=== PATIENT | female | born 1960 | race Caucasian/White ===

== ENCOUNTER → 2017-01-15 00:33 | Emergency (ER) | payer MEDICAID, MEDICARE, OTHER ==
[~2017-01-15 00:33] MED LIST: Cephalexin CAP* 500 MG PO ONE; diPHENhydraMINE PO* 25 MG PO ONE
--- NOTE | 2017-01-15 01:29 | ED ---
Skin Complaint - HPI Summary HPI Summary: Patient presents to ED with CC of redness, itching and warmth to the upper eyelid x 2 days with now worsening pain. She denies visual disturbances. She endorses allergies and has been outside a lot recently. She denies trauma or known insect bite. The eyelid began with itching and progressed to pain and swelling. No involvement in the medial or lateral portion of the eye. There is no pain with eye movement. - History of Current Complaint Chief Complaint: EDEyeProblem Time Seen by Provider: 01/15/17 00:57 Stated Complaint: LEFT EYE PROBLEM Hx Obtained From: Patient Hx Last Menstrual Period: 1995 Onset/Duration: Started Days Ago Skin Exposure Onset/Duration: Days Ago Timing: Constant Onset Severity: Moderate Current Severity: Moderate Pain Intensity: 7 Pain Scale Used: 0-10 Numeric Skin Location: Other: - upper eye lid Character: Swelling, Pruritus, Pain, Redness Aggravating Symptom(s): Touch Alleviating Symptom(s): Cold Associated Signs & Symptoms: Negative Related History: Possible Reaction to: Insect - Allergy/Home Medications Allergies/Adverse Reactions: Allergies Allergy/AdvReac Type Severity Reaction Status Date / Time Acetaminophen [From Tylenol] Allergy Severe seizures Verified 02/12/16 07:44 Aspirin Allergy Severe Hives Verified 02/12/16 07:44 Celecoxib [From Celebrex] Allergy Mild Hives Verified 02/12/16 07:44 Penicillins Allergy Mild Hives Verified 02/12/16 07:44 Phenytoin [From Dilantin] Allergy Mild Hives Verified 02/12/16 07:44 Rofecoxib [From Vioxx] Allergy Mild Hives Verified 02/12/16 07:44 Sulfa Drugs Allergy Mild Hives Verified 02/12/16 07:44 Ibuprofen [From Advil] AdvReac Severe seizures Verified 02/12/16 07:44 Clarithromycin [From Biaxin] AdvReac Intermediate GI PROBLEMS Verified 02/12/16 07:44 PMH/Surg Hx/FS Hx/Imm Hx Previously Healthy: Yes Endocrine/Hematology History: Denies: Hx Diabetes, Hx Systemic Lupus Erythematosus, Hx Sickle Cell Disease , Hx Thyroid Disease, Hx Anemia Cardiovascular History: Reports: Hx Angina, Hx Hypertension - WELL CONTROLLED Denies: Hx Congestive Heart Failure, Hx Deep Vein Thrombosis, Hx Myocardial Infarction, Hx Pacemaker/ICD, Other Cardiovascular Problems/Disorders Respiratory History: Reports: Hx Asthma, Hx Chronic Bronchitis, Hx Chronic Obstructive Pulmonary Disease (COPD), Hx Seasonal Allergies, Other Respiratory Problems/Disorders - CURRENT SMOKER <1/2 PPD X 20+ YEARS Denies: Hx Lung Cancer, Hx Pneumonia, Hx Sleep Apnea GI History: Reports: Hx Gall Bladder Disease - removed 10 years ago, Hx Gastroesophageal Reflux Disease - WELL CONTROLLED, Other GI Disorders - HX OF VENTRAL HERNIA REPAIR WITH MESH 01/2013, GERD Denies: Hx Gastrointestinal Bleed, Hx Ulcer, Hx Urosepsis History: Denies: Hx Dialysis, Hx Kidney Infection, Hx Kidney Stones, Hx Renal Disease , Other Problems/Disorders Musculoskeletal History: Reports: Hx Arthritis - HANDS, Hx Gout, Other Musculoskeletal History - BILATERAL TOTAL KNEE REPLACEMENT Denies: Hx Rheumatoid Arthritis Sensory History: Denies: Hx Contacts or Glasses, Hx Glaucoma, Hx Macular Degeneration Opthamlomology History: Denies: Hx Contacts or Glasses, Hx Glaucoma, Hx Macular Degeneration Neurological History: Reports: Hx Migraine - RARE, Hx Seizures - LAST ONE 6 YRS AGO Denies: Other Neuro Impairments/Disorders Psychiatric History: Reports: Hx Anxiety, Hx Depression Denies: Hx Eating Disorder, Hx of Violent Episodes Against Others, Hx Substance Abuse - Cancer History Hx Chemotherapy: No - Surgical History Surgery Procedure, Year, and Place: right TKA -02/2010 [facility] [place]. left TKA- 04/2011 [facility] [place]. [facility] [place] hysterectomy 1995. LAP FIDENCIO 2007. VENTRAL HERNIA REPAIR 01/2013 UMBILICAL HERNIA REPAIR. RIGHT INDEX TRIGGER FINGER 2005 [facility] [place]. R CTR 2013 [facility] Hx Anesthesia Reactions: No - Immunization History Date of Tetanus Vaccine: Unk Date of Influenza Vaccine: 03/29 Hx Pertussis Vaccination: No Immunizations Up to Date: Unable to Obtain/Confirm Infectious Disease History: No Infectious Disease History: Denies: Hx Clostridium Difficile, Hx Hepatitis, Hx Human Immunodeficiency Virus (HIV), Hx Shingles, Hx Tuberculosis, Hx Known/Suspected VRE, Hx Known/ Suspected VRSA, History Other Infectious Disease, Traveled Outside the [place] in Last 30 Days - Family History Known Family History: Positive: None, Other - No FHx of psychiatric disorders - Social History Occupation: Unemployed Lives: With Family Alcohol Use: None Hx Substance Use: No Substance Use Type: Reports: None Hx Tobacco Use: Yes Smoking Status (MU): Light Every Day Tobacco Smoker Type: Cigarettes Amount Used/How Often: 3 CIGS/DAY Length of Time of Smoking/Using Tobacco: 20 YRS Have You Smoked in the Last Year: Yes Review of Systems Constitutional: Negative Eyes: Negative ENT: Negative Cardiovascular: Negative Respiratory: Negative Positive: Other - erythema, warmth and slight swelling to the rigth upper eyelid Positive: Headache Psychological: Normal All Other Systems Reviewed And Are Negative: Yes Physical Exam Triage Information Reviewed: Yes Vital Signs On Initial Exam: Initial Vitals Temp Pulse Resp BP Pulse Ox 97.4 F 101 16 132/94 95 01/15/17 00:36 01/15/17 00:36 01/15/17 00:36 01/15/17 00:36 01/15/17 00:36 Vital Signs Reviewed: Yes Appearance: Positive: Well-Appearing, No Pain Distress, Well-Nourished Skin: Positive: Warm, Skin Color Reflects Adequate Perfusion, Other - erythema, warmth and slight swelling to the rigth upper eyelid Head/Face: Positive: Normal Head/Face Inspection Eyes: Positive: EOMI, ANTONIO, Conjunctiva Clear Neck: Positive: Supple, No Lymphadenopathy Respiratory/Lung Sounds: Positive: Clear to Auscultation, Breath Sounds Present Cardiovascular: Positive: Normal, RRR, Pulses are Symmetrical in both Upper and Lower Extremities Musculoskeletal: Positive: Normal, Strength/ROM Intact Neurological: Positive: Normal, Sensory/Motor Intact, Alert, Oriented to Person Place, Time Psychiatric: Positive: Normal Diagnostics - Vital Signs Vital Signs Temp Pulse Resp BP Pulse Ox 01/15/17 00:36 97.4 F 101 16 132/94 95 - Laboratory Lab Statement: Any lab studies that have been ordered have been reviewed, and results considered in the medical decision making process. Course/Dx - Course Course Of Treatment: erythema, warmth and slight swelling to the rigth upper eyelid worsening x 2 days. No known trauma or insect bite. Likely insect bite with cocomittant infection and/or pain over the lateral portion of the upper eyelids d/t anatomy and position of lacrimal gland overuse from allergies. Will treat with keflex and hydroxyzine and encourage cold compresses. - Differential Diagnoses - Skin Complaint Differential Diagnoses: Cellulitis, Contact Dermatitis, Urticaria - Diagnoses Provider Diagnoses: Bug bite of face with infection Discharge - Discharge Plan Condition: Stable Disposition: HOME Prescriptions: Cephalexin CAP* [Keflex CAP*] 500 mg PO QID #20 cap MDD 4 hydrOXYzine HCL TAB* [Atarax 10 MG TAB*] 10 mg PO TID PRN #10 tab PRN Reason: Itching Patient Education Materials: Insect Bite or Sting (ED) Referrals: Tatiana Geronimo MD [Primary Care Provider] - Additional Instructions: Likely this is a bug bite which could have become infected Best treatment includes cold compresses to the eye, antihistamines and hydroxyzine up to three times daily for itching Kelfex four times daily for 5 days. If you develop any worsening symptoms, return to ED immediately.
[2017-01-15 01:37] VITALS: BP 129/72
== END | disposition home or self-care (01) ==
LOC: ED 00:33
DX: S00.86XA Insect bite (nonvenomous) of other part of head, initial encounter (principal); L08.9 Local infection of the skin and subcutaneous tissue, unspecified; W57.XXXA Bitten or stung by nonvenomous insect and other nonvenomous arthropods, initial encounter; Y92.9 Unspecified place or not applicable; Z88.0 Allergy status to penicillin; Z88.2 Allergy status to sulfonamides; Z88.6 Allergy status to analgesic agent; F17.210 Nicotine dependence, cigarettes, uncomplicated
CPT/HCPCS: 99282; A9270-GY

== ENCOUNTER 2017-03-03 10:39 | Emergency (ER) | payer MEDICARE ==
--- NOTE | 2017-03-03 12:23 | ED ---
Back Pain - HPI Summary HPI Summary: Patient presents to the ED with CC of low back pain after changing a tire yesterday. She has a history of mild back pain, but not for several years. She began to feel increasing muscle tightness and pain this morning upon wakening. She is ambulating, but with pain. Pain is 5/10, feeling like spasms and located to the bilateral lower back without midline tenderness. She has never injured her back before. She has taken ibuprofen with little effect. She denies urinary symptoms or other complaints at this time. Pain is worse with twisting and bending and better with rest. Denies bladder or bowel dysfunction. She endorses multiple allergies to medications. - History of Current Complaint Chief Complaint: EDBackInjuryPain Stated Complaint: BACK PAIN Time Seen by Provider: 03/03/17 11:03 Hx Obtained From: Patient Hx Last Menstrual Period: 1995 Onset/Duration: Sudden Onset Onset/Duration: Started Hours Ago Timing: Constant Back Pain Location: Is Discrete @ - bilateral lower back Pain Intensity: 9 Pain Scale Used: 0-10 Numeric Character: Aching, Spasmodic Aggravating Symptom(s): Movement, Lifting, Walking Alleviating Symptom(s): Position Associated Signs And Symptoms: Positive: Negative - Risk Factors AAA Risk Factors: Negative TAD Risk Factors: Negative Cauda Equina Risk Factors: Negative Epidural Abscess Risk Factors: Negative - Allergies/Home Medications Allergies/Adverse Reactions: Allergies Allergy/AdvReac Type Severity Reaction Status Date / Time Acetaminophen [From Tylenol] Allergy Severe seizures Verified 02/12/16 07:44 Aspirin Allergy Severe Hives Verified 02/12/16 07:44 Celecoxib [From Celebrex] Allergy Mild Hives Verified 02/12/16 07:44 Penicillins Allergy Mild Hives Verified 02/12/16 07:44 Phenytoin [From Dilantin] Allergy Mild Hives Verified 02/12/16 07:44 Rofecoxib [From Vioxx] Allergy Mild Hives Verified 02/12/16 07:44 Sulfa Drugs Allergy Mild Hives Verified 02/12/16 07:44 Ibuprofen [From Advil] AdvReac Severe seizures Verified 02/12/16 07:44 Clarithromycin [From Biaxin] AdvReac Intermediate GI PROBLEMS Verified 02/12/16 07:44 PMH/Surg Hx/FS Hx/Imm Hx Previously Healthy: Yes Endocrine/Hematology History: Denies: Hx Diabetes, Hx Systemic Lupus Erythematosus, Hx Sickle Cell Disease , Hx Thyroid Disease, Hx Anemia Cardiovascular History: Reports: Hx Angina, Hx Hypertension - WELL CONTROLLED Denies: Hx Congestive Heart Failure, Hx Deep Vein Thrombosis, Hx Myocardial Infarction, Hx Pacemaker/ICD, Other Cardiovascular Problems/Disorders Respiratory History: Reports: Hx Asthma, Hx Chronic Bronchitis, Hx Chronic Obstructive Pulmonary Disease (COPD), Hx Seasonal Allergies, Other Respiratory Problems/Disorders - CURRENT SMOKER <1/2 PPD X 20+ YEARS Denies: Hx Lung Cancer, Hx Pneumonia, Hx Sleep Apnea GI History: Reports: Hx Gall Bladder Disease - removed 10 years ago, Hx Gastroesophageal Reflux Disease - WELL CONTROLLED, Other GI Disorders - HX OF VENTRAL HERNIA REPAIR WITH MESH 01/2013, GERD Denies: Hx Gastrointestinal Bleed, Hx Ulcer, Hx Urosepsis History: Denies: Hx Dialysis, Hx Kidney Infection, Hx Kidney Stones, Hx Renal Disease , Other Problems/Disorders Musculoskeletal History: Reports: Hx Arthritis - HANDS, Hx Gout, Other Musculoskeletal History - BILATERAL TOTAL KNEE REPLACEMENT Denies: Hx Rheumatoid Arthritis Sensory History: Denies: Hx Contacts or Glasses, Hx Glaucoma, Hx Macular Degeneration Opthamlomology History: Denies: Hx Contacts or Glasses, Hx Glaucoma, Hx Macular Degeneration Neurological History: Reports: Hx Migraine - RARE, Hx Seizures - LAST ONE 6 YRS AGO Denies: Other Neuro Impairments/Disorders Psychiatric History: Reports: Hx Anxiety, Hx Depression Denies: Hx Eating Disorder, Hx of Violent Episodes Against Others, Hx Substance Abuse - Cancer History Hx Chemotherapy: No - Surgical History Surgery Procedure, Year, and Place: [place] [facility] [place] [facility] [place] [facility] [place]. LAP FIDENCIO 2007. VENTRAL HERNIA REPAIR 01/2013 UMBILICAL HERNIA REPAIR. RIGHT INDEX TRIGGER [place]INGER [place] [facility] [place] [facility] [place]x Anesthesia Reactions: No - Immunization History Date of Tetanus Vaccine: Unk Date of Influenza Vaccine: 03/29 Hx Pertussis Vaccination: No Immunizations Up to Date: Unable to Obtain/Confirm Infectious Disease History: Denies: Hx Clostridium Difficile, Hx Hepatitis, Hx Human Immunodeficiency Virus (HIV), Hx Shingles, Hx Tuberculosis, Hx Known/Suspected VRE, Hx Known/ Suspected VRSA, History Other Infectious Disease, Traveled Outside the [place] in Last 30 Days - Family History Known Family History: Positive: None, Other - No FHx of psychiatric disorders - Social History Occupation: Employed Full-time Lives: With Family Alcohol Use: None Hx Substance Use: No Substance Use Type: Reports: None Hx Tobacco Use: Yes Smoking Status (MU): Light Every Day Tobacco Smoker Type: Cigarettes Amount Used/How Often: 3 CIGS/DAY Length of Time of Smoking/Using Tobacco: 20 YRS Have You Smoked in the Last Year: Yes Review of Systems Constitutional: Negative Eyes: Negative Respiratory: Negative Gastrointestinal: Negative Positive: no symptoms reported, see HPI Positive: Arthralgia - bilateral lower back pain with spasms Skin: Negative Neurological: Negative Psychological: Normal All Other Systems Reviewed And Are Negative: Yes Physical Exam - Summary Physical Exam Summary: Thorough physical exam was performed, focusing on thoracic and lumbar special tests and ROM. Limited ROM. Hip flexion and extension, knee extension, dorsiflexion, great toe extension and plantar flexion intact. Rotating at hips limited d/t pain. Nerve roots L4-S2 reflexes intact. L1-S2 nerve root sensory intact. No saddle anesthesia. Gait normal. Triage Information Reviewed: Yes Vital Signs On Initial Exam: Initial Vitals Temp Pulse Resp BP Pulse Ox 97.4 F 77 20 136/78 97 03/03/17 10:41 03/03/17 10:41 03/03/17 10:41 03/03/17 10:41 03/03/17 10:41 Vital Signs Reviewed: Yes Appearance: Positive: Well-Appearing, Well-Nourished Skin: Positive: Warm, Skin Color Reflects Adequate Perfusion Head/Face: Positive: Normal Head/Face Inspection Eyes: Positive: EOMI, ANTONIO, Conjunctiva Clear Neck: Positive: Supple, No Lymphadenopathy Respiratory/Lung Sounds: Positive: Clear to Auscultation, Breath Sounds Present Musculoskeletal: Positive: Strength/ROM Intact, Pain @ - right and left lower back pain Neurological: Positive: Speech Normal Psychiatric: Positive: Normal AVPU Assessment: Alert - Cal Coma Scale Best Eye Response: 4 - Spontaneous Best Motor Response: 6 - Obeys Commands Best Verbal Response: 5 - Oriented Diagnostics - Vital Signs Vital Signs Temp Pulse Resp BP Pulse Ox 03/03/17 10:41 97.4 F 77 20 136/78 97 - Laboratory Lab Statement: Any lab studies that have been ordered have been reviewed, and results considered in the medical decision making process. Back Pain Course/Dx - Course Course Of Treatment: D/t how the injury occurred, this pain is likely a muscle spasm and not herniation or compression fracture or other concerning pathology. Treatment options explained. Patient and provider agreed conservative measures will be approached first, and will defer at this time any imaging. Encouraged Ibuprofen 600mg three times daily with meals for pain. Moist heat to the area and only take flexeril as needed for pain not well controlled with ibuprofen. Return precautions given. Educated patient regarding back injuries and healing time and the need for further imaging if discomfort is present for > 6 weeks. - Diagnoses Differential Diagnosis/HQI/PQRI: Positive: Herniated Disc, Strain, Sprain Provider Diagnoses: Muscle spasm Discharge - Discharge Plan Condition: Stable Disposition: HOME Prescriptions: Cyclobenzaprine TAB* [Flexeril TAB*] 10 mg PO BID PRN #10 tab MDD 2 PRN Reason: Spasms Patient Education Materials: Lumbar Radiculopathy (ED), Lower Back Exercises ( ED) Referrals: Tatiana Geronimo MD [Primary Care Provider] - Additional Instructions: Follow up with your PCP this week With no injury, as discussed this is likely a low back strain with muscular spasms causing the sciatic nerve pain and left sided low back pain. Will defer at this time any imaging but please return to the ED if any worsening symptoms develop for further evaluation. Moist heat to the area as much as possible: this may include a rice bag or a corn bag. Anything that can be placed in the microwave. Flexeril: This medication is a muscle relaxant and can help relieve muscle spasms, muscle strain, or pain sensations. Flexeril can cause side effects that may impair your thinking or reactions. Be careful if you drive or do anything that requires you to be awake and alert. Avoid drinking alcohol, which can increase some of the side effects of Flexeril. This medication may have an interaction with your Effexor if taken for too long. I have given you a maximum of 5 days worth. If you develop any symptoms you feel is caused from an interaction including agitation, confusion, sweating , heart racing or nausea, please return to the ED immediately. Warm showers or baths may improve symptoms. It is important to remain mobile as tolerated to prevent stiffening of the joints and delay healing. Follow up with your PCP. If symptoms remain for > 6 weeks, please seek special medical attention from an orthopedic physician.
[2017-03-03 12:48] VITALS: BP 133/79
== END 2017-03-03 12:53 | disposition home or self-care (01) ==
LOC: ED 10:39
DX: M62.838 Other muscle spasm (principal); M54.5 Low back pain; F17.210 Nicotine dependence, cigarettes, uncomplicated
CPT/HCPCS: 99282

== ENCOUNTER 2017-03-09 02:04 | Emergency (ER) | payer MEDICARE ==
[2017-03-09 02:14] VITALS: BP 142/92
--- NOTE | 2017-03-09 02:57 | ED ---
Benjamin Boykin Rebecca, scribed for Darius Osman MD on 03/09/17 at 0251 . Back Pain - HPI Summary HPI Summary: Pt is a 56 y/o F who presents to ED c/o upper back and neck pain with radiation down the shoulders. Sx began 3 days ago and is currently moderate, ranked 7/10 and characterized as throbbing. Pt has taken Oxycodone and a muscle relaxant ( unsure of name) when she went to see her PCP either today or yesterday (unsure of which day). Sx aggravated by moving the head in either direction and laying down, alleviated by nothing. Pt cannot take Ibuprofen or Tylenol due to them triggering her seizures. - History of Current Complaint Chief Complaint: EDBackInjuryPain Stated Complaint: BACK AND NECK PAIN INTO SHOULDERS Time Seen by Provider: 03/09/17 02:46 Hx Obtained From: Patient Hx Last Menstrual Period: 1995 Onset/Duration: Lasting Days - 3 days, Still Present Onset/Duration: Still Present Back Pain Location: Is Discrete @ - Upper back and neck pain, Radiates To - Bilateral shoulders Severity Currently: Moderate Pain Intensity: 7 Pain Scale Used: 0-10 Numeric Character: Throbbing Aggravating Symptom(s): Movement Alleviating Symptom(s): Nothing Associated Signs And Symptoms: Positive: Negative - Allergies/Home Medications Allergies/Adverse Reactions: Allergies Allergy/AdvReac Type Severity Reaction Status Date / Time Acetaminophen [From Tylenol] Allergy Severe seizures Verified 02/12/16 07:44 Aspirin Allergy Severe Hives Verified 02/12/16 07:44 Celecoxib [From Celebrex] Allergy Mild Hives Verified 02/12/16 07:44 Penicillins Allergy Mild Hives Verified 02/12/16 07:44 Phenytoin [From Dilantin] Allergy Mild Hives Verified 02/12/16 07:44 Rofecoxib [From Vioxx] Allergy Mild Hives Verified 02/12/16 07:44 Sulfa Drugs Allergy Mild Hives Verified 02/12/16 07:44 Ibuprofen [From Advil] AdvReac Severe seizures Verified 02/12/16 07:44 Clarithromycin [From Biaxin] AdvReac Intermediate GI PROBLEMS Verified 02/12/16 07:44 PMH/Surg Hx/FS Hx/Imm Hx Endocrine/Hematology History: Denies: Hx Diabetes, Hx Systemic Lupus Erythematosus, Hx Sickle Cell Disease , Hx Thyroid Disease, Hx Anemia Cardiovascular History: Reports: Hx Angina, Hx Hypertension - WELL CONTROLLED Denies: Hx Congestive Heart Failure, Hx Deep Vein Thrombosis, Hx Myocardial Infarction, Hx Pacemaker/ICD, Other Cardiovascular Problems/Disorders Respiratory History: Reports: Hx Asthma, Hx Chronic Bronchitis, Hx Chronic Obstructive Pulmonary Disease (COPD), Hx Seasonal Allergies, Other Respiratory Problems/Disorders - CURRENT SMOKER <1/2 PPD X 20+ YEARS Denies: Hx Lung Cancer, Hx Pneumonia, Hx Sleep Apnea GI History: Reports: Hx Gall Bladder Disease - removed 10 years ago, Hx Gastroesophageal Reflux Disease - WELL CONTROLLED, Other GI Disorders - HX OF VENTRAL HERNIA REPAIR WITH MESH 01/2013, GERD Denies: Hx Gastrointestinal Bleed, Hx Ulcer, Hx Urosepsis History: Denies: Hx Dialysis, Hx Kidney Infection, Hx Kidney Stones, Hx Renal Disease , Other Problems/Disorders Musculoskeletal History: Reports: Hx Arthritis - HANDS, Hx Gout, Other Musculoskeletal History - BILATERAL TOTAL KNEE REPLACEMENT Denies: Hx Rheumatoid Arthritis Sensory History: Denies: Hx Contacts or Glasses, Hx Glaucoma, Hx Macular Degeneration Opthamlomology History: Denies: Hx Contacts or Glasses, Hx Glaucoma, Hx Macular Degeneration Neurological History: Reports: Hx Migraine - RARE, Hx Seizures - LAST ONE 6 YRS AGO Denies: Other Neuro Impairments/Disorders Psychiatric History: Reports: Hx Anxiety, Hx Depression Denies: Hx Eating Disorder, Hx of Violent Episodes Against Others, Hx Substance Abuse - Cancer History Hx Chemotherapy: No - Surgical History Surgery Procedure, Year, and Place: right TKA -02/2010 [facility] [place]. left TKA- 04/2011 [facility] [place]. [facility] [place] hysterectomy 1995. LAP FIDENCIO 2007. VENTRAL HERNIA REPAIR 01/2013 UMBILICAL HERNIA REPAIR. RIGHT INDEX TRIGGER FINGER 2005 [facility] [place]. R CTR 2013 [facility] [place] Hx Anesthesia Reactions: No - Immunization History Date of Tetanus Vaccine: Unk Date of Influenza Vaccine: 03/29 Infectious Disease History: No Infectious Disease History: Denies: Hx Clostridium Difficile, Hx Hepatitis, Hx Human Immunodeficiency Virus (HIV), Hx Shingles, Hx Tuberculosis, Hx Known/Suspected VRE, Hx Known/ Suspected VRSA, History Other Infectious Disease, Traveled Outside the [place] in Last 30 Days - Family History Known Family History: Positive: Other - No FHx of psychiatric disorders - Social History Alcohol Use: None Hx Substance Use: No Substance Use Type: Reports: None Hx Tobacco Use: Yes Smoking Status (MU): Light Every Day Tobacco Smoker Type: Cigarettes Amount Used/How Often: 3 CIGS/DAY Length of Time of Smoking/Using Tobacco: 20 YRS Have You Smoked in the Last Year: Yes Review of Systems Negative: Fever Positive: Arthralgia - Upper back and neck pain with radiation down the shoulders All Other Systems Reviewed And Are Negative: Yes Physical Exam Triage Information Reviewed: Yes Vital Signs On Initial Exam: Initial Vitals Temp Pulse Resp BP Pulse Ox 97.2 F 80 19 142/92 95 03/09/17 02:12 03/09/17 02:12 03/09/17 02:12 03/09/17 02:12 03/09/17 02:12 Vital Signs Reviewed: Yes Appearance: Positive: Well-Appearing, No Pain Distress Skin: Positive: Warm Head/Face: Positive: Normal Head/Face Inspection Eyes: Positive: ANTONIO ENT: Positive: Hearing grossly normal Neck: Positive: Supple, Nontender. Negative: Nuchal Rigidity Cardiovascular: Positive: RRR Abdomen Description: Positive: Soft Bowel Sounds: Positive: Present Musculoskeletal: Positive: Strength/ROM Intact Neurological: Positive: Alert, Oriented to Person Place, Time Diagnostics - Vital Signs Vital Signs Temp Pulse Resp BP Pulse Ox 03/09/17 02:12 97.2 F 80 19 142/92 95 - Laboratory Lab Statement: Any lab studies that have been ordered have been reviewed, and results considered in the medical decision making process. Back Pain Course/Dx - Course Assessment/Plan: Pt is a 56 y/o F who presents to ED c/o upper back and neck pain with radiation down the shoulders. Sx began 3 days ago and is currently moderate, ranked 7/10 and characterized as throbbing. Pt has taken Oxycodone and a muscle relaxant (unsure of name) when she went to see her PCP either today or yesterday (unsure of which day). Sx aggravated by moving the head in either direction and laying down. Pt cannot take Ibuprofen or Tylenol due to them triggering her seizures. She will be D/C to home with Dx of neck pain, a soft C-Collar and a follow up with her PCP. She understands and agrees. Elevated BP noted and advised to f/u with PCP. - Diagnoses Provider Diagnoses: Neck pain Discharge - Discharge Plan Condition: Stable Disposition: HOME Patient Education Materials: Neck Pain (ED) Referrals: Tatiana Geronimo MD [Primary Care Provider] - 3 Days Additional Instructions: Return to ED for any returning or worsening symptoms. The documentation as recorded by the Benjamin mcneal Rebecca accurately reflects the service I personally performed and the decisions made by , Darius Osman MD.
== END 2017-03-09 02:57 | disposition home or self-care (01) ==
LOC: ED 02:04
DX: M54.9 Dorsalgia, unspecified (principal); M54.2 Cervicalgia
CPT/HCPCS: 99281

== ENCOUNTER 2017-04-21 06:03 | Emergency (ER) | payer MEDICARE ==
[2017-04-21] MEDS ORDERED: Ondansetron INJ* 2 MG/ML VIAL IV ONE ×2 (07:50→10:05)
[2017-04-21] MEDS: NS 0.9% 1000 ML* 2,000 ML IV ONE ×2 (08:20→09:31)
[2017-04-21 08:52] LABS: Hematocrit 42 % (35-47); Mean Corpuscular HGB Conc 34 g/dl (31-36); Mean Corpuscular Hemoglobin 30 pg (27-31); Mean Corpuscular Volume 90 fL (80-97); Mean Platelet Volume 10 um3 (7.4-10.4); Red Blood Count 4.64 10^6/ul (4.0-5.4); Red Cell Distribution Width 14 % (10.5-15); White Blood Count 8.6 10^3/ul (3.5-10.8)
[2017-04-21 09:03] LABS: Albumin 3.9 g/dL (3.2-5.2); BUN/Creatinine Ratio 23.8 (8-20); C Reactive Protein 11.73 mg/L (< 5.00); Calcium 9.1 mg/dL (8.6-10.3); EGFR African American 125.3 (>60); EGFR Non-African American 97.4 (>60); Potassium 4.1 mmol/L (3.5-5.0); Total Bilirubin 0.2 mg/dL (0.2-1.0); Total Protein 6.9 g/dL (6.4-8.9)
[2017-04-21 09:06] LABS: Troponin I 0.01 ng/mL (<0.04)
[2017-04-21] MEDS ORDERED: Al Hydrox/Mg Hydrox/Simet LIQ* 30 ML UDC PO ONE (10:05)
[2017-04-21] MEDS ORDERED: Lidocaine 2% VISCOUS* 15 ML UDC PO ONE (10:05)
[2017-04-21 13:34] VITALS: BP 120/87
--- NOTE | 2017-04-26 12:40 | ED ---
Noel Boykin Alfonso, scribed for David Em MD on 04/21/17 at 0753 . Abdominal Pain/Female - HPI Summary HPI Summary: This patient is a 56 year old F presenting to [facility] with a chief complaint of abdominal pain since 0100 today. The patient rates the pain 9/10 in severity. Symptoms aggravated by nothing. Symptoms alleviated by nothing. 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 Patient reports vomiting (last at 0400 today), diarrhea (watery stool earlier in the night but resolved in her last BM at 0300), dizziness, lightheadedness, chills, and diaphoresis. Patient denies fever, back pain, and shoulder pain. Tobacco abuse disorder. - History of Current Complaint Chief Complaint: EDAbdPain Stated Complaint: VOMITING/FEVER Time Seen by Provider: 04/21/17 07:46 Hx Obtained From: Patient Onset/Duration: Sudden Onset, Lasting Hours - 0100 today, Still Present Timing: Constant Severity Currently: Severe Pain Intensity: 9 Pain Scale Used: 0-10 Numeric Aggravating Factor(s): Nothing Alleviating Factor(s): Nothing Associated Signs and Symptoms: Positive: Other: - vomiting (last at 0400 today) , diarrhea (watery stool earlier in the night but resolved in her last BM at 0300), dizziness, lightheadedness, chills, and diaphoresis. Patient denies fever , back pain, and shoulder pain. Allergies/Adverse Reactions: Allergies Allergy/AdvReac Type Severity Reaction Status Date / Time Acetaminophen [From Tylenol] Allergy Severe seizures Verified 04/21/17 06:15 Aspirin Allergy Severe Hives Verified 04/21/17 06:15 Celecoxib [From Celebrex] Allergy Mild Hives Verified 04/21/17 06:15 Penicillins Allergy Mild Hives Verified 04/21/17 06:15 Phenytoin [From Dilantin] Allergy Mild Hives Verified 04/21/17 06:15 Rofecoxib [From Vioxx] Allergy Mild Hives Verified 04/21/17 06:15 Sulfa Drugs Allergy Mild Hives Verified 04/21/17 06:15 Ibuprofen [From Advil] AdvReac Severe seizures Verified 04/21/17 06:15 Clarithromycin [From Biaxin] AdvReac Intermediate GI PROBLEMS Verified 04/21/17 06:15 PMH/Surg Hx/FS Hx/Imm Hx Endocrine/Hematology History: Denies: Hx Diabetes, Hx Systemic Lupus Erythematosus, Hx Sickle Cell Disease , Hx Thyroid Disease, Hx Anemia Cardiovascular History: Reports: Hx Angina, Hx Hypertension - WELL CONTROLLED Denies: Hx Congestive Heart Failure, Hx Deep Vein Thrombosis, Hx Myocardial Infarction, Hx Pacemaker/ICD, Other Cardiovascular Problems/Disorders Respiratory History: Reports: Hx Asthma, Hx Chronic Bronchitis, Hx Chronic Obstructive Pulmonary Disease (COPD), Hx Seasonal Allergies, Other Respiratory Problems/Disorders - CURRENT SMOKER <1/2 PPD X 20+ YEARS Denies: Hx Lung Cancer, Hx Pneumonia, Hx Sleep Apnea GI History: Reports: Hx Gall Bladder Disease - removed 10 years ago, Hx Gastroesophageal Reflux Disease - WELL CONTROLLED, Other GI Disorders - HX OF VENTRAL HERNIA REPAIR WITH MESH 01/2013, GERD Denies: Hx Gastrointestinal Bleed, Hx Ulcer, Hx Urosepsis History: Denies: Hx Dialysis, Hx Kidney Infection, Hx Kidney Stones, Hx Renal Disease , Other Problems/Disorders Musculoskeletal History: Reports: Hx Arthritis - HANDS, Hx Gout, Other Musculoskeletal History - BILATERAL TOTAL KNEE REPLACEMENT Denies: Hx Rheumatoid Arthritis Sensory History: Denies: Hx Contacts or Glasses, Hx Glaucoma, Hx Macular Degeneration Opthamlomology History: Denies: Hx Contacts or Glasses, Hx Glaucoma, Hx Macular Degeneration Neurological History: Reports: Hx Migraine - RARE, Hx Seizures - LAST ONE 6 YRS AGO Denies: Other Neuro Impairments/Disorders Psychiatric History: Reports: Hx Anxiety, Hx Depression Denies: Hx Eating Disorder, Hx of Violent Episodes Against Others, Hx Substance Abuse - Cancer History Hx Chemotherapy: No - Surgical History Surgery Procedure, Year, and Place: right TKA -02/2010 [facility] [place]. left TKA- 04/2011 [facility] [place]. [facility] [place] hysterectomy 1995. LAP FIDENCIO 2007. VENTRAL HERNIA REPAIR 01/2013 UMBILICAL HERNIA REPAIR. RIGHT INDEX TRIGGER FINGER 2005 [facility] [place]. R CTR 2013 [facility] [place] Hx Anesthesia Reactions: No - Immunization History Date of Tetanus Vaccine: Unk Date of Influenza Vaccine: 03/29 Infectious Disease History: No Infectious Disease History: Denies: Hx Clostridium Difficile, Hx Hepatitis, Hx Human Immunodeficiency Virus (HIV), Hx Shingles, Hx Tuberculosis, Hx Known/Suspected VRE, Hx Known/ Suspected VRSA, History Other Infectious Disease, Traveled Outside the [place] in Last 30 Days - Family History Known Family History: Positive: Other - No FHx of psychiatric disorders - Social History Alcohol Use: None Hx Substance Use: No Substance Use Type: Reports: None Hx Tobacco Use: Yes Smoking Status (MU): Light Every Day Tobacco Smoker Type: Cigarettes Amount Used/How Often: 3 CIGS/DAY Length of Time of Smoking/Using Tobacco: 20 YRS Have You Smoked in the Last Year: Yes Review of Systems Positive: Chills, Skin Diaphoresis. Negative: Fever Negative: Erythema Negative: Sore Throat Negative: Chest Pain Negative: Shortness Of Breath, Cough Positive: Abdominal Pain, Vomiting, Diarrhea. Negative: Nausea Negative: dysuria, hematuria Positive: Other - Negative back and shoulder pain. Negative: Myalgia, Edema Negative: Rash Neurological: Other - Dizziness, lightheadedness All Other Systems Reviewed And Are Negative: Yes Physical Exam - Summary Physical Exam Summary: Constitutional: Well-developed, Well-nourished, Alert. (-) Distressed Skin: Warm, Dry HENT: Normocephalic; Atraumatic Eyes: Conjunctiva normal, Dry oral mucosa Neck: Musculoskeletal ROM normal neck. (-) JVD, (-) Stridor, (-) Tracheal deviation Cardio: Rhythm regular, rate normal, Heart sounds normal; Intact distal pulses; The pedal pulses are 2+ and symmetric. Radial pulses are 2+ and symmetric. (-) Murmur Pulmonary/Chest wall: Effort normal. (-) Respiratory distress, (-) Wheezes, (-) Rales Abd: Soft, Epigastric and LUQ tenderness, (-) Distension, (-) Guarding, (-) Rebound Musculoskeletal: (-) Edema Lymph: (-) Cervical adenopathy Neuro: Alert, Oriented x3 Psych: Mood and affect Normal Triage Information Reviewed: Yes Vital Signs On Initial Exam: Initial Vitals Temp Pulse Resp BP Pulse Ox 97.5 F 80 18 128/78 97 04/21/17 06:11 04/21/17 06:11 04/21/17 06:11 04/21/17 06:11 04/21/17 06:11 Vital Signs Reviewed: Yes - [place] Coma Scale Coma Scale Total: 15 Diagnostics - Vital Signs Vital Signs Temp Pulse Resp BP Pulse Ox 04/21/17 06:11 97.5 F 80 18 128/78 97 - Laboratory Result Diagrams: 04/21/17 08:23 04/21/17 08:23 Lab Statement: Any lab studies that have been ordered have been reviewed, and results considered in the medical decision making process. - EKG 0823 Cardiac Rate: NL - BPM 71 EKG Rhythm: Sinus Rhythm EKG Interpretation: No STEMI Re-Evaluation - Re-Evaluation First Eval Re-Evaluation Time: 12:58 Change: Improved Comment: She reports feeling much better and asks to be discharged. Abdominal Pain Fem Course/Dx - Course Course Of Treatment: This patient is a 56 year old F presenting to [facility] with a chief complaint of abdominal pain since 0100 today. The patient rates the pain 9 /10 in severity. Symptoms aggravated by nothing. Symptoms alleviated by nothing. 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 Patient reports vomiting (last at 0400 today), diarrhea (watery stool earlier in the night but resolved in her last BM at 0300), dizziness, lightheadedness, chills, and diaphoresis. Patient denies fever, back pain, and shoulder pain. Tobacco abuse disorder. An EKG reveals NSR. Patient will be discharged with prescription for Zofran and follow up from PCP. The patient is agreeable with this plan. - Diagnoses Provider Diagnoses: Gastroenteritis Discharge - Discharge Plan Condition: Stable Disposition: HOME Prescriptions: Omeprazole CAP* [Prilosec CAP* 20 MG] 40 mg PO DAILY #7 cap. Ondansetron TAB* [Zofran 4 MG Tab*] 4 mg PO Q8H PRN #10 tab PRN Reason: Nausea/Vomiting Patient Education Materials: Gastroenteritis (ED) Referrals: Tatiana Geronimo MD [Primary Care Provider] - 3 Days Additional Instructions: RETURN TO THE EMERGENCY DEPARTMENT FOR CHANGING OR WORSENING SYMPTOMS. The documentation as recorded by the Noel mcneal Alfonso accurately reflects the service I personally performed and the decisions made by me, David Em MD.
== END 2017-04-21 13:35 | disposition home or self-care (01) ==
LOC: ED 06:03
DX: K52.9 Noninfective gastroenteritis and colitis, unspecified (principal); R11.10 Vomiting, unspecified; R19.7 Diarrhea, unspecified; R42 Dizziness and giddiness
CPT/HCPCS: 36415; 80053; 83605; 83690; 84484; 85025; 86140; 93005; 96361; 96374; 99284; A9270-GY; J2405

== ENCOUNTER 2017-12-21 16:05 | Emergency (ER) | payer MEDICARE ==
[2017-12-21 16:24] VITALS: BP 131/86
--- NOTE | 2017-12-21 16:25 | UC ---
Lower Extremity/Ankle HPI - HPI Summary HPI Summary: 57 y/o female presents to the urgent care c/o a scabbed area in her left calf for the past month. Pt can't recalled if she had an insect bite. However fr the past week she has developed mild redness around the scab and now w/ pain at touch and getting bigger. Pt has become concerned since now it is getting infected. Pt states pain is 7/10 at touch. Pt denies fever, SOB, calf pain, abdominal pain, N/V/D, palpitations. - History of Current Complaint Chief Complaint: UCLowerExtremity Stated Complaint: BUMP ON LEFT LEG Time Seen by Provider: 12/21/17 16:23 Hx Obtained From: Patient Hx Last Menstrual Period: 1995 Onset/Duration: Gradual Onset, Lasting Weeks - 4 weeks, Worse Since - last 3 days Severity Initially: Mild Severity Currently: Moderate Pain Intensity: 7 - at touch Pain Scale Used: 0-10 Numeric Aggravating Factor(s): Other - touch Alleviating Factor(s): Nothing Able to Bear Weight: Yes - Risk Factors Gout Risk Factors: Negative DVT Risk Factors: Negative Septic Arthritis Risk Factor: Negative - Allergies/Home Medications Allergies/Adverse Reactions: Allergies Allergy/AdvReac Type Severity Reaction Status Date / Time acetaminophen Allergy Severe See Comment Verified 12/21/17 16:53 aspirin Allergy Severe Hives Verified 12/21/17 16:53 ibuprofen Allergy Severe See Comment Verified 12/21/17 16:53 clarithromycin Allergy Intermediate GI Upset Verified 12/21/17 16:53 celecoxib [From Celebrex] Allergy Mild Hives Verified 12/21/17 16:53 Penicillins Allergy Mild Hives Verified 12/21/17 16:53 phenytoin [From Dilantin] Allergy Mild Hives Verified 12/21/17 16:53 rofecoxib [From Vioxx] Allergy Mild Hives Verified 12/21/17 16:53 Sulfa (Sulfonamide Allergy Mild Hives Verified 12/21/17 16:53 Antibiotics) Home Medications: Home Medications Gabapentin TAB(NF) [Neurontin 600 mg TAB(NF)] 300 mg QAM 12/21/17 [History Confirmed 12/21/17] Gabapentin TAB(NF) [Neurontin 600 mg TAB(NF)] 600 mg BEDTIME 12/21/17 [History Confirmed 06/09/18] PMH/Surg Hx/FS Hx/Imm Hx Previously Healthy: Yes Cardiovascular History: Hypertension GI/ History: Gastroesophageal Reflux Neurological History: Seizures Other Neurological History: chronic back and neck pain Psychological History: Depression - Surgical History Surgical History: Yes Surgery Procedure, Year, and Place: right TKA -02/2010 [facility]. left TKA- 04/2011 [facility]. [facility] hysterectomy 1995. LAP FIDENCIO 2007. VENTRAL HERNIA REPAIR 01/2013 UMBILICAL HERNIA REPAIR. RIGHT INDEX TRIGGER FINGER 2005 [facility]. R CTR 2013 [facility] - Family History Known Family History: Positive: Hypertension - Social History Occupation: Employed Full-time Lives: With Family Alcohol Use: None Substance Use Type: None Smoking Status (MU): Light Every Day Tobacco Smoker Type: Cigarettes Amount Used/How Often: 3 CIGS/DAY Length of Time of Smoking/Using Tobacco: 20 YRS Have You Smoked in the Last Year: Yes Household Exposure Type: Cigarettes - Immunization History Most Recent Influenza Vaccination: 2013 Most Recent Tetanus Shot: 2012 Most Recent Pneumonia Vaccination: 9 years ago Review of Systems Constitutional: Negative Skin: Rash - left lower leg w/ a scab and redness Eyes: Negative ENT: Negative Respiratory: Negative Cardiovascular: Negative Gastrointestinal: Negative Genitourinary: Negative Motor: Negative Neurovascular: Negative Musculoskeletal: Negative Neurological: Negative Psychological: Negative Is Patient Immunocompromised?: No All Other Systems Reviewed And Are Negative: Yes Physical Exam - Summary Physical Exam Summary: Vital Signs Reviewed: Yes General: well developed, well nourished female sitting in the examining table w/ o any apparent distress. Eyes: Positive: Conjunctiva Clear - PERRLA, EOMI ENT: Positive: Normal ENT inspection, Hearing grossly normal, Pharynx normal, TMs normal Neck: Positive: Supple, Nontender, No Lymphadenopathy Respiratory: Positive: Chest nontender, Lungs clear, Normal breath sounds Cardiovascular: Positive: RRR, No Murmur, Pulses Normal Abdomen Description: Positive: Nontender, No Organomegaly, Soft. Negative: CVA Tenderness (R), CVA Tenderness (L) Bowel Sounds: Positive: Present Musculoskeletal: Positive: Strength Intact, ROM Intact, No Edema Neurological Exam: Normal Psychological Exam: Normal Skin: Positive: rashes - RT ventral side of Rt forearm w/ erythematous patch w/ indistinct borders, warm to touch, swelling and tender to palpation. Triage Information Reviewed: Yes Vital Signs: Initial Vital Signs Temp 98.3 F 12/21/17 16:18 Pulse 87 06/09/18 16:18 Resp 18 12/21/17 16:18 BP 131/86 12/21/17 16:18 Pulse Ox 96 12/21/17 16:18 Lower Extremity Course/Dx - Course Course Of Treatment: 57 y/o female presents to the urgent care c/o a scabbed area in her left calf for the past month. Pt can't recalled if she had an insect bite. However fr the past week she has developed mild redness around the scab and now w/ pain at touch and getting bigger. Pt has become concerned since now it is getting infected. Pt states pain is 7/10 at touch. Pt denies fever, SOB, calf pain, abdominal pain, N/V/D, palpitations. Hx obtained. Pt w/ Cellulitis of posterior aspect ot left lower leg probably an insect bite or co- infection. Pt w/ multiple medication allergies. Rx Doxycycline PO, and topical Bacitracin ointment. Pt advised if rash doubles in size and if she develops fever to go to the ER for further treatment. Pt also advised if cellulitis improve and scab still present to f/u w/ Dermatolgist for further management. Pt understood and agreed w/ plan of care. - Differential Dx/Diagnosis Differential Diagnosis/HQI/PQRI: Cellulitis, DVT, Infection, Sprain, Strain, Other - MRSA, cellulitis, abscess, skin cancer Provider Diagnoses: 1- Left lower leg cellulitis Discharge - Sign-Out/Discharge Documenting (check all that apply): Discharge/Admit/Transfer - D/c home - Discharge Plan Condition: Stable Disposition: HOME Prescriptions: Bacitracin OINTMENT* 1 applic TOPICAL BID #1 tube DOXYcycline CAP(*) [DOXYcycline 100MG CAP(*)] 100 mg PO BID #20 cap Patient Education Materials: Cellulitis (ED) Referrals: Stacy Orta [Medical Doctor] - 1 Week Tatiana Geronimo MD [Primary Care Provider] - 1 Week Additional Instructions: 1-Please take full course of Antibiotic. 2- If redness and swelling doubles in size after 48 hrs of taking antibiotic and fever develops please go to the ER immediately. 3-Avoid standing for long periods of time or flexing your leg, keep it elevated and keep wound clean and dry. 4-Please F/u with your PCP or School Clerk DR Orta in 1 week if not improvement for further evaluation and treatment. - Billing Disposition and Condition Condition: STABLE Disposition: Home
== END 2017-12-21 16:58 | disposition home or self-care (01) ==
LOC: UCEAST 16:05
DX: L03.116 Cellulitis of left lower limb (principal); I10 Essential (primary) hypertension; K21.9 Gastro-esophageal reflux disease without esophagitis; R56.9 Unspecified convulsions; M54.9 Dorsalgia, unspecified; M54.2 Cervicalgia; F32.9 Major depressive disorder, single episode, unspecified; Z88.6 Allergy status to analgesic agent; Z88.1 Allergy status to other antibiotic agents; Z88.0 Allergy status to penicillin; Z88.2 Allergy status to sulfonamides; Z88.8 Allergy status to other drugs, medicaments and biological substances; F17.210 Nicotine dependence, cigarettes, uncomplicated
CPT/HCPCS: 99212; G0463

== ENCOUNTER 2018-02-22 00:18 | Emergency (ER) | payer MEDICARE ==
--- NOTE | 2018-02-22 02:06 | ED ---
Lower Extremity - HPI Summary HPI Summary: Patient complains of left lower malhotra pain starting yesterday. Patient states she woke up with the pain, pain is intermittent, progressive and pain is worse today. Pain worse with sitting, better with Denies trauma, fall. History of left knee surgery 2008. Denies fever, cough, sore throat, CP, SOB, N/V/D, abdominal pain, change in urine or BM. Medical history COPD. Patient has Rx for oxycodone, which she states has not controlled left lower extremity pain. - History of Current Complaint Chief Complaint: EDExtremityLower Stated Complaint: LT LEG PAIN Time Seen by Provider: 02/22/18 01:13 Hx Obtained From: Patient Hx Last Menstrual Period: 1995 Mechanism Of Injury: Unknown Onset of Pain: Days Onset/Duration: Days Severity Initially: Mild Severity Currently: Severe Pain Intensity: 9 Pain Scale Used: 0-10 Numeric Timing: Intermittent Location: Is Discrete @ Character Of Pain: Aching, Throbbing Able to Bear Weight: Yes - Allergies/Home Medications Allergies/Adverse Reactions: Allergies Allergy/AdvReac Type Severity Reaction Status Date / Time acetaminophen Allergy Severe See Comment Verified 02/22/18 00:43 aspirin Allergy Severe Hives Verified 02/22/18 00:43 ibuprofen Allergy Severe See Comment Verified 02/22/18 00:43 clarithromycin Allergy Intermediate GI Upset Verified 02/22/18 00:43 celecoxib [From Celebrex] Allergy Mild Hives Verified 02/22/18 00:43 Penicillins Allergy Mild Hives Verified 02/22/18 00:43 phenytoin [From Dilantin] Allergy Mild Hives Verified 02/22/18 00:43 rofecoxib [From Vioxx] Allergy Mild Hives Verified 02/22/18 00:43 Sulfa (Sulfonamide Allergy Mild Hives Verified 02/22/18 00:43 Antibiotics) PMH/Surg Hx/FS Hx/Imm Hx Endocrine/Hematology History: Denies: Hx Anticoagulant Therapy, Hx Diabetes, Hx Systemic Lupus Erythematosus, Hx Sickle Cell Disease, Hx Thyroid Disease, Hx Anemia Cardiovascular History: Reports: Hx Angina, Hx Hypertension - WELL CONTROLLED Denies: Hx Congestive Heart Failure, Hx Deep Vein Thrombosis, Hx Myocardial Infarction, Hx Pacemaker/ICD, Other Cardiovascular Problems/Disorders Respiratory History: Reports: Hx Asthma, Hx Chronic Bronchitis, Hx Chronic Obstructive Pulmonary Disease (COPD), Hx Seasonal Allergies, Other Respiratory Problems/Disorders - CURRENT SMOKER <1/2 PPD X 20+ YEARS Denies: Hx Lung Cancer, Hx Pneumonia, Hx Sleep Apnea GI History: Reports: Hx Gall Bladder Disease - removed 10 years ago, Hx Gastroesophageal Reflux Disease - WELL CONTROLLED, Other GI Disorders - HX OF VENTRAL HERNIA REPAIR WITH MESH 01/2013, GERD Denies: Hx Gastrointestinal Bleed, Hx Ulcer, Hx Urosepsis History: Denies: Hx Dialysis, Hx Kidney Infection, Hx Kidney Stones, Hx Renal Disease , Other Problems/Disorders Musculoskeletal History: Reports: Hx Arthritis - HANDS, Hx Gout, Other Musculoskeletal History - BILATERAL TOTAL KNEE REPLACEMENT Denies: Hx Rheumatoid Arthritis Sensory History: Denies: Hx Contacts or Glasses, Hx Glaucoma, Hx Macular Degeneration Opthamlomology History: Denies: Hx Contacts or Glasses, Hx Glaucoma, Hx Macular Degeneration Neurological History: Reports: Hx Migraine - RARE, Hx Seizures - LAST ONE 6 YRS AGO Denies: Other Neuro Impairments/Disorders Psychiatric History: Reports: Hx Anxiety, Hx Depression Denies: Hx Eating Disorder, Hx of Violent Episodes Against Others, Hx Substance Abuse - Cancer History Hx Chemotherapy: No - Surgical History Surgery Procedure, Year, and Place: right TKA -02/2010 [facility] [place]KA- 04[place]2011 [facility] [place] [facility] [place]. LAP FIDENCIO 2007. VENTRAL HERNIA REPAIR 01/2013 UMBILICAL HERNIA REPAIR. RIGHT INDEX TRIGGER FINGER 2005 [facility] [place]. R CTR 2013 [facility] [place] Hx Anesthesia Reactions: No - Immunization History Date of Tetanus Vaccine: Unk Date of Influenza Vaccine: 03/29 Infectious Disease History: No Infectious Disease History: Denies: Hx Clostridium Difficile, Hx Hepatitis, Hx Human Immunodeficiency Virus (HIV), Hx Shingles, Hx Tuberculosis, Hx Known/Suspected VRE, Hx Known/ Suspected VRSA, History Other Infectious Disease, Traveled Outside the [place] in Last 30 Days - Family History Known Family History: Positive: None, Hypertension, Other - No FHx of psychiatric disorders - Social History Alcohol Use: None Hx Substance Use: No Substance Use Type: Reports: None Hx Tobacco Use: Yes Smoking Status (MU): Light Every Day Tobacco Smoker Type: Cigarettes Amount Used/How Often: 3 CIGS/DAY Length of Time of Smoking/Using Tobacco: 20 YRS Have You Smoked in the Last Year: Yes Review of Systems Constitutional: Negative Eyes: Negative ENT: Negative Cardiovascular: Negative Respiratory: Negative Gastrointestinal: Negative Genitourinary: Negative Musculoskeletal: Other Skin: Negative Neurological: Negative Psychological: Normal All Other Systems Reviewed And Are Negative: Yes Physical Exam - Summary Physical Exam Summary: No erythema, swelling, deformity, ecchymosis, extra warmth noted anywhere to left lower extremity. Patient flexes and extends left hip, left knee, left ankle and toes without indication of pain. TLeft extremitie same size vs right lower extremity, same color. Calf soft nontender. PMS intact distally. Patient patient states pain is along left anterior malhotra. No evidence of trauma or wound. Triage Information Reviewed: Yes Vital Signs On Initial Exam: Initial Vitals Temp Pulse Resp BP Pulse Ox 97.6 F 90 18 143/89 94 02/22/18 00:41 02/22/18 00:41 02/22/18 00:41 02/22/18 00:41 02/22/18 00:41 Vital Signs Reviewed: Yes Appearance: Positive: Well-Appearing Skin: Positive: Warm Head/Face: Positive: Normal Head/Face Inspection Eyes: Positive: Normal Neck: Positive: Supple Respiratory/Lung Sounds: Positive: Clear to Auscultation Cardiovascular: Positive: Normal Abdomen Description: Positive: Nontender Musculoskeletal: Positive: Normal Neurological: Positive: Normal Psychiatric: Positive: Normal AVPU Assessment: Alert - [place] Coma Scale Best Eye Response: 4 - Spontaneous Best Motor Response: 6 - Obeys Commands Best Verbal Response: 5 - Oriented Coma Scale Total: 15 Diagnostics - Vital Signs Vital Signs Temp Pulse Resp BP Pulse Ox 02/22/18 00:41 97.6 F 90 18 143/89 94 - Laboratory Lab Statement: Any lab studies that have been ordered have been reviewed, and results considered in the medical decision making process. Lower Extremity Course/Dx - Course Course Of Treatment: Patient complains of left lower malhotra pain starting yesterday. Patient states she woke up with the pain, pain is intermittent, progressive and pain is worse today. Pain worse with sitting, better with Denies trauma, fall. History of left knee surgery 2009. Denies fever, cough, sore throat, CP, SOB, N/V/D, abdominal pain, change in urine or BM. Medical history COPD. Patient has Rx for oxycodone, which she states has not controlled left lower extremity pain. Physical exam:No erythema, swelling, deformity, ecchymosis, extra warmth noted anywhere to left lower extremity. Patient flexes and extends left hip, left knee, left ankle and toes without indication of pain. TLeft extremitie same size vs right lower extremity, same color. Calf soft nontender. PMS intact distally. Patient patient states pain is along left anterior malhotra. No evidence of trauma or wound. Vital signs within normal. Imaging of knee and lower leg NEG. Patient has Rx for oxycodone. Follow-up with orthopedics - Diagnoses Provider Diagnoses: Pain of left lower extremity Discharge - Sign-Out/Discharge Documenting (check all that apply): Patient Departure - Discharge Plan Condition: Stable Disposition: HOME Patient Education Materials: Leg Pain (ED) Referrals: Tatiana Geronimo MD [Primary Care Provider] - Rui Ochoa MD [Medical Doctor] - Additional Instructions: Follow-up with orthopedics Dr Ochoa for further evaluation of left leg pain. Return to the ED for any new or worsening symptoms - Billing Disposition and Condition Condition: STABLE Disposition: Home
[2018-02-22 03:32] VITALS: BP 131/79
--- NOTE | 2018-02-22 07:56 | RAD ---
INDICATION: Left knee pain. TECHNIQUE: 4 views of the left knee were obtained. FINDINGS: The patient is status post total left knee replacement surgery. The bones and prostheses are in normal alignment. No joint effusion or fracture is seen. IMPRESSION: STATUS POST TOTAL LEFT KNEE REPLACEMENT SURGERY. NO EVIDENCE FOR ACUTE FINDING. R0
--- NOTE | 2018-02-22 07:57 | RAD ---
INDICATION: Left lower leg pain. TECHNIQUE: 2 views of the left lower leg were obtained. FINDINGS: The patient is status post total left knee replacement surgery. The bones and prostheses are in normal alignment. No fracture is seen. IMPRESSION: NO EVIDENCE OF FRACTURE. R0
== END 2018-02-22 03:30 | disposition home or self-care (01) ==
LOC: ED 00:18
DX: M79.662 Pain in left lower leg (principal); F17.210 Nicotine dependence, cigarettes, uncomplicated; I10 Essential (primary) hypertension; J44.9 Chronic obstructive pulmonary disease, unspecified; K21.9 Gastro-esophageal reflux disease without esophagitis
CPT/HCPCS: 99282

== ENCOUNTER 2018-07-04 22:51 | Emergency (ER) | payer MEDICARE ==
[2018-07-04] MEDS ORDERED: oxyCODONE/Acetamin 5/325 MG* TAB PO ONE (23:40)
[2018-07-04] MEDS ORDERED: Cyclobenzaprine TAB* 10 MG PO ONE (23:40)
[2018-07-04] MEDS ORDERED: oxyCODONE TAB* 5 MG TAB PO ONE (23:41)
--- NOTE | 2018-07-04 23:43 | ED ---
Throat Pain/Nasal Congestion - HPI Summary HPI Summary: 57 y/o female presents to [facility] with a chief complaint of neck pain since 6 months [employer] on 07/04/18. She rates her pain as a 10/10. The patient also reports the pain radiating to her back. She denies CP or SOB, however she claims that she is unable to move her neck. She also claims that cortisone shots do not alleviate her pain. - History of Current Complaint Chief Complaint: EDNeckComplaint Time Seen by Provider: 07/04/18 23:33 Hx Obtained From: Patient Onset/Duration: Gradual Onset, Lasting Weeks, Still Present Associated Signs And Symptoms: Positive: Negative - CP, SOB - Allergies/Home Medications Allergies/Adverse Reactions: Allergies Allergy/AdvReac Type Severity Reaction Status Date / Time acetaminophen Allergy Severe See Comment Verified 02/22/18 00:43 aspirin Allergy Severe Hives Verified 02/22/18 00:43 ibuprofen Allergy Severe See Comment Verified 02/22/18 00:43 clarithromycin Allergy Intermediate GI Upset Verified 02/22/18 00:43 celecoxib [From Celebrex] Allergy Mild Hives Verified 02/22/18 00:43 Penicillins Allergy Mild Hives Verified 02/22/18 00:43 phenytoin [From Dilantin] Allergy Mild Hives Verified 02/22/18 00:43 rofecoxib [From Vioxx] Allergy Mild Hives Verified 02/22/18 00:43 Sulfa (Sulfonamide Allergy Mild Hives Verified 02/22/18 00:43 Antibiotics) PMH/Surg Hx/FS Hx/Imm Hx Endocrine/Hematology History: Denies: Hx Anticoagulant Therapy, Hx Diabetes, Hx Systemic Lupus Erythematosus, Hx Sickle Cell Disease, Hx Thyroid Disease, Hx Anemia Cardiovascular History: Reports: Hx Angina, Hx Hypertension - WELL CONTROLLED Denies: Hx Congestive Heart Failure, Hx Deep Vein Thrombosis, Hx Myocardial Infarction, Hx Pacemaker/ICD, Other Cardiovascular Problems/Disorders Respiratory History: Reports: Hx Asthma, Hx Chronic Bronchitis, Hx Chronic Obstructive Pulmonary Disease (COPD), Hx Seasonal Allergies, Other Respiratory Problems/Disorders - CURRENT SMOKER <1/2 PPD X 20+ YEARS Denies: Hx Lung Cancer, Hx Pneumonia, Hx Sleep Apnea GI History: Reports: Hx Gall Bladder Disease - removed 10 years ago, Hx Gastroesophageal Reflux Disease - WELL CONTROLLED, Other GI Disorders - HX OF VENTRAL HERNIA REPAIR WITH MESH 01/2013, GERD Denies: Hx Gastrointestinal Bleed, Hx Ulcer, Hx Urosepsis History: Denies: Hx Dialysis, Hx Kidney Infection, Hx Kidney Stones, Hx Renal Disease , Other Problems/Disorders Musculoskeletal History: Reports: Hx Arthritis - HANDS, Hx Gout, Other Musculoskeletal History - BILATERAL TOTAL KNEE REPLACEMENT Denies: Hx Rheumatoid Arthritis Sensory History: Denies: Hx Contacts or Glasses, Hx Glaucoma, Hx Macular Degeneration Opthamlomology History: Denies: Hx Contacts or Glasses, Hx Glaucoma, Hx Macular Degeneration Neurological History: Reports: Hx Migraine - RARE, Hx Seizures - LAST ONE 6 YRS AGO Denies: Other Neuro Impairments/Disorders Psychiatric History: Reports: Hx Anxiety, Hx Depression Denies: Hx Eating Disorder, Hx of Violent Episodes Against Others, Hx Substance Abuse - Cancer History Hx Chemotherapy: No - Surgical History Surgery Procedure, Year, and Place: right TKA -02/2010 [facility] [place]. left TKA- 04/2011 [facility] [place]. [facility] [place] 1995. LAP FIDENCIO 2007. VENTRAL HERNIA REPAIR 01/2013 UMBILICAL HERNIA REPAIR. RIGHT INDEX TRIGGER FINGER 2005 [facility] [place]. R CTR 2013 [facility] Hx Anesthesia Reactions: No - Immunization History Date of Tetanus Vaccine: Unk Date of Influenza Vaccine: 03/29 Infectious Disease History: No Infectious Disease History: Denies: Hx Clostridium Difficile, Hx Hepatitis, Hx Human Immunodeficiency Virus (HIV), Hx Shingles, Hx Tuberculosis, Hx Known/Suspected VRE, Hx Known/ Suspected VRSA, History Other Infectious Disease, Traveled Outside the in Last 30 Days - Family History Known Family History: Positive: Hypertension, Other - No FHx of psychiatric disorders - Social History Alcohol Use: None Hx Substance Use: No Substance Use Type: Reports: None Hx Tobacco Use: Yes Smoking Status (MU): Light Every Day Tobacco Smoker Type: Cigarettes Amount Used/How Often: 3 CIGS/DAY Length of Time of Smoking/Using Tobacco: 20 YRS Have You Smoked in the Last Year: Yes Review of Systems Negative: Fever ENT: Other - positive: neck pain Negative: Chest Pain Negative: Shortness Of Breath Positive: Myalgia - back pain All Other Systems Reviewed And Are Negative: Yes Physical Exam - Summary Physical Exam Summary: Appearance: Well appearing, no pain distress Skin: warm, dry, reflects adequate perfusion Head/face: normal Eyes: EOMI, ANTONIO ENT: muscle spasms left side of neck Neck: supple, non-tender Respiratory: CTA, breath sounds present Cardiovascular: RRR, pulses symmetrical Abdomen: non-tender, soft Musculoskeletal: muscle spasms left side of neck, strength/ROM intact Neuro: normal, sensory motor intact, A&Ox3 Triage Information Reviewed: Yes Vital Signs On Initial Exam: Initial Vitals Temp Pulse Resp BP Pulse Ox 97.8 F 90 20 141/85 97 07/04/18 22:58 07/04/18 22:58 07/04/18 22:58 07/04/18 22:58 07/04/18 22:58 Vital Signs Reviewed: Yes Diagnostics - Vital Signs Vital Signs Temp Pulse Resp BP Pulse Ox 07/04/18 22:58 97.8 F 90 20 141/85 97 - Laboratory Lab Statement: Any lab studies that have been ordered have been reviewed, and results considered in the medical decision making process. EENT Course/Dx - Course Course Of Treatment: 57 y/o female presents to [facility] with a chief complaint of neck pain since 6 months [employer] on 07/04/18. She rates her pain as a 10/10. The patient also reports the pain radiating to her back. She denies CP or SOB, however she claims that she is unable to move her neck. She also claims that cortisone shots do not alleviate her pain. Her physical exam revealed muscle spasms in the left side of her neck. In the ED course the patient was given oxycodone and flexeril PO. The patient will be discharged with a prescription for Flexeril and oxycodone. She was instructed to follow up with her PCP in 3 days and to return to the ED if she experiences any new or worsening symptoms. The patient is agreeable with this plan. Dx: neck pain, musculoskeletal pain. - Diagnoses Provider Diagnoses: Neck pain, Musculoskeletal pain Discharge - Sign-Out/Discharge Documenting (check all that apply): Patient Departure - DC - Discharge Plan Condition: Stable Disposition: HOME Prescriptions: Cyclobenzaprine TAB* [Flexeril 10 MG TAB*] 10 mg PO TID PRN #15 tab MDD 3 PRN Reason: Pain oxyCODONE TAB* [Roxycodone TAB 5 mg*] 5 mg PO Q8H PRN #10 tab MDD 3 PRN Reason: Pain Patient Education Materials: Neck Pain (ED) Referrals: Tatiana Geronimo MD [Primary Care Provider] - 3 Days Additional Instructions: Follow up with your PCP in 3 days. Return to the ED for any new or worsening symptoms. - Billing Disposition and Condition Condition: STABLE Disposition: Home - Attestation Statements Document Initiated by Eileen: Yes Documenting Scribe: Josh Chu Provider For Whom Eileen is Documenting (Include Credential): Julio Cesar Vasquez MD Scribe Attestation: IJosh, scribed for Julio Cesar Vasquez MD on 07/05/18 at 0043. Scribe Documentation Reviewed: Yes Provider Attestation: The documentation as recorded by the Josh mcneal accurately reflects the service I personally performed and the decisions made by , Julio Cesar Vasquez MD Status of Scribe Document: Viewed
[2018-07-04 23:54] VITALS: BP 125/96
== END 2018-07-04 23:53 | disposition home or self-care (01) ==
LOC: ED 22:51
DX: M54.2 Cervicalgia (principal); M54.9 Dorsalgia, unspecified; F17.210 Nicotine dependence, cigarettes, uncomplicated; I10 Essential (primary) hypertension; J44.9 Chronic obstructive pulmonary disease, unspecified; K21.9 Gastro-esophageal reflux disease without esophagitis; F32.9 Major depressive disorder, single episode, unspecified; F41.9 Anxiety disorder, unspecified; Z88.2 Allergy status to sulfonamides; Z88.0 Allergy status to penicillin
CPT/HCPCS: 99282; A9270-GY

== ENCOUNTER 2018-08-09 14:58 | Emergency (ER) | payer MEDICARE ==
[2018-08-09 15:15] VITALS: BP 147/85
--- NOTE | 2018-08-09 15:28 | UC ---
Respiratory Complaint HPI - HPI Summary HPI Summary: 57 y/o female presents to the urgent care c/o body aches, BEAVER, sore throat, productive cough and vomiting since yesterday. Pt reports she had 2 episodes of vomiting last night and 2 episodes this morning. She has PMHX of COPD and this morning she developed wheezing. She used her inhaler to alleviate symptoms. She took Oxycodone she has for pain yesterday since she is allergic to Acetaminophen and Ibuprofen PO. She didn't take anything today. Pain is 6/10. Her grand children have similar symptoms at home. Pt denies fever, but has had chills. She denies SOB, chest pain, abdominal pain, diarrhea or constipation. She has been drinking fluid and took a broth about 1 hr ago. - History of Current Complaint Chief Complaint: UCGeneralIllness Stated Complaint: HEADACHE,COUGH Time Seen by Provider: 08/09/18 15:16 Hx Obtained From: Patient Hx Last Menstrual Period: 1995 ?: No Onset/Duration: Gradual Onset, Lasting Days - 1 day, Still Present, Worse Since - today w/ 2 episodes of vomiting Timing: Constant Severity Initially: Mild Severity Currently: Moderate Pain Intensity: 6 Pain Scale Used: 0-10 Numeric Character: Cough: Productive, Sputum Description: - yellowish Aggravating Factors: Recumbent Position Alleviating Factors: Bronchodilator Associated Signs And Symptoms: Positive: Chills, URI, Nasal Congestion. Negative: Dyspnea, Fever, Wheezing, Dizziness - Risk Factors Pulmonary Embolism Risk Factors: Negative Cardiac Risk Factors: Negative Pseudomonas Risk Factors: Negative Tuberculosis Risk Factors: Negative - Allergies/Home Medications Allergies/Adverse Reactions: Allergies Allergy/AdvReac Type Severity Reaction Status Date / Time acetaminophen Allergy Severe See Comment Verified 08/09/18 15:05 aspirin Allergy Severe Hives Verified 08/09/18 15:05 ibuprofen Allergy Severe See Comment Verified 08/09/18 15:05 clarithromycin Allergy Intermediate GI Upset Verified 08/09/18 15:05 celecoxib [From Celebrex] Allergy Mild Hives Verified 08/09/18 15:05 Penicillins Allergy Mild Hives Verified 08/09/18 15:05 phenytoin [From Dilantin] Allergy Mild Hives Verified 08/09/18 15:05 rofecoxib [From Vioxx] Allergy Mild Hives Verified 08/09/18 15:05 Sulfa (Sulfonamide Allergy Mild Hives Verified 08/09/18 15:05 Antibiotics) PMH/Surg Hx/FS Hx/Imm Hx Previously Healthy: Yes Cardiovascular History: Hypertension Respiratory History: COPD Other History Of: Negative For: Anticoagulant Therapy - Surgical History Surgical History: Yes Surgery Procedure, Year, and Place: right TKA -02/2010 [facility]. left TKA- 04/2011 [facility] [place]. [facility] [place] hysterectomy 1995. LAP FIDENCIO 2007. VENTRAL HERNIA REPAIR 01/2013 UMBILICAL HERNIA REPAIR. RIGHT INDEX TRIGGER FINGER 2005 [facility] [place]. R CTR 2013 [facility] [place] - Family History Known Family History: Positive: Hypertension, Other - No FHx of psychiatric disorders - Social History Occupation: Employed Full-time Lives: With Family Alcohol Use: None Substance Use Type: None Smoking Status (MU): Light Every Day Tobacco Smoker Type: Cigarettes Amount Used/How Often: 4 CIGS/DAY Length of Time of Smoking/Using Tobacco: 20 YRS Have You Smoked in the Last Year: Yes Household Exposure Type: Cigarettes - Immunization History Most Recent Influenza Vaccination: 2013 Most Recent Tetanus Shot: 2012 Most Recent Pneumonia Vaccination: 9 years ago Review of Systems All Other Systems Reviewed And Are Negative: Yes Constitutional: Positive: Chills, Other - body aches. Negative: Fever Skin: Positive: Negative Eyes: Positive: Negative ENT: Positive: Sore Throat, Nasal Discharge - yellowish, Sinus Congestion Respiratory: Positive: Cough - productive, Other - wheezing Cardiovascular: Positive: Negative Gastrointestinal: Positive: Vomiting - 2 episodes today, Nausea. Negative: Abdominal Pain Genitourinary: Positive: Negative Motor: Positive: Negative Neurovascular: Positive: Negative Musculoskeletal: Positive: Myalgia Neurological: Positive: Headache Psychological: Positive: Negative Is Patient Immunocompromised?: No Physical Exam - Summary Physical Exam Summary: Vital Signs Reviewed: Yes General: well developed, well nourished female sitting in the examining table w/ o any apparent distress Eyes: Positive: Conjunctiva Clear - PERRLA, EOMI, fundi grossly normal ENT: Positive: Normal ENT inspection, Hearing grossly normal, Pharynx normal, Nasal congestion - edematous and erythematous nasal mucosa, Nasal drainage - yellowish drainage, TMs normal. Negative: Tonsillar swelling, Tonsillar exudate Neck: Positive: Supple, Nontender, No Lymphadenopathy Respiratory: no orthopnea or dyspnea. Able to speak in full sentences, no retractions or accessory muscle use, no tripod position, stridor, or head bobbing. Positive breath sounds bilaterally. diffuse scattered wheezing and rhonchi on b/L lungs, no crackles or rales. Cardiovascular: Positive: RRR, No Murmur, Pulses Normal, Brisk Capillary Refill Abdomen Description: Positive: Nontender, No Organomegaly, Soft. Negative: CVA Tenderness (R), CVA Tenderness (L) Bowel Sounds: Positive: Present Musculoskeletal Exam: Normal Musculoskeletal: Positive: Strength Intact, ROM Intact, No Edema Neurological Exam: Normal Psychological Exam: Normal Skin Exam: Normal Triage Information Reviewed: Yes Vital Signs: Initial Vital Signs Temp 98.1 F 08/09/18 15:09 Pulse 76 08/09/18 15:09 Resp 16 08/09/18 15:09 BP 147/85 08/09/18 15:09 Pulse Ox 99 08/09/18 15:09 Diagnostic Evaluation - Laboratory O2 Sat by Pulse Oximetry: 99 Respiratory Course/Dx - Course Course Of Treatment: 57 y/o female presents to the urgent care c/o body aches, BEAVER, sore throat, productive cough and vomiting since yesterday. Pt reports she had 2 episodes of vomiting last night and 2 episodes this morning. She has PMHX of COPD and this morning she developed wheezing. She used her inhaler to alleviate symptoms. She took Oxycodone she has for pain yesterday since she is allergic to Acetaminophen and Ibuprofen PO. She didn't take anything today. Pain is 6/10. Her grand children have similar symptoms at home. Pt denies fever , but has had chills. She denies SOB, chest pain, abdominal pain, diarrhea or constipation. She has been drinking fluids and took a broth about 1 hr ago. Hx obtained. Pt w/ B/L lungs scattered wheezing and rhonchi on examination. O2Sat:99%. Pt w/ PMHX of COPD and heavy smoker in the past. Pt probably w/ a COPD exacerbation. Chest X-ray ordered: impression: findings of COPD, no acute disease observed. Pt given at the clinic Zofran PO for Nausea, Prednisone 60 mg PO and Duoneb treatment. Pt tolerated well medications and her lungs improved. Pt states feeling better. Pt will be tx w/ Rx Doxycycline PO , Prednisone taper dose and Duoneb treatment. Advised to start antibiotic only if worsen of symptoms in 2 days. Strongly advised to f/u with her PCP for further management if not improvment of symptoms. She also has elevated BP today, advised to decrease salt in her diet and monitor BP, if it continues to be elevated to f/u with her PCP. Pt understood and agreed with D/C instructions and left the clinic hemodynamically stable. - Differential Dx/Diagnosis Differential Diagnosis/HQI/PQRI: Asthma, Bronchitis, Exacerbation Of COPD, Influenza, Lower Resp Infection, Sinusitis, Other - Viral gastroenteritis Provider Diagnosis: COPD with acute exacerbation, Bronchitis, Uncontrolled hypertension Discharge - Sign-Out/Discharge Documenting (check all that apply): Patient Departure - D/C home All imaging exams completed and their final reports reviewed: Yes - Discharge Plan Condition: Stable Disposition: HOME Prescriptions: Albuterol/Ipratropium NEB.LORNA* [Duoneb (Albuterol 2.5 MG/Ipratropium 0.5 MG)] 1 neb INH Q6H PRN #1 box PRN Reason: Wheezing DOXYcycline CAP(*) [DOXYcycline 100MG CAP(*)] 100 mg PO BID #14 cap Ondansetron ODT TAB* [Zofran 4 MG Odt TAB*] 4 mg PO Q6H PRN #12 tab.odt PRN Reason: Vomiting predniSONE TAB* [Deltasone 20 MG TAB*] 20 mg PO DAILY #8 tab Patient Education Materials: Acute Bronchitis (ED), COPD (Chronic Obstructive Pulmonary Disease) (ED) Referrals: Tatiana Geronimo MD [Primary Care Provider] - 3 Days Additional Instructions: 1- Take Prednisone PO taper dose as directed starting tomorrow. First loading dose given today. 2- Start taking the Doxycyclien as directed only if symptoms worsen in 2 days 3-Use the Duoneb nebulizer treatment to alleviate SOB, and wheezing as directed . Increase fluid intake, rest and eat well. 4- If symptoms do not improve or worsen or your develop SOB with fever and severe wheezing please go immediately to the ER further evaluation and treatment. 5- F/u with your PCP in 2-3 days for further management on your COPD 6-Your BP is elevated today. please decrease salt in your diet, monitor BP and if it continues to be elevated please f/u with your PCP for further management. - Billing Disposition and Condition Condition: STABLE Disposition: Home
[2018-08-09] MEDS ORDERED: predniSONE TAB* 20 MG PO ONE (15:33)
[2018-08-09] MEDS ORDERED: Ondansetron ODT TAB* 4 MG PO ONE (15:33)
[2018-08-09] MEDS ORDERED: Albuterol/Ipratropium NEB.SOL* Albuterol 2.5 MG/Ipratropium 0.5 MG 3 ML INH ONE (15:34)
[2018-08-09 15:47] LABS: Influenza A Molecular NEGATIVE (Negative); Influenza B Molecular NEGATIVE (Negative)
== END 2018-08-09 16:48 | disposition home or self-care (01) ==
LOC: UCEAST 14:58
DX: J44.1 Chronic obstructive pulmonary disease with (acute) exacerbation (principal); I10 Essential (primary) hypertension; Z88.6 Allergy status to analgesic agent; Z88.1 Allergy status to other antibiotic agents; Z88.0 Allergy status to penicillin; Z88.2 Allergy status to sulfonamides; Z88.8 Allergy status to other drugs, medicaments and biological substances; F17.210 Nicotine dependence, cigarettes, uncomplicated
CPT/HCPCS: 71046; 87651; 99213; A9270-GY; G0463; J7512

== ENCOUNTER 2018-09-06 11:05 | Emergency (ER) | payer MEDICARE, OTHER ==
[2018-09-06 11:23] VITALS: BP 146/87
--- NOTE | 2018-09-06 12:00 | UC ---
Back Pain HPI - HPI Summary HPI Summary: Chronic hip pain but felt it was really bad today. worse when she sits for too long or gets up from seated position. nothing makes it better. did take opiate from home. has pcp. has tried PT and injections and lidocaine patches, they do not work . she takes care of 2 twin girls/grand daughters. - History of Current Complaint Chief Complaint: UCBackPain Stated Complaint: BACK PAIN Time Seen by Provider: 09/06/18 11:07 Hx Obtained From: Patient Hx Last Menstrual Period: 1995 Onset/Duration: Lasting Weeks, Still Present Severity Initially: Moderate Severity Currently: Moderate Pain Intensity: 8 Pain Scale Used: 0-10 Numeric - Allergies/Home Medications Allergies/Adverse Reactions: Allergies Allergy/AdvReac Type Severity Reaction Status Date / Time acetaminophen Allergy Severe See Comment Verified 09/06/18 11:23 aspirin Allergy Severe Hives Verified 09/06/18 11:23 ibuprofen Allergy Severe See Comment Verified 09/06/18 11:23 clarithromycin Allergy Intermediate GI Upset Verified 09/06/18 11:23 celecoxib [From Celebrex] Allergy Mild Hives Verified 09/06/18 11:23 Penicillins Allergy Mild Hives Verified 09/06/18 11:23 phenytoin [From Dilantin] Allergy Mild Hives Verified 09/06/18 11:23 rofecoxib [From Vioxx] Allergy Mild Hives Verified 09/06/18 11:23 Sulfa (Sulfonamide Allergy Mild Hives Verified 09/06/18 11:23 Antibiotics) PMH/Surg Hx/FS Hx/Imm Hx - Additional Past Medical History Additional PMH: obese Other History Of: Negative For: Anticoagulant Therapy - Surgical History Surgical History: Yes Surgery Procedure, Year, and Place: right TKA -02/2010 [facility] [place]. left TKA- 04/2011 [facility] [place]. [facility] [place] hysterectomy 1995. LAP FIDENCIO 2007. VENTRAL HERNIA REPAIR 01/2013 UMBILICAL HERNIA REPAIR. RIGHT INDEX TRIGGER FINGER 2005 [facility] [place]. R CTR 2013 [facility] [place] - Family History Known Family History: Positive: None, Hypertension, Other - No FHx of psychiatric disorders - Social History Alcohol Use: None Substance Use Type: None Smoking Status (MU): Light Every Day Tobacco Smoker Type: Cigarettes Amount Used/How Often: 4 CIGS/DAY Length of Time of Smoking/Using Tobacco: 20 YRS Have You Smoked in the Last Year: Yes Household Exposure Type: Cigarettes - Immunization History Most Recent Influenza Vaccination: 2013 Most Recent Tetanus Shot: 2012 Most Recent Pneumonia Vaccination: 9 years ago Review of Systems All Other Systems Reviewed And Are Negative: Yes Constitutional: Positive: Negative Skin: Positive: Negative Genitourinary: Negative: Dysuria, Hematuria Neurovascular: Positive: Negative. Negative: Decreased Sensation Musculoskeletal: Positive: Arthralgia - back pain Neurological: Negative: Weakness, Paresthesia, Numbness Physical Exam Triage Information Reviewed: Yes Appearance: Well-Appearing Vital Signs: Initial Vital Signs Temp 98.2 F 09/06/18 11:18 Pulse 100 09/06/18 11:18 Resp 18 09/06/18 11:18 BP 146/87 09/06/18 11:18 Pulse Ox 95 09/06/18 11:18 Vital Signs Reviewed: Yes Musculoskeletal: Positive: Strength Intact, No Edema, ROM Limited @ - lower back , Other: - gets on /off exam table w/ difficulty and reports stiffness. Back Pain Course/Dx - Course Course Of Treatment: chronic osteoarthritis of lower back, acute exacerbation. strongly encouraged pt to see her pcp for terminal make up operator tx plan. unable to give meds for pain here given her allergy. 2017 imaging of hips did show osteoarthritis. no radiculpathy. - Differential Dx/Diagnosis Differential Diagnosis/HQI/PQRI: Arthritis, Herniated Disc, Strain, Sprain Provider Diagnosis: Osteoarthritis Discharge - Sign-Out/Discharge Documenting (check all that apply): Patient Departure All imaging exams completed and their final reports reviewed: No Studies - Discharge Plan Condition: Good Disposition: HOME Patient Education Materials: Osteoarthritis (ED) Referrals: Tatiana Geronimo MD [Primary Care Provider] - Additional Instructions: please follow up with your main doctor about a retirement plan about your chronic lower back pain which is clearly for osteoarthritis. It should involve OT and PT as well. I strongly suggest you see an aerodynamics engineer to find out what medications you are actually allergic to since some medications that could help you with your pain could be useful. - Billing Disposition and Condition Condition: GOOD Disposition: Home
== END 2018-09-06 12:34 | disposition home or self-care (01) ==
LOC: UCEAST 11:05
DX: M16.0 Bilateral primary osteoarthritis of hip (principal); F17.210 Nicotine dependence, cigarettes, uncomplicated; Z88.8 Allergy status to other drugs, medicaments and biological substances; Z88.1 Allergy status to other antibiotic agents; Z88.0 Allergy status to penicillin; Z88.2 Allergy status to sulfonamides
CPT/HCPCS: 99212; G0463

== ENCOUNTER 2018-12-26 22:37 | Emergency (ER) | payer MEDICARE ==
--- OUTSIDE RECORDS SUMMARY | 2018-12-26 22:57 | XMS REPORT | Continuity of Care Document ---
:1960 External Reference #:[id number] Author Name Jaja Galvez Care Team Providers Name Role Phone Tatiana Geronimo MD Primary Care Physician Unavailable Payers Date Identification Numbers Payment Provider Subscriber Policy Number: [id number] [facility] [employer] PayID: [id number] [address] [address] [place] [address] Problems Active Problems Provider Date Leukopenia ALMA Fuentes Onset: 04/23/2014 Pulmonary emphysema Denice Christopher M.D. Onset: 04/23/2014 Essential hypertension Jose Alejandro Muñoz M.D. Onset: 04/23/2014 Hospitalist Depressive disorder Jose Alejandro Muñoz M.D. Onset: 04/23/2014 Hospitalist Carpal tunnel syndrome Lucille Nuno M.D. Onset: 04/23/2014 Electrocardiogram abnormal Smith Marie M.D. Onset: 04/23/2014 Tobacco user Odessa Rader M.D. 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 Onset: 04/23/2014 Osteoarthritis of knee Sacah Farfan M.D. Onset: 04/23/2014 Arthroplasty of knee Sacha Farfan M.D. Onset: 04/23/2014 Dyspnea Linsey Mendoza MD Onset: 04/11/2015 Non-organic sleep disorder Linsey Mendoza MD Onset: 04/11/2015 Obesity Linsey Mendoza MD Onset: 04/11/2015 Chronic obstructive pulmonary Linsey Mendoza MD Onset: 04/11/2015 disease, unspecified Sprain of medial collateral ligament Ryan Maki MD Onset: 10/14/2018 of knee Periprosthetic osteolysis Eva Esteves M.D. Onset: 11/14/2018 Family History Date Family Member(s) Observation Comments General Cancer mother, General Multiple Sclerosis (MS) sister Social History Type Date Description Comments Sex Unknown Lives With Alone Occupation Medically Retired Work Status Not Currently Working Tobacco Use Start: Unknown Patient is a current cigarette smoker, smokes every day Tobacco Use Start: Unknown Currently smokes 1-5 Cigarettes Daily Cigarette Use previous 1.5 pk per day 30 years Smoking Status Reviewed: 12/01/18 Currently smokes 1-5 Cigarettes Daily ETOH Use Denies alcohol use Tobacco Use Start: Unknown Patient is a current smoker, 1/2 ppd smokes every day Recreational Drug Use Denies Drug Use Tobacco Use Start: Unknown Smoker x 30 years. Exercise Type/Frequency Does not exercise Allergies, Adverse Reactions, Alerts Active Allergies Reaction Severity Comments Date Penicillin 06/18/2013 Biaxin 06/18/2013 Tylenol 06/18/2013 Ibuprofen 07/30/2013 Dilantin 07/30/2013 Rofecoxib 07/30/2013 Sulfa Antibiotics 07/30/2013 Clindamycin itching 12/10/2014 Medications Active Medications SIG Qnty Indications Ordering Date Provider Nhan apply to 200gm Ryan Cary 10/18/2018 1% Gel affected area up MD Glynn to three times daily on knee Clindamycin HCL 600mg 1 hours 2caps Emerson Michelle 11/08/2016 300mg prior to dental M.DHector Capsules work Oxycodone HCL 1 tab by mouth 30caps Lucille 08/22/2015 5mg Capsules every 4-6 hours Elder Nuno as needed pain Do not fill until 08/26/15 Effexor XR 1 by mouth every Unknown 04/10/2015 150mg Caps ER day 24HR Ventolin HFA 2 puffs by mouth Unknown 04/10/2015 108(90Base) four times a day mcg/Act Aerosol as needed Nicorette Starter Kit Chew one piece 100units 491.21 Darius Diaz NP 2014 2mg of gum every 2 Gum hours as needed for cravings. Spiriva Respimat 2 puffs, daily Unknown 1.25mcg/Act Aerosol Prochlorperazine 1 by mouth three Unknown Maleate times a day as 5mg Tablets needed Oxycodone-Acetaminophen Unknown 5-325mg/5ML Solution Ondansetron HCL one by mouth Unknown 4mg Tablets every 8 hours as needed for nausea Nortriptyline HCL 2 by mouth every Unknown 25mg night at bedtime Capsules Magnesium Oxide 1 by mouth every Unknown 400mg day Tablets Lidocaine Domenico use 2 gm on Unknown 5% Ointment affected area 2x daily as needed for pain, apply w/ swab Creon 1 by mouth three Unknown [id number] Caps DR times a day Part Atorvastatin Calcium 1 by mouth every Unknown 10mg day Tablets Amlodipine Besylate 1 by mouth every Unknown 5mg day Tablets Albuterol Sulfate 1 vial via Unknown nebulizer 4 (2.5mg/3ML) 0.083% times daily as Nebulizer needed Omeprazole take 1 capsule 30caps Norbert Morgan NP 40mg Capsules DR by mouth every day Oxycodone HCL as needed Arevalo, 5mg Tablets Cornelius Carrington MD Combivent Respimat inhale 1 puff by Unknown mouth four times 20-100mcg/Act Aerosol a day as needed Advair Diskus inhale 1 puff by Unknown mouth twice a 250-50mcg/Dose Aerosol day Venlafaxine HCL ER twice a day Unknown 150mg Caps ER 24HR History Medications Doxycycline Hyclate one tablet 20caps Norbert Morgan NP 03/17/2015 - 100mg twice daily for 03/29/2015 Capsules 10 days. Prednisone take 4 tab 20tabs 724.2 Norbert Morgan NP 03/14/2015 - 10mg Tablets daily x 2 days 04/10/2015 then 3 tab daily x 2 days, then 2 tab daily for 2 day, and 1 tab for 2 day. Methocarbamol take 1 tablet 60tabs 724.2 Norbert Morgan NP 03/14/2015 - 750mg Tablets every six hours 03/29/2015 as needed for pain. may take second tablet if first not effective. Proair HFA 2 puffs by 1ungarry Diaz NP 12/29/2014 - 108(90Base) mcg/Act mouth every 4 03/14/2015 Aerosol hours as needed Morphine Sulfate 1 tab po every 10tabs 789.02 Denice Christopher, 2014 - 15mg Tablets 8 hours as M.D. 03/14/2015 needed Sucralfate Take 1 tablet 4 120tabs Norbert Morgan NP 08/30/2014 - 1gm Tablets times daily on 09/07/2014 empty stomach Percocet 1-2 tabs po 60tabs 789.00 Sacha Farfan, 08/13/2014 - 5-325mg Tablets q4-6 prn pain M.D. 2014 Prednisone 4 tabs by 32tabs 491.21 Gloria Menon, 07/26/2014 - 10mg Tablets mouth for 3 [employer] 08/13/2014 days then 3 tabs for 3 days, then 2 tab for 3 days then 1 tab for 5 days Mucinex 1 by mouth 10tabs 491.21 Gloria Menon, 07/26/2014 - 600mg Tablets ER 12HR twice for 3 [employer] 08/13/2014 days Percocet 1-2 tabs po 30tabs Sacha Farfan, 07/09/2014 - 5-325mg Tablets q4-6 prn pain M.D. 07/26/2014 Voltaren apply 1 gram 1tubes 727.05 Gloria Menon, 05/24/2014 - 1% Gel to affected [employer] 08/13/2014 area twice a day, as needed Wrist Splint/Left Small Use on left QS 727.05 Gloria Menon, 05/24/2014 - Misc hand as needed. [employer] 09/07/2014 Diclofenac Sodium take 1 tablet 60tabs 786.50 Gloria Menon, 05/05/2014 - 50mg Tablets by mouth 2 [employer] 07/26/2014 DR times a day as needed Flovent HFA 2 puffs twice 12gm Denice Christopher, 03/26/2014 - 110mcg/Act Aerosol daily M.D. 09/07/2014 Sulfamethoxazole/Trimetho 1 tab by mouth 10tabs 491.21 Denice Christopher, 06/2014 - prim DS 2x per day M.D. 03/26/2014 800-160mg Tablets Azithromycin 2 tab by mouth 6tabs 491.21 Denice Christopher, 03/26/2014 - 250mg Tablets day 1 then 1 M.D. 03/26/2014 tab by mouth day 2-5 Doxycycline Hyclate 1 by mouth 20tabs 491.21 Denice Christopher, 03/26/2014 - 100mg twice a day M.D. 05/05/2014 Tablets Methylprednisolone (Domenico) as directed 1pack 491.21 Denice Christopher, 2013 - 4mg M.D. 05/05/2014 Tablets Tramadol HCL 1 tablets po q6 40tabs Lucille 10/15/2013 - 50mg Tablets hours prn pain Nuno, M.D. 11/15/2013 Tramadol HCL 1 tablets po q6 40tabs Lucille 07/30/2013 - 50mg Tablets hours prn pain Nuno, M.D. 09/10/2013 Keflex one by mouth 4 28caps Emerson Josephino, 05/15/2011 - 500mg Capsules times daily for M.D. 07/30/2013 7 days Coumadin take 1-3 as 90tabs Sacha Farfan, 04/30/2011 - 2.5mg Tablets directed at 5pm M.D. 07/30/2013 daily Percocet 1-2 tabs po 90tabs Sacha Farfan, 04/30/2011 - 5-325mg Tablets q4-6 prn pain M.D. 07/30/2013 Albuterol Inhaler 2 puffs qid prn Unknown - 12/29/2014 Effexor XR one po bid Unknown - Tab 09/07/2014 Folic Acid 1n by mouth Unknown - 400mcg Tablets every day 04/10/2015 Ativan 1/2-1 by mouth 10tabs Unknown - 1mg Tablets once a day as 09/07/2014 needed Benadryl Allergy prn Unknown - 03/14/2015 Hydroxyzine Pamoate Unknown - 50mg 03/14/2015 Capsules Augmented Betamethasone Simba, - Dipropionate MD Darius 03/14/2015 0.05% Ointment Doxycycline Hyclate Simba, - 100mg MD Darius 03/14/2015 Capsules Azithromycin as directed Irina, - 250mg Tablets Cornelius Carrington MD 04/10/2015 Medications Administered in Office Medication SIG Qnty Indications Ordering Provider Date Depomedrol 80MG Sacha Farfan M.D. 11/27/2010 Injection Immunizations CPT Code Status Date Vaccine Lot # [id number] Refused 03/29/2015 Influenza Virus Vaccine, Quadrivalent, Split, Preservative Free Vital Signs Date Vital Result Comment 12/01/2018 9:41am Height 59 inches 4'11" Weight 180.00 lb Heart Rate 77 /min Body Temperature 97.0 F O2 % BldC Oximetry 93 % BMI (Body Mass Index) 36.4 kg/m2 11/24/2018 11:05am Height 59 inches 4'11" Weight 180.00 lb BP Systolic 124 mmHg BP Diastolic 76 mmHg Body Temperature 97.9 F Pain Level 8 BMI (Body Mass Index) 36.4 kg/m2 11/14/2018 11:15am Height 59 inches 4'11" Weight 180.00 lb Heart Rate 76 /min BP Systolic 126 mmHg BP Diastolic 76 mmHg Body Temperature 97.8 F Pain Level 8 BMI (Body Mass Index) 36.4 kg/m2 10/28/2018 11:44am Height 59 inches 4'11" Weight 179.00 lb Heart Rate 84 /min BP Systolic 146 mmHg BP Diastolic 82 mmHg Respiratory Rate 14 /min Pain Level 5 BMI (Body Mass Index) 36.1 kg/m2 10/14/2018 10:14am Height 59 inches 4'11" Weight 179.00 lb BP Systolic 138 mmHg BP Diastolic 70 mmHg Pain Level 5 BMI (Body Mass Index) 36.1 kg/m2 04/08/2018 10:19am Height 59 inches 4'11" Weight 175.50 lb Heart Rate 68 /min BP Systolic 126 mmHg BP Diastolic 78 mmHg Body Temperature 96.2 F Pain Level 7 BMI (Body Mass Index) 35.4 kg/m2 08/01/2016 8:14am Height 59 inches 4'11" Weight 185.00 lb Heart Rate 72 /min BP Systolic 129 mmHg BP Diastolic 85 mmHg BMI (Body Mass Index) 37.4 kg/m2 09/08/2015 10:14am Height 59 inches 4'11" Weight 175.00 lb Body Temperature 98.3 F Pain Level 3 BMI (Body Mass Index) 35.3 kg/m2 08/22/2015 8:26am Height 59 inches 4'11" Weight 179.00 lb Heart Rate 77 /min BP Systolic Sitting 140 mmHg BP Diastolic Sitting 95 mmHg Respiratory Rate 18 /min Pain Level 8 BMI (Body Mass Index) 36.1 kg/m2 04/11/2015 1:42pm Height 59 inches 4'11" Weight 187.25 lb Heart Rate 99 /min BP Systolic Sitting 152 mmHg BP Diastolic Sitting 88 mmHg Respiratory Rate 22 /min Body Temperature 98.0 F O2 % BldC Oximetry 97 % BMI (Body Mass Index) 37.8 kg/m2 03/29/2015 10:26am Height 59 inches 4'11" Weight 188.50 lb Heart Rate 88 /min BP Systolic Sitting 138 mmHg BP Diastolic Sitting 84 mmHg Respiratory Rate 24 /min Body Temperature 98.0 F Pain Level 8 O2 % BldC Oximetry 98 % BMI (Body Mass Index) 38.1 kg/m2 03/14/2015 3:16pm Weight 184.00 lb Heart Rate 97 /min BP Systolic Sitting 132 mmHg BP Diastolic Sitting 84 mmHg Respiratory Rate 22 /min Body Temperature 98.6 F Pain Level 8 lower back O2 % BldC Oximetry 94 % 12/29/2014 10:22am Weight 181.50 lb Heart Rate 88 /min BP Systolic Sitting 128 mmHg BP Diastolic Sitting 80 mmHg Body Temperature 97.4 F 12/10/2014 9:26am Weight 185.00 lb Heart Rate 79 /min BP Systolic Sitting 132 mmHg BP Diastolic Sitting 88 mmHg Body Temperature 97.5 F O2 % BldC Oximetry 97 % 2014 12:35pm Weight 183.75 lb Heart Rate 70 /min BP Systolic Sitting 136 mmHg BP Diastolic Sitting 80 mmHg Body Temperature 97.8 F 09/07/2014 4:01pm Height 59 inches 4'11" Weight 182.75 lb Heart Rate 106 /min BP Systolic Sitting 134 mmHg BP Diastolic Sitting 90 mmHg O2 % BldC Oximetry 96 % BMI (Body Mass Index) 36.9 kg/m2 08/23/2014 2:29pm Weight 180.25 lb Heart Rate 108 /min BP Systolic Sitting 140 mmHg BP Diastolic Sitting 99 mmHg Body Temperature 97.1 F O2 % BldC Oximetry 97 % 08/13/2014 11:21am Height 59 inches 4'11" Weight 181.50 lb Heart Rate 88 /min BP Systolic Sitting 132 mmHg BP Diastolic Sitting 80 mmHg Body Temperature 96.4 F Pain Level 7 abdomen O2 % BldC Oximetry 96 % BMI (Body Mass Index) 36.7 kg/m2 07/26/2014 11:30am Height 59 inches 4'11" Weight 183.00 lb Heart Rate 103 /min BP Systolic Sitting 121 mmHg BP Diastolic Sitting 84 mmHg Respiratory Rate 24 /min Body Temperature 98.4 F O2 % BldC Oximetry 96 % BMI (Body Mass Index) 37.0 kg/m2 07/09/2014 2:11pm Height 59 inches 4'11" Weight 182.75 lb Heart Rate 88 /min BP Systolic Sitting 124 mmHg BP Diastolic Sitting 88 mmHg Respiratory Rate 24 /min Body Temperature 98.4 F O2 % BldC Oximetry 97 % BMI (Body Mass Index) 36.9 kg/m2 05/24/2014 1:03pm Height 59 inches 4'11" Weight 178.25 lb Heart Rate 83 /min BP Systolic Sitting 120 mmHg BP Diastolic Sitting 78 mmHg Respiratory Rate 18 /min Body Temperature 97.1 F O2 % BldC Oximetry 96 % BMI (Body Mass Index) 36.0 kg/m2 05/05/2014 8:20am Weight 177.25 lb Heart Rate 87 /min BP Systolic Sitting 129 mmHg BP Diastolic Sitting 85 mmHg Body Temperature 96.9 F Pain Level 8 right breast O2 % BldC Oximetry 96 % 04/12/2014 12:56pm Weight 173.00 lb Heart Rate 118 /min BP Systolic Sitting 122 mmHg BP Diastolic Sitting 80 mmHg Body Temperature 98.9 F 03/26/2014 1:14pm Height 57.5 inches 4'9.50" Weight 173.00 lb Heart Rate 90 /min Body Temperature 98.5 F O2 % BldC Oximetry 93 % BMI (Body Mass Index) 36.8 kg/m2 11/16/2013 11:19am Height 59 inches 4'11" Weight 165.00 lb Heart Rate 72 /min BP Systolic 132 mmHg BP Diastolic 73 mmHg Body Temperature 98.5 F BMI (Body Mass Index) 33.3 kg/m2 10/08/2013 1:02pm Height 59 inches 4'11" Heart Rate 94 /min BP Systolic 146 mmHg BP Diastolic 96 mmHg 09/10/2013 11:44am Height 59 inches 4'11" Weight 163.00 lb Heart Rate 73 /min BP Systolic 138 mmHg BP Diastolic 102 mmHg BMI (Body Mass Index) 32.9 kg/m2 07/30/2013 10:57am Height 59 inches 4'11" Weight 167.00 lb Heart Rate 73 /min BP Systolic 144 mmHg BP Diastolic 97 mmHg BMI (Body Mass Index) 33.7 kg/m2 06/18/2013 9:10am Height 59 inches 4'11" Weight 165.00 lb Heart Rate 80 /min BP Systolic 133 mmHg BP Diastolic 96 mmHg BMI (Body Mass Index) 33.3 kg/m2 Results Test Date Facility Test Result H/L Range Note CBC Auto Diff 03/31/2015 [facility] White Blood 20.8 10^3/uL High 4.8-10.[address] [place] [address] [phone] Red Blood Count 4.74 10^6/uL N 4.0-5.4 Hemoglobin 14.0 g/dL N 12.0-16.0 Hematocrit 43 % N 35-47 Mean Corpuscular Volume 91 fL N 80-97 Mean Corpuscular Hemoglobin 30 pg N 27-31 Mean Corpuscular HGB Conc 32 g/dL N 31-36 Red Cell Distribution Width 14 % N 10.5-15 Platelet Count 394 10^3/uL N 150-450 Mean Platelet Volume 9 um3 N 7.4-10.4 Abs Neutrophils 13.2 10^3/uL High 1.5-7.7 Abs Lymphocytes 5.9 10^3/uL High 1.0-4.8 Abs Monocytes 1.6 10^3/uL High 0-0.8 Abs Eosinophils 0.1 10^3/uL N 0-0.6 Abs Basophils 0.1 10^3/uL N 0-0.2 Abs Nucleated RBC 0.01 10^3/uL N Granulocyte % 63.1 % N 38-83 Lymphocyte % 28.5 % N 25-47 Monocyte % 7.7 % N 1-9 Eosinophil % 0.4 % N 0-6 Basophil % 0.3 % N 0-2 Nucleated Red Blood Cells % 0 N Laboratory test 03/31/2015 [facility] Lactic Acid 1.4 mmol/L N 0.5-2.2 finding [address] [place] [address] [phone] Comp Metabolic 03/31/2015 [facility] Sodium 135 mmol/L N 133- 145 Panel [address] [place] [address] [phone] Potassium 3.6 mmol/L N 3.5-5.0 Chloride 101 mmol/L N 101-111 Co2 Carbon Dioxide 27 mmol/L N 22-32 Anion Gap 7 mmol/L N 2-11 Glucose 131 mg/dL High 70-100 Blood Urea Nitrogen 27 mg/dL High 6-24 Creatinine 0.78 mg/dL N 0.51-0.95 BUN/Creatinine Ratio 34.6 High 8-20 Calcium 9.3 mg/dL N 8.6-10.3 Total Protein 6.9 g/dL N 6.4-8.9 Albumin 3.8 g/dL N 3.2-5.2 Globulin 3.1 g/dL N 2-4 Albumin/Globulin Ratio 1.2 N 1-3 Total Bilirubin 0.20 mg/dL N 0.2-1.0 Alkaline Phosphatase 105 U/L High 34-104 Alt 36 U/L N 7-52 Ast 27 U/L N 13-39 Egfr Non- 76.7 N >60 Egfr 98.6 N >60 1 Laboratory test 03/31/2015 [facility] Troponin-I (TnI) 0.01 ng/ mL N <0.03 2 finding [address] [place] [address] [phone] Pathologist Review (SEE NOTE) N 3 CBC Auto Diff 03/28/2015 [facility] White Blood 10.3 10^3/uL N 4.8-10.[address] [place] [address] [phone] Red Blood Count 4.67 10^6/uL N 4.0-5.4 Hemoglobin 13.9 g/dL N 12.0-16.0 Hematocrit 42 % N 35-47 Mean Corpuscular Volume 91 fL N 80-97 Mean Corpuscular Hemoglobin 30 pg N 27-31 Mean Corpuscular HGB Conc 33 g/dL N 31-36 Red Cell Distribution Width 14 % N 10.5-15 Platelet Count 356 10^3/uL N 150-450 Mean Platelet Volume 8 um3 N 7.4-10.4 Abs Neutrophils 6.2 10^3/uL N 1.5-7.7 Abs Lymphocytes 3.1 10^3/uL N 1.0-4.8 Abs Monocytes 0.7 10^3/uL N 0-0.8 Abs Eosinophils 0.2 10^3/uL N 0-0.6 Abs Basophils 0.1 10^3/uL N 0-0.2 Abs Nucleated RBC 0.01 10^3/uL N Granulocyte % 60.2 % N 38-83 Lymphocyte % 29.6 % N 25-47 Monocyte % 7.1 % N 1-9 Eosinophil % 2.1 % N 0-6 Basophil % 1.0 % N 0-2 Nucleated Red Blood Cells % 0 N Inr/Protime 03/28/2015 [facility] Inr 0.91 N 0.78-1.07 [address] [place] [address] [phone] Laboratory test 03/28/2015 [facility] Lactic Acid 1.0 mmol/L N 0.5-2.2 finding [address] [place] [address] [phone] B-Type Natriuretic Peptide BNP 25 pg/mL N 4 Comp Metabolic Panel 03/28/2015 [facility] Sodium 135 mmol/L N 133-145 [address] [place] [address] [phone] Potassium 3.8 mmol/L N 3.5-5.0 Chloride 103 mmol/L N 101-111 Co2 Carbon Dioxide 29 mmol/L N 22-32 Anion Gap 3 mmol/L N 2-11 Glucose 103 mg/dL High 70-100 Blood Urea Nitrogen 16 mg/dL N 6-24 Creatinine 0.72 mg/dL N 0.51-0.95 BUN/Creatinine Ratio 22.2 High 8-20 Calcium 8.9 mg/dL N 8.6-10.3 Total Protein 6.4 g/dL N 6.4-8.9 Albumin 3.7 g/dL N 3.2-5.2 Globulin 2.7 g/dL N 2-4 Albumin/Globulin Ratio 1.4 N 1-3 Total Bilirubin 0.20 mg/dL N 0.2-1.0 Alkaline Phosphatase 112 U/L High 34-104 Alt 17 U/L N 7-52 Ast 12 U/L Low 13-39 Egfr Non- 84.1 N >60 Egfr 108.2 N >60 5 Laboratory test 03/28/2015 [facility] Creatine 30 U/L N 10- [address] Kinase(CK) [place] [address] [phone] Troponin-I (TnI) 0.00 ng/mL N <0.03 6 CKMB 03/28/2015 [facility] CKMB ng/mL 1.3 ng/mL N 0.6-6.[address] [place] [address] [phone] Laboratory 03/28/2015 [facility] D Dimer < 200 N Less Than 7 test finding [address] Quantitative ng/mL [address] [place] [address] [phone] CBC Auto Diff 03/12/2015 [facility] White Blood 11.5 High 4.8- 10.[address] Count 10^3/[place] [address] [phone] Red Blood Count 4.57 10^6/uL N 4.0-5.4 Hemoglobin 13.2 g/dL N 12.0-16.0 Hematocrit 42 % N 35-47 Mean Corpuscular Volume 91 fL N 80-97 Mean Corpuscular Hemoglobin 29 pg N 27-31 Mean Corpuscular HGB Conc 32 g/dL N 31-36 Red Cell Distribution Width 15 % N 10.5-15 Platelet Count 340 10^3/uL N 150-450 Mean Platelet Volume 9 um3 N 7.4-10.4 Abs Neutrophils 6.9 10^3/uL N 1.5-7.7 Abs Lymphocytes 3.6 10^3/uL N 1.0-4.8 Abs Monocytes 0.9 10^3/uL High 0-0.8 Abs Eosinophils 0.1 10^3/uL N 0-0.6 Abs Basophils 0 10^3/uL N 0-0.2 Abs Nucleated RBC 0.01 10^3/uL N Granulocyte % 60.1 % N 38-83 Lymphocyte % 30.9 % N 25-47 Monocyte % 7.5 % N 1-9 Eosinophil % 1.1 % N 0-6 Basophil % 0.4 % N 0-2 Nucleated Red Blood Cells % 0 N Laboratory test 03/12/2015 [facility] Lactic Acid 1.2 mmol/L N 0.5-2.2 finding [address] [place] [address] [phone] Comp Metabolic 03/12/2015 [facility] Sodium 135 mmol/L N 133- 145 Panel [address] [place] [address] [phone] Potassium 4.1 mmol/L N 3.5-5.0 Chloride 102 mmol/L N 101-111 Co2 Carbon Dioxide 28 mmol/L N 22-32 Anion Gap 5 mmol/L N 2-11 Glucose 89 mg/dL N 70-100 Blood Urea Nitrogen 13 mg/dL N 6-24 Creatinine 0.70 mg/dL N 0.51-0.95 BUN/Creatinine Ratio 18.6 N 8-20 Calcium 9.0 mg/dL N 8.6-10.3 Total Protein 6.5 g/dL N 6.4-8.9 Albumin 3.6 g/dL N 3.2-5.2 Globulin 2.9 g/dL N 2-4 Albumin/Globulin Ratio 1.2 N 1-3 Total Bilirubin 0.20 mg/dL N 0.2-1.0 Alkaline Phosphatase 110 U/L High 34-104 Alt 14 U/L N 7-52 Ast 13 U/L N 13-39 Egfr Non- 86.9 N >60 Egfr 111.7 N >60 8 Laboratory test finding 03/12/2015 [facility] Lipase 18 U/L N 11.0-82.0 [address] [place] [address] [phone] C Reactive Protein 11.20 mg/L High < 5.00 9 Troponin-I (TnI) 0.00 ng/mL N <0.03 10 Urinalysis Profile 03/12/2015 [facility] Urine Color Yellow N [address] [place] [address] [phone] Urine Appearance Cloudy N Urine Specific [place] 1.012 N 1.010-1.030 Urine pH 5.0 N 5-9 Urine Urobilinogen Negative N Negative Urine Ketones Negative N Negative Urine Protein Negative N Negative Urine Leukocytes 1+ Abnormal Negative Urine Blood Negative N Negative Urine Nitrite Negative N Negative Urine Bilirubin Negative N Negative Urine Glucose Negative N Negative Urine White Blood Cell 1+(6-10/hpf) Abnormal Absent Urine Red Blood Cell Absent N Absent Urine Bacteria Absent N Absent Urine Squamous Epithelial Cell Present Abnormal Absent Laboratory test 03/12/2015 [facility] Urine Culture And SEE RESULT [address] [place] [address] [phone] Laboratory test 03/07/2015 [facility] Troponin-I (TnI) 0.02 ng/ mL N <0.0 [address] [place] [address] [phone] CBC Auto Diff 03/07/2015 [facility] White Blood Count 18.2 High 4.8- [address] 10^3/uL 10.8 [place] [address] [phone] Red Blood Count 4.81 10^6/uL N 4.0-5.4 Hemoglobin 14.1 g/dL N 12.0-16.0 Hematocrit 44 % N 35-47 Mean Corpuscular Volume 91 fL N 80-97 Mean Corpuscular Hemoglobin 29 pg N 27-31 Mean Corpuscular HGB Conc 32 g/dL N 31-36 Red Cell Distribution Width 15 % N 10.5-15 Platelet Count 352 10^3/uL N 150-450 Mean Platelet Volume 9 um3 N 7.4-10.4 Abs Neutrophils 11.7 10^3/uL High 1.5-7.7 Abs Lymphocytes 5.2 10^3/uL High 1.0-4.8 13 Abs Monocytes 1.1 10^3/uL High 0-0.8 Abs Eosinophils 0.1 10^3/uL N 0-0.6 Abs Basophils 0.2 10^3/uL N 0-0.2 Abs Nucleated RBC 0 10^3/uL N Granulocyte % 64.2 % N 38-83 Lymphocyte % 28.3 % N 25-47 Monocyte % 5.8 % N 1-9 Eosinophil % 0.4 % N 0-6 Basophil % 1.3 % N 0-2 Nucleated Red Blood Cells % 0 N Inr/Protime 03/07/2015 [facility] Inr 0.88 N 0.78-1.[address] [place] [address] [phone] Laboratory test 03/07/2015 [facility] Partial 26.0 seconds N 26.0-36.[address] [place] [address] PTT [phone] Comp Metabolic 03/07/2015 [facility] Sodium 138 mmol/L N 133- [address] [place] [address] [phone] Chloride 103 mmol/L N 101-111 Co2 Carbon Dioxide 30 mmol/L N 22-32 Glucose 108 mg/dL High 70-100 Blood Urea Nitrogen 11 mg/dL N 6-24 Creatinine 0.79 mg/dL N 0.51-0.95 BUN/Creatinine Ratio 13.9 N 8-20 Calcium 9.1 mg/dL N 8.6-10.3 Total Protein 7.0 g/dL N 6.4-8.9 Albumin 3.9 g/dL N 3.2-5.2 Globulin 3.1 g/dL N 2-4 Albumin/Globulin Ratio 1.3 N 1-3 Total Bilirubin 0.20 mg/dL N 0.2-1.0 Alkaline Phosphatase 122 U/L High 34-104 Alt 14 U/L N 7-52 Egfr Non- 75.6 N >60 Egfr 97.2 N >60 14 Potassium 3.8 mmol/L N 3.5-5.0 Anion Gap 5 mmol/L N 2-11 Ast 14 U/L N 13-39 Laboratory test 03/07/2015 [facility] Troponin-I 0.01 ng/mL N <0.[address] (TnI) [place] [address] [phone] CKMB 03/07/2015 [facility] CKMB ng/mL 2.2 ng/mL N 0.6-6.[address] [place] [address] [phone] Laboratory test 02/26/2015 [facility] Troponin-I 0.00 ng/mL N <0.[address] (TnI) [place] [address] [phone] Comp Metabolic 02/26/2015 [facility] Sodium 135 mmol/L N 133- 145 Panel [address] [place] [address] [phone] Potassium 3.7 mmol/L N 3.5-5.0 Chloride 101 mmol/L N 101-111 Co2 Carbon Dioxide 27 mmol/L N 22-32 Anion Gap 7 mmol/L N 2-11 Glucose 116 mg/dL High 70-100 Blood Urea Nitrogen 17 mg/dL N 6-24 Creatinine 0.74 mg/dL N 0.51-0.95 BUN/Creatinine Ratio 23.0 High 8-20 Calcium 9.0 mg/dL N 8.6-10.3 Total Protein 6.9 g/dL N 6.4-8.9 Albumin 4.0 g/dL N 3.2-5.2 Globulin 2.9 g/dL N 2-4 Albumin/Globulin Ratio 1.4 N 1-3 Total Bilirubin 0.20 mg/dL N 0.2-1.0 Alkaline Phosphatase 137 U/L High 34-104 Alt 13 U/L N 7-52 Ast 14 U/L N 13-39 Egfr Non- 81.5 N >60 Egfr 104.8 N >60 17 CBC Auto Diff 02/26/2015 [facility] White Blood 9.1 10^3/uL N 4.8-10.[address] [place] [address] [phone] Red Blood Count 4.73 10^6/uL N 4.0-5.4 Hemoglobin 13.7 g/dL N 12.0-16.0 Hematocrit 43 % N 35-47 Mean Corpuscular Volume 91 fL N 80-97 Mean Corpuscular Hemoglobin 29 pg N 27-31 Mean Corpuscular HGB Conc 32 g/dL N 31-36 Red Cell Distribution Width 14 % N 10.5-15 Platelet Count 313 10^3/uL N 150-450 Mean Platelet Volume 9 um3 N 7.4-10.4 Abs Neutrophils 4.7 10^3/uL N 1.5-7.7 Abs Lymphocytes 3.4 10^3/uL N 1.0-4.8 Abs Monocytes 0.8 10^3/uL N 0-0.8 Abs Eosinophils 0.2 10^3/uL N 0-0.6 Abs Basophils 0 10^3/uL N 0-0.2 Abs Nucleated RBC 0 10^3/uL N Granulocyte % 52.0 % N 38-83 Lymphocyte % 36.9 % N 25-47 Monocyte % 9.0 % N 1-9 Eosinophil % 1.7 % N 0-6 Basophil % 0.4 % N 0-2 Nucleated Red Blood Cells % 0 N Laboratory test 02/26/2015 [facility] B-Type 18 pg/mL N [address] [place] [address] Peptide BNP [phone] CBC Auto Diff 01/17/2015 [facility] White Blood Count 10.1 N 4.8-[address] 10^3/uL 0.8 [place] [address] [phone] Red Blood Count 4.70 10^6/uL N 4.0-5.4 Hemoglobin 13.6 g/dL N 12.0-16.0 Hematocrit 42 % N 35-47 Mean Corpuscular Volume 90 fL N 80-97 Mean Corpuscular Hemoglobin 29 pg N 27-31 Mean Corpuscular HGB Conc 32 g/dL N 31-36 Red Cell Distribution Width 15 % N 10.5-15 Platelet Count 276 10^3/uL N 150-450 Mean Platelet Volume 10 um3 N 7.4-10.4 Abs Neutrophils 7.8 10^3/uL High 1.5-7.7 Abs Lymphocytes 1.8 10^3/uL N 1.0-4.8 Abs Monocytes 0.3 10^3/uL N 0-0.8 Abs Eosinophils 0.1 10^3/uL N 0-0.6 Abs Basophils 0.1 10^3/uL N 0-0.2 Abs Nucleated RBC 0.01 10^3/uL N Granulocyte % 77.1 % N 38-83 Lymphocyte % 18.2 % Low 25-47 Monocyte % 3.4 % N 1-9 Eosinophil % 0.5 % N 0-6 Basophil % 0.8 % N 0-2 Nucleated Red Blood Cells % 0.1 N Laboratory test 01/17/2015 [facility] Lactic Acid 1.4 mmol/L N 0.5-2.[address] [place], [place] [id number] [phone] Inr/Protime 01/17/2015 [facility] Inr 0.95 N 0.78-1.[address] [place] [address] [phone] Laboratory test 01/17/2015 [facility] B-Type 25 pg/mL N [address] [place] [address] Peptide BNP [phone] Comp Metabolic 01/17/2015 [facility] Sodium 135 mmol/L N 133- [address] [place] [address] [phone] Potassium 3.7 mmol/L N 3.5-5.0 Chloride 103 mmol/L N 101-111 Co2 Carbon Dioxide 26 mmol/L N 22-32 Anion Gap 6 mmol/L N 2-11 Glucose 97 mg/dL N 70-100 Blood Urea Nitrogen 10 mg/dL N 6-24 Creatinine 0.67 mg/dL N 0.51-0.95 BUN/Creatinine Ratio 14.9 N 8-20 Calcium 9.1 mg/dL N 8.6-10.3 Total Protein 7.2 g/dL N 6.4-8.9 Albumin 4.0 g/dL N 3.2-5.2 Globulin 3.2 g/dL N 2-4 Albumin/Globulin Ratio 1.3 N 1-3 Total Bilirubin 0.30 mg/dL N 0.2-1.0 Alkaline Phosphatase 107 U/L High 34-104 Alt 11 U/L N 7-52 Ast 14 U/L N 13-39 Egfr Non- 91.4 N >60 Egfr 117.5 N >60 20 Laboratory test 01/17/2015 [facility] Creatine 39 U/L N 10- [address] Kinase(CK) [place] [address] [phone] Troponin-I (TnI) 0.00 ng/mL N <0.03 21 CKMB 01/17/2015 [facility] CKMB ng/mL 1.0 ng/mL N 0.6-6.[address] [place] [address] [phone] Laboratory test 01/17/2015 [facility] TSH 1.92 ?IU/mL N 0.34- 5.[address] ([place] [address] Stim Horm) [phone] Magnesium 1.8 mg/dL Low 1.9-2.7 Lipase 14 U/L N 11.0-82.0 C Reactive Protein 9.82 mg/L High < 5.00 22 Laboratory test 12/26/2014 [facility] Wound SEE RESULT [address] Culture/[place] [address] [phone] CBC Auto Diff 11/25/2014 [facility] White Blood Count 15.0 High 4.8- [address] 10^3/uL 10.8 [place] [address] [phone] Red Blood Count 4.35 10^6/uL N 4.0-5.4 Hemoglobin 13.5 g/dL N 12.0-16.0 Hematocrit 39 % N 35-47 Mean Corpuscular Volume 90 fL N 80-97 Mean Corpuscular Hemoglobin 31 pg N 27-31 Mean Corpuscular HGB Conc 34 g/dL N 31-36 Red Cell Distribution Width 14 % N 10.5-15 Platelet Count 301 10^3/uL N 150-450 Mean Platelet Volume 9 um3 N 7.4-10.4 Abs Neutrophils 11.8 10^3/uL High 1.5-7.7 Abs Lymphocytes 1.8 10^3/uL N 1.0-4.8 Abs Monocytes 1.2 10^3/uL High 0-0.8 Abs Eosinophils 0.1 10^3/uL N 0-0.6 Abs Basophils 0.1 10^3/uL N 0-0.2 Abs Nucleated RBC 0 10^3/uL N Granulocyte % 78.6 % N 38-83 Lymphocyte % 11.8 % Low 25-47 Monocyte % 8.3 % N 1-9 Eosinophil % 0.6 % N 0-6 Basophil % 0.7 % N 0-2 Nucleated Red Blood Cells % 0 N Laboratory test 11/25/2014 [facility] Lactic Acid 0.6 mmol/L N 0.5-2.[address] [place] [address] [phone] Comp Metabolic 11/25/2014 [facility] Sodium 136 mmol/L N 133- [address] [place] [address] [phone] Potassium 3.8 mmol/L N 3.5-5.0 Chloride 104 mmol/L N 101-111 Co2 Carbon Dioxide 26 mmol/L N 22-32 Anion Gap 6 mmol/L N 2-11 Glucose 108 mg/dL High 70-100 Blood Urea Nitrogen 10 mg/dL N 6-24 Creatinine 0.63 mg/dL N 0.51-0.95 BUN/Creatinine Ratio 15.9 N 8-20 Calcium 9.1 mg/dL N 8.6-10.3 Total Protein 6.9 g/dL N 6.4-8.9 Albumin 3.8 g/dL N 3.2-5.2 Globulin 3.1 g/dL N 2-4 Albumin/Globulin Ratio 1.2 N 1-3 Total Bilirubin 0.50 mg/dL N 0.2-1.0 Alkaline Phosphatase 131 U/L High 34-104 Alt 18 U/L N 7-52 Ast 12 U/L Low 13-39 Egfr Non- 98.1 N >60 Egfr 126.2 N >60 24 Laboratory test 11/25/2014 [facility] C Reactive 96.66 mg/L High < 5.00 [address] [place] [address] [phone] Urinalysis 09/22/2014 [facility] Urine Color Yellow N Profile [address] [place] [address] [phone] Urine Appearance Cloudy N Urine Specific [place] 1.023 N 1.010-1.030 Urine pH 5.0 N 5-9 Urine Urobilinogen Negative N Negative Urine Ketones Negative N Negative Urine Protein Negative N Negative Urine Leukocytes Negative N Negative Urine Blood Negative N Negative Urine Nitrite Negative N Negative Urine Bilirubin Negative N Negative Urine Glucose Negative N Negative CBC Auto 09/22/2014 [facility] White Blood 11.1 10^3/uL High 4.8-10.[address] [place] [address] [phone] Red Blood Count 4.60 10^6/uL N 4.0-5.4 Hemoglobin 13.8 g/dL N 12.0-16.0 Hematocrit 42 % N 35-47 Mean Corpuscular Volume 92 fL N 80-97 Mean Corpuscular Hemoglobin 30 pg N 27-31 Mean Corpuscular HGB Conc 33 g/dL N 31-36 Red Cell Distribution Width 14 % N 10.5-15 Platelet Count 357 10^3/uL N 150-450 Mean Platelet Volume 10 um3 N 7.4-10.4 Abs Neutrophils 6.9 10^3/uL N 1.5-7.7 Abs Lymphocytes 3.2 10^3/uL N 1.0-4.8 Abs Monocytes 0.9 10^3/uL High 0-0.8 Abs Eosinophils 0.1 10^3/uL N 0-0.6 Abs Basophils 0 10^3/uL N 0-0.2 Abs Nucleated RBC 0 10^3/uL N Granulocyte % 62.2 % N 38-83 Lymphocyte % 28.9 % N 25-47 Monocyte % 7.9 % N 1-9 Eosinophil % 0.7 % N 0-6 Basophil % 0.3 % N 0-2 Nucleated Red Blood Cells % 0 N Comp Metabolic Panel 09/22/2014 [facility] Sodium 135 mmol/L N 133-145 [address] [place] [address] [phone] Potassium 3.7 mmol/L N 3.5-5.0 Chloride 101 mmol/L N 101-111 Co2 Carbon Dioxide 29 mmol/L N 22-32 Anion Gap 5 mmol/L N 2-11 Glucose 89 mg/dL N 70-100 Blood Urea Nitrogen 12 mg/dL N 6-24 Creatinine 0.71 mg/dL N 0.51-0.95 BUN/Creatinine Ratio 16.9 N 8-20 Calcium 9.6 mg/dL N 8.6-10.3 Total Protein 7.3 g/dL N 6.4-8.9 Albumin 4.1 g/dL N 3.2-5.2 Globulin 3.2 g/dL N 2-4 Albumin/Globulin Ratio 1.3 N 1-3 Total Bilirubin 0.30 mg/dL N 0.2-1.0 Alkaline Phosphatase 117 U/L High 34-104 Alt 15 U/L N 7-52 Ast 16 U/L N 13-39 Egfr Non- 85.5 N >60 Egfr 109.9 N >60 26 Laboratory test finding 09/22/2014 [facility] Lipase 8 U/L Low 11.0-82.0 [address] [place] [address] [phone] C Reactive Protein 12.28 mg/L High < 5.00 27 Lactic Acid 1.2 mmol/L N 0.5-2.2 Urine Culture And 2014 [facility] Urine Culture (SEE NOTE ) 28 Sensitivities [address] [place] [address] [phone] Ua Routine 2014 [employer] Ua Specific 1.005 [place] Ua PH 7 Ua Color yellow Ua Appera clear Ua WBC trace Ua Protein neg Ua Glucose neg Ua Ketones neg Ua Bilirubin small Ua Urobilinogen norm Ua Nitrite neg Ua Occult Blood neg CBC Auto Diff 09/08/2014 [facility] White Blood 10.1 10^3/uL N 4.8-10.[address] [place] [address] [phone] Red Blood Count 4.63 10^6/uL N 4.0-5.4 Hemoglobin 14.3 g/dL N 12.0-16.0 Hematocrit 43 % N 35-47 Mean Corpuscular Volume 92 fL N 80-97 Mean Corpuscular Hemoglobin 31 pg N 27-31 Mean Corpuscular HGB Conc 34 g/dL N 31-36 Red Cell Distribution Width 13 % N 10.5-15 Platelet Count 294 10^3/uL N 150-450 Mean Platelet Volume 10 um3 N 7.4-10.4 Abs Neutrophils 6.0 10^3/uL N 1.5-7.7 Abs Lymphocytes 3.2 10^3/uL N 1.0-4.8 Abs Monocytes 0.8 10^3/uL N 0-0.8 Abs Eosinophils 0.1 10^3/uL N 0-0.6 Abs Basophils 0 10^3/uL N 0-0.2 Abs Nucleated RBC 0.01 10^3/uL N Granulocyte % 58.8 % N 38-83 Lymphocyte % 31.6 % N 25-47 Monocyte % 8.3 % N 1-9 Eosinophil % 1.0 % N 0-6 Basophil % 0.3 % N 0-2 Nucleated Red Blood Cells % 0.1 N Laboratory test 09/08/2014 [facility] Erythrocyte Sed 14 mm/Hr N 0-[address] [place] [address] [phone] C Reactive Protein 8.91 mg/L High < 5.00 29 Comp Metabolic Panel 09/08/2014 [facility] Sodium 135 mmol/L N 133-[address] [place] [address] [phone] Potassium 4.1 mmol/L N 3.5-5.0 Chloride 101 mmol/L N 101-111 Co2 Carbon Dioxide 29 mmol/L N 22-32 Anion Gap 5 mmol/L N 2-11 Glucose 79 mg/dL N 70-100 Blood Urea Nitrogen 14 mg/dL N 6-24 Creatinine 0.70 mg/dL N 0.51-0.95 BUN/Creatinine Ratio 20.0 N 8-20 Calcium 10.0 mg/dL N 8.6-10.3 Total Protein 7.0 g/dL N 6.4-8.9 Albumin 4.3 g/dL N 3.2-5.2 Globulin 2.7 g/dL N 2-4 Albumin/Globulin Ratio 1.6 N 1-3 Total Bilirubin 0.30 mg/dL N 0.2-1.0 Alkaline Phosphatase 124 U/L High 34-104 Alt 17 U/L N 7-52 Ast 16 U/L N 13-39 Egfr Non- 87.2 N >60 Egfr 112.1 N >60 30 Laboratory test 09/08/2014 [facility] Hemoglobin A1c 6.2 % High Less than [address] 6.0 [place] [address] [phone] Comp Metabolic 08/23/2014 [facility] Sodium 134 N 133-[address] mmol/[place] [address] [phone] Potassium 3.8 mmol/L N 3.5-5.0 Chloride 101 mmol/L N 101-111 Co2 Carbon Dioxide 25 mmol/L N 22-32 Anion Gap 8 mmol/L N 2-11 Glucose 112 mg/dL High 70-100 Blood Urea Nitrogen 20 mg/dL N 6-24 Creatinine 0.74 mg/dL N 0.51-0.95 BUN/Creatinine Ratio 27.0 High 8-20 Calcium 9.7 mg/dL N 8.6-10.3 Total Protein 7.8 g/dL N 6.4-8.9 Albumin 4.4 g/dL N 3.2-5.2 Globulin 3.4 g/dL N 2-4 Albumin/Globulin Ratio 1.3 N 1-3 Total Bilirubin 0.30 mg/dL N 0.2-1.0 Alkaline Phosphatase 130 U/L High 34-104 Alt 26 U/L N 7-52 Ast 21 U/L N 13-39 Egfr Non- 81.8 N >60 Egfr 105.2 N >60 32 Laboratory test 08/23/2014 [facility] Lipase 10 U/L Low 11.0- 82.[address] [place] [address] [phone] C Reactive Protein 7.87 mg/L High < 5.00 33 CBC Auto 08/23/2014 [facility] White Blood 14.2 10^3/uL High 4.8-10.[address] [place] [address] [phone] Red Blood Count 5.05 10^6/uL N 4.0-5.4 Hemoglobin 15.0 g/dL N 12.0-16.0 Hematocrit 47 % N 35-47 Mean Corpuscular Volume 93 fL N 80-97 Mean Corpuscular Hemoglobin 30 pg N 27-31 Mean Corpuscular HGB Conc 32 g/dL N 31-36 Red Cell Distribution Width 14 % N 10.5-15 Platelet Count 393 10^3/uL N 150-450 Mean Platelet Volume 9 um3 N 7.4-10.4 Abs Neutrophils 8.8 10^3/uL High 1.5-7.7 Abs Lymphocytes 4.3 10^3/uL N 1.0-4.8 Abs Monocytes 0.9 10^3/uL High 0-0.8 Abs Eosinophils 0.1 10^3/uL N 0-0.6 Abs Basophils 0.1 10^3/uL N 0-0.2 Abs Nucleated RBC 0.01 10^3/uL N Granulocyte % 61.7 % N 38-83 Lymphocyte % 30.4 % N 25-47 Monocyte % 6.5 % N 1-9 Eosinophil % 0.9 % N 0-6 Basophil % 0.5 % N 0-2 Nucleated Red Blood Cells % 0.1 N CBC Auto Diff 08/13/2014 White Blood Count 10.8 10^3/uL N 4.8-10.8 Red Blood Count 4.61 10^6/uL N 4.0-5.4 Hemoglobin 14.0 g/dL N 12.0-16.0 Hematocrit 42 % N 35-47 Mean Corpuscular Volume 92 fL N 80-97 Mean Corpuscular Hemoglobin 30 pg N 27-31 Mean Corpuscular HGB Conc 33 g/dL N 31-36 Red Cell Distribution Width 14 % N 10.5-15 Platelet Count 356 10^3/uL N 150-450 Mean Platelet Volume 9 um3 N 7.4-10.4 Abs Neutrophils 6.2 10^3/uL N 1.5-7.7 Abs Lymphocytes 3.6 10^3/uL N 1.0-4.8 Abs Monocytes 0.8 10^3/uL N 0-0.8 Abs Eosinophils 0.1 10^3/uL N 0-0.6 Abs Basophils 0.1 10^3/uL N 0-0.2 Abs Nucleated RBC 0 10^3/uL N Granulocyte % 57.4 % N 38-83 Lymphocyte % 33.3 % N 25-47 Monocyte % 7.0 % N 1-9 Eosinophil % 1.3 % N 0-6 Basophil % 1.0 % N 0-2 Nucleated Red Blood Cells % 0 N Laboratory test finding 08/13/2014 Erythrocyte Sed Rate 19 mm/Hr N 0-30 C Reactive Protein 12.03 mg/L High < 5.00 34 Comp Metabolic Panel 08/13/2014 Sodium 136 mmol/L N 133-145 Potassium 4.0 mmol/L N 3.5-5.0 Chloride 101 mmol/L N 101-111 Co2 Carbon Dioxide 29 mmol/L N 22-32 Anion Gap 6 mmol/L N 2-11 Glucose 84 mg/dL N 70-100 Blood Urea Nitrogen 9 mg/dL N 6-24 Creatinine 0.72 mg/dL N 0.51-0.95 BUN/Creatinine Ratio 12.5 N 8-20 Calcium 9.8 mg/dL N 8.6-10.3 Total Protein 6.9 g/dL N 6.4-8.9 Albumin 4.2 g/dL N 3.2-5.2 Globulin 2.7 g/dL N 2-4 Albumin/Globulin Ratio 1.6 N 1-3 Total Bilirubin 0.30 mg/dL N 0.2-1.0 Alkaline Phosphatase 141 U/L High 34-104 Alt 69 U/L High 7-52 Ast 38 U/L N 13-39 Egfr Non- 84.4 N >60 Egfr 108.6 N >60 35 Laboratory test finding 08/13/2014 Amylase 32 U/L N 29-103 Lipase 13 U/L N 11.0-82.0 Alkaline Phos 08/13/2014 Alkaline Phosphatase 153 U/L Abnormal 41 - 108 Isoenzymes Alp Liver 1% 52.6 % N 27.8-76.3 Alp Liver 1 80.5 IU/L Abnormal 16.2-70.2 Alp Liver 2% 14.6 % Abnormal 0.0-8.0 Alp Liver 2 22.3 IU/L Abnormal 0.0-5.8 Alp Bone % 29.9 % N 19.1-67.7 Alp Bone 45.7 IU/L Abnormal 12.1-42.7 Alp Intestine % 2.9 % N 0.0-20.6 Alp Intestine 4.4 IU/L N 0.0-11.0 Alp Placental NotPresent N 36 CBC Auto 08/08/2014 [facility] White Blood 19.6 10^3/uL High 4.8-10.[address] [place] [address] [phone] Red Blood Count 5.06 10^6/uL N 4.0-5.4 Hemoglobin 15.1 g/dL N 12.0-16.0 Hematocrit 46 % N 35-47 Mean Corpuscular Volume 91 fL N 80-97 Mean Corpuscular Hemoglobin 30 pg N 27-31 Mean Corpuscular HGB Conc 33 g/dL N 31-36 Red Cell Distribution Width 14 % N 10.5-15 Platelet Count 356 10^3/uL N 150-450 Mean Platelet Volume 9 um3 N 7.4-10.4 Abs Neutrophils 18.1 10^3/uL High 1.5-7.7 Abs Lymphocytes 0.9 10^3/uL Low 1.0-4.8 Abs Monocytes 0.6 10^3/uL N 0-0.8 Abs Eosinophils 0 10^3/uL N 0-0.6 Abs Basophils 0.1 10^3/uL N 0-0.2 Abs Nucleated RBC 0 10^3/uL N Granulocyte % 92.3 % High 38-83 Lymphocyte % 4.4 % Low 25-47 Monocyte % 2.8 % N 1-9 Eosinophil % 0.1 % N 0-6 Basophil % 0.4 % N 0-2 Nucleated Red Blood Cells % 0 N Laboratory test 08/08/2014 [facility] Lactic Acid 1.4 mmol/L N 0.5-2.[address] [place] [address] [phone] Comp Metabolic 08/08/2014 [facility] Sodium 133 mmol/L N 133- 145 Panel [address] [place] [address] [phone] Potassium 4.0 mmol/L N 3.5-5.0 Chloride 103 mmol/L N 101-111 Co2 Carbon Dioxide 23 mmol/L N 22-32 Anion Gap 7 mmol/L N 2-11 Glucose 121 mg/dL High 70-100 Blood Urea Nitrogen 21 mg/dL N 6-24 Creatinine 0.64 mg/dL N 0.51-0.95 BUN/Creatinine Ratio 32.8 High 8-20 Calcium 9.0 mg/dL N 8.6-10.3 Total Protein 7.2 g/dL N 6.4-8.9 Albumin 4.1 g/dL N 3.2-5.2 Globulin 3.1 g/dL N 2-4 Albumin/Globulin Ratio 1.3 N 1-3 Total Bilirubin 0.50 mg/dL N 0.2-1.0 Alkaline Phosphatase 103 U/L N 34-104 Alt 31 U/L N 7-52 Ast 28 U/L N 13-39 Egfr Non- 96.7 N >60 Egfr 124.4 N >60 37 Laboratory test finding 08/08/2014 [facility] Lipase 9 U/L Low 11.0-82.0 [address] [place] [address] [phone] C Reactive Protein 8.39 mg/L High < 5.00 38 Troponin I 0.00 ng/mL N <0.03 39 Urinalysis Profile 08/02/2014 [facility] Urine Color Yellow N [address] [place] [address] [phone] Urine Appearance Clear N Urine Specific [place] 1.011 N 1.010-1.030 Urine pH 7.0 N 5-9 Urine Urobilinogen Negative N Negative Urine Ketones Negative N Negative Urine Protein Negative N Negative Urine Leukocytes Negative N Negative Urine Blood Negative N Negative Urine Nitrite Negative N Negative Urine Bilirubin Negative N Negative Urine Glucose Negative N Negative Blood Culture 08/02/2014 [facility] Blood Culture (SEE NOTE) 40 [address] [place] [address] [phone] Laboratory test 08/02/2014 [facility] Lactic Acid 1.8 mmol/L N 0.5-2. finding [address] [place] [address] [phone] Blood Culture (SEE NOTE) 41 Laboratory test 08/02/2014 [facility] B Type 13 pg/mL N [address] [place] [address] Peptide [phone] Comp Metabolic 08/02/2014 [facility] Sodium 138 mmol/L N 133- [address] [place] [address] [phone] Potassium 4.3 mmol/L N 3.5-5.0 Chloride 101 mmol/L N 101-111 Co2 Carbon Dioxide 31 mmol/L N 22-32 Anion Gap 6 mmol/L N 2-11 Glucose 91 mg/dL N 70-100 Blood Urea Nitrogen 14 mg/dL N 6-24 Creatinine 0.73 mg/dL N 0.51-0.95 BUN/Creatinine Ratio 19.2 N 8-20 Calcium 9.7 mg/dL N 8.6-10.3 Total Protein 7.7 g/dL N 6.4-8.9 Albumin 4.3 g/dL N 3.2-5.2 Globulin 3.4 g/dL N 2-4 Albumin/Globulin Ratio 1.3 N 1-3 Total Bilirubin 0.30 mg/dL N 0.2-1.0 Alkaline Phosphatase 119 U/L High 34-104 Alt 21 U/L N 7-52 Ast 16 U/L N 13-39 Egfr Non- 83.1 N >60 Egfr 106.8 N >60 43 Laboratory test 08/02/2014 [facility] Creatine 30 U/L N 10- [address] [place] [address] [phone] CKMB 08/02/2014 [facility] CKMB ng/mL 1.2 N 0.6-6.[address] ng/[place] [address] [phone] Laboratory test 08/02/2014 [facility] Troponin I 0.00 N <0.03 [address] ng/[place] [address] [phone] CBC Auto Diff 08/02/2014 [facility] White Blood 14.4 High 4.8- 10.[address] Count 10^3/[place] [address] [phone] Red Blood Count 5.06 10^6/uL N 4.0-5.4 Hemoglobin 14.9 g/dL N 12.0-16.0 Hematocrit 47 % N 35-47 Mean Corpuscular Volume 92 fL N 80-97 Mean Corpuscular Hemoglobin 30 pg N 27-31 Mean Corpuscular HGB Conc 32 g/dL N 31-36 Red Cell Distribution Width 14 % N 10.5-15 Platelet Count 404 10^3/uL N 150-450 Mean Platelet Volume 10 um3 N 7.4-10.4 Abs Neutrophils 8.3 10^3/uL High 1.5-7.7 Abs Lymphocytes 4.5 10^3/uL N 1.0-4.8 Abs Monocytes 1.0 10^3/uL High 0-0.8 Abs Eosinophils 0.14 10^3/uL N 0-0.6 Abs Basophils 0 10^3/uL N 0-0.2 Abs Nucleated RBC 0 10^3/uL N Manual Differential 08/02/2014 [facility] Neutrophil % 58 % N 38-[address] [place] [address] [phone] Lymphocytes % 31 % N 25-47 Monocytes % 7 % N 0-13 Eosinophils % 1 % N 0-6 Reactive Lymph % 3 % N 0-6 RBC Morphology Normal N Normal Laboratory test 08/02/2014 [facility] D Dimer < 200 ng/mL N Less [address] Quantitative Than 230 [place] [address] [phone] Urinalysis 07/31/2014 [facility] Urine Color Colorless N Profile [address] [place] [address] [phone] Urine Appearance Clear N Urine Specific [place] 1.010 N 1.010-1.030 Urine pH 6 N 5-9 Urine Urobilinogen Negative N Negative Urine Ketones Negative N Negative Urine Protein Negative N Negative Urine Leukocytes Negative N Negative Urine Blood Negative N Negative Urine Nitrite Negative N Negative Urine Bilirubin Negative N Negative Urine Glucose Negative N Negative CBC Auto 07/31/2014 [facility] White Blood 15.7 10^3/uL High 4.8-10.[address] [place] [address] [phone] Red Blood Count 4.89 10^6/uL N 4.0-5.4 Hemoglobin 14.7 g/dL N 12.0-16.0 Hematocrit 45 % N 35-47 Mean Corpuscular Volume 91 fL N 80-97 Mean Corpuscular Hemoglobin 30 pg N 27-31 Mean Corpuscular HGB Conc 33 g/dL N 31-36 Red Cell Distribution Width 14 % N 10.5-15 Platelet Count 354 10^3/uL N 150-450 Mean Platelet Volume 9 um3 N 7.4-10.4 Abs Neutrophils 11.4 10^3/uL High 1.5-7.7 Abs Lymphocytes 3.3 10^3/uL N 1.0-4.8 Abs Monocytes 0.8 10^3/uL N 0-0.8 Abs Eosinophils 0 10^3/uL N 0-0.6 Abs Basophils 0.1 10^3/uL N 0-0.2 Abs Nucleated RBC 0 10^3/uL N Granulocyte % 72.7 % N 38-83 Lymphocyte % 21.2 % Low 25-47 Monocyte % 5.2 % N 1-9 Eosinophil % 0.1 % N 0-6 Basophil % 0.8 % N 0-2 Nucleated Red Blood Cells % 0 N Laboratory test 07/31/2014 [facility] Lactic Acid 1.1 mmol/L N 0.5-2.2 finding [address] [place] [address] [phone] Comp Metabolic 07/31/2014 [facility] Sodium 135 mmol/L N 133- 145 Panel [address] [place] [address] [phone] Potassium 4.2 mmol/L N 3.5-5.0 Chloride 103 mmol/L N 101-111 Co2 Carbon Dioxide 28 mmol/L N 22-32 Anion Gap 4 mmol/L N 2-11 Glucose 119 mg/dL High 70-100 Blood Urea Nitrogen 19 mg/dL N 6-24 Creatinine 0.63 mg/dL N 0.51-0.95 BUN/Creatinine Ratio 30.2 High 8-20 Calcium 9.4 mg/dL N 8.6-10.3 Total Protein 7.4 g/dL N 6.4-8.9 Albumin 4.2 g/dL N 3.2-5.2 Globulin 3.2 g/dL N 2-4 Albumin/Globulin Ratio 1.3 N 1-3 Total Bilirubin 0.20 mg/dL N 0.2-1.0 Alkaline Phosphatase 112 U/L High 34-104 Alt 23 U/L N 7-52 Ast 14 U/L N 13-39 Egfr Non- 98.5 N >60 Egfr 126.6 N >60 46 Laboratory test finding 07/31/2014 [facility] Lipase 23 U/L N 11.0-82.[address] [place] [address] [phone] Troponin I 0.00 ng/mL N <0.03 47 C Reactive Protein 4.94 mg/L N < 5.00 48 Serum Negative N Negative 49 D Dimer Quantitative < 200 ng/mL N Less Than 230 50 CBC Auto 07/27/2014 [facility] White Blood 11.2 10^3/uL High 4.8-10.[address] [place] [address] [phone] Red Blood Count 4.82 10^6/uL N 4.0-5.4 Hemoglobin 14.4 g/dL N 12.0-16.0 Hematocrit 44 % N 35-47 Mean Corpuscular Volume 92 fL N 80-97 Mean Corpuscular Hemoglobin 30 pg N 27-31 Mean Corpuscular HGB Conc 33 g/dL N 31-36 Red Cell Distribution Width 14 % N 10.5-15 Platelet Count 342 10^3/uL N 150-450 Mean Platelet Volume 9 um3 N 7.4-10.4 Abs Neutrophils 9.6 10^3/uL High 1.5-7.7 Abs Lymphocytes 1.2 10^3/uL N 1.0-4.8 Abs Monocytes 0.4 10^3/uL N 0-0.8 Abs Eosinophils 0 10^3/uL N 0-0.6 Abs Basophils 0 10^3/uL N 0-0.2 Abs Nucleated RBC 0 10^3/uL N Granulocyte % 85.6 % High 38-83 Lymphocyte % 11.0 % Low 25-47 Monocyte % 3.1 % N 1-9 Eosinophil % 0 % N 0-6 Basophil % 0.3 % N 0-2 Nucleated Red Blood Cells % 0 N Laboratory test 07/27/2014 [facility] Lactic Acid 1.5 mmol/L N 0.5-2.[address] [place] [address] [phone] Comp Metabolic 07/27/2014 [facility] Sodium 135 mmol/L N 133- [address] [place] [address] [phone] Potassium 4.2 mmol/L N 3.5-5.0 Chloride 105 mmol/L N 101-111 Co2 Carbon Dioxide 22 mmol/L N 22-32 Anion Gap 8 mmol/L N 2-11 Glucose 159 mg/dL High 70-100 Blood Urea Nitrogen 15 mg/dL N 6-24 Creatinine 0.63 mg/dL N 0.51-0.95 BUN/Creatinine Ratio 23.8 High 8-20 Calcium 9.6 mg/dL N 8.6-10.3 Total Protein 7.6 g/dL N 6.4-8.9 Albumin 4.3 g/dL N 3.2-5.2 Globulin 3.3 g/dL N 2-4 Albumin/Globulin Ratio 1.3 N 1-3 Total Bilirubin 0.20 mg/dL N 0.2-1.0 Alkaline Phosphatase 110 U/L High 34-104 Alt 28 U/L N 7-52 Ast 22 U/L N 13-39 Egfr Non- 98.5 N >60 Egfr 126.6 N >60 51 Laboratory test finding 07/27/2014 [facility] Lipase 13 U/L N 11.0-82.[address] [place] [address] [phone] C Reactive Protein 16.42 mg/L High < 5.00 52 Rapid Influenza 07/25/2014 [facility] Rapid Influenza (SEE NOTE ) 53 A B Antigen [address] [place] [address] [phone] Comp Metabolic 07/11/2014 [facility] Sodium 135 mmol/L N 133- [address] [place] [address] [phone] Potassium 3.8 mmol/L N 3.5-5.0 Chloride 103 mmol/L N 101-111 Co2 Carbon Dioxide 25 mmol/L N 22-32 Anion Gap 7 mmol/L N 2-11 Glucose 106 mg/dL High 70-100 Blood Urea Nitrogen 15 mg/dL N 6-24 Creatinine 0.79 mg/dL N 0.51-0.95 BUN/Creatinine Ratio 19.0 N 8-20 Calcium 9.3 mg/dL N 8.6-10.3 Total Protein 7.1 g/dL N 6.4-8.9 Albumin 4.2 g/dL N 3.2-5.2 Globulin 2.9 g/dL N 2-4 Albumin/Globulin Ratio 1.4 N 1-3 Total Bilirubin 0.20 mg/dL N 0.2-1.0 Alkaline Phosphatase 122 U/L High 34-104 Alt 17 U/L N 7-52 Ast 14 U/L N 13-39 Egfr Non- 75.8 N >60 Egfr 97.5 N >60 54 Laboratory test finding 07/11/2014 [facility] Lipase 25 U/L N 11.0-82.0 [address] [place] [address] [phone] C Reactive Protein 8.26 mg/L High < 5.00 55 Lactic Acid 1.3 mmol/L N 0.5-2.2 Serum Negative N Negative 56 Inr/Protime 07/11/2014 [facility] Inr 0.93 N 0.85-1.06 [address] [place] [address] [phone] Urinalysis Profile 07/11/2014 [facility] Urine Color Yellow N [address] [place] [address] [phone] Urine Appearance Cloudy N Urine Specific [place] 1.024 N 1.010-1.030 Urine pH 5.0 N 5-9 Urine Urobilinogen Negative N Negative Urine Ketones Trace Abnormal Negative Urine Protein Negative N Negative Urine Leukocytes Negative N Negative Urine Blood Negative N Negative Urine Nitrite Negative N Negative Urine Bilirubin Negative N Negative Urine Glucose Negative N Negative CBC Auto 07/11/2014 [facility] White Blood 10.9 10^3/uL High 4.8-10.[address] [place] [address] [phone] Red Blood Count 4.76 10^6/uL N 4.0-5.4 Hemoglobin 14.5 g/dL N 12.0-16.0 Hematocrit 44 % N 35-47 Mean Corpuscular Volume 92 fL N 80-97 Mean Corpuscular Hemoglobin 30 pg N 27-31 Mean Corpuscular HGB Conc 33 g/dL N 31-36 Red Cell Distribution Width 14 % N 10.5-15 Platelet Count 341 10^3/uL N 150-450 Mean Platelet Volume 9 um3 N 7.4-10.4 Abs Neutrophils 6.2 10^3/uL N 1.5-7.7 Abs Lymphocytes 3.6 10^3/uL N 1.0-4.8 Abs Monocytes 0.9 10^3/uL High 0-0.8 Abs Eosinophils 0.1 10^3/uL N 0-0.6 Abs Basophils 0.1 10^3/uL N 0-0.2 Abs Nucleated RBC 0.01 10^3/uL N Granulocyte % 57.1 % N 38-83 Lymphocyte % 32.9 % N 25-47 Monocyte % 8.1 % N 1-9 Eosinophil % 1.2 % N 0-6 Basophil % 0.7 % N 0-2 Nucleated Red Blood Cells % 0 N CBC Auto 07/09/2014 [facility] White Blood 11.8 10^3/uL High 4.8-10.[address] [place] [address] [phone] Red Blood Count 4.58 10^6/uL N 4.0-5.4 Hemoglobin 13.9 g/dL N 12.0-16.0 Hematocrit 42 % N 35-47 Mean Corpuscular Volume 92 fL N 80-97 Mean Corpuscular Hemoglobin 30 pg N 27-31 Mean Corpuscular HGB Conc 33 g/dL N 31-36 Red Cell Distribution Width 14 % N 10.5-15 Platelet Count 322 10^3/uL N 150-450 Mean Platelet Volume 9 um3 N 7.4-10.4 Abs Neutrophils 7.5 10^3/uL N 1.5-7.7 Abs Lymphocytes 3.4 10^3/uL N 1.0-4.8 Abs Monocytes 0.8 10^3/uL N 0-0.8 Abs Eosinophils 0.1 10^3/uL N 0-0.6 Abs Basophils 0.1 10^3/uL N 0-0.2 Abs Nucleated RBC 0.01 10^3/uL N Granulocyte % 63.5 % N 38-83 Lymphocyte % 28.5 % N 25-47 Monocyte % 6.4 % N 1-9 Eosinophil % 1.1 % N 0-6 Basophil % 0.5 % N 0-2 Nucleated Red Blood Cells % 0.1 N Comp Metabolic Panel 07/09/2014 [facility] Sodium 135 mmol/L N 133-145 [address] [place] [address] [phone] Potassium 3.7 mmol/L N 3.5-5.0 Chloride 101 mmol/L N 101-111 Co2 Carbon Dioxide 28 mmol/L N 22-32 Anion Gap 6 mmol/L N 2-11 Glucose 104 mg/dL High 70-100 Blood Urea Nitrogen 15 mg/dL N 6-24 Creatinine 0.68 mg/dL N 0.51-0.95 BUN/Creatinine Ratio 22.1 High 8-20 Calcium 9.4 mg/dL N 8.6-10.3 Total Protein 7.3 g/dL N 6.4-8.9 Albumin 4.2 g/dL N 3.2-5.2 Globulin 3.1 g/dL N 2-4 Albumin/Globulin Ratio 1.4 N 1-3 Total Bilirubin 0.20 mg/dL N 0.2-1.0 Alkaline Phosphatase 106 U/L High 34-104 Alt 18 U/L N 7-52 Ast 17 U/L N 13-39 Egfr Non- 90.2 N >60 Egfr 116.0 N >60 57 Laboratory test finding 07/09/2014 [facility] Amylase 32 U/L N 29-103 [address] [place] [address] [phone] Erythrocyte Sed Rate 13 mm/Hr N 0-30 Urine Culture And 07/09/2014 [facility] Urine Culture (SEE NOTE ) 58 Sensitivities [address] [place] [address] [phone] Ua Routine 07/09/2014 [facility] Ua Specific 1.005 [place] Ua PH 5.0 Ua Color yellow Ua Appera cloudy Ua WBC trace Ua Protein Negative Ua Glucose Negative Ua Ketones Negative Ua Bilirubin Small Ua Urobilinogen Normal Ua Nitrite Negative Ua Occult Blood Negative CBC Auto Diff 04/12/2014 White Blood Count 13.7 10^3/uL High 4.8-10.8 Red Blood Count 4.60 10^6/uL N 4.0-5.4 Hemoglobin 14.1 g/dL N 12.0-16.0 Hematocrit 42 % N 35-47 Mean Corpuscular Volume 91 fL N 80-97 Mean Corpuscular Hemoglobin 31 pg N 27-31 Mean Corpuscular HGB Conc 34 g/dL N 31-36 Red Cell Distribution Width 13 % N 10.5-15 Platelet Count 317 10^3/uL N 150-450 Mean Platelet Volume 9 um3 N 7.4-10.4 Abs Neutrophils 8.6 10^3/uL High 1.5-7.7 Abs Lymphocytes 3.6 10^3/uL N 1.0-4.8 Abs Monocytes 1.3 10^3/uL High 0-0.8 Abs Eosinophils 0.1 10^3/uL N 0-0.6 Abs Basophils 0.1 10^3/uL N 0-0.2 Abs Nucleated RBC 0 10^3/uL N Granulocyte % 63.0 % N 38-83 Lymphocyte % 26.3 % N 25-47 Monocyte % 9.3 % High 1-9 Eosinophil % 1.0 % N 0-6 Basophil % 0.4 % N 0-2 Nucleated Red Blood Cells % 0 N Comp Metabolic Panel 04/12/2014 Sodium 136 mmol/L N 133-145 Potassium 4.1 mmol/L N 3.7-5.6 Chloride 100 mmol/L Low 101-111 Co2 Carbon Dioxide 31 mmol/L N 22-32 Anion Gap 5 mmol/L N 2-11 Glucose 76 mg/dL N 70-100 Blood Urea Nitrogen 12 mg/dL N 6-24 Creatinine 0.75 mg/dL N 0.51-0.95 BUN/Creatinine Ratio 16.0 N 8-20 Calcium 9.6 mg/dL N 8.6-10.3 Total Protein 6.7 g/dL N 6.4-8.9 Albumin 4.0 g/dL N 3.2-5.2 Globulin 2.7 g/dL N 2-4 Albumin/Globulin Ratio 1.5 N 1-3 Total Bilirubin 0.30 mg/dL N 0.2-1.0 Alkaline Phosphatase 97 U/L N 34-104 Alt 22 U/L N 7-52 Ast 17 U/L N 13-39 Egfr Non- 80.5 N >60 Egfr 103.6 N >60 59 Laboratory test finding 04/12/2014 Lipase 22 U/L N 11.0-82.0 Amylase 31 U/L N 29-103 CBC Auto 01/30/2014 [facility] White Blood 11.3 10^3/uL High 4.8-10.[address] [place] [address] [phone] Red Blood Count 4.15 10^6/uL N 4.0-5.4 Hemoglobin 13.0 g/dL N 12.0-16.0 Hematocrit 38 % N 35-47 Mean Corpuscular Volume 91 fL N 80-97 Mean Corpuscular Hemoglobin 31 pg N 27-31 Mean Corpuscular HGB Conc 34 g/dL N 31-36 Red Cell Distribution Width 13 % N 10.5-15 Platelet Count 292 10^3/uL N 150-450 Mean Platelet Volume 9 um3 N 7.4-10.4 Abs Neutrophils 7.9 10^3/uL High 1.5-7.7 Abs Lymphocytes 2.3 10^3/uL N 1.0-4.8 Abs Monocytes 1.0 10^3/uL High 0-0.8 Abs Eosinophils 0.1 10^3/uL N 0-0.6 Abs Basophils 0 10^3/uL N 0-0.2 Abs Nucleated RBC 0.01 10^3/uL N Granulocyte % 70.0 % N 38-83 Lymphocyte % 20.2 % Low 25-47 Monocyte % 8.4 % N 1-9 Eosinophil % 1.0 % N 0-6 Basophil % 0.4 % N 0-2 Nucleated Red Blood Cells % 0.1 N Inr/Protime 01/30/2014 [facility] Inr 0.91 N 0.85-1.[address] [place], [place] [id number] [phone] Laboratory test 01/30/2014 [facility] Activated 28.3 N 24.0- 36.[address] [place] [address] Thrombo Time [phone] Laboratory test 01/30/2014 [facility] Magnesium 1.8 mg/dL Low 1.9-2.[address] [place] [address] [phone] Troponin I 0.00 ng/mL N <0.03 60 TSH (Thyroid Stimulating Horm) 4.59 IU/mL N 0.34-5.60 Comp Metabolic Panel 01/30/2014 [facility] Sodium 136 mmol/L N 133-[address] [place] [address] [phone] Potassium 3.6 mmol/L Low 3.7-5.6 Chloride 103 mmol/L N 101-111 Co2 Carbon Dioxide 28 mmol/L N 22-32 Anion Gap 5 mmol/L N 2-11 Glucose 118 mg/dL High 70-100 Blood Urea Nitrogen 16 mg/dL N 6-24 Creatinine 0.70 mg/dL N 0.51-0.95 BUN/Creatinine Ratio 22.9 High 8-20 Calcium 9.4 mg/dL N 8.6-10.3 Total Protein 6.9 g/dL N 6.4-8.9 Albumin 4.0 g/dL N 3.2-5.2 Globulin 2.9 g/dL N 2-4 Albumin/Globulin Ratio 1.4 N 1-3 Total Bilirubin 0.20 mg/dL N 0.2-1.0 Alkaline Phosphatase 98 U/L N 34-104 Alt 15 U/L N 7-52 Ast 15 U/L N 13-39 Egfr Non- 87.2 N >60 Egfr 112.1 N >60 61 1 Because ethnic data is not always readily available, this report includes an eGFR for both -Americans and non- Americans. The National Kidney Disease Education Program (NKDEP) does not endorse the use of the MDRD equation for patients that are not between the ages of 18 and 70, are , have extremes of body size, muscle mass, or nutritional status, or are non- or non-. According to the National Kidney Foundation, irrespective of diagnosis, the stage of the disease is based on the level of kidney function: Stage Description GFR(mL/min/1.73 m(2)) 1 Kidney damage with normal or decreased GFR 90 2 Kidney damage with mild decrease in GFR 60-89 3 Moderate decrease in GFR 30-59 4 Severe decrease in GFR 15-29 5 Kidney failure <15 (or dialysis) 2 Reference Range and Interpretation: TnI (ng/mL) Interpretation Less Than 0.03 ng/mL Not supportive of diagnosis of VT 0.03 - 0.50 ng/mL Indeterminate: suggest serial studies if clinically indicated. Greater than 0.5 ng/mL Consistent with diagnosis of VT 3 Absolute neutrophilia and absolute lymphocytosis, favor reactive. Reviewed by Mireya Urias MD 4 >100 to <200 pg/mL: likely compensated congestive heart failure (CHF) 200 to 400 pg/mL: likely moderate CHF >400 pg/mL: likely moderate to severe CHF 5 Because ethnic data is not always readily available, this report includes an eGFR for both -Americans and non- Americans. The National Kidney Disease Education Program (NKDEP) does not endorse the use of the MDRD equation for patients that are not between the ages of 18 and 70, are , have extremes of body size, muscle mass, or nutritional status, or are non- or non-. According to the National Kidney Foundation, irrespective of diagnosis, the stage of the disease is based on the level of kidney function: Stage Description GFR(mL/min/1.73 m(2)) 1 Kidney damage with normal or decreased GFR 90 2 Kidney damage with mild decrease in GFR 60-89 3 Moderate decrease in GFR 30-59 4 Severe decrease in GFR 15-29 5 Kidney failure <15 (or dialysis) 6 Reference Range and Interpretation: TnI (ng/mL) Interpretation Less Than 0.03 ng/mL Not supportive of diagnosis of VT 0.03 - 0.50 ng/mL Indeterminate: suggest serial studies if clinically indicated. Greater than 0.5 ng/mL Consistent with diagnosis of VT 7 Please note: The following may produce a false positive D Dimer test: - Rheumatoid factor greater than 60 IU/ml - Plasma hemoglobin greater than 0.05 gm/dl - Bilirubin greater than 50 mg/dl - Lipids greater than 1000 mg/dl - FDP greater than 20 ug/ml 8 Because ethnic data is not always readily available, this report includes an eGFR for both -Americans and non- Americans. The National Kidney Disease Education Program (NKDEP) does not endorse the use of the MDRD equation for patients that are not between the ages of 18 and 70, are , have extremes of body size, muscle mass, or nutritional status, or are non- or non-. According to the National Kidney Foundation, irrespective of diagnosis, the stage of the disease is based on the level of kidney function: Stage Description GFR(mL/min/1.73 m(2)) 1 Kidney damage with normal or decreased GFR 90 2 Kidney damage with mild decrease in GFR 60-89 3 Moderate decrease in GFR 30-59 4 Severe decrease in GFR 15-29 5 Kidney failure <15 (or dialysis) 9 Acute inflammation: >10.00 10 Reference Range and Interpretation: TnI (ng/mL) Interpretation Less Than 0.03 ng/mL Not supportive of diagnosis of VT 0.03 - 0.50 ng/mL Indeterminate: suggest serial studies if clinically indicated. Greater than 0.5 ng/mL Consistent with diagnosis of VT 11 SEE RESULT BELOW Name: PASCALE GARCÍA : [address]: Joseph Durand MD Acct: [id number] Unit: [id number] AGE: 54 Location: ED Re03/12/15 SEX: F Status: DEP ER SPEC: [id number] KAMAR: 03/12/15 [facility] DR: Joseph Durand MD REQ: [id number] RECD: 03/12/15 STATUS: [place] AGUIR[facility] DR: Denice Christopher MD _ SOURCE: URINE SPDESC: ORDERED: Urine Culture Procedure Result Verified Site Urine Culture Final 03/14/15- 1045 ML Organism 1 NORMAL JAMES Castalia Count 50-75,000 (Many) CFU/ML * ML - MAIN LAB ([facility]) . END OF REPORT * ML=Testing performed at Main Lab DEPARTMENT OF PATHOLOGY, [address] [place] [address] Osmar Edge M.D. Director [facility] # [id number] 12 Reference Range and Interpretation: TnI (ng/mL) Interpretation Less Than 0.03 ng/mL Not supportive of diagnosis of VT 0.03 - 0.50 ng/mL Indeterminate: suggest serial studies if clinically indicated. Greater than 0.5 ng/mL Consistent with diagnosis of VT 13 Consistent with previous results on 02/26/15. 14 Because ethnic data is not always readily available, this report includes an eGFR for both -Americans and non- Americans. The National Kidney Disease Education Program (NKDEP) does not endorse the use of the MDRD equation for patients that are not between the ages of 18 and 70, are , have extremes of body size, muscle mass, or nutritional status, or are non- or non-. According to the National Kidney Foundation, irrespective of diagnosis, the stage of the disease is based on the level of kidney function: Stage Description GFR(mL/min/1.73 m(2)) 1 Kidney damage with normal or decreased GFR 90 2 Kidney damage with mild decrease in GFR 60-89 3 Moderate decrease in GFR 30-59 4 Severe decrease in GFR 15-29 5 Kidney failure <15 (or dialysis) 15 Reference Range and Interpretation: TnI (ng/mL) Interpretation Less Than 0.03 ng/mL Not supportive of diagnosis of VT 0.03 - 0.50 ng/mL Indeterminate: suggest serial studies if clinically indicated. Greater than 0.5 ng/mL Consistent with diagnosis of VT 16 Reference Range and Interpretation: TnI (ng/mL) Interpretation Less Than 0.03 ng/mL Not supportive of diagnosis of VT 0.03 - 0.50 ng/mL Indeterminate: suggest serial studies if clinically indicated. Greater than 0.5 ng/mL Consistent with diagnosis of VT 17 Because ethnic data is not always readily available, this report includes an eGFR for both -Americans and non- Americans. The National Kidney Disease Education Program (NKDEP) does not endorse the use of the MDRD equation for patients that are not between the ages of 18 and 70, are , have extremes of body size, muscle mass, or nutritional status, or are non- or non-. According to the National Kidney Foundation, irrespective of diagnosis, the stage of the disease is based on the level of kidney function: Stage Description GFR(mL/min/1.73 m(2)) 1 Kidney damage with normal or decreased GFR 90 2 Kidney damage with mild decrease in GFR 60-89 3 Moderate decrease in GFR 30-59 4 Severe decrease in GFR 15-29 5 Kidney failure <15 (or dialysis) 18 >100 to <200 pg/mL: likely compensated congestive heart failure (CHF) 200 to 400 pg/mL: likely moderate CHF >400 pg/mL: likely moderate to severe CHF 19 >100 to <200 pg/mL: likely compensated congestive heart failure (CHF) 200 to 400 pg/mL: likely moderate CHF >400 pg/mL: likely moderate to severe CHF 20 Because ethnic data is not always readily available, this report includes an eGFR for both -Americans and non- Americans. The National Kidney Disease Education Program (NKDEP) does not endorse the use of the MDRD equation for patients that are not between the ages of 18 and 70, are , have extremes of body size, muscle mass, or nutritional status, or are non- or non-. According to the National Kidney Foundation, irrespective of diagnosis, the stage of the disease is based on the level of kidney function: Stage Description GFR(mL/min/1.73 m(2)) 1 Kidney damage with normal or decreased GFR 90 2 Kidney damage with mild decrease in GFR 60-89 3 Moderate decrease in GFR 30-59 4 Severe decrease in GFR 15-29 5 Kidney failure <15 (or dialysis) 21 Reference Range and Interpretation: TnI (ng/mL) Interpretation Less Than 0.03 ng/mL Not supportive of diagnosis of VT 0.03 - 0.50 ng/mL Indeterminate: suggest serial studies if clinically indicated. Greater than 0.5 ng/mL Consistent with diagnosis of VT 22 Acute inflammation: >10.00 23 SEE RESULT BELOW Name: PASCALE GARCÍA Lanie : [address]: Darius Cottrell MD Acct: [id number] Unit: [id number] AGE: 54 Location: [facility] Re12/26/14 SEX: F Status: DEP ER SPEC: [id number] KAMAR: 12/26/14 [facility] [address]: Darius Cottrell MD REQ: [id number] RECD: 12/26/14-1204 STATUS: [place] AGUIR[facility] DR: Denice Christopher MD _ SOURCE: HAND,LEFT SPDESC: ORDERED: Culture Stain Procedure Result Verified Site Wound/Misc Gram Stain Final 12/26/14- 1400 ML 1+ Neutrophils No Organisms Seen Wound/Misc Culture Final 12/28/14- 1124 ML No Growth Day 2 * ML - MAIN LAB ([facility]) . END OF REPORT * ML=Testing performed at Main Lab DEPARTMENT OF PATHOLOGY, [address] [place] [address] Osmar Edge M.D. Director [facility] # [id number] 24 Because ethnic data is not always readily available, this report includes an eGFR for both -Americans and non- Americans. The National Kidney Disease Education Program (NKDEP) does not endorse the use of the MDRD equation for patients that are not between the ages of 18 and 70, are , have extremes of body size, muscle mass, or nutritional status, or are non- or non-. According to the National Kidney Foundation, irrespective of diagnosis, the stage of the disease is based on the level of kidney function: Stage Description GFR(mL/min/1.73 m(2)) 1 Kidney damage with normal or decreased GFR 90 2 Kidney damage with mild decrease in GFR 60-89 3 Moderate decrease in GFR 30-59 4 Severe decrease in GFR 15-29 5 Kidney failure <15 (or dialysis) 25 Acute inflammation: >10.00 26 Because ethnic data is not always readily available, this report includes an eGFR for both -Americans and non- Americans. The National Kidney Disease Education Program (NKDEP) does not endorse the use of the MDRD equation for patients that are not between the ages of 18 and 70, are , have extremes of body size, muscle mass, or nutritional status, or are non- or non-. According to the National Kidney Foundation, irrespective of diagnosis, the stage of the disease is based on the level of kidney function: Stage Description GFR(mL/min/1.73 m(2)) 1 Kidney damage with normal or decreased GFR 90 2 Kidney damage with mild decrease in GFR 60-89 3 Moderate decrease in GFR 30-59 4 Severe decrease in GFR 15-29 5 Kidney failure <15 (or dialysis) 27 Acute inflammation: >10.00 28 RUN DATE: 09/23/14 [facility] LAB LIVE PAGE 1 RUN TIME: 6147 [address] [place], [place] [address] Specimen Inquiry Name: PASCALE GARCÍA : [address]: Denice Christopher MD Acct: [id number] Unit: [id number] AGE: 54 Location: [facility] Re09/21/14 SEX: F Status: REG REF SPEC: [id number] KAMAR: 09/21/14-[address]: Denice Christopher MD REQ: [id number] RECD: 09/21/14-1547 STATUS: COMP _ SOURCE: URINE SPDESC: ORDERED: Urine Culture QUERIES: Provider Requisition # [id number] Procedure Result Verified Site Urine Culture Final 09/23/14- 1027 L Organism 1 NORMAL JAMES Castalia Count >100,000 (Many) CFU/ML END OF REPORT * ML=Testing performed at Main Lab DEPARTMENT OF PATHOLOGY, [address] [place] [address] Osmar Edge M.D. Director [facility] # [id number] 29 Acute inflammation: >10.00 30 Because ethnic data is not always readily available, this report includes an eGFR for both -Americans and non- Americans. The National Kidney Disease Education Program (NKDEP) does not endorse the use of the MDRD equation for patients that are not between the ages of 18 and 70, are , have extremes of body size, muscle mass, or nutritional status, or are non- or non-. According to the National Kidney Foundation, irrespective of diagnosis, the stage of the disease is based on the level of kidney function: Stage Description GFR(mL/min/1.73 m(2)) 1 Kidney damage with normal or decreased GFR 90 2 Kidney damage with mild decrease in GFR 60-89 3 Moderate decrease in GFR 30-59 4 Severe decrease in GFR 15-29 5 Kidney failure <15 (or dialysis) 31 Therapeutic target for the treatment of diabetes Mellitus patients is <7% HBA1C, and in selective patients <6.0%.Please refer to Citizen Of [place] Diabetes Association Diabetic care guidelines for further information. 32 Because ethnic data is not always readily available, this report includes an eGFR for both -Americans and non- Americans. The National Kidney Disease Education Program (NKDEP) does not endorse the use of the MDRD equation for patients that are not between the ages of 18 and 70, are , have extremes of body size, muscle mass, or nutritional status, or are non- or non-. According to the National Kidney Foundation, irrespective of diagnosis, the stage of the disease is based on the level of kidney function: Stage Description GFR(mL/min/1.73 m(2)) 1 Kidney damage with normal or decreased GFR 90 2 Kidney damage with mild decrease in GFR 60-89 3 Moderate decrease in GFR 30-59 4 Severe decrease in GFR 15-29 5 Kidney failure <15 (or dialysis) 33 Acute inflammation: >10.00 34 Acute inflammation: >10.00 35 Because ethnic data is not always readily available, this report includes an eGFR for both -Americans and non- Americans. The National Kidney Disease Education Program (NKDEP) does not endorse the use of the MDRD equation for patients that are not between the ages of 18 and 70, are , have extremes of body size, muscle mass, or nutritional status, or are non- or non-. According to the National Kidney Foundation, irrespective of diagnosis, the stage of the disease is based on the level of kidney function: Stage Description GFR(mL/min/1.73 m(2)) 1 Kidney damage with normal or decreased GFR 90 2 Kidney damage with mild decrease in GFR 60-89 3 Moderate decrease in GFR 30-59 4 Severe decrease in GFR 15-29 5 Kidney failure <15 (or dialysis) 36 REFERENCE VALUE Not present Test Performed by: [place] [address] Document Preparation Specialist: Gavino Tyler M.D. 37 Because ethnic data is not always readily available, this report includes an eGFR for both -Americans and non- Americans. The National Kidney Disease Education Program (NKDEP) does not endorse the use of the MDRD equation for patients that are not between the ages of 18 and 70, are , have extremes of body size, muscle mass, or nutritional status, or are non- or non-. According to the National Kidney Foundation, irrespective of diagnosis, the stage of the disease is based on the level of kidney function: Stage Description GFR(mL/min/1.73 m(2)) 1 Kidney damage with normal or decreased GFR 90 2 Kidney damage with mild decrease in GFR 60-89 3 Moderate decrease in GFR 30-59 4 Severe decrease in GFR 15-29 5 Kidney failure <15 (or dialysis) 38 Acute inflammation: >10.00 39 Reference Range and Interpretation: TnI (ng/mL) Interpretation Less Than 0.03 ng/mL Not supportive of diagnosis of VT 0.03 - 0.50 ng/mL Indeterminate: suggest serial studies if clinically indicated. Greater than 0.5 ng/mL Consistent with diagnosis of VT 40 RUN DATE: 08/07/14 [facility] LAB LIVE PAGE 1 RUN TIME: [address] [place] [address] Specimen Inquiry Name: PASCALE GARCÍA : [address]: Julio C Lindsey DO Acct: [id number] Unit: [id number] AGE: 53 Location: ED Re08/02/14 SEX: F Status: DEP ER SPEC: [id number] KAMAR: 08/02/[address]: Jase GIBSON REQ: [id number] RECD: 08/02/14 STATUS: [place] AGUIRRE DR: Denice Lindsey DO _ SOURCE: BLOOD,VENO SPDESC: ORDERED: Blood Cult Procedure Result Verified Site Aerobic Culture Bottle Final 08/07/14- 1518 ML No Growth Day 5 Anaerobic Culture Bottle Final 08/07/14- 1518 ML No Growth Day 5 END OF REPORT * ML=Testing performed at Main Lab DEPARTMENT OF PATHOLOGY, [facility] [place], [place] [address] Osmar Edge M.D. Director [place] # [id number] 41 RUN DATE: 08/07/14 [facility] LAB LIVE PAGE 1 RUN TIME: 1441 [facility] [employer] [place], [place] [address] Specimen Inquiry Name: PASCALE GARCÍA : [address]: Julio C Lindsey DO Acct: [id number] Unit: [id number] AGE: 53 Location: ED Re08/02/14 SEX: F Status: DEP ER SPEC: [id number] KAMAR: 08/02/[address]: Jase GIBSON REQ: [id number] RECD: 08/02/14 STATUS: [place] AGUIR[place] DR: Denice Lindsey DO _ SOURCE: BLOOD,VENO SPDESC: ORDERED: Blood Cult Procedure Result Verified Site Aerobic Culture Bottle Final 08/07/14- 1440 ML No Growth Day 5 Anaerobic Culture Bottle Final 08/07/14- 1440 ML No Growth Day 5 END OF REPORT * ML=Testing performed at Main Lab DEPARTMENT OF PATHOLOGY, [address] [place] [address] Osmar Edge M.D. Director [facility] # [id number] 42 >100 to <200 pg/mL: likely compensated congestive heart failure (CHF) 200 to 400 pg/mL: likely moderate CHF >400 pg/mL: likely moderate to severe CHF [place] [facility] 43 Because ethnic data is not always readily available, this report includes an eGFR for both -Americans and non- Americans. The National Kidney Disease Education Program (NKDEP) does not endorse the use of the MDRD equation for patients that are not between the ages of 18 and 70, are , have extremes of body size, muscle mass, or nutritional status, or are non- or non-. According to the National Kidney Foundation, irrespective of diagnosis, the stage of the disease is based on the level of kidney function: Stage Description GFR(mL/min/1.73 m(2)) 1 Kidney damage with normal or decreased GFR 90 2 Kidney damage with mild decrease in GFR 60-89 3 Moderate decrease in GFR 30-59 4 Severe decrease in GFR 15-29 5 Kidney failure <15 (or dialysis) 44 Reference Range and Interpretation: TnI (ng/mL) Interpretation Less Than 0.03 ng/mL Not supportive of diagnosis of VT 0.03 - 0.50 ng/mL Indeterminate: suggest serial studies if clinically indicated. Greater than 0.5 ng/mL Consistent with diagnosis of VT 45 Please note: The following may produce a false positive D Dimer test: - Rheumatoid factor greater than 60 IU/ml - Plasma hemoglobin greater than 0.05 gm/dl - Bilirubin greater than 50 mg/dl - Lipids greater than 1000 mg/dl - FDP greater than 20 ug/ml 46 Because ethnic data is not always readily available, this report includes an eGFR for both -Americans and non- Americans. The National Kidney Disease Education Program (NKDEP) does not endorse the use of the MDRD equation for patients that are not between the ages of 18 and 70, are , have extremes of body size, muscle mass, or nutritional status, or are non- or non-. According to the National Kidney Foundation, irrespective of diagnosis, the stage of the disease is based on the level of kidney function: Stage Description GFR(mL/min/1.73 m(2)) 1 Kidney damage with normal or decreased GFR 90 2 Kidney damage with mild decrease in GFR 60-89 3 Moderate decrease in GFR 30-59 4 Severe decrease in GFR 15-29 5 Kidney failure <15 (or dialysis) 47 Reference Range and Interpretation: TnI (ng/mL) Interpretation Less Than 0.03 ng/mL Not supportive of diagnosis of VT 0.03 - 0.50 ng/mL Indeterminate: suggest serial studies if clinically indicated. Greater than 0.5 ng/mL Consistent with diagnosis of VT 48 Acute inflammation: >10.00 49 This test detects intact HCG only and is indicated for the early detection of . 50 Please note: The following may produce a false positive D Dimer test: - Rheumatoid factor greater than 60 IU/ml - Plasma hemoglobin greater than 0.05 gm/dl - Bilirubin greater than 50 mg/dl - Lipids greater than 1000 mg/dl - FDP greater than 20 ug/ml 51 Because ethnic data is not always readily available, this report includes an eGFR for both -Americans and non- Americans. The National Kidney Disease Education Program (NKDEP) does not endorse the use of the MDRD equation for patients that are not between the ages of 18 and 70, are , have extremes of body size, muscle mass, or nutritional status, or are non- or non-. According to the National Kidney Foundation, irrespective of diagnosis, the stage of the disease is based on the level of kidney function: Stage Description GFR(mL/min/1.73 m(2)) 1 Kidney damage with normal or decreased GFR 90 2 Kidney damage with mild decrease in GFR 60-89 3 Moderate decrease in GFR 30-59 4 Severe decrease in GFR 15-29 5 Kidney failure <15 (or dialysis) 52 Acute inflammation: >10.00 53 RUN DATE: 07/25/14 [facility] LAB LIVE PAGE 1 RUN TIME: [address] [place], [place] [address] Specimen Inquiry Name: BEBETO GARCÍAAUSTIN Dela Cruz : [address]: Wei Saini Acct: [id number] Unit: [id number] AGE: 53 Location: ED Re07/25/14 SEX: F Status: REG ER SPEC: [id number] KAMAR: 07/25/[address]: Wei Thomason DO REQ: [id number] RECD: 07/25/14 STATUS: PARIS AGUIRRE DR: Denice Christopher MD _ SOURCE: [facility]: ORDERED: Rapid Flu A B Procedure Result Verified Site Rapid Influenza A B Antigen Final 07/25/14- 0403 ML Organism 1 Negative Influenza A B Antigen testing by enzyme immunoassay. Cell culture testing can be performed to confirm negative test results and to assist in detecting other viruses that can produce similar clinical symptoms. Please notify Microbiology Lab if further testing is desired. END OF REPORT * ML=Testing performed at Main Lab DEPARTMENT OF PATHOLOGY, [address] [place] [address] Osmar Edge M.D. Director [facility] # [id number] 54 Because ethnic data is not always readily available, this report includes an eGFR for both -Americans and non- Americans. The National Kidney Disease Education Program (NKDEP) does not endorse the use of the MDRD equation for patients that are not between the ages of 18 and 70, are , have extremes of body size, muscle mass, or nutritional status, or are non- or non-. According to the National Kidney Foundation, irrespective of diagnosis, the stage of the disease is based on the level of kidney function: Stage Description GFR(mL/min/1.73 m(2)) 1 Kidney damage with normal or decreased GFR 90 2 Kidney damage with mild decrease in GFR 60-89 3 Moderate decrease in GFR 30-59 4 Severe decrease in GFR 15-29 5 Kidney failure <15 (or dialysis) 55 Acute inflammation: >10.00 56 This test detects intact HCG only and is indicated for the early detection of . 57 Because ethnic data is not always readily available, this report includes an eGFR for both -Americans and non- Americans. The National Kidney Disease Education Program (NKDEP) does not endorse the use of the MDRD equation for patients that are not between the ages of 18 and 70, are , have extremes of body size, muscle mass, or nutritional status, or are non- or non-. According to the National Kidney Foundation, irrespective of diagnosis, the stage of the disease is based on the level of kidney function: Stage Description GFR(mL/min/1.73 m(2)) 1 Kidney damage with normal or decreased GFR 90 2 Kidney damage with mild decrease in GFR 60-89 3 Moderate decrease in GFR 30-59 4 Severe decrease in GFR 15-29 5 Kidney failure <15 (or dialysis) 58 RUN DATE: 07/12/14 [facility] LAB LIVE PAGE 1 RUN TIME: [address] [place] [address] Specimen Inquiry Name: PASCALE AGRCÍA : [address]: Denice Christopher MD Acct: [id number] Unit: [id number] AGE: 53 Location: [facility] Re07/09/14 SEX: F Status: REG REF SPEC: [id number] KAMAR: 07/09/14-49[address] [facility] [address]: Denice Christopher MD REQ: [id number] RECD: 07/09/147612 STATUS: COMP _ SOURCE: URINE SPDESC: ORDERED: Urine Culture QUERIES: Medent Number [id number] Procedure Result Verified Site Urine Culture Final 07/12/14- 0836 ML Organism 1 NORMAL JAMES Castalia Count 75-100,000 (Many) CFU/ML END OF REPORT * ML=Testing performed at Main Lab DEPARTMENT OF PATHOLOGY, [address] [place] [address] Osmar Edge M.D. Director [facility] # [id number] 59 Because ethnic data is not always readily available, this report includes an eGFR for both -Americans and non- Americans. The National Kidney Disease Education Program (NKDEP) does not endorse the use of the MDRD equation for patients that are not between the ages of 18 and 70, are , have extremes of body size, muscle mass, or nutritional status, or are non- or non-. According to the National Kidney Foundation, irrespective of diagnosis, the stage of the disease is based on the level of kidney function: Stage Description GFR(mL/min/1.73 m(2)) 1 Kidney damage with normal or decreased GFR 90 2 Kidney damage with mild decrease in GFR 60-89 3 Moderate decrease in GFR 30-59 4 Severe decrease in GFR 15-29 5 Kidney failure <15 (or dialysis) 60 Reference Range and Interpretation: TnI (ng/mL) Interpretation Less Than 0.03 ng/mL Not supportive of diagnosis of VT 0.03 - 0.50 ng/mL Indeterminate: suggest serial studies if clinically indicated. Greater than 0.5 ng/mL Consistent with diagnosis of VT 61 Because ethnic data is not always readily available, this report includes an eGFR for both -Americans and non- Americans. The National Kidney Disease Education Program (NKDEP) does not endorse the use of the MDRD equation for patients that are not between the ages of 18 and 70, are , have extremes of body size, muscle mass, or nutritional status, or are non- or non-. According to the National Kidney Foundation, irrespective of diagnosis, the stage of the disease is based on the level of kidney function: Stage Description GFR(mL/min/1.73 m(2)) 1 Kidney damage with normal or decreased GFR 90 2 Kidney damage with mild decrease in GFR 60-89 3 Moderate decrease in GFR 30-59 4 Severe decrease in GFR 15-29 5 Kidney failure <15 (or dialysis) Procedures Date Code Description Status 08/26/2015 90907 Trigger Finger Release Incision / Tendon Sheath Completed Incision 08/26/2015 25529 Trigger Finger Release Incision / Tendon Sheath Completed Incision 04/25/2015 51009 Diffusing Capacity Completed 04/25/2015 92430 Plethysmography Determination Lung Volumes & Per Airway Completed Resist 04/25/2015 44095 Pulmonary Function><Bronchodil Completed 11/25/2014 91471833 Mammogram Completed 10/18/2014 23791449 Colonoscopy Completed 09/23/2014 71650414 Colonoscopy Completed 09/07/2014 15765 EKG Tracing & Interpretation Completed 11/16/2013 60172 Xray Knee 3 Views Completed 11/16/2013 92675 Rad Exam; Knee, Ap&L Completed 08/28/2013 02228 Carpal Tunnel Release Completed 08/07/2013 82892 Carpal Tunnel Release Completed 06/18/2013 67093 Rad Exam; Wrist, Comp, Min 3 Views Completed 06/18/2013 46249 Rad Exam; Wrist, Comp, Min 3 Views Completed 05/29/2013 17012 EKG, Interpretation Only Completed 05/26/2013 24348 EKG, Interpretation Only Completed 01/07/2012 52548 Xray Knee 3 Views Completed 01/07/2012 87040 Rad Exam; Knee Comp Completed 01/07/2012 00763 Rad Exam; Tib-Fib Completed 06/20/2011 37137 Xray Knee 3 Views Completed 06/20/2011 39116 Rad Exam; Knee, Ap&L Completed 05/08/2011 81807 TKR Total Knee Replacement Completed 11/27/2010 80233 Xray Knee 3 Views Completed 11/27/2010 80955 Rad Exam; Knee, Ap&L Completed 11/27/2010 52152 Rad Exam; Elbow, Limited Completed 11/27/201031064 Inject/Drain Joint/Bursa Major W/O US Completed 07/03/2010 23496 Xray Knee 3 Views Completed 04/07/2010 96442 Xray Knee 3 Views Completed 03/07/2010 30610 TKR Total Knee Replacement Completed Encounters Type Date Location Provider Dx Diagnosis Office Visit 11/14/2018 Orthopedic Eva Esteves, S83.412A Sprain of medial 10:30a Services Of Jose Friedman collateral ligament of left knee, init T84.053A Periprosth osteolysis of internal prosthetic l knee jt, init M25.562 Pain in left knee M25.462 Effusion, left knee M25.362 Other instability, left knee Z96.652 Presence of left artificial knee joint Office Visit 10/28/2018 11:30a Orthopedic Ryan Cary M25.562 Pain in left Services Of Jose Maki MD knee Z96.652 Presence of left artificial knee joint Office Visit 10/14/2018 10:00a Orthopedic Ryan Cary Z96.651 Presence of Services Of MD Glynn right artificial C.M.A. knee joint S83.412A Sprain of medial collateral ligament of left knee, init M25.561 Pain in right knee Office Visit 04/08/2018 10:15a Orthopedic Ryan Cary Z96.651 Presence of Services Of MD Glynn right artificial C.M.A. knee joint S83.412A Sprain of medial collateral ligament of left knee, init M25.561 Pain in right knee Office Visit 08/01/2016 8:00a Orthopedic Sacha Farfan, M54.41 Lumbago with Services Of Jose Friedman sciatica, right side M17.11 Unilateral primary osteoarthritis, right knee Z96.651 Presence of right artificial knee joint Office Visit 08/22/2015 8:30a Orthopedic Lucille M65.341 Trigger finger , Services Of Elder Nuno right ring C.M.A. finger Office Visit 04/11/2015 2:00p Pulmonology And Linsey Mendoza, R06.02 Shortness of Sleep Services Of MD elly Proctor J44.9 Chronic obstructive pulmonary disease, unspecified F17.210 Nicotine dependence, cigarettes, uncomplicated F51.9 Sleep disorder not due to a sub or known physiol cond, unsp E66.09 Other obesity due to excess calories Office Visit 03/29/2015 10:30a [facility] [address] Internal Darius Diaz, 491.21 Bronchitis Medicine PROPOSAL ANALYST Obstructive Chronic W/Acute Exacerbation 305.1 Tobacco Use Disorder Office Visit 03/14/2015 3:00p [facility] [address] Internal Norbert Morgan, 786.05 Shortness Of Medicine PROPOSAL ANALYST Breath 724.2 Lumbago 496 COPD Airway Obstruction Chronic Not Class Elsewhere Office Visit 12/29/2014 10:00a [facility] [address] Internal Darius Diaz, 692.6 Dermatitis Contact Medicine PROPOSAL ANALYST Due To Plants (Except Food) 782.1 Rash & Other Nonspec Skin Eruption Office Visit 12/10/2014 9:30a [facility] [address] Internal Darius Diaz, PROPOSAL ANALYST 528.9 Oral Soft Tissue Medicine Diseases Other & Unspec 782.0 Skin Sensation Disturbance Office Visit 2014 12:40p [facility] [address] Internal Denice Christopher, 789.02 Pain Abdominal Medicine M.D. Left Upper Quadrant 789.63 Tenderness Abdominal Right Lower Quadrant Office Visit 09/07/2014 4:00p [facility] [address] Internal Denice Christopher, V72.84 Examination Medicine M.D. Preoperative Unspec 789.02 Pain Abdominal Left Upper Quadrant 530.11 Esophagitis Reflux V72.81 Examination Preoperative Cardiovascular 553.1 Hernia Umbilical 789.62 Tenderness Abdominal Left Upper Quadrant 790.95 Elevated C-Reactive Protein 790.5 Serum Enzyme Levels Abnormal Other Nonspec 530.81 Esophageal Reflux Office Visit 08/23/2014 3:00p [facility] [address] Internal Norbert Morgan, 789.02 Pain Abdominal Medicine PROPOSAL ANALYST Left Upper Quadrant 787.01 Nausea W/ Vomiting Office Visit 08/13/2014 11:20a [facility] [address] Internal Denice Christopher, 789.00 Pain Abdominal Medicine M.D. Unspec Site 288.60 Leukocytosis, Unspecified Office Visit 08/10/2014 9:48a [facility] Aline S. 789.00 Pain Abdominal Assoc,pc Yves, N.P. Unspec Site Hospitalists 496 COPD Airway Obstruction Chronic Not Class Elsewhere 288.60 Leukocytosis, Unspecified Office Visit 08/08/2014 9:47a [facility] Alissa 789.00 Pain Abdominal Assoc,pc Óscar, PROPOSAL ANALYST Unspec Site Hospitalists 496 COPD Airway Obstruction Chronic Not Class Elsewhere 288.60 Leukocytosis, Unspecified Office Visit 07/31/2014 11:43a [facility] Melita 789.00 Pain Abdominal Assoc,pc Carlito Boudreaux Unspec Site Hospitalists 530.11 Esophagitis Reflux 490 Bronchitis Acute Or Chronic Not Spec 311 Depressive Disorder Not Elsewhere Spec Office Visit 07/26/2014 11:30a [facility] [address] Internal Gloria Menon, 491.21 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 Generalized Office Visit 05/24/2014 1:00p [facility] [address] Internal Gloria Menon, 727.05 Tenosynovitis Hand Medicine DOORPERSON OR LUGGAGE PORTER & Wrist Other Office Visit 05/05/2014 8:30a [facility] [address] Internal Gloria Menon, 786.50 Pain Chest Unspec Medicine DOORPERSON OR [employer]AGE PORTER 847.1 Sprains & Strains Thoracic Office Visit 04/12/2014 1:00p [facility] [address] Internal Gloria Menon, 789.07 Pain Abdominal Medicine DOORPERSON OR [employer]AGE [employer]TER Generalized 288.50 Leukocytopenia, Unspecified Office Visit 03/26/2014 1:00p [facility] [address] Internal Denice Christopher, 491.21 Bronchitis Medicine M.D. Obstructive Chronic W/Acute Exacerbation 492.8 Emphysema Other Office Visit 11/29/2013 4:32p [facility] Jose Alejandro Zuleta 786.50 Pain Chest Assoc,teo Muñoz M.D. Unspec Hospitalists Hospitalist 492.8 Emphysema Other 401.9 Hypertension Unspec 311 Depressive Disorder Not Elsewhere Spec Office Visit 11/28/2013 4:28p [facility] Guillermo Moon 786.50 Pain Chest Assoc,teo CASTILLO M.D. Unspec Hospitalists 492.8 Emphysema Other 401.9 Hypertension Unspec 311 Depressive Disorder Not Elsewhere Spec Office Visit 11/16/2013 Orthopedic Dirk Naheed, 726.64 Tendinitis 11:30a [facility] Friedman Patellar Office Visit 06/18/2013 Orthopedic Lucille 354.0 Carpal Tunnel 9:00a Services [facility] Jose Nuno M.D. Syndrome Office Visit 05/29/2013 [facility] Cynthia, 491.21 Bronchitis 2:46p Assoc,teo Friedman Obstructive Hospitalists Chronic W/Acute Exacerbation 481 Pneumonia Pneumococcal 311 Depressive Disorder Not Elsewhere Spec Office Visit 05/28/2013 2:46p [facility] Manuel 481 Pneumonia Assoc,pc Kwame, N.P. Pneumococcal Hospitalists 311 Depressive Disorder Not Elsewhere Spec 491.21 Bronchitis Obstructive Chronic W/Acute Exacerbation Office Visit 05/26/2013 [facility] 491.21 Bronchitis 6:10p Assoc,teo Marie M.D. Obstructive Hospitalists Chronic W/Acute Exacerbation 786.52 Painful Respiration 311 Depressive Disorder Not Elsewhere Spec 794.31 Electrocardiogram (ECG) (EKG) Abnormal Office Visit 05/25/2013 [facility] Aline S. 491.21 Bronchitis 6:10p Assoc,pc Yves, N.PHector Obstructive Hospitalists Chronic W/Acute Exacerbation 794.31 Electrocardiogram (ECG) (EKG) Abnormal 786.52 Painful Respiration 311 Depressive Disorder Not Elsewhere Spec Office Visit 10/16/2012 4:27p [facility] [place] 492.8 Emphysema Other Assoc,teo Rader M.D. Hospitalists 466.0 Bronchitis Acute 305.1 Tobacco Use Disorder Office Visit 10/14/2012 4:26p [facility] Paulette De Oliveira, 492.8 Emphysema Other Assoc,teo Friedman Hospitalists 466.0 Bronchitis Acute 305.1 Tobacco Use Disorder Office Visit 09/25/2012 Orthopedic Sacha Farfan, 722.0 Intervertebral Disc 10:45a Services Of Elder Beavers C.M.AHector Cervical W/O Myelopathy Office Visit 01/07/2012 Orthopedic Rui 924.11 Contusion Knee 2:30p Services Of Elder Limon C.M.A. Office Visit 03/28/2011 Orthopedic Sacha Farfan, 716.96 Arthropathy Unspec 2:45p Services Of Elder Lower Leg C.M.A. Office Visit 11/27/2010 Orthopedic Sacha Farfan, 716.96 Arthropathy Unspec 2:30p [facility] Lower Leg C.M.A. 715.96 Osteoarthrosis Unspec Genlzd Or Localized Lower Leg 726.32 Epicondylitis Lateral Office Visit 07/03/2010 8:15a Orthopedic Sacha Farfan, 844.9 Sprains & Strains Services Of Elder Knee & Leg Unspec C.M.A. Office Visit 02/23/2010 8:00a Orthopedic Maya 715.96 Osteoarthrosis Services Of [place], Unspec Genlzd Or C.M.A. RPA-C Localized Lower Leg 719.46 Pain Joint Lower Leg Office Visit 02/08/2010 3:30p Orthopedic Sacha Farfan 715.96 Osteoarthrosis Services Of Elder Unspec Genlzd Or C.M.A. Localized Lower Leg Plan of Treatment Future Appointment(s):01/21/2019 9:45 am - Eva Esteves M.D. at [facility]12/01/2018 - Eva Esteves M.D.T84.053A Periprosthetic osteolysis of internal prosthetic left knee jFollow up:Follow up: 7-10 days before mffmnigI01.562 Pain in left kneeM25.462 Effusion, left kneeM25.362 Other instability, left kneeZ96.652 Presence of left artificial knee mwmisF98.412D Sprain of medial collateral ligament of left knee, subsequen
--- NOTE | 2018-12-27 01:13 | ED ---
Abdominal Pain/Female - HPI Summary HPI Summary: This patient is a 58 year old female presenting to [facility] with a chief complaint of LLQ and left flank pain. The patient states the pain radiates to her back. She reports SOB secondary to Hx of COPD, diarrhea, nausea, and vomiting. She reports a Hx of pancreatitis. She rates her pain 7/10 in severity. - History of Current Complaint Chief Complaint: EDFlankPain Stated Complaint: "ABD PAIN PER PT" Time Seen by Provider: 12/27/18 01:00 Hx Obtained From: Patient Hx Last Menstrual Period: 1995 Pain Intensity: 7 Pain Scale Used: 0-10 Numeric Allergies/Adverse Reactions: Allergies Allergy/AdvReac Type Severity Reaction Status Date / Time acetaminophen Allergy Severe See Comment Verified 09/06/18 11:23 aspirin Allergy Severe Hives Verified 09/06/18 11:23 ibuprofen Allergy Severe See Comment Verified 09/06/18 11:23 clarithromycin Allergy Intermediate GI Upset Verified 09/06/18 11:23 celecoxib [From Celebrex] Allergy Mild Hives Verified 09/06/18 11:23 Penicillins Allergy Mild Hives Verified 09/06/18 11:23 phenytoin [From Dilantin] Allergy Mild Hives Verified 09/06/18 11:23 rofecoxib [From Vioxx] Allergy Mild Hives Verified 09/06/18 11:23 Sulfa (Sulfonamide Allergy Mild Hives Verified 09/06/18 11:23 Antibiotics) PMH/Surg Hx/FS Hx/Imm Hx Endocrine/Hematology History: Denies: Hx Anticoagulant Therapy, Hx Diabetes, Hx Systemic Lupus Erythematosus, Hx Sickle Cell Disease, Hx Thyroid Disease, Hx Anemia Cardiovascular History: Reports: Hx Angina, Hx Hypertension Denies: Hx Congestive Heart Failure, Hx Deep Vein Thrombosis, Hx Myocardial Infarction, Hx Pacemaker/ICD, Other Cardiovascular Problems/Disorders Respiratory History: Reports: Hx Asthma, Hx Chronic Bronchitis, Hx Chronic Obstructive Pulmonary Disease (COPD), Hx Seasonal Allergies, Other Respiratory Problems/Disorders - CURRENT SMOKER <1/2 PPD X 20+ YEARS Denies: Hx Lung Cancer, Hx Pneumonia, Hx Sleep Apnea GI History: Reports: Hx Gall Bladder Disease - removed 10 years ago, Hx Gastroesophageal Reflux Disease - WELL CONTROLLED, Other GI Disorders - HX OF VENTRAL HERNIA REPAIR WITH MESH 01/2013, GERD Denies: Hx Gastrointestinal Bleed, Hx Ulcer, Hx Urosepsis History: Denies: Hx Dialysis, Hx Kidney Infection, Hx Kidney Stones, Hx Renal Disease , Other Problems/Disorders Musculoskeletal History: Reports: Hx Arthritis - HANDS, Hx Gout, Other Musculoskeletal History - BILATERAL TOTAL KNEE REPLACEMENT Denies: Hx Rheumatoid Arthritis Sensory History: Denies: Hx Contacts or Glasses, Hx Glaucoma, Hx Macular Degeneration Opthamlomology History: Denies: Hx Contacts or Glasses, Hx Glaucoma, Hx Macular Degeneration Neurological History: Reports: Hx Migraine - RARE, Hx Seizures - LAST ONE 6 YRS AGO Denies: Other Neuro Impairments/Disorders Psychiatric History: Reports: Hx Anxiety, Hx Depression Denies: Hx Eating Disorder, Hx of Violent Episodes Against Others, Hx Substance Abuse - Cancer History Hx Chemotherapy: No - Surgical History Surgery Procedure, Year, and Place: right TKA -02/2010 [facility] [place]. left TKA- 04/2011 [facility] [place]. [facility] [place] hysterectomy 1995. LAP FIDENCIO 2007. VENTRAL HERNIA REPAIR 01/2013 UMBILICAL HERNIA REPAIR. RIGHT INDEX TRIGGER FINGER 2005 [facility] [place]. R CTR 2013 [facility] [place] Hx Anesthesia Reactions: No - Immunization History Date of Tetanus Vaccine: Unk Date of Influenza Vaccine: 03/29 Infectious Disease History: No Infectious Disease History: Denies: Hx Clostridium Difficile, Hx Hepatitis, Hx Human Immunodeficiency Virus (HIV), Hx Shingles, Hx Tuberculosis, Hx Known/Suspected VRE, Hx Known/ Suspected VRSA, History Other Infectious Disease, Traveled Outside the [place] in Last 30 Days - Family History Known Family History: Positive: None, Hypertension, Other - No FHx of psychiatric disorders - Social History Alcohol Use: None Hx Substance Use: No Substance Use Type: Reports: None Hx Tobacco Use: Yes Smoking Status (MU): Light Every Day Tobacco Smoker Type: Cigarettes Amount Used/How Often: 4 CIGS/DAY Length of Time of Smoking/Using Tobacco: 20 YRS Have You Smoked in the Last Year: Yes Review of Systems Positive: Shortness Of Breath Positive: Abdominal Pain, Vomiting, Diarrhea, Nausea All Other Systems Reviewed And Are Negative: Yes Physical Exam - Summary Physical Exam Summary: VITAL SIGNS: Reviewed. GENERAL: Patient is a well-developed and nourished FEMALE who is lying comfortable in the stretcher. Patient is not in any acute respiratory distress. HEAD AND FACE: No signs of trauma. No ecchymosis, hematomas or skull depressions. No sinus tenderness. EYES: PERRLA, EOMI x 2, No injected conjunctiva, no nystagmus. EARS: Hearing grossly intact. Ear canals and tympanic membranes are within normal limits. MOUTH: Oropharynx within normal limits. NECK: Supple, trachea is midline, no adenopathy, no JVD, no carotid bruit, no c- spine tenderness, neck with full ROM. CHEST: Symmetric, no tenderness at palpation LUNGS: Clear to auscultation bilaterally. No wheezing or crackles. CVS: Regular rate and rhythm, S1 and S2 present, no murmurs or gallops appreciated. ABDOMEN: Soft, tenderness LLQ. No signs of distention. No rebound no guarding, and no masses palpated. Bowel sounds are normal. EXTREMITIES: FROM in all major joints, no edema, no cyanosis or clubbing. NEURO: Alert and oriented x 3. No acute neurological deficits. Speech is normal and follows commands. SKIN: Dry and warm Triage Information Reviewed: Yes Vital Signs On Initial Exam: Initial Vitals Temp Pulse Resp BP Pulse Ox 97.5 F 94 22 149/107 95 12/26/18 22:39 12/26/18 22:39 12/26/18 22:39 12/26/18 22:39 12/26/18 22:39 Vital Signs Reviewed: Yes Diagnostics - Vital Signs Vital Signs Temp Pulse Resp BP Pulse Ox 12/26/18 22:39 97.5 F 94 22 149/107 95 - Laboratory Result Diagrams: 12/27/18 01:59 12/27/18 01:59 Lab Statement: Any lab studies that have been ordered have been reviewed, and results considered in the medical decision making process. - CT Abd/Pel CT Interpretation Completed By: Radiologist Summary of CT Findings: Suspect acute pancratitis, involving the proximal pacnreas. Possible associated duodenitits. No abscess. No psuedocyst formation. Clinical and laboratory correlation are suggested. No bowel obsruction. No free air. Sigmoid diverticulosis changes, without acute inflammation. ED Provider has reviewed this report. Abdominal Pain Fem Course/Dx - Course Course Of Treatment: This patient is a 58 year old female presenting to [facility] with a chief complaint of LLQ and left flank pain. Labs reveal lipase 1855 H, WBC 18.6 H, C-Reactive Protein 79.86, Amylase [address] abdomen/pelvis reveals Suspect acute pancratitis, involving the proximal pacnreas. Possible associated duodenitits. No abscess. No psuedocyst formation. Clinical and laboratory correlation are suggested. No bowel obsruction. No free air. Sigmoid diverticulosis changes, without acute inflammation. Reviewed CT scan results with her, the risks of leaving AMA with worsening pancreatitis, infection, sepsis, and . The patient decided she would like to leave against medical advice. A plan for discharge AMA was discussed with the patient and she was agreeable with this plan. - Diagnoses Provider Diagnoses: Acute pancreatitis Discharge - Sign-Out/Discharge Documenting (check all that apply): Patient Departure - Discharge AMA Patient Received Moderate/Deep Sedation with Procedure: No - Discharge Plan Condition: Stable Disposition: AGAINST MEDICAL ADVICE Patient Education Materials: Pancreatitis (ED) Referrals: Tatiana Geronimo MD [Primary Care Provider] - - Attestation Statements Document Initiated by Scribe: Yes Documenting Scribe: Rui Ladd Provider For Whom Hennyibe is Documenting (Include Credential): Jane Sousa MD Scribe Attestation: Rui Boykin, scribed for Jane Sousa MD on 12/27/18 at 0308. Status of Scribe Document: Ready
[2018-12-27] MEDS ORDERED: Morphine 4 MG/ML VIAL (1 ml) 4 MG/ML VIAL IV ONE (01:26)
[2018-12-27] MEDS ORDERED: Metoclopramide IV* 5 MG/ML 2 ML VIAL IV SLOW PU ONE (01:26)
[2018-12-27] MEDS ORDERED: NS 0.9% 1000 ML** 1,000 ML IV ONE (01:26)
[2018-12-27 01:47] LABS: Urine Appearance Cloudy; Urine Bilirubin Negative (Negative); Urine Blood Negative (Negative); Urine Color Yellow; Urine Glucose Negative (Negative); Urine Ketones Negative (Negative); Urine Nitrite Negative (Negative); Urine Protein Negative (Negative); Urine Specific Gravity 1.019 (1.010-1.030); Urine Urobilinogen Negative (Negative)
[2018-12-27 02:06] LABS: ABS Basophils 0.1 10^3/ul (0-0.2); ABS Lymphocytes 1.5 10^3/ul (1.0-4.8); ABS Monocytes 0.7 10^3/ul (0-0.8); ABS Neutrophils 16.2 10^3/ul (1.5-7.7); Eosinophil % 0.2 %; Hematocrit 39 % (35-47); Hemoglobin 12.9 g/dL (12.0-16.0); Lymphocyte % 8.2 %; Mean Corpuscular HGB Conc 33 g/dL (31-36); Mean Corpuscular Hemoglobin 30 pg (27-31); Mean Corpuscular Volume 91 fL (80-97); Mean Platelet Volume 8.9 fL (7.4-10.4); Platelet Count 310 10^3/uL (150-450); Red Blood Count 4.25 10^6 /uL (3.70-4.87); Red Cell Distribution Width 13 % (10-15); White Blood Count 18.6 10^3/uL (3.5-10.8)
[2018-12-27 02:14] LABS: Activated Partial Thrombo Time 33.5 seconds (26.0-38.0)
[2018-12-27 02:23] LABS: Albumin 3.5 g/dL (3.2-5.2); Albumin/Globulin Ratio 1.1 (1-3); BUN/Creatinine Ratio 27.5 (8-20); C Reactive Protein 79.86 mg/L (<8.01); Calcium 8.7 mg/dL (8.6-10.3); EGFR African American 149.4 (>60); EGFR Non-African American 123.4 (>60); Globulin 3.2 g/dL (2-4); Magnesium 1.9 mg/dL (1.9-2.7); Total Bilirubin 0.3 mg/dL (0.2-1.0); Total Protein 6.7 g/dL (6.4-8.9)
[2018-12-27] MEDS ORDERED: Iohexol 300* (CONTRAST) 10 ML SDV IV ONE (02:39)
[2018-12-27 05:21] VITALS: BP 127/105
== END 2018-12-27 05:24 | disposition left against medical advice (07) ==
LOC: ED 22:37
DX: K85.90 Acute pancreatitis without necrosis or infection, unspecified (principal); R10.32 Left lower quadrant pain; Z88.2 Allergy status to sulfonamides; Z88.0 Allergy status to penicillin; Z88.6 Allergy status to analgesic agent; J44.9 Chronic obstructive pulmonary disease, unspecified; R19.7 Diarrhea, unspecified; R11.2 Nausea with vomiting, unspecified; Z87.19 Personal history of other diseases of the digestive system; I10 Essential (primary) hypertension; F17.210 Nicotine dependence, cigarettes, uncomplicated
CPT/HCPCS: 36415; 74177; 80053; 81003; 82150; 83690; 83735; 85025; 85610; 85730; 86140; 96361; 96374; 96375; 99284; J2270; J2765; Q9967

== ENCOUNTER 2019-01-04 12:56 | Emergency (ER) | payer MEDICARE ==
[2019-01-04 13:06] VITALS: BP 146/97
--- NOTE | 2019-01-04 13:09 | UC ---
Skin Complaint HPI - HPI Summary HPI Summary: 58 y/o female presents to the urgent care c/o Pt complains of itchy rash on her back that began approx 1.5 weeks ago. Pt states no relief with OTC meds. - History of Current Complaint Chief Complaint: UCSkin Time Seen by Provider: 01/04/19 12:57 Stated Complaint: RASH Hx Obtained From: Patient Hx Last Menstrual Period: 1995 Pain Intensity: 0 - Allergy/Home Medications Allergies/Adverse Reactions: Allergies Allergy/AdvReac Type Severity Reaction Status Date / Time acetaminophen Allergy Severe See Comment Verified 01/04/19 13:06 aspirin Allergy Severe Hives Verified 01/04/19 13:06 ibuprofen Allergy Severe See Comment Verified 01/04/19 13:06 clarithromycin Allergy Intermediate GI Upset Verified 01/04/19 13:06 celecoxib [From Celebrex] Allergy Mild Hives Verified 01/04/19 13:06 Penicillins Allergy Mild Hives Verified 01/04/19 13:06 phenytoin [From Dilantin] Allergy Mild Hives Verified 01/04/19 13:06 rofecoxib [From Vioxx] Allergy Mild Hives Verified 01/04/19 13:06 Sulfa (Sulfonamide Allergy Mild Hives Verified 01/04/19 13:06 Antibiotics) PMH/Surg Hx/FS Hx/Imm Hx Other History Of: Negative For: Anticoagulant Therapy - Surgical History Surgical History: Yes Surgery Procedure, Year, and Place: right TKA -02/2010 [facility] [place] left [place]KA- 04/2011 [facility] [place] [facility] [place] 1995. LAP FIDENCIO 2007. VENTRAL HERNIA REPAIR 01/2013 UMBILICAL HERNIA REPAIR. RIGHT INDEX TRIGGER FINGER 2005 [facility] [place]. R CTR 2013 [facility] [place] - Family History Known Family History: Positive: None, Hypertension, Other - No FHx of psychiatric disorders - Social History Alcohol Use: None Substance Use Type: None Smoking Status (MU): Light Every Day Tobacco Smoker Type: Cigarettes Amount Used/How Often: 4 CIGS/DAY Length of Time of Smoking/Using Tobacco: 20 YRS Have You Smoked in the Last Year: Yes Household Exposure Type: Cigarettes - Immunization History Most Recent Influenza Vaccination: 2013 Most Recent Tetanus Shot: 2012 Most Recent Pneumonia Vaccination: 9 years ago Physical Exam - Summary Physical Exam Summary: Vital Signs Reviewed: Yes General: well appearing, well nourished female in no acute apparent pain distress, sitting comfortably on examining table Eye Exam: Normal Eyes: Positive: Conjunctiva Clear - PERRLA< EOMI, fundi grossly normal ENT: Positive: Normal ENT inspection, Hearing grossly normal, Pharynx normal, TMs normal Neck: Positive: Supple, Nontender, No Lymphadenopathy Respiratory: Positive: Chest non-tender, Lungs clear, Normal breath sounds, No respiratory distress Cardiovascular: Positive: RRR, No Murmur, Pulses Normal, Brisk Capillary Refill Abdomen Description: Positive: Nontender, No Organomegaly, Soft. Negative: CVA Tenderness (R), CVA Tenderness (L) Bowel Sounds: Positive: Present Musculoskeletal: Positive: Strength Intact, ROM Intact, No Edema Neurological: Positive: Alert, Muscle Tone Normal Psychological Exam: Normal Skin: Positive:Positive moderate erythematous maculopapular eruption, some papule with clear vesicles. located in the mid RT lateral side of back in a dermatomal distribution and other papules under the Rt breast, mild tenderness to palpation, no swelling observed. Triage Information Reviewed: Yes Vital Signs: Initial Vital Signs Temp 98.4 F 01/04/19 13:01 Pulse 117 01/04/19 13:01 Resp 18 01/04/19 13:01 BP 146/97 01/04/19 13:01 Pulse Ox 97 01/04/19 13:01 Course/Dx - Differential Diagnoses - Skin Complaint Differential Diagnoses: Abscess, Cellulitis, Contact Dermatitis, Local Allergic Reaction, MRSA, Urticaria, Varicella Zoster - Diagnoses Provider Diagnosis: Bacterial infection concurrent with and due to herpes zoster, Uncontrolled hypertension Discharge - Sign-Out/Discharge Documenting (check all that apply): Patient Departure - D/C home All imaging exams completed and their final reports reviewed: No Studies - Discharge Plan Condition: Stable Disposition: HOME Prescriptions: DOXYcycline CAP(*) [DOXYcycline 100MG CAP(*)] 100 mg PO BID #14 cap Mupirocin 2% OINT* [Bactroban 2 % Oint*] 1 applic TOPICAL BID #1 tube ValACYclovir (*) [Valtrex 1 GM(*)] 1 gm PO TID #21 tab Patient Education Materials: Shingles (ED), Cellulitis (ED) Referrals: Tatiana Geronimo MD [Primary Care Provider] - 3 Days Additional Instructions: 1-Please take full course of Doxycycline Antibiotic for your bacterial so- infection. Take Valtrex PO as directed to alleviate shingles. 2- Continue taken oxycodone PO you have at home for pain. 3- If redness and swelling doubles in size beyond what was demarcated after 48 hrs of taking antibiotic and fever develops please go to the ER immediately. Otherwise f/u w/ yopur PCP in 2-3 days to make sure symptoms are improving 4- keep wound clean and dry. Apply Bactroban topical cream as directed to alleviate co-infection 5- Please find out the result of recent chest -ray doen by your PCP on . Do at home Duoneb treatment to alleviate COPD and cough 6-Your BP is elevated today. Please take your BP medications and decrease salt in your diet, monitor BP and if it continues to be elevated please f/u with your PCP for further management. If you develop chest pain, dizziness, visual disturbances, SOB, or severe BEAVER please go immediately to the ER for further management - Billing Disposition and Condition Condition: STABLE Disposition: Home
== END 2019-01-04 13:45 | disposition home or self-care (01) ==
LOC: UCEAST 12:56
DX: B02.8 Zoster with other complications (principal); I10 Essential (primary) hypertension; F17.210 Nicotine dependence, cigarettes, uncomplicated; Z88.0 Allergy status to penicillin; Z88.2 Allergy status to sulfonamides
CPT/HCPCS: 99212; G0463

== ENCOUNTER 2019-01-30 08:30 | Inpatient (IN) | payer MEDICARE ==
--- NOTE | 2019-01-21 13:36 | HP ---
HISTORY AND PHYSICAL: DATE OF ADMISSION/SURGERY: 01/30/19 DATE OF OFFICE VISIT: 01/21/19 SURGEON: Eva Esteves MD.* (DICTATED BY ARTHUR EM) PROCEDURE: Revision left total knee arthroplasty. CHIEF COMPLAINT: Left knee pain. HISTORY OF PRESENT ILLNESS: Ms. Turner is a 58-year-old with a painful left total knee arthroplasty, which was completed [address] Farfan. She has failed conservative treatment and elected to proceed with revision of the left total knee arthroplasty. PAST MEDICAL HISTORY: Depression; history of pancreatitis; COPD; epilepsy, last seizure in 1997; GERD; high cholesterol; chronic pain; and hypertension. PAST SURGICAL HISTORY: Hysterectomy, left total knee arthroplasty, bilateral carpal tunnel release, hernia repair, and a right total knee arthroplasty. CURRENT MEDICATIONS: 1. Voltaren gel apply 3 times a day as needed. 2. Oxycodone 5 mg every 4 to 6 hours as needed. 3. Effexor 150 mg daily. 4. Ventolin HFA 2 puffs 4 times a day. 5. Venlafaxine 150 mg twice a day. 6. Advair Diskus 1 puff twice a day. 7. Combivent Respimat 1 puff 4 times a day. 8. Omeprazole 40 mg a day. 9. Albuterol sulfate nebulizer 4 times a day as needed. 10. Amlodipine 5 mg a day. 11. Atorvastatin calcium 10 mg daily. 12. Creon 12,000 units 3 times a day. 13. Lidoderm patch. 14. Magnesium oxide 400 mg a day. 15. Nortriptyline 25 mg 2 tabs at bedtime. 16. Zofran 4 mg every 8 hours as needed. 17. Prochlorperazine 5 mg 3 times a day as needed. 18. Spiriva Respimat 2 puffs daily. ALLERGIES: PENICILLIN, BIAXIN, SULFA, and CLINDAMYCIN - all causing hives; TYLENOL, IBUPROFEN, and DILANTIN - causing seizures; and ROFECOXIB. FAMILY HISTORY: Cancer and MS. SOCIAL HISTORY: She is a 58-year-old female. She lives alone. She smokes half a pack a day for the last 40 years. She denies use of drugs or alcohol. REVIEW OF SYSTEMS: A complete 14-point review of systems was reviewed with the patient. It is positive for seizures, but her last one was in 1997; COPD; and GERD. She denies a history of DVT, PE, hepatitis, HIV, or anesthesia problems. PHYSICAL EXAMINATION GENERAL: She is well developed, well nourished, in no acute distress. VITAL SIGNS: She stands 4 feet 11 inches tall, weighs 171 pounds. Blood pressure is 136/84 and her heart rate is 84. HEENT: Normocephalic, atraumatic. NECK: Supple. No palpable lymph nodes. PULMONARY: The lungs are clear to auscultation bilaterally. CARDIO: Regular rate and rhythm. Strong S1, S2. ABDOMEN: Soft, nontender, nondistended. NEUROLOGICAL: She is alert and oriented x3. MUSCULOSKELETAL: Left lower extremity: The skin is intact. There are no open wounds or abrasions. There is a moderate effusion of the left knee joint, some tenderness along the medial joint line. There is MCL instability with stress testing. Range of motion is 5 to 110 degrees of flexion with pain. She is able to dorsiflex and plantarflex, has a 2+ dorsalis pedis pulse, and she has intact sensation. ASSESSMENT AND PLAN: Ms. Turner is a 58-year-old female with severe left knee pain, status post 2011 left total knee arthroplasty with Dr. Farfan. 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 She continues to have daily pain in her left knee and has elected to proceed with revision of left total knee arthroplasty. This is scheduled for 01/30/[address] Esteves discussed the risks and benefits of the surgery at today's visit and all of her questions were answered. She will follow up with Dr. Esteves 2 weeks after the surgery. ARTHUR EM [id number]/[facility] #: [id number] NASEEM
[~2019-01-30 08:30] MED LIST changes: +Buffered Lidocaine 1% SYRIN* 1 ML/SYRINGE INTRADERM ONE; -Cephalexin CAP* 500 MG PO ONE; +Famotidine IV* 10 MG/ML 2 ML (20 mg) IV ONE; +Gabapentin CAP(*) 300 MG PO ONE; +Lactated Ringers 1000 ML Bag* 1,000 ML IV SCH; +Tranexamic Acid 1,000 MG in NS 0.9% 50 ML* (outpatient use) IV SCH; +Vancomycin(*) 1,250 MG in NS 0.9% 250 ML* 250 ML IVPB SCH; -diPHENhydraMINE PO* 25 MG PO ONE
[2019-01-30] MEDS ORDERED: Lidocaine 1% MPF ** 5 ML VIAL ONE (10:27)
[2019-01-30] MEDS ORDERED: ROPIVACAINE 5 MG/ML 30 ML BTL (0.5%) ONE (10:27)
[2019-01-30] MEDS ORDERED: Gabapentin CAP(*) 300 MG ONE (10:39)
[2019-01-30] MEDS ORDERED: Famotidine IV* 10 MG/ML 2 ML (20 mg) ONE (10:40)
[2019-01-30] MEDS ORDERED: Buffered Lidocaine 1% SYRIN* 1 ML/SYRINGE INTRADERM ONE (11:01)
[2019-01-30] MEDS ORDERED: fentaNYL* 50 MCG/ML 2 ML VIAL (100 MCG VIAL) ONE ×4 (11:34→15:56)
[2019-01-30] MEDS ORDERED: Midazolam* 1 MG/ML 5 ML VIAL (5 MG) ONE (11:34)
[2019-01-30] MEDS ORDERED: Bupivacaine 0.5% W/EPI SDV* 30 ML VIAL ONE (13:14)
[2019-01-30] MEDS ORDERED: KETAMINE HCL* 50 MG/ML 10 ML VIAL ONE (13:46)
[2019-01-30] MEDS ORDERED: Dexamethasone IV* 4 MG/ML 1 ML (4 MG) ONE (14:28)
[2019-01-30] MEDS ORDERED: Ondansetron INJ* 2 MG/ML VIAL ONE (14:28)
[2019-01-30] MEDS ORDERED: Succinylcholine* 20 MG/ML 10 ML VIAL ONE (14:28)
[2019-01-30] MEDS ORDERED: Ketorolac INJ* 30 MG/ML 1 ML VIAL ONE (14:28)
[2019-01-30] MEDS ORDERED: Propofol* 10 MG/ML 20 ML BTL ONE ×2 (14:28→14:36)
[2019-01-30] MEDS ORDERED: Lidocaine 2% PF * 5 ML VIAL ONE (14:29)
[2019-01-30] MEDS ORDERED: HYDROmorphone INJ1* 1 MG/ML SYRINGE IV PRN (15:52)
[2019-01-30] MEDS ORDERED: Levalbuterol 0.63MG/3ML NEB* UNIT OF USE INH PRN (15:52)
[2019-01-30] MEDS ORDERED: oxyCODONE TAB* 5 MG TAB PO PRN (15:52)
[2019-01-30] MEDS ORDERED: DiMENhydriNATE IV* 50 MG/ML VIAL IV PUSH PRN (15:52)
[2019-01-30] MEDS ORDERED: Naloxone* 0.4 MG/ML 1 ML VIAL IV PRN (15:52)
[2019-01-30] MEDS ORDERED: Gabapentin CAP(*) 100 MG PO ONE (15:54)
[2019-01-30] MEDS ORDERED: HYDROmorphone INJ1* 1 MG/ML SYRINGE ONE (17:24)
[2019-01-30] MEDS ORDERED: hydrALAZINE IV* 20 MG/ML VIAL ONE (17:30)
[2019-01-30] MEDS ORDERED: Metoclopramide TAB* 10 MG PO PRN (17:45)
[2019-01-30] MEDS ORDERED: Albuterol/Ipratropium NEB.SOL* Albuterol 2.5 MG/Ipratropium 0.5 MG 3 ML INH PRN (17:45)
[2019-01-30] MEDS ORDERED: Bisacodyl SUPP* 10 MG SUPP PR PRN (17:47)
[2019-01-30] MEDS ORDERED: Cyclobenzaprine TAB* 10 MG PO PRN (17:47)
[2019-01-30] MEDS ORDERED: oxyCODONE/Acetamin 5/325 MG* TAB PO PRN ×2 (17:47)
[2019-01-30] MEDS ORDERED: Polyethylene Glycol 3350* 17 GM PACKET PO PRN (17:47)
[2019-01-30] MEDS ORDERED: diPHENhydraMINE IV* 50 MG/ML 1 ml VIAL (BENADRYL) IV PRN (17:47)
[2019-01-30] MEDS ORDERED: Ondansetron INJ* 2 MG/ML VIAL IV PRN (17:47)
[2019-01-30] MEDS ORDERED: Magnesium Hydroxide LIQ* 30 ML UDC PO PRN (17:47)
[2019-01-30] MEDS ORDERED: Lactated Ringers 1000 ML Bag* 1,000 ML IV SCH (18:00)
[2019-01-30] MEDS ORDERED: Acetaminophen TAB* 325 MG PO SCH (18:00)
[2019-01-30] MEDS ORDERED: Gabapentin CAP(*) 100 MG ONE (19:41)
[2019-01-30] MEDS ORDERED: oxyCODONE TAB* 5 MG TAB ONE (19:48)
[2019-01-30] MEDS ORDERED: Clindamycin 600 MG/D5W BAG(*) 600 MG/50 ML BAG IV SCH (22:00)
[2019-01-30] MEDS ORDERED: ValACYclovir (*) 1 GM TAB PO SCH (22:00)
[2019-01-30] MEDS ORDERED: Mupirocin 2% OINT* TUBE TOPICAL SCH (22:00)
[2019-01-30] MEDS ORDERED: amLODIPine TAB* 5 MG PO SCH (22:00)
[2019-01-30] MEDS ORDERED: Bacitracin OINTMENT* 0.5% 0.5 oz TUBE TOPICAL SCH (22:00)
[2019-01-30] MEDS: Magnesium Hydroxide LIQ* 30 ML UDC PO SCH (22:31)
[2019-01-30] MEDS: Docusate CAP* 100 MG PO SCH (22:31)
--- NOTE | 2019-01-30 23:12 | OP ---
OPERATIVE REPORT: DATE OF OPERATION: 01/30/19. DATE OF : 58. ATTENDING SURGEON: Eva Esteves MD MANUFACTURING SUPERVISOR 2ND SHIFT: ARTHUR Ulloa Mr. Vu did help throughout the procedure with preparation of the leg, wound retraction, manipula tion of the knee, and wound closure. ANESTHESIOLOGIST: Dr. Jensen. ANESTHESIA: General. PRE-OP DIAGNOSIS: Painful left total knee arthroplasty with osteolysis. POST-OP DIAGNOSIS: Painful left total knee arthroplasty with osteolysis. OPERATIVE PROCEDURE: Revision left total knee arthroplasty, femoral and tibial components. ESTIMATED BLOOD LOSS: 400 cc. TOURNIQUET TIME: 84 minutes. COMPLICATIONS: None. SPECIMENS: Multiple culture swabs sent for cultures and sensitivities. Explanted hardware sent to [facility]. BRIEF HISTORY/INDICATION: Ms. Turner is a 58-year-old female who had in 2010 a left total knee ar throplasty. Over the last 8 months she developed severe pain and feelings of medial instability in t he left knee. Radiographs showed significant osteolysis of the proximal tibial and distal femur with polyethylene wear. The patient failed conservative treatment and insisted on proceeding with revisi on surgery due to severe pain and decreased quality of life. Informed consent was obtained from the patient. She understood the risks of surgery included but wer e not limited to bleeding, infection, damage to nearby structures, continued pain, need for further s urgery, intraoperative fracture, nerve palsy, hardware failure or loosening, knee stiffness, loss of motion, stroke, heart attack, blood clot, and . She wished to proceed. HARDWARE USED: DePuy Revision total knee hardware for the femur. A size 2 TC3 cemented left Sigma f emoral component with a 4 mm distal lateral augment, 8 mm distal medial augment, 5 degrees adapter valarie lt and a 75 x 12 uncemented [place] fluted stem. For the tibia, a 2.5 MBT revision tibial tray rot ating platform cemented with a 13 x 30 PFC Sigma modular cemented stem. For the insert, a 15 mm Sigm a rotating platform TC3 size #2 tibial insert. Two packages of Simplex with Tobramycin were used. INTRAOPERATIVE FINDINGS: Intraoperatively, the patient was noted to have polyethylene wear and some polyethylene debris in the joint. She had a large cystic area of osteolysis along the medial tibial plateau that measured approximately 1 x 1 cm. Also, pocket of osteolysis and cystic material along t he medial femoral condyle. Her MCL did have insufficiency but was intact. DESCRIPTION OF PROCEDURE: Ms. Turner was identified in the preanesthesia unit. Her left knee was marked as the correct operative side. Informed consent was signed and placed in the chart. The castillo ent was taken to the operating room and placed under anesthesia. A tourniquet was placed on the left knee. Left lower extremity was prepped and draped in the usual sterile fashion. Preop time-out was made to correctly identify the patient, side, and site. Appropriate perioperative antibiotics were given within 1 hour of incision. The patient's tourniquet was inflated. Midline incision was opened. There was dissection down to th e extensor mechanism. A standard medial parapatellar arthrotomy was made. Patella was subluxed late rally. The patella was evaluated for any loosening and none was noted. Joint fluid was collected an d sent on culture swabs. There was no evidence of infection. There was evidence of polyethylene wea r with some polyethylene debris in the joint. The knee was copiously irrigated with sterile saline. The polyethylene was carefully removed. Dissection was carried out along the gutters and the medial tibial plateau to release soft tissue and improve the approach's visibility. Small oscillating saw a nd multiple types of osteotomes were used to meticulously break the hardware cement barrier along the entire femoral component. Bone tamp was then used to remove the femoral component. There was minim al bone loss distally. A cystic area of medial femoral condyle was noted and this was cleared with a curette. Next, attention was turned to removing the tibial component. Small oscillating saw and multiple type s of osteotomes were used to remove the tibial component. There was very little bone loss noted and no complications with this. The tibia was subluxed anteriorly. There was an area of osteolysis johnathan g the medial tibial plateau with some bony deformity. Any cement in the canal was carefully removed. The canal was sequentially reamed up to a size 13 distally. A clean-up cut was made along the proxi mal tibia. Tibia proximal to medial was sized to a size 2.5. A modular 13 x 30 stem was chosen based on C-arm views. This was the proper length. A trial 2.5 tibial tray with a 13 x 30 peg was placed and this trial was placed without difficulty. Multiple C-arm views confirmed satisfactory position o f the tibial tray. Next, attention was turned to preparation of the femur. Canal was sequentially reamed up to a size # 12 mm reamer. The clean-up cuts were made using appropriate jigs. Minimal bone was taken anteriorly or distally. An 8 mm augment was chosen medially and 4 mm augment laterally. Clean-up cut of the p osterior condyles was performed using the appropriate jig. Next, the box for the TC3 implant was pre pared with a reciprocating jaw. A trial size #2 distal femur TC3 with a 75 x [address] d and had excellent fit. A 12.5 insert trial was placed and there was some laxity noted along the MC L. A 15 mm trial was placed and there was excellent stability medially and laterally. There was goo d range of motion from 0 to 130 degrees of flexion with satisfactory patellofemoral tracking. Tourn iquet had been turned down at 60 minutes. Tourniquet was reinflated. Trials were removed. The knee was copiously irrigated with sterile saline. Final implants were prepared. Two packages of Simplex with Tobramycin were used to cement the final implants into place starting with the tibia followed b y the femur. Once the cement had fully cured, the insert trial was removed. Any excess cement was c arefully removed from around the capsule and implants. Final insert chosen was a Sigma tibial insert , rotating platform TC3 size 2 with 15 mm. This was placed without difficulty. The knee was taken t hrough range of motion and had full extension to 130 degrees of flexion with satisfactory patellofemo ral tracking. There was excellent medial and lateral ligament stability. The patient's final C-arm views were satisfactory without any periprosthetic fracture visible. The k nee was copiously irrigated with sterile saline. The extensor mechanism was closed using interrupted #1 Vicryl. The rest of the incision was closed in a layered fashion using 0 and 2-0 Vicryl. The sk in was closed using running 3-0 nylon. Sterile Xeroform, 4x4's, and Webril were used to cover the in cision. Crispin wrap and cold pack were placed over this. The patient's anesthesia was reversed without difficulty. She was taken to the PACU in stable condition. Intended weightbearing will be weightbe aring as tolerated. Intended DVT prophylaxis will be Eliquis. [id number]/[facility] #: [id number]
[2019-01-31] MEDS: oxyCODONE TAB* 5 MG TAB PO PRN ×5 (00:03→20:34)
[2019-01-31] MEDS: Vancomycin(*) 1,000 MG in NS 0.9% 250 ML* 250 ML IVPB SCH ×3 (00:04→15:17)
[2019-01-31] MEDS: Mometasone/Formoter 100/5 MDI INH SCH ×3 (00:11→19:31)
--- NOTE | 2019-01-31 02:44 | CONS ---
CONSULTATION REPORT: DATE OF CONSULT: 01/30/19 PROVIDER: ARTHUR Steele REQUESTING PROVIDER: Dr. Esteves. REASON FOR CONSULT: Co-management of chronic medical conditions. HISTORY OF PRESENT ILLNESS: Pascale Turner is a 58-year-old white female with past medical history significant for COPD, depression, pancreatitis, hypertension, hyperlipidemia, and epilepsy, last seizure in 1997 who presents for revision of left total knee arthroplasty today with Dr. Esteves. She has been having painful left total knee arthroplasty from procedure, which was performed 8 years ago. She failed outpatient medical conservative therapy and elected for procedure today. Hospitalist medicine has been consulted for co- management of chronic medical conditions. The patient has been evaluated on the floor after the procedure. She is drowsy but easily arousable. She explained to the nurse that she no longer takes Valtrex, bacitracin, or mupirocin, which were on her medicine reconciliation. The patient reports that she does have left knee pain, otherwise has no complaints. She denies abdominal pain, nausea, vomiting, chest pain, difficulty breathing, fever, or chills. PAST MEDICAL HISTORY: 1. COPD. 2. Hypertension. 3. Hyperlipidemia. 4. Depression. 5. Pancreatitis. 6. Epilepsy, last seizure in 1997. PAST SURGICAL HISTORY: 1. Hysterectomy. 2. Left total knee arthroplasty. 3. Bilateral carpal tunnel releases. 4. Hernia repair. 5. Right total knee arthroplasty. MEDICATIONS: 1. Albuterol inhaler 2 puffs q.6 hours p.r.n. shortness of breath or wheezing. 2. DuoNeb inhaler q.6 hours p.r.n. shortness of breath, wheezing. 3. Amlodipine 5 mg p.o. at bedtime. 4. Apixaban 2.5 mg p.o. b.i.d. 5. Bacitracin ointment. 6. Bisacodyl suppository 10 mg per rectum daily p.r.n. constipation. 7. Clindamycin 300 mg IV q.8 hours. 8. Benadryl 25 mg IV q.6 hours p.r.n. itching. 8. Docusate 100 mg p.o. b.i.d. 10. Lactulose 30 mL p.o. q.6 hours p.r.n. constipation. 11. Lactated Ringer's 1000 mL at 100 cc per hour. 12. Magnesium hydroxide 30 mL p.o. q.6 hours p.r.n. constipation and b.i.d. scheduled. 13. Metoclopramide 10 mg p.o. q.6 hours p.r.n. nausea or vomiting. 14. Dulera 2 puffs inhaled b.i.d. 15. Mupirocin 2% ointment 1 application topically b.i.d. 16. Zofran 4 mg every q.6 hours p.r.n. 17. Oxycodone 10 mg p.o. q.4 hours p.r.n. pain. 18. Oxycodone 2 tab p.o. q.4 hours p.r.n. pain. 19. Pantoprazole 40 mg p.o. q.a.m. 20. MiraLAX p.r.n. constipation. 21. Tramadol 50 mg p.o. q.6 hours p.r.n. pain. 22. Valtrex 1 g p.o. t.i.d. 23. Venlafaxine 300 mg p.o. q.a.m. 24. Multivitamin. ALLERGIES: Reaction of hives to CLINDAMYCIN, SULFA, BIAXIN, and PENICILLIN. History of seizures after DILANTIN, IBUPROFEN, AND TYLENOL. Allergic to ROFECOXIB and reaction is unknown. SOCIAL HISTORY: The patient lives alone. Smokes half pack per day for the last 40 years. Denies use of drugs or alcohol. FAMILY HISTORY: Cancer and MS. PHYSICAL EXAMINATION: General: Obese white female, sitting upright in hospital bed, appearing comfortable, in no acute distress. Eyes: PERRL. Sclerae anicteric. ENT: Mucous membranes are moist. Neck: Supple. Lungs: Mild inspiratory crackles in bilateral lung bases. Cardio: Regular rate and rhythm without murmurs or gallops. Abdomen: Normoactive bowel sounds x4 quadrants. Abdomen is soft, nontender, nondistended. Extremities: Left knee in brace. No clubbing, cyanosis, or edema. Neuro: The patient is minimally sedated, but easily arousable to voice. Oriented x3. Able to walk. Extremities. No focal deficits. DIAGNOSTIC STUDIES/LAB DATA: None to report. ASSESSMENT AND PLAN: Pascale Turner is a 58-year-old white female with past medical history significant for hypertension, COPD, hyperlipidemia, pancreatitis , depression, epilepsy who presents for revision of left total knee arthroplasty. 1. Status post left total knee arthroplasty revision. Management per Orthopedic Surgery. The patient is receiving p.r.n. pain medication and bowel regimen and is on Eliquis for DVT prophylaxis. The patient has CLINDAMYCIN in the post-operative setting, and the patient notes that she has hives to this medication, which is a true allergy. I will defer antibiotic selection to the orthopedic team. 2. Chronic obstructive pulmonary disease. The patient takes Combivent, Respimat, Advair, and Spiriva at home and these inhalers were not ordered. I ordered Dulera as replacement for her Advair as well as daily Spiriva and her 4 times a day Combivent. It is unclear why the patient gets both Combivent Respimat and Spiriva Respimat; however, this is on her admitting H and P, and the patient endorses that she uses all and both of these inhalers, p.r.n. DuoNebs and rescue inhalers already ordered, we will continue. 3. Hypertension. The patient takes amlodipine at home. I have ordered holding parameters for systolic blood pressure less than 110. 4. History of cold sores. The patient has taken Valtrex in the past; however, she notes that she no longer is taking this. She additionally is no longer taking mupirocin ointment or bacitracin, so I deleted all 3 of these medications from her oral list to avoid confusion. 5. History of pancreatitis. The patient takes Creon at home and I have ordered this. 6. DVT prophylaxis. As previously mentioned, the patient is taking Eliquis per orthopedic team. 7. Disposition. Per orthopedic surgery team. Thank you for allowing us to participate in the care of this patient. We will follow during this admission. ARTHUR STEELE [id number]/[facility] #: [id number] MTDD
[2019-01-31] MEDS: traMADol TAB* 50 MG PO PRN ×3 (08:18→20:33)
[2019-01-31] MEDS: Magnesium Hydroxide LIQ* 30 ML UDC PO SCH ×2 (08:38→23:13)
[2019-01-31] MEDS: Atorvastatin* 10 MG TAB PO SCH (08:38)
[2019-01-31] MEDS: Docusate CAP* 100 MG PO SCH ×2 (08:38→20:33)
[2019-01-31] MEDS: Vitamin THERAPEUTIC TAB PO SCH (08:38)
[2019-01-31] MEDS: Apixaban* 2.5 MG TAB PO SCH ×2 (08:38→20:33)
[2019-01-31] MEDS: Venlafaxine EXT RELEASE CAP* 75 MG PO SCH (08:39)
[2019-01-31] MEDS: amLODIPine TAB* 5 MG PO SCH (08:39)
[2019-01-31] MEDS: Pantoprazole TAB * 40 MG TAB PO SCH (08:39)
[2019-01-31] MEDS: Magnesium Oxide TAB* 400 MG PO SCH (08:39)
[2019-01-31] MEDS: NFT: Albuterol/Ipratropium RESP(NF) MDI (Combivent Respimat) INH SCH ×4 (08:43→23:09)
[2019-01-31 08:45] LABS: Hematocrit 31 % (35-47); Mean Platelet Volume 10.2 fL (7.4-10.4); Platelet Count 224 10^3/uL (150-450)
[2019-01-31] MEDS: Pancrelipase CAP* 5,000 UNITS CAP PO SCH ×3 (09:38→16:31)
[2019-01-31] MEDS: Nicotine PATCH 14 MG/24 HR* PATCH TRANSDERM SCH (09:40)
[2019-01-31 09:41] LABS: Calcium 8.3 mg/dL (8.6-10.3); Potassium 4.4 mmol/L (3.5-5.0)
[2019-01-31] MEDS: Tiotropium CAP.INH* CAP.INH/18 MCG (USE ORDER SET !) INH SCH (09:43)
[2019-01-31 09:47] LABS: BUN/Creatinine Ratio 20.5 (8-20); EGFR African American 98.7 (>60); EGFR Non-African American 81.6 (>60)
[2019-01-31] MEDS ORDERED: Spiriva Inhaler DEVICE* 1 EACH DEVICE INH ONE (10:00)
--- NOTE | 2019-01-31 11:21 | PN ---
Progress Note - Progress Note Date of Service: 01/31/19 SOAP: Subjective: []Patient seen OOB in chair. She is having difficulty managing her pain. She is allergic to Tylenol and NSAIDs. She denies, CP, dizziness, nausea or vomiting. Objective: [] Vital Signs Temp 98.4 F 01/31/19 08:51 Pulse 79 01/31/19 08:51 Resp 16 01/31/19 10:21 BP 101/55 01/31/19 08:51 Pulse Ox 93 01/31/19 08:51 Intake & Output 01/30/19 01/31/19 01/31/19 18:59 06:59 18:59 Intake Total 3200 160 1613 Output Total 250 325 200 Balance 2950 -165 1413 Weight 171 lb 6.4 oz Intake: IV Fluids 3200 1090 LR 3200 1090 IVPB 523 ABX - VANCOMYCIN 523 Oral 160 Output: Urine 200 [place]ana 250 325 Other: # Bowel Movements 0 Laboratory Results - last 24 hr 01/31/19 01/31/19 07:57 07:57 Hgb 10.0 L Hct 31 L Plt Count 224 MPV 10.2 Sodium 137 Potassium 4.4 Chloride 107 Carbon Dioxide 23 Anion Gap 7 BUN 15 Creatinine 0.73 Est GFR ( Amer) 98.7 Est GFR (Non-Af Amer) 81.6 BUN/Creatinine Ratio 20.5 H Glucose 122 H Calcium 8.3 L Left knee dressings are intact and dry +DF left ankle calf NT and soft sensation intact distally Assessment: []s/p revision left total knee arthroplasty POD #1 Plan: PT/OT WBAT []Flexeril and Morphine IV added Eliquis for DVT prophylaxis Home 1-2 days
[2019-01-31] MEDS: Cyclobenzaprine TAB* 10 MG PO PRN (11:35)
[2019-01-31] MEDS: Morphine 4 MG/ML VIAL (1 ml) 4 MG/ML VIAL IV PRN ×3 (12:54→22:53)
[2019-01-31] MEDS: Albuterol HFA INHALER* 8 gm MDI INH PRN ×2 (14:24→16:31)
--- NOTE | 2019-01-31 15:29 | PN ---
Subjective Date of Service: 01/31/19 Interval History: Denies chest pain or shortness of breath. Denies abd pain n/v/d. reports that pain is currently controlled with current pain medications Family History: Unchanged from Admission Social History: Unchanged from Admission Past Medical History: Unchanged from Admission Objective Active Medications: Albuterol (Ventolin Hfa Inhaler*) 2 puff INH Q6H PRN PRN Reason: SHORTNESS OF BREATH Last Admin: 01/31/19 14:24 Dose: 2 puff Albuterol/Ipratropium (Duoneb (Albuterol 2.5 Mg/Ipratropium 0.5 Mg)) 1 neb INH Q6H PRN PRN Reason: WHEEZING Albuterol/Ipratropium (Combivent Respimat(Nf)) 1 puff INH QID [facility]; Protocol Last Admin: 01/31/19 12:55 Dose: Not Given Amlodipine Besylate (Norvasc Tab*) 5 mg PO DAILY [facility] Last Admin: 01/31/19 08:39 Dose: 5 mg Apixaban (Eliquis*) 2.5 mg PO BID [facility] Last Admin: 01/31/19 08:38 Dose: 2.5 mg Atorvastatin Calcium (Lipitor*) 10 mg PO DAILY [facility] Last Admin: 01/31/19 08:38 Dose: 10 mg Bisacodyl (Dulcolax Supp*) 10 mg [place] DAILY PRN PRN Reason: constipation Cyclobenzaprine HCl (Flexeril Tab*) 10 mg PO BID PRN PRN Reason: pain Last Admin: 01/31/19 11:35 Dose: 10 mg Diphenhydramine HCl (Benadryl Iv*) 25 mg IV Q6H PRN PRN Reason: itching Docusate Sodium (Colace Cap*) 100 mg PO BID [facility] Last Admin: 01/31/19 08:38 Dose: 100 mg Lactated Ringer's (Lactated Ringers 1000 Ml Bag*) 1,000 mls @ 100 mls/hr IV PER RATE [facility] Vancomycin HCl 1,000 mg/ (Sodium Chloride) 250 mls @ 166.667 mls/hr IVPB Q8H [facility] Stop: 01/31/19 16:59 Last Admin: 01/31/19 15:17 Dose: 166.667 mls/hr Lactulose (Lactulose*) 30 ml PO Q6H PRN PRN Reason: constipation Magnesium Hydroxide (Milk Of Magnesia Liq*) 30 ml PO BID [facility] Last Admin: 01/31/19 08:38 Dose: 30 ml Magnesium Hydroxide (Milk Of Magnesia Liq*) 30 ml PO Q6H PRN PRN Reason: constipation Magnesium Oxide (Magox 400 Tab*) 400 mg PO DAILY [facility] Last Admin: 01/31/19 08:39 Dose: 400 mg Metoclopramide HCl (Reglan Tab*) 10 mg PO Q6H PRN PRN Reason: NAUSEA/VOMITING Mometasone Furoate/Formoterol Fumar (Dulera 100/5 Mdi*) 2 puff INH BID [facility] Last Admin: 01/31/19 08:44 Dose: Not Given Morphine Sulfate (Morphine 4 Mg/Ml Vial (1 Ml)) 4 mg IV Q2H PRN PRN Reason: PAIN Last Admin: 01/31/19 12:54 Dose: 4 mg Multivitamins (Theragran Tab*) 1 tab PO DAILY [facility] Last Admin: 01/31/19 08:38 Dose: 1 tab Nicotine (Nicotine Patch 14 Mg/24 Hr*) 1 patch TRANSDERM DAILY [facility] Last Admin: 01/31/19 09:40 Dose: 1 patch Ondansetron HCl (Zofran Inj*) 4 mg IV Q6H PRN PRN Reason: nausea Oxycodone HCl (Roxycodone Tab*) 10 mg PO Q4H PRN PRN Reason: PAIN - SEVERE Last Admin: 01/31/19 09:51 Dose: 10 mg Oxycodone/Acetaminophen (Percocet 5/325 Tab*) 1 tab PO Q4H PRN PRN Reason: PAIN - MILD TO MODERATE Oxycodone/Acetaminophen (Percocet 5/325 Tab*) 2 tab PO Q4H PRN PRN Reason: PAIN - MODERATE Pancrelipase (Zenpep Delayed Cap*) 10,000 units PO TID WITH MEALS [facility] Last Admin: 01/31/19 12:03 Dose: 10,000 units Pantoprazole Sodium (Protonix Tab*) 40 mg PO QAM [facility] Last Admin: 01/31/19 08:39 Dose: 40 mg Pharmacy Profile Note (Nicotine Patch Removal Note*) 1 note FOLLOW UP 2100 [facility] Polyethylene Glycol/Electrolytes (Miralax*) 17 gm PO DAILY PRN PRN Reason: Constipation Tiotropium [place] (Spiriva Cap.Inh*) 1 cap INH DAILY [place] Last Admin: 01/31/19 09:43 Dose: 1 cap Tramadol HCl (Ultram*) 50 mg PO Q6H PRN PRN Reason: PAIN Last Admin: 01/31/19 14:21 Dose: 50 mg Venlafaxine HCl (Effexor Xr Cap*) 300 mg PO QAM [facility] Last Admin: 01/31/19 08:39 Dose: 300 mg Vital Signs - 8 hr 01/31/19 01/31/19 01/31/19 08:00 08:13 08:18 Temperature Pulse Rate Respiratory 16 16 16 Rate Blood Pressure (mmHg) O2 Sat by Pulse Oximetry 01/31/19 01/31/19 01/31/19 08:51 09:51 10:21 Temperature 98.4 F Pulse Rate 79 Respiratory 16 16 16 Rate Blood Pressure 101/55 (mmHg) O2 Sat by Pulse 93 Oximetry 01/31/19 01/31/19 01/31/19 11:35 12:02 12:45 Temperature 98.9 F Pulse Rate 88 Respiratory 16 16 19 Rate Blood Pressure 124/71 (mmHg) O2 Sat by Pulse 93 Oximetry 01/31/19 01/31/19 01/31/19 12:54 13:32 14:17 Temperature Pulse Rate Respiratory 16 20 16 Rate Blood Pressure (mmHg) O2 Sat by Pulse Oximetry 01/31/19 14:21 Temperature Pulse Rate Respiratory 18 Rate Blood Pressure (mmHg) O2 Sat by Pulse Oximetry Oxygen Devices in Use Now: None Appearance: alert and oriented x3 , no acute distress Eyes: No Scleral Icterus Ears/Nose/Mouth/Throat: Clear Oropharnyx, Mucous Membranes Moist Neck: NL Appearance and Movements; NL JVP, Trachea Midline Respiratory: Symmetrical Chest Expansion and Respiratory Effort, - - crackles in the bases bilat Cardiovascular: NL Sounds; No Murmurs; No JVD, No Edema Abdominal: NL Sounds; No Tenderness; No Distention Extremities: No Edema, No Clubbing, Cyanosis Skin: No Rash or Ulcers, - - dressing dry and intact to left knee Neurological: Alert and Oriented x 3 Nutrition: Taking PO's Result Diagrams: 01/31/19 07:57 01/31/19 07:57 Microbiology and Other Data: Microbiology 01/30/19 14:14 Anaerobic Culture - Preliminary Wound No Growth Day 1 Gram Stain - Final Wound Culture - Preliminary No Growth Day 1 Assess/Plan/Problems-Billing Assessment: Ms. Turner is a 58 y.o famale who presented to [facility] for elective left knee revision with Dr. Esteves. She has a pmhx of copd and htn - Patient Problems (1) S/P left knee surgery Current Visit: Yes Status: Acute Code(s): Z98.890 - OTHER SPECIFIED POSTPROCEDURAL STATES SNOMED Code(s): 534823895 Comment: management per orthopedics PT/OT per ortho Pain management per ortho (2) HTN (hypertension) Current Visit: Yes Status: Acute Code(s): I10 - ESSENTIAL (PRIMARY) HYPERTENSION SNOMED Code(s): 87646355 Comment: continue norvasc (3) COPD (chronic obstructive pulmonary disease) Current Visit: No Status: Chronic Code(s): J44.9 - CHRONIC OBSTRUCTIVE PULMONARY DISEASE, UNSPECIFIED SNOMED Code(s): 57240053 Comment: stable continue dulera, spirvia albuterol nebs (4) DVT prophylaxis Current Visit: No Status: Acute Priority: Medium Onset Date: 08/08/14 Code(s): QKF4185 - SNOMED Code(s): 928867538 Comment: richard (5) Full code status Current Visit: No Status: Acute Priority: Medium Onset Date: 08/08/14 Code(s): Z78.9 - OTHER SPECIFIED HEALTH STATUS SNOMED Code(s): 574076725 Status and Disposition: discharge per ortho
[2019-01-31] MEDS: Nicotine Patch Removal NOTE FOLLOW UP SCH (23:16)
[2019-02-01] MEDS: oxyCODONE TAB* 5 MG TAB PO PRN ×3 (04:46→17:11)
[2019-02-01] MEDS: traMADol TAB* 50 MG PO PRN ×2 (04:46→12:11)
[2019-02-01] MEDS: NFT: Albuterol/Ipratropium RESP(NF) MDI (Combivent Respimat) INH SCH ×5 (06:34→20:16)
[2019-02-01 07:09] LABS: Hematocrit 29 % (35-47); Hemoglobin 9.6 g/dL (12.0-16.0); Mean Platelet Volume 9.8 fL (7.4-10.4); Platelet Count 228 10^3/uL (150-450)
[2019-02-01] MEDS: Tiotropium CAP.INH* CAP.INH/18 MCG (USE ORDER SET !) INH SCH (08:32)
[2019-02-01] MEDS: Mometasone/Formoter 100/5 MDI INH SCH ×2 (08:33→20:20)
[2019-02-01] MEDS: Nicotine PATCH 14 MG/24 HR* PATCH TRANSDERM SCH (08:38)
[2019-02-01] MEDS: Pancrelipase CAP* 5,000 UNITS CAP PO SCH ×3 (08:40→17:11)
[2019-02-01] MEDS: Apixaban* 2.5 MG TAB PO SCH ×2 (08:40→20:47)
[2019-02-01] MEDS: Magnesium Hydroxide LIQ* 30 ML UDC PO SCH ×2 (08:40→20:47)
[2019-02-01] MEDS: amLODIPine TAB* 5 MG PO SCH (08:41)
[2019-02-01] MEDS: Pantoprazole TAB * 40 MG TAB PO SCH (08:41)
[2019-02-01] MEDS: Vitamin THERAPEUTIC TAB PO SCH (08:41)
[2019-02-01] MEDS: Magnesium Oxide TAB* 400 MG PO SCH (08:41)
[2019-02-01] MEDS: Atorvastatin* 10 MG TAB PO SCH (08:41)
[2019-02-01] MEDS: Docusate CAP* 100 MG PO SCH ×2 (08:41→20:47)
[2019-02-01] MEDS: Venlafaxine EXT RELEASE CAP* 75 MG PO SCH (08:41)
--- NOTE | 2019-02-01 11:15 | PN ---
Progress Note - Progress Note Date of Service: 02/01/19 SOAP: Subjective: []Patient seen walking in hallway with therapy this am, still having moderate pain. She lives alone, will need home nursing services in [facility]. She does not yet feel ready for discharge. Denies, SOB, CP, palpitations or nausea. Objective: [] Vital Signs Temp 97.7 F 02/01/19 08:20 Pulse 95 02/01/19 08:34 Resp 18 02/01/19 08:44 BP 144/73 02/01/19 08:20 Pulse Ox 90 02/01/19 09:16 Intake & Output 01/31/19 02/01/19 02/01/19 18:59 06:59 18:59 Intake Total 2115 800 Output Total 700 300 950 Balance 1415 500 -950 Intake: IV Fluids 1107 LR 1107 IVPB 778 ABX - VANCOMYCIN 778 Oral 230 800 Output: Urine 700 300 950 Other: Estimated Void Large # Bowel Movements 1 Estimated Stool Amount Small # Voids 1 Laboratory Results - last 24 hr 02/01/19 06:48 Hgb 9.6 L Hct 29 L Plt Count 228 MPV 9.8 Left knee dressings changed, moderate old bloody drainage on dressings, incision benign with surrounding patch of ecchymosis calf NT and soft +DF left ankle calf NT and soft sensation remains intact distally Assessment: []s/p revision arthroplasty left total knee POD #2 Plan: []PT/OT WBAT LLE eliquis DVT prophylaxis Change pain meds to long acting Oxycontin scheduled dosing Home Saturday
[2019-02-01] MEDS: Albuterol HFA INHALER* 8 gm MDI INH PRN ×2 (12:10→17:11)
[2019-02-01] MEDS: oxyCODONE SR TAB(*) 15 MG TAB.SR PO SCH ×2 (12:11→20:47)
--- NOTE | 2019-02-01 13:44 | PN ---
Subjective Date of Service: 02/01/19 Interval History: no complaints overnight. c/o pain to left knee co ntrolled with current pain medications. Denies chest pain or shortness of breath. Denies abd pain n/v/d. Family History: Unchanged from Admission Social History: Unchanged from Admission Past Medical History: Unchanged from Admission Objective Active Medications: Albuterol (Ventolin Hfa Inhaler*) 2 puff INH Q6H PRN PRN Reason: SHORTNESS OF BREATH Last Admin: 02/01/19 12:10 Dose: 2 puff Albuterol/Ipratropium (Duoneb (Albuterol 2.5 Mg/Ipratropium 0.5 Mg)) 1 neb INH Q6H PRN PRN Reason: WHEEZING Albuterol/Ipratropium (Combivent Respimat(Nf)) 1 puff INH QID [facility]; Protocol Last Admin: 02/01/19 12:18 Dose: Not Given Amlodipine Besylate (Norvasc Tab*) 5 mg PO DAILY [facility] Last Admin: 02/01/19 08:41 Dose: 5 mg Apixaban (Eliquis*) 2.5 mg PO BID [facility] Last Admin: 02/01/19 08:40 Dose: 2.5 mg Atorvastatin Calcium (Lipitor*) 10 mg PO DAILY [facility] Last Admin: 02/01/19 08:41 Dose: 10 mg Bisacodyl (Dulcolax Supp*) 10 mg MI DAILY PRN PRN Reason: constipation Cyclobenzaprine HCl (Flexeril Tab*) 10 mg PO BID PRN PRN Reason: pain Last Admin: 01/31/19 11:35 Dose: 10 mg Diphenhydramine HCl (Benadryl Iv*) 25 mg IV Q6H PRN PRN Reason: itching Docusate Sodium (Colace Cap*) 100 mg PO BID [facility] Last Admin: 02/01/19 08:41 Dose: 100 mg Lactated Ringer's (Lactated Ringers 1000 Ml Bag*) 1,000 mls @ 100 mls/hr IV PER RATE [facility] Lactulose (Lactulose*) 30 ml PO Q6H PRN PRN Reason: constipation Magnesium Hydroxide (Milk Of Magnesia Liq*) 30 ml PO BID [facility] Last Admin: 02/01/19 08:40 Dose: 30 ml Magnesium Hydroxide (Milk Of Magnesia Liq*) 30 ml PO Q6H PRN PRN Reason: constipation Magnesium Oxide (Magox 400 Tab*) 400 mg PO DAILY [facility] Last Admin: 02/01/19 08:41 Dose: 400 mg Metoclopramide HCl (Reglan Tab*) 10 mg PO Q6H PRN PRN Reason: NAUSEA/VOMITING Mometasone Furoate/Formoterol Fumar (Dulera 100/5 Mdi*) 2 puff INH BID [facility] Last Admin: 02/01/19 08:33 Dose: 2 puff Morphine Sulfate (Morphine 4 Mg/Ml Vial (1 Ml)) 4 mg IV Q2H PRN PRN Reason: PAIN Last Admin: 01/31/19 22:53 Dose: 4 mg Multivitamins (Theragran Tab*) 1 tab PO DAILY [facility] Last Admin: 02/01/19 08:41 Dose: 1 tab Nicotine (Nicotine Patch 14 Mg/24 Hr*) 1 patch TRANSDERM DAILY [facility] Last Admin: 02/01/19 08:38 Dose: 1 patch Ondansetron HCl (Zofran Inj*) 4 mg IV Q6H PRN PRN Reason: nausea Oxycodone HCl (Roxycodone Tab*) 10 mg PO Q4H PRN PRN Reason: PAIN - SEVERE Last Admin: 02/01/19 08:44 Dose: 10 mg Oxycodone HCl (Oxycontin(*)) 15 mg PO Q12HR [facility] Last Admin: 02/01/19 12:11 Dose: 15 mg Oxycodone/Acetaminophen (Percocet 5/325 Tab*) 1 tab PO Q4H PRN PRN Reason: PAIN - MILD TO MODERATE Oxycodone/Acetaminophen (Percocet 5/325 Tab*) 2 tab PO Q4H PRN PRN Reason: PAIN - MODERATE Pancrelipase (Zenpep Delayed Cap*) 10,000 units PO TID WITH MEALS [facility] Last Admin: 02/01/19 12:11 Dose: 10,000 units Pantoprazole Sodium (Protonix Tab*) 40 mg PO QAM [facility] Last Admin: 02/01/19 08:41 Dose: 40 mg Pharmacy Profile Note (Nicotine Patch Removal Note*) 1 note FOLLOW UP 2100 [facility] Last Admin: 01/31/19 23:16 Dose: 1 note Polyethylene Glycol/Electrolytes (Miralax*) 17 gm PO DAILY PRN PRN Reason: Constipation Tiotropium Irvona (Spiriva Cap.Inh*) 1 cap INH DAILY [facility] Last Admin: 02/01/19 08:32 Dose: 1 cap Tramadol HCl (Ultram*) 50 mg PO Q6H PRN PRN Reason: PAIN Last Admin: 02/01/19 12:11 Dose: 50 mg Venlafaxine HCl (Effexor Xr Cap*) 300 mg PO QAM [facility] Last Admin: 02/01/19 08:41 Dose: 300 mg Vital Signs - 8 hr 02/01/19 02/01/19 02/01/19 07:33 08:00 08:20 Temperature 97.7 F Pulse Rate 95 Respiratory 16 16 20 Rate Blood Pressure 144/73 (mmHg) O2 Sat by Pulse 89 Oximetry 02/01/19 02/01/19 02/01/19 08:34 08:44 08:51 Temperature Pulse Rate 95 Respiratory 18 18 Rate Blood Pressure (mmHg) O2 Sat by Pulse 91 92 Oximetry 02/01/19 02/01/19 02/01/19 09:16 11:30 12:11 Temperature 98.6 F Pulse Rate 97 Respiratory 17 16 Rate Blood Pressure 129/75 (mmHg) O2 Sat by Pulse 90 91 Oximetry 02/01/19 12:17 Temperature Pulse Rate Respiratory 16 Rate Blood Pressure (mmHg) O2 Sat by Pulse Oximetry Oxygen Devices in Use Now: Nasal Cannula Appearance: alert, oriented x 3, no acute distress Eyes: No Scleral Icterus Ears/Nose/Mouth/Throat: Clear Oropharnyx, Mucous Membranes Moist Neck: NL Appearance and Movements; NL JVP, Trachea Midline Respiratory: Symmetrical Chest Expansion and Respiratory Effort, Clear to Auscultation Cardiovascular: NL Sounds; No Murmurs; No JVD, No Edema Abdominal: NL Sounds; No Tenderness; No Distention Extremities: No Edema, No Clubbing, Cyanosis, - - dressing dry and intact to left knee Skin: No Rash or Ulcers, No Nodules or Sclerosis Neurological: Alert and Oriented x 3 Nutrition: Taking PO's Result Diagrams: 02/01/19 06:48 01/31/19 07:57 Microbiology and Other Data: Microbiology 01/30/19 14:14 Anaerobic Culture - Preliminary Wound No Growth Day 1 Gram Stain - Final Wound Culture - Preliminary No Growth Day 1 Assess/Plan/Problems-Billing Assessment: Ms. Turner is a 58 y.o famale who [place] [facility] [place] left knee revision with Dr. Esteves. She has a pmhx of copd and htn - Patient Problems (1) S/P left knee surgery Current Visit: Yes Status: Acute Code(s): Z98.890 - OTHER SPECIFIED POSTPROCEDURAL STATES SNOMED Code(s): 010439071 Comment: management per orthopedics PT/OT per ortho Pain management per ortho (2) HTN (hypertension) Current Visit: Yes Status: Acute Code(s): I10 - ESSENTIAL (PRIMARY) HYPERTENSION SNOMED Code(s): 59170174 Comment: continue norvasc (3) COPD (chronic obstructive pulmonary disease) Current Visit: No Status: Chronic Code(s): J44.9 - CHRONIC OBSTRUCTIVE PULMONARY DISEASE, UNSPECIFIED SNOMED Code(s): 22697087 Comment: stable continue dulera, spirvia albuterol nebs (4) DVT prophylaxis Current Visit: No Status: Acute Priority: Medium Onset Date: 08/08/14 Code(s): ZRW9345 - SNOMED Code(s): 681939391 Comment: richard (5) Full code status Current Visit: No Status: Acute Priority: Medium Onset Date: 08/08/14 Code(s): Z78.9 - OTHER SPECIFIED HEALTH STATUS SNOMED Code(s): 867999821 Status and Disposition: discharge per ortho
[2019-02-01] MEDS: Cyclobenzaprine TAB* 10 MG PO PRN (14:50)
[2019-02-01] MEDS: Nicotine Patch Removal NOTE FOLLOW UP SCH (20:49)
[2019-02-02] MEDS: oxyCODONE TAB* 5 MG TAB PO PRN (05:56)
[2019-02-02 06:24] LABS: Hematocrit 29 % (35-47); Hemoglobin 9.4 g/dL (12.0-16.0); Mean Platelet Volume 9.9 fL (7.4-10.4); Platelet Count 229 10^3/uL (150-450)
[2019-02-02] MEDS: NFT: Albuterol/Ipratropium RESP(NF) MDI (Combivent Respimat) INH SCH (08:11)
[2019-02-02] MEDS: Mometasone/Formoter 100/5 MDI INH SCH (08:12)
[2019-02-02] MEDS: Tiotropium CAP.INH* CAP.INH/18 MCG (USE ORDER SET !) INH SCH (08:12)
[2019-02-02] MEDS: Apixaban* 2.5 MG TAB PO SCH (09:26)
[2019-02-02] MEDS: oxyCODONE SR TAB(*) 15 MG TAB.SR PO SCH (09:26)
[2019-02-02] MEDS: Docusate CAP* 100 MG PO SCH (09:26)
[2019-02-02] MEDS: amLODIPine TAB* 5 MG PO SCH (09:26)
[2019-02-02] MEDS: Venlafaxine EXT RELEASE CAP* 75 MG PO SCH (09:26)
[2019-02-02] MEDS: Pantoprazole TAB * 40 MG TAB PO SCH (09:26)
[2019-02-02] MEDS: Vitamin THERAPEUTIC TAB PO SCH (09:26)
[2019-02-02] MEDS: Magnesium Oxide TAB* 400 MG PO SCH (09:26)
[2019-02-02] MEDS: Atorvastatin* 10 MG TAB PO SCH (09:26)
[2019-02-02] MEDS: Pancrelipase CAP* 5,000 UNITS CAP PO SCH (09:27)
[2019-02-02] MEDS: Magnesium Hydroxide LIQ* 30 ML UDC PO SCH (09:29)
[2019-02-02] MEDS: Nicotine PATCH 14 MG/24 HR* PATCH TRANSDERM SCH (09:29)
[2019-02-02 11:33] VITALS: BP 120/55
--- NOTE | 2019-02-02 11:42 | PN ---
Progress Note - Progress Note Date of Service: 02/02/19 SOAP: Subjective: Pt seen at bedside. Pain well controlled. Denies CP, SOB, F/C Vital Signs: Temp Pulse Resp BP Pulse Ox 98.1 F 99 14 120/55 91 02/02/19 11:32 02/02/19 11:32 02/02/19 11:32 02/02/19 11:32 02/02/19 11:32 Laboratory Last Values Hgb 9.4 g/dL (12.0-16.0) L 02/02/19 05:52 Hct 29 % (35-47) L 02/02/19 05:52 Plt Count 229 10^3/uL (150-450) 02/02/19 05:52 MPV 9.9 fL (7.4-10.4) 02/02/19 05:52 Sodium 137 mmol/L (135-145) 01/31/19 07:57 Potassium 4.4 mmol/L (3.5-5.0) 01/31/19 07:57 Chloride 107 mmol/L (101-111) 01/31/19 07:57 Carbon Dioxide 23 mmol/L (22-32) 01/31/19 07:57 Anion Gap 7 mmol/L (2-11) 01/31/19 07:57 BUN 15 mg/dL (6-24) 01/31/19 07:57 Creatinine 0.73 mg/dL (0.51-0.95) 01/31/19 07:57 Est GFR ( Amer) 98.7 (>60) 01/31/19 07:57 Est GFR (Non-Af Amer) 81.6 (>60) 01/31/19 07:57 BUN/Creatinine Ratio 20.5 (8-20) H 01/31/19 07:57 Glucose 122 mg/dL (70-100) H 01/31/19 07:57 Calcium 8.3 mg/dL (8.6-10.3) L 01/31/19 07:57 Objective: A&O x3, NAD, Dressing changed, Incision C/D/I, Calves soft and nontender, NVI distally. Assessment: s/p revision left total knee arthroplasty POD #3 Plan: PT/OT Pain control DVT prophylaxis - Eliquis D/C home today with home care
--- NOTE | 2019-02-02 15:22 | DS ---
Orthopedic Discharge Summary - Discharge Summary Date of Admission:01/30/19 Date of Discharge: 02/02/19 Date of Surgery: 02/02/19 Attending Orthopedic Provider: Eva Esteves MD Pre-operative Diagnosis: Left knee pain Operative Procedure: Revision Left totla knee replacement Disposition of Patient: Discharged to Home with home health services Condition of Patient: Stable History: GUS HOLMAN is a 58 year old F with years of increasingly severe Left pain s/p left TKA. Patient has failed conservative management and has elected to undergo a revision left total Knee replacement. Hospital Course: GUS was admitted to [facility] on 01/30/19. Patient underwent a revision left total Knee replacement without complication followed by a brief recovery in PACU and transfer to the Short Stay Surgical Unit in stable condition. Our hospitalist service, physical therapy and occupational therapy also participated in this patients care. Post-op day 1: patient was alert and in no acute distress. Dressing was clean, dry and intact. Operative extremity dorsiflexion and plantarflexion intact, sensation intact to light touch distally, DP2+. Post-op day two: dressing was changed, incision was clean, dry and intact. Patient was deemed to be medically and orthopedically stable for discharge. Physical therapy goals were met. She was discharged to home in a stable condition. Home Medications Medication Instructions Recorded Confirmed Type Venlafaxine ER (NF) [Effexor ER 150 mg PO QAM 03/28/15 01/30/19 History (NF)] Albuterol inh POWDER (NF) [Proair 2 puff INH Q6HR PRN 07/14/15 01/30/19 History Respiclick] amLODIPine TAB* [Norvasc 5 mg TAB*] 5 mg PO BEDTIME 07/14/15 01/30/19 History Bacitracin OINTMENT* 1 applic TOPICAL BID #1 tube 12/21/17 01/30/19 Rx Gabapentin TAB(NF) [Neurontin 600 300 mg PO QAM 12/21/17 01/30/19 History mg TAB(NF)] Gabapentin TAB(NF) [Neurontin 600 600 mg PO BEDTIME 12/21/17 01/30/19 History mg TAB(NF)] Albuterol/Ipratropium NEB.LORNA* 1 neb INH Q6H PRN #1 box 08/09/18 01/30/19 Rx [Duoneb (Albuterol 2.5 MG/Ipratropium 0.5 MG)] Metoclopramide TAB* [Reglan TAB*] 10 mg PO Q6H PRN #20 tab 12/27/18 01/30/19 Rx Mupirocin 2% OINT* [Bactroban 2 % 1 applic TOPICAL BID #1 tube 01/04/19 Rx Oint*] ValACYclovir (*) [Valtrex 1 GM(*)] 1 gm PO TID #21 tab 01/04/19 01/30/19 Rx Omeprazole CAP (NF) [Prilosec CAP* 40 mg PO QAM 01/21/19 01/30/19 History 20 MG] Albuterol/Ipratropium RESP(NF) 1 puff INH QID 01/30/19 01/30/19 History [Combivent Respimat (NF)] Atorvastatin* [Lipitor 10 MG*] 10 mg PO DAILY 01/30/19 01/30/19 History Fluticasone-Salmeterol 100-50* 1 puff INH BID 01/30/19 01/30/19 History [Advair Diskus 100-50*] Lipase/Protease/Amylase [Creon Dr 2 cap PO TID 01/30/19 01/30/19 History 6,000 Units Capsule] Magnesium Oxide 400 mg PO DAILY 01/30/19 01/30/19 History Tiotropium CAP.INH* [Spiriva 2 puff INH DAILY 01/30/19 01/30/19 History CAP.INH*] Apixaban* [Eliquis*] 2.5 mg PO BID tab 02/02/19 Rx oxyCODONE TAB* [Roxycodone TAB 5 10 mg PO Q4H PRN tab 02/02/19 Rx mg*] Discharge Instructions following Orthopedic Surgery: Activity: * Weight Bearing as tolerated * Continue physical therapy and occupational therapy exercises as shown Wound care: * OK to shower on post-op day 3, no bathing, swimming, or submerging wound. * Use gentle soap, pat dry. Cover with gauze, SKINNY wrap or tape. * Visiting home nurse to do wound checks. Call Orthopedic office for: * Increased drainage * Redness * Increased pain * Fever Go to ER with shortness of breath or chest pain. Diet: * Regular diet * Increase fluids and fiber to prevent constipation. * Continue to use stool softeners, call office if no bowel motion within 48 hours. Medications See Home Medication List in your packet for medications that you should take after discharge. DVT Prophylaxis: Eliquis Dosin.5 mg, 1 tab every 12 hours x 30 days Pain Control: Oxycodone Dosin mg 1 tabs by mouth every 4-6 hours as needed for pain. Maximum of 10 tabs per day. Please note that Percocet contains Tylenol (acetaminophen). Maximum daily dose of Tylenol is 4000 mg from all sources. Antibiotics are required prior to any dental work. FOLLOW UP: Follow up with Dr. Esteves Within 10-14 days, call for appointment Please call our office with any questions or concerns ([phone])
== END 2019-02-02 11:55 | disposition home health service (06) | DRG 468 ==
LOC: AA 10:13 → SSU 20:51
PROVIDERS: ADMIT Orthopaedic Surgery Adult Reconstructive Orthopaedic Surgery; ATTEND Orthopaedic Surgery Adult Reconstructive Orthopaedic Surgery
PROC: 0SPD0JZ Removal of Synthetic Substitute from Left Knee Joint, Open Approach (ICD-10-PCS; 2019-01-30)
PROC: 0SRD0J9 Replacement of Left Knee Joint with Synthetic Substitute, Cemented, Open Approach (ICD-10-PCS; principal; 2019-01-30 12:45)
DX: T84.053A Periprosthetic osteolysis of internal prosthetic left knee joint, initial encounter (principal); Y79.2 Prosthetic and other implants, materials and accessory orthopedic devices associated with adverse incidents; F32.9 Major depressive disorder, single episode, unspecified; J44.9 Chronic obstructive pulmonary disease, unspecified; G40.909 Epilepsy, unspecified, not intractable, without status epilepticus; K21.9 Gastro-esophageal reflux disease without esophagitis; E78.00 Pure hypercholesterolemia, unspecified; F17.210 Nicotine dependence, cigarettes, uncomplicated; M25.462 Effusion, left knee; E78.5 Hyperlipidemia, unspecified; T84.84XA Pain due to internal orthopedic prosthetic devices, implants and grafts, initial encounter; G89.29 Other chronic pain; I10 Essential (primary) hypertension; Z96.651 Presence of right artificial knee joint; Z88.0 Allergy status to penicillin; Z88.2 Allergy status to sulfonamides; Z88.1 Allergy status to other antibiotic agents; Y92.9 Unspecified place or not applicable; Z90.710 Acquired absence of both cervix and uterus; Z88.6 Allergy status to analgesic agent; Z88.8 Allergy status to other drugs, medicaments and biological substances; Z80.9 Family history of malignant neoplasm, unspecified; Z82.0 Family history of epilepsy and other diseases of the nervous system; Z90.49 Acquired absence of other specified parts of digestive tract
CPT/HCPCS: 31629; 36415; 76000; 80048; 85014; 85018; 85049; 87070; 87073; 87205; 88300; 94640; A9270-GY; G8978-GP-CJ; G8979-GP-CI; J0330; J0360; J1100; J1170; J1885; J2250; J2270; J2405; J2704; J2795; J3010; J3370

== ENCOUNTER 2019-02-06 20:20 | Emergency (ER) | payer MEDICARE ==
--- OUTSIDE RECORDS SUMMARY | 2019-02-06 20:33 | XMS REPORT | Continuity of Care Document ---
:1960 External Reference #:[id number] Author Name HAILEY Nina Address [address] [facility] [place] [address] Care Team Providers Name Role Phone Tatiana Geronimo MD Primary Care Physician Unavailable Payers Date Identification Numbers Payment Provider Subscriber Policy Number: [id number] [facility] [employer] Turner PayID: [id number] [address] [address] [facility] [place] [address] Problems Active Problems Provider Date Leukopenia ALMA [...] Boudreaux D.O. Onset: 04/23/2014 Osteoarthritis of knee Sacha Farfan M.D. Onset: 04/23/2014 Arthroplasty of knee [...] per day 30 years Smoking Status Reviewed: 01/21/19 Currently smokes 1-5 Cigarettes Daily ETOH Use [...] Medications SIG Qnty Indications Ordering Date Provider Miek schwarz 1units Eva Esteves, 12/22/2018 [facility] with seat dx: s/p M.DHector knee replacement Voltaren apply to affected 200gm Ryan Cary 10/18/2018 1% Gel area up to three MD Glynn times daily on knee Clindamycin HCL 600mg 1 hours 2caps Emerson Michelle 11/08/2016 300mg prior to dental M.DHector Capsules work Oxycodone HCL 1 tab by mouth 30caps Lucille 08/22/2015 5mg every 4-6 hours Elder Nuno Capsules as needed pain Do not fill until 08/26/15 Effexor XR 1 by mouth every Unknown 04/10/2015 150mg Caps ER day 24HR Ventolin HFA 2 puffs by mouth Unknown 04/10/2015 108(90Base) four times a day mcg/Act Aerosol as needed Nicorette Starter Kit Chew one piece of 100units 491.21 Darius Diaz NP 2mg gum every 2 hours Gum as needed for cravings. Spiriva Respimat 2 puffs, daily Unknown 1.25mcg/Act Aerosol Prochlorperazine 1 by mouth three Unknown Maleate times a day as 5mg Tablets needed Oxycodone-Acetaminophe Unknown n 5-325mg/5ML Solution Ondansetron HCL one by mouth Unknown 4mg every 8 hours as Tablets needed for nausea Nortriptyline HCL 2 by mouth every Unknown 25mg night at bedtime Capsules Magnesium Oxide 1 by mouth every Unknown 400mg day Tablets Lidocaine Domenico use 2 gm on Unknown 5% Ointment affected area 2x daily as needed for pain, apply w/ swab Creon 1 by mouth three Unknown [id number] Caps DR times a day Part Atorvastatin Calcium 1 by mouth every Unknown 10mg day Tablets Amlodipine Besylate 1 by mouth every Unknown 5mg day Tablets Albuterol Sulfate 1 vial via Unknown nebulizer 4 times (2.5mg/3ML) 0.083% daily as needed Nebulizer Omeprazole take 1 capsule by 30caps Norbert Morgan NP 40mg Capsules mouth every day DR Oxycodone HCL as needed Irina, 5mg Tablets Cornelius Carrington MD Combivent Respimat inhale 1 puff by Unknown mouth four times 20-100mcg/Act Aerosol a day as needed Advair Diskus inhale 1 puff by Unknown mouth twice a day 250-50mcg/Dose Aerosol Venlafaxine HCL ER twice a day Unknown [...] not effective. Proair HFA 2 puffs by 1units Darius Diaz NP 12/29/2014 - 108(90Base) mcg/Act mouth every 4 03/14/2015 Aerosol hours as needed Morphine Sulfate 1 tab po every 10tabs 789.02 Denice Christopher 2014 - 15mg Tablets 8 hours as M.D. 03/14/2015 needed Sucralfate Take 1 tablet 4 120tabs Norbert Morgan NP 08/30/2014 - 1gm Tablets times daily on 09/07/2014 empty stomach Percocet 1-2 tabs po 60tabs 789.00 Sacha Farfan, 08/13/2014 - 5-325mg Tablets q4-6 prn pain M.D. 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 07/26/2014 Voltaren apply 1 gram 1tubes 727.05 Gloria Menon, 05/24/2014 - 1% Gel to affected POLYMERIZATION OVEN TENDER 08/13/2014 area twice a day, as needed Wrist Splint/Left Small Use on left QS 727.05 Gloria Menon, 05/24/2014 - Misc hand as needed. POLYMERIZATION OVEN TENDER 09/07/2014 Diclofenac Sodium take 1 tablet 60tabs 786.50 Gloria Menon, 05/05/2014 - 50mg Tablets by mouth 2 POLYMERIZATION OVEN TENDER 07/26/2014 DR times a day as needed [...] Keflex one by mouth 4 28caps Emerson Michelle, 05/15/2011 - 500mg Capsules times daily for [...] CPT Code Status Date Vaccine Lot # 60465 Refused 03/29/2015 Influenza Virus Vaccine, Quadrivalent, Split, Preservative Free Vital Signs Date Vital Result Comment 01/21/2019 10:10am Height 59 inches 4'11" Weight 171.00 lb Heart Rate 84 /min BP Systolic 136 mmHg BP Diastolic 84 mmHg BMI (Body Mass Index) 34.5 kg/m2 12/01/2018 9:41am Height 59 inches 4'11" Weight [...] Date Facility Test Result H/L Range Note Comp Metabolic Panel 01/21/2019 [facility] Sodium 138 mmol/L N 135-145 1 [address] [place] [address] [phone] Potassium 4.2 mmol/L N 3.5-5.0 Chloride 102 mmol/L N 101-111 Co2 Carbon Dioxide 30 mmol/L N 22-32 Anion Gap 6 mmol/L N 2-11 Glucose 86 mg/dL N 70-100 Blood Urea Nitrogen 13 mg/dL N 6-24 Creatinine 0.63 mg/dL N 0.51-0.95 BUN/Creatinine Ratio 20.6 High 8-20 Calcium 9.5 mg/dL N 8.6-10.3 Total Protein 7.0 g/dL N 6.4-8.9 Albumin 4.1 g/dL N 3.2-5.2 Globulin 2.9 g/dL N 2-4 Albumin/Globulin Ratio 1.4 N 1-3 Total Bilirubin 0.30 mg/dL N 0.2-1.0 Alkaline Phosphatase 112 U/L High 34-104 Alt 16 U/L N 7-52 Ast 17 U/L N 13-39 Egfr Non- 96.7 >60 Egfr 117.0 >60 2 Inr/Protime 01/21/2019 [facility] Inr 1.01 N 0.82-1.[address] [place] [address] [phone] Laboratory test 01/21/2019 [facility] Partial 35.7 seconds N 26.0-38.0 [address] [place] [address] PTT [phone] CBC Auto Diff 01/21/2019 [facility] White Blood 8.7 10^3/uL N 3.5-10.[address] [place] [address] [phone] Red Blood Count 4.74 10^6/uL N 3.70-4.87 Hemoglobin 14.5 g/dL N 12.0-16.0 Hematocrit 44 % N 35-47 Mean Corpuscular Volume 93 fL N 80-97 Mean Corpuscular Hemoglobin 31 pg N 27-31 Mean Corpuscular HGB Conc 33 g/dL N 31-36 Red Cell Distribution Width 14 % N 10-15 Platelet Count 307 10^3/uL N 150-450 Mean Platelet Volume 9.8 fL N 7.4-10.4 Abs Neutrophils 4.8 10^3/uL N 1.5-7.7 Abs Lymphocytes 3.0 10^3/uL N 1.0-4.8 Abs Monocytes 0.7 10^3/uL N 0-0.8 Abs Eosinophils 0.2 10^3/uL N 0-0.6 Abs Basophils 0.0 10^3/uL N 0-0.2 Abs Nucleated RBC 0.0 10^3/uL Granulocyte % 55.4 % Lymphocyte % 34.6 % Monocyte % 7.6 % Eosinophil % 1.9 % Basophil % 0.5 % Nucleated Red Blood Cells % 0.1 Urinalysis Profile 01/21/2019 [facility] Urine Color Yellow [address] [place] [address] [phone] Urine Appearance Clear Urine Specific [place] 1.018 N 1.010-1.030 Urine pH 6.0 N 5-9 Urine Urobilinogen Negative Negative Urine Ketones Negative Negative Urine Protein Negative Negative Urine Leukocytes Negative Negative Urine Blood Negative Negative Urine Nitrite Negative Negative Urine Bilirubin Negative Negative Urine Glucose Negative Negative Type & Screen 01/21/2019 [facility] Patient Blood Type O Positive [address] [place] [address] [phone] Antibody Screen NEGATIVE Urine Culture And 01/21/2019 [facility] Urine SEE RESULT [address] [place] [place] [address] [phone] CBC Auto Diff 03/31/2015 [facility] White Blood 20.8 High 4.8- [address] Count 10^3/uL 0.8 [place] [address] [phone] Red Blood Count 4.74 10^6/uL N 4.0-5.4 [...] Cells % 0 N Laboratory test 03/31/2015 [facility] Lactic Acid 1.4 mmol/L N 0.5-2.[address] [place] [address] [phone] Comp Metabolic 03/31/2015 [facility] Sodium 135 mmol/L N 133- [address] [place] [address] [phone] Potassium 3.6 mmol/L N 3.5-5.0 Chloride 101 [...] 76.7 N >60 Egfr 98.6 N >60 6 Laboratory test 03/31/2015 [facility] Troponin-I (TnI) 0.01 ng/ mL N <0.03 [address] [place] [address] [phone] Pathologist Review (SEE NOTE) N 8 CBC Auto Diff 03/28/2015 [facility] White Blood 10.3 10^3/uL N 4.8-10.[address] [place] [address] [phone] Red Blood Count 4.67 10^6/uL N 4.0-5.4 [...] Blood Cells % 0 N Inr/Protime 03/28/2015 [facility] Inr 0.91 N 0.78-1.07 [address] [place] [address] [phone] Laboratory test 03/28/2015 [facility] Lactic Acid 1.0 mmol/L N 0.5-2.2 finding [address] [place] [address] [phone] B-Type Natriuretic Peptide BNP 25 pg/mL N 9 Comp Metabolic Panel 03/28/2015 [facility] Sodium 135 mmol/L N 133-145 [address] [place] [address] [phone] Potassium 3.8 mmol/L N 3.5-5.0 Chloride 103 [...] 84.1 N >60 Egfr 108.2 N >60 10 Laboratory test 03/28/2015 [facility] Creatine 30 U/L N 10- 223 finding 101 [facility] Kinase(CK) [place] [address] [phone] Troponin-I (TnI) 0.00 ng/mL N <0.03 11 CKMB 03/28/2015 [facility] CKMB ng/mL 1.3 N 0.6-6.[address] ng/[place] [address] [phone] Laboratory 03/28/2015 [facility] D Dimer < 200 N Less Than 12 test finding [address] Quantitative ng/mL [address] [place] [address] [phone] CBC Auto Diff 03/12/2015 [facility] White Blood 11.5 High 4.8- 10.[address] Count 10^3/[place] [address] [phone] Red Blood Count 4.57 10^6/uL N 4.0-5.4 [...] Cells % 0 N Laboratory test 03/12/2015 [facility] Lactic Acid 1.2 mmol/L N 0.5-2.[address] [place] [address] [phone] Comp Metabolic 03/12/2015 [facility] Sodium 135 mmol/L N 133- [address] [place] [address] [phone] Potassium 4.1 mmol/L N 3.5-5.0 Chloride 102 [...] 86.9 N >60 Egfr 111.7 N >60 13 Laboratory test finding 03/12/2015 [facility] Lipase 18 U/L N 11.0-82.[address] [place] [address] [phone] C Reactive Protein 11.20 mg/L High < 5.00 14 Troponin-I (TnI) 0.00 ng/mL N <0.03 15 Urinalysis Profile 03/12/2015 [facility] Urine Color Yellow [address] [place] [address] [phone] Urine Appearance Cloudy N Urine Specific [place] 1.012 N 1.010-1.030 Urine pH 5.0 N [...] Cell Present Abnormal Absent Laboratory test 03/12/2015 [facility] Urine Culture And SEE RESULT [address] [place] [address] [phone] Laboratory test 03/07/2015 [facility] Troponin-I (TnI) 0.02 ng/ mL N <0.0 [address] [place] [address] [phone] CBC Auto Diff 03/07/2015 [facility] White Blood Count 18.2 High 4.8- [address] 10^3/uL 10.8 [place] [address] [phone] Red Blood Count 4.81 10^6/uL N 4.0-5.4 [...] 1.5-7.7 Abs Lymphocytes 5.2 10^3/uL High 1.0-4.8 18 Abs Monocytes 1.1 10^3/uL High 0-0.8 Abs Eosinophils 0.1 10^3/uL N 0-0.6 Abs Basophils 0.2 10^3/uL N 0-0.2 Abs Nucleated RBC 0 10^3/uL N Granulocyte % 64.2 % N 38-83 Lymphocyte % 28.3 % N 25-47 Monocyte % 5.8 % N 1-9 Eosinophil % 0.4 % N 0-6 Basophil % 1.3 % N 0-2 Nucleated Red Blood Cells % 0 N Inr/Protime 03/07/2015 [facility] Inr 0.88 N 0.78-1.[address] [place] [address] [phone] Laboratory test 03/07/2015 [facility] Partial 26.0 seconds N 26.0-36.[address] [place] [address] PTT [phone] Comp Metabolic 03/07/2015 [facility] Sodium 138 mmol/L N 133- [address] [place] [address] [phone] Chloride 103 mmol/L N 101-111 Co2 Carbon [...] 75.6 N >60 Egfr 97.2 N >60 19 Potassium 3.8 mmol/L N 3.5-5.0 Anion Gap 5 mmol/L N 2-11 Ast 14 U/L N 13-39 Laboratory test 03/07/2015 [facility] Troponin-I 0.01 ng/mL N <0.03 20 finding 101 [facility] (TnI) [place] [address] [phone] CKMB 03/07/2015 [facility] CKMB ng/mL 2.2 ng/mL N 0.6-6.3 [address] [place] [address] [phone] Laboratory test 02/26/2015 [facility] Troponin-I 0.00 ng/mL N <0.03 21 finding [address] [email or web address] [facility] (TnI) [place] [address] [phone] Comp Metabolic 02/26/2015 [facility] Sodium 135 mmol/L N 133- 145 Panel [address] [place] [address] [phone] Potassium 3.7 mmol/L N 3.5-5.0 Chloride 101 [...] 81.5 N >60 Egfr 104.8 N >60 22 CBC Auto Diff 02/26/2015 [facility] White Blood 9.1 10^3/uL N 4.8-10.[address] [place] [address] [phone] Red Blood Count 4.73 10^6/uL N 4.0-5.4 [...] Cells % 0 N Laboratory test 02/26/2015 [facility] B-Type 18 pg/mL N [address] [place] [address] Peptide BNP [phone] CBC Auto Diff 01/17/2015 [facility] White Blood Count 10.1 N 4.8-[address] 10^3/uL 0.8 [place] [address] [phone] Red Blood Count 4.70 10^6/uL N 4.0-5.4 [...] Cells % 0.1 N Laboratory test 01/17/2015 [facility] Lactic Acid 1.4 mmol/L N 0.5-2.[address] [place] [address] [phone] Inr/Protime 01/17/2015 [facility] Inr 0.95 N 0.78-1.[address] [place] [address] [phone] Laboratory test 01/17/2015 [facility] B-Type 25 pg/mL N 24 finding 101 [facility] [place] [address] Peptide BNP [phone] Comp Metabolic 01/17/2015 [facility] Sodium 135 mmol/L N 133- 145 Panel [address] [place] [address] [phone] Potassium 3.7 mmol/L N 3.5-5.0 Chloride 103 [...] 91.4 N >60 Egfr 117.5 N >60 25 Laboratory test 01/17/2015 [facility] Creatine 39 U/L N 10- [address] Kinase(CK) [place] [address] [phone] Troponin-I (TnI) 0.00 ng/mL N <0.03 26 CKMB 01/17/2015 [facility] CKMB ng/mL 1.0 ng/mL N 0.6-6.[address] [place] [address] [phone] Laboratory test 01/17/2015 [facility] TSH 1.92 ?IU/mL N 0.34- 5.[address] ([place] [address] Stim Horm) [phone] Magnesium 1.8 mg/dL Low 1.9-2.7 Lipase 14 U/L N 11.0-82.0 C Reactive Protein 9.82 mg/L High < 5.00 27 Laboratory test 12/26/2014 [facility] Wound SEE RESULT [address] Culture/[place] [address] [phone] CBC Auto Diff 11/25/2014 [facility] White Blood Count 15.0 High 4.8- [address] 10^3/uL 10.8 [place] [address] [phone] Red Blood Count 4.35 10^6/uL N 4.0-5.4 [...] Cells % 0 N Laboratory test 11/25/2014 [facility] Lactic Acid 0.6 mmol/L N 0.5-2.2 finding [address] [place] [address] [phone] Comp Metabolic 11/25/2014 [facility] Sodium 136 mmol/L N 133- 145 Panel [address] [place] [address] [phone] Potassium 3.8 mmol/L N 3.5-5.0 Chloride 104 [...] 98.1 N >60 Egfr 126.2 N >60 29 Laboratory test 11/25/2014 [facility] C Reactive 96.66 mg/L High < 5.00 [address] [place] [address] [phone] Urinalysis 09/22/2014 [facility] Urine Color Yellow N Profile [address] [place] [address] [phone] Urine Appearance Cloudy N Urine Specific [place] 1.023 N 1.010-1.030 Urine pH 5.0 N 5-9 Urine Urobilinogen Negative N Negative Urine Ketones Negative N Negative Urine Protein Negative N Negative Urine Leukocytes Negative N Negative Urine Blood Negative N Negative Urine Nitrite Negative N Negative Urine Bilirubin Negative N Negative Urine Glucose Negative N Negative CBC Auto 09/22/2014 [facility] White Blood 11.1 10^3/uL High 4.8-10.[address] [place] [address] [phone] Red Blood Count 4.60 10^6/uL N 4.0-5.4 [...] % 0 N Comp Metabolic Panel 09/22/2014 [facility] Sodium 135 mmol/L N 133-145 [address] [place] [address] [phone] Potassium 3.7 mmol/L N 3.5-5.0 Chloride 101 [...] 85.5 N >60 Egfr 109.9 N >60 31 Laboratory test finding 09/22/2014 [facility] Lipase 8 U/L Low 11.0-82.0 [address] [place] [address] [phone] C Reactive Protein 12.28 mg/L High < 5.00 32 Lactic Acid 1.2 mmol/L N 0.5-2.2 Urine Culture And 2014 [facility] Urine Culture (SEE NOTE ) 33 Sensitivities [address] [place] [address] [phone] Ua 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 2014 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91 mg/L High < 5.00 34 Comp Metabolic Panel 09/08/2014 [facility] Sodium 135 mmol/L N 133-[address] [place] [address] [phone] Potassium 4.1 mmol/L N 3.5-5.0 Chloride 101 [...] 87.2 N >60 Egfr 112.1 N >60 35 Laboratory test 09/08/2014 [facility] Hemoglobin A1c 6.2 % High Less than [address] 6.0 [place] [address] [phone] Comp Metabolic 08/23/2014 [facility] Sodium 134 N 133-[address] mmol/[place] [address] [phone] Potassium 3.8 mmol/L N 3.5-5.0 Chloride 101 [...] 81.8 N >60 Egfr 105.2 N >60 37 Laboratory test 08/23/2014 [facility] Lipase 10 U/L Low 11.0- 82.[address] [place] [address] [phone] C Reactive Protein 7.87 mg/L High < 5.00 38 CBC Auto 08/23/2014 [facility] White Blood 14.2 10^3/uL High 4.8-10.[address] Count [place], [place] [address] [phone] Red Blood Count 5.05 10^6/uL N 4.0-5.4 [...] Reactive Protein 12.03 mg/L High < 5.00 39 Comp Metabolic Panel 08/13/2014 Sodium 136 mmol/L [...] 84.4 N >60 Egfr 108.6 N >60 40 Laboratory test finding 08/13/2014 Amylase 32 U/L [...] IU/L N 0.0-11.0 Alp Placental NotPresent N 41 CBC Auto 08/08/2014 [facility] White Blood 19.6 10^3/uL High 4.8-10.[address] [place] [address] [phone] Red Blood Count 5.06 10^6/uL N 4.0-5.4 [...] Cells % 0 N Laboratory test 08/08/2014 [facility] Lactic Acid 1.4 mmol/L N 0.5-2.[address] [place] [address] [phone] Comp Metabolic 08/08/2014 [facility] Sodium 133 mmol/L N 133- 145 Panel [address] [place] [address] [phone] Potassium 4.0 mmol/L N 3.5-5.0 Chloride 103 [...] 96.7 N >60 Egfr 124.4 N >60 42 Laboratory test finding 08/08/2014 [facility] Lipase 9 U/L Low 11.0-82.0 [address] [place] [address] [phone] C Reactive Protein 8.39 mg/L High < 5.00 43 Troponin I 0.00 ng/mL N <0.03 44 Urinalysis Profile 08/02/2014 [facility] Urine Color Yellow N [address] [place] [address] [phone] Urine Appearance Clear N Urine Specific [place] 1.011 N 1.010-1.030 Urine pH 7.0 N 5-9 Urine Urobilinogen Negative N Negative Urine Ketones Negative N Negative Urine Protein Negative N Negative Urine Leukocytes Negative N Negative Urine Blood Negative N Negative Urine Nitrite Negative N Negative Urine Bilirubin Negative N Negative Urine Glucose Negative N Negative Blood Culture 08/02/2014 [facility] Blood Culture (SEE NOTE) [address] [place] [address] [phone] Laboratory test 08/02/2014 [facility] Lactic Acid 1.8 mmol/L N 0.5-2. finding [address] [place] [address] [phone] Blood Culture (SEE NOTE) 46 Laboratory test 08/02/2014 [facility] B Type 13 pg/mL N [address] [place] [address] Peptide [phone] Comp Metabolic 08/02/2014 [facility] Sodium 138 mmol/L N 133- [address] [place] [address] [phone] Potassium 4.3 mmol/L N 3.5-5.0 Chloride 101 [...] 83.1 N >60 Egfr 106.8 N >60 48 Laboratory test 08/02/2014 [facility] Creatine 30 U/L N 10- [address] [place] [address] [phone] CKMB 08/02/2014 [facility] CKMB ng/mL 1.2 N 0.6-6.[address] ng/[place] [address] [phone] Laboratory test 08/02/2014 [facility] Troponin I 0.00 N <0.03 [address] ng/[place] [address] [phone] CBC Auto Diff 08/02/2014 [facility] White Blood 14.4 High 4.8- 10.[address] Count 10^3/[place] [address] [phone] Red Blood Count 5.06 10^6/uL N 4.0-5.4 [...] RBC 0 10^3/uL N Manual Differential 08/02/2014 [facility] Neutrophil % 58 % N 38-[address] [email or web address] [address] [phone] Lymphocytes % 31 % N 25-47 Monocytes % 7 % N 0-13 Eosinophils % 1 % N 0-6 Reactive Lymph % 3 % N 0-6 RBC Morphology Normal N Normal Laboratory test 08/02/2014 [facility] D Dimer < 200 ng/mL N Less 50 [email or web address] Quantitative Than 230 [place] [address] [phone] Urinalysis 07/31/2014 [facility] Urine Color Colorless N Profile [email or web address] [address] [phone] Urine Appearance Clear N Urine Specific [place] 1.010 N 1.010-1.030 Urine pH 6 N 5-9 Urine Urobilinogen Negative N Negative Urine Ketones Negative N Negative Urine Protein Negative N Negative Urine Leukocytes Negative N Negative Urine Blood Negative N Negative Urine Nitrite Negative N Negative Urine Bilirubin Negative N Negative Urine Glucose Negative N Negative CBC Auto 07/31/2014 [facility] White Blood 15.7 10^3/uL High 4.8-10.[address] [place] [address] [phone] Red Blood Count 4.89 10^6/uL N 4.0-5.4 [...] Cells % 0 N Laboratory test 07/31/2014 [facility] Lactic Acid 1.1 mmol/L N 0.5-2.2 finding [address] [place] [address] [phone] Comp Metabolic 07/31/2014 [facility] Sodium 135 mmol/L N 133- 145 Panel [address] [place] [address] [phone] Potassium 4.2 mmol/L N 3.5-5.0 Chloride 103 [...] 126.6 N >60 51 Laboratory test finding 07/31/2014 [facility] Lipase 23 U/L N 11.0-82.0 [address] [place] [address] [phone] Troponin I 0.00 ng/mL N <0.03 52 C Reactive Protein 4.94 mg/L N < 5.00 53 Serum Negative N Negative 54 D Dimer Quantitative < 200 ng/mL N Less Than 230 55 CBC Auto 07/27/2014 [facility] White Blood 11.2 10^3/uL High 4.8-10.[address] [place] [address] [phone] Red Blood Count 4.82 10^6/uL N 4.0-5.4 [...] Cells % 0 N Laboratory test 07/27/2014 [facility] Lactic Acid 1.5 mmol/L N 0.5-2.2 finding [address] [place] [address] [phone] Comp Metabolic 07/27/2014 [facility] Sodium 135 mmol/L N 133- 145 Panel [address] [place] [address] [phone] Potassium 4.2 mmol/L N 3.5-5.0 Chloride 105 [...] 98.5 N >60 Egfr 126.6 N >60 56 Laboratory test finding 07/27/2014 [facility] Lipase 13 U/L N 11.0-82.[address] [place] [address] [phone] C Reactive Protein 16.42 mg/L High < 5.00 57 Rapid Influenza 07/25/2014 [facility] Rapid Influenza (SEE NOTE ) 58 A B Antigen [address] [address] [phone] Comp Metabolic 07/11/2014 [facility] Sodium 135 mmol/L N 133- [address] [place] [address] [phone] Potassium 3.8 mmol/L N 3.5-5.0 Chloride 103 [...] 75.8 N >60 Egfr 97.5 N >60 59 Laboratory test finding 07/11/2014 [facility] Lipase 25 U/L N 11.0-82.0 [address] [place] [address] [phone] C Reactive Protein 8.26 mg/L High < 5.00 60 Lactic Acid 1.3 mmol/L N 0.5-2.2 Serum Negative N Negative 61 Inr/Protime 07/11/2014 [facility] Inr 0.93 N 0.85-1.06 [address] [place] [address] [phone] Urinalysis Profile 07/11/2014 [facility] Urine Color Yellow N [address] [place] [address] [phone] Urine Appearance Cloudy N Urine Specific [place] 1.024 N 1.010-1.030 Urine pH 5.0 N 5-9 Urine Urobilinogen Negative N Negative Urine Ketones Trace Abnormal Negative Urine Protein Negative N Negative Urine Leukocytes Negative N Negative Urine Blood Negative N Negative Urine Nitrite Negative N Negative Urine Bilirubin Negative N Negative Urine Glucose Negative N Negative CBC Auto 07/11/2014 [facility] White Blood 10.9 10^3/uL High 4.8-10.[address] [place] [address] [phone] Red Blood Count 4.76 10^6/uL N 4.0-5.4 [...] Cells % 0 N CBC Auto 07/09/2014 [facility] White Blood 11.8 10^3/uL High 4.8-10.[address] [place] [address] [phone] Red Blood Count 4.58 10^6/uL N 4.0-5.4 [...] % 0.1 N Comp Metabolic Panel 07/09/2014 [facility] Sodium 135 mmol/L N 133-[address] [place] [address] [phone] Potassium 3.7 mmol/L N 3.5-5.0 Chloride 101 [...] 90.2 N >60 Egfr 116.0 N >60 62 Laboratory test finding 07/09/2014 [facility] Amylase 32 U/L N 29-103 [address] [email or web address] [address] [phone] Erythrocyte Sed Rate 13 mm/Hr N 0-30 Urine Culture And 07/09/2014 [facility] Urine Culture (SEE NOTE ) 63 Sensitivities [address] [email or web address] [address] [phone] Ua Routine 07/09/2014 [facility] Ua Specific 1.005 [place] Ua PH 5.0 Ua Color yellow Ua [...] 80.5 N >60 Egfr 103.6 N >60 64 Laboratory test finding 04/12/2014 Lipase 22 U/L N 11.0-82.0 Amylase 31 U/L N 29-103 CBC Auto 01/30/2014 [facility] White Blood 11.3 10^3/uL High 4.8-10.[address] [place] [address] [phone] Red Blood Count 4.15 10^6/uL N 4.0-5.4 [...] Blood Cells % 0.1 N Inr/Protime 01/30/2014 [facility] Inr 0.91 N 0.85-1.06 [address] [place] [address] [phone] Laboratory test 01/30/2014 [facility] Activated 28.3 N 24.0- 36.1 finding [address] [facility] [place] [address] Thrombo Time [phone] Laboratory test 01/30/2014 [facility] Magnesium 1.8 mg/dL Low 1.9-2.7 finding [place] [address] [phone] Troponin I 0.00 ng/mL N <0.03 65 TSH (Thyroid Stimulating Horm) 4.59 IU/mL N 0.34-5.60 Comp Metabolic Panel 01/30/2014 [facility] Sodium 136 mmol/L N 133-145 [address] [place] [address] [phone] Potassium 3.6 mmol/L Low 3.7-5.6 Chloride 103 [...] 87.2 N >60 Egfr 112.1 N >60 66 1 01/30 2 Because ethnic data is not always readily [...] 15-29 5 Kidney failure <15 (or dialysis) 3 Standard intensity warfarin therapeutic range: 2.0-3.0 High intensity warfarin therapeutic range: 2.5-3.5 4 01/30 5 SEE RESULT BELOW Name: PASCALE TURNER : [address]: Eva Esteves MD Acct: [id number] Unit: [id number] AGE: 58 Location: PAT Re01/21/19 SEX: F Status: REG REF SPEC: [id number] KAMAR: 01/21/19-[address]: Eva Esteves MD REQ: [id number] RECD: 01/21/19 STATUS: PARIS AGUIRRE DR: Tatiana Geronimo MD _ SOURCE: URINE SPDESC: ORDERED: Urine Culture COMMENTS: RIGO 01/30 QUERIES: Urine Source: Clean Catch Procedure Result Reported Site Urine Culture Final 01/22/19- 1221 ML No Growth (<1,000 CFU/mL) * ML - Main Lab . END OF REPORT DEPARTMENT OF PATHOLOGY, [address] [place] [address] Osmar Edge M.D. Director [facility] # [id number] 6 Because ethnic data is not always readily [...] 15-29 5 Kidney failure <15 (or dialysis) 7 Reference Range and Interpretation: TnI (ng/mL) Interpretation Less Than 0.03 ng/mL Not supportive of diagnosis of UT 0.03 - 0.50 ng/mL Indeterminate: suggest serial studies if clinically indicated. Greater than 0.5 ng/mL Consistent with diagnosis of UT 8 Absolute neutrophilia and absolute lymphocytosis, favor reactive. Reviewed by Mireya Urias MD 9 >100 to <200 pg/mL: likely compensated congestive heart failure (CHF) 200 to 400 pg/mL: likely moderate CHF >400 pg/mL: likely moderate to severe CHF 10 Because ethnic data is not always readily [...] 15-29 5 Kidney failure <15 (or dialysis) 11 Reference Range and Interpretation: TnI (ng/mL) Interpretation Less Than 0.03 ng/mL Not supportive of diagnosis of UT 0.03 - 0.50 ng/mL Indeterminate: suggest serial studies if clinically indicated. Greater than 0.5 ng/mL Consistent with diagnosis of UT 12 Please note: The following may produce a false positive D Dimer test: - Rheumatoid factor greater than 60 IU/ml - Plasma hemoglobin greater than 0.05 gm/dl - Bilirubin greater than 50 mg/dl - Lipids greater than 1000 mg/dl - FDP greater than 20 ug/ml 13 Because ethnic data is not always readily [...] 15-29 5 Kidney failure <15 (or dialysis) 14 Acute inflammation: >10.00 15 Reference Range and Interpretation: TnI (ng/mL) Interpretation Less Than 0.03 ng/mL Not supportive of diagnosis of UT 0.03 - 0.50 ng/mL Indeterminate: suggest serial studies if clinically indicated. Greater than 0.5 ng/mL Consistent with diagnosis of UT 16 SEE RESULT BELOW Name: PASCALE GARCÍA : [address]: Joseph Durand MD Acct: [id number] Unit: [id number] AGE: 54 Location: ED Re03/12/15 SEX: F Status: DEP ER SPEC: [id number] KAMAR: 03/12/[address] [facility] [address]: Joseph Durand MD REQ: [id number] RECD: 03/12/15 STATUS: PARIS AGUIRRE DR: Denice Christopher MD _ SOURCE: URINE SPDESC: ORDERED: Urine Culture Procedure Result Verified Site Urine Culture Final 03/14/15- 1045 ML Organism 1 NORMAL JAMES Vista Count 50-75,000 (Many) CFU/ML * ML - [facility] ([facility]) . END OF REPORT * ML=Testing performed at [facility] DEPARTMENT OF PATHOLOGY, [address] [place] [address] Omsar Edge M.D. Director [facility] # [id number] 17 Reference Range and Interpretation: TnI (ng/mL) Interpretation Less Than 0.03 ng/mL Not supportive of diagnosis of UT 0.03 - 0.50 ng/mL Indeterminate: suggest serial studies if clinically indicated. Greater than 0.5 ng/mL Consistent with diagnosis of UT 18 Consistent with previous results on 02/26/15. 19 Because ethnic data is not always readily [...] 15-29 5 Kidney failure <15 (or dialysis) 20 Reference Range and Interpretation: TnI (ng/mL) Interpretation Less Than 0.03 ng/mL Not supportive of diagnosis of UT 0.03 - 0.50 ng/mL Indeterminate: suggest serial studies if clinically indicated. Greater than 0.5 ng/mL Consistent with diagnosis of UT 21 Reference Range and Interpretation: TnI (ng/mL) Interpretation Less Than 0.03 ng/mL Not supportive of diagnosis of UT 0.03 - 0.50 ng/mL Indeterminate: suggest serial studies if clinically indicated. Greater than 0.5 ng/mL Consistent with diagnosis of UT 22 Because ethnic data is not always readily [...] 15-29 5 Kidney failure <15 (or dialysis) 23 >100 to <200 pg/mL: likely compensated congestive heart failure (CHF) 200 to 400 pg/mL: likely moderate CHF >400 pg/mL: likely moderate to severe CHF 24 >100 to <200 pg/mL: likely compensated congestive heart failure (CHF) 200 to 400 pg/mL: likely moderate CHF >400 pg/mL: likely moderate to severe CHF 25 Because ethnic data is not always readily [...] 15-29 5 Kidney failure <15 (or dialysis) 26 Reference Range and Interpretation: TnI (ng/mL) Interpretation Less Than 0.03 ng/mL Not supportive of diagnosis of UT 0.03 - 0.50 ng/mL Indeterminate: suggest serial studies if clinically indicated. Greater than 0.5 ng/mL Consistent with diagnosis of UT 27 Acute inflammation: >10.00 28 SEE RESULT BELOW Name: PASCALE GARCÍA : [address]: Darius Cottrell MD Acct: [id number] Unit: [id number] AGE: 54 Location: [facility] Re12/26/14 SEX: F Status: DEP ER SPEC: [id number] KAMAR: 12/26/14-[address] [facility] [address]: Darius Cottrell MD REQ: [id number] RECD: 12/26/14-1204 STATUS: PARIS AGUIRRE DR: Denice Christopher MD _ SOURCE: HAND,LEFT SPDESC: ORDERED: Culture Stain Procedure Result Verified Site Wound/Misc Gram Stain Final 12/26/14- 1400 ML 1+ Neutrophils No Organisms Seen Wound/Misc Culture Final 12/28/14- 1124 ML No Growth Day 2 * ML - MAIN LAB ([facility]) . END OF REPORT * ML=Testing performed at Main Lab DEPARTMENT OF PATHOLOGY, [address] [place] [address] Osmar Edge M.D. Director [facility] # [id number] 29 Because ethnic data is not always readily [...] 15-29 5 Kidney failure <15 (or dialysis) 30 Acute inflammation: >10.00 31 Because ethnic data is not always readily [...] 15-29 5 Kidney failure <15 (or dialysis) 32 Acute inflammation: >10.00 33 RUN DATE: 09/23/14 [facility] LAB LIVE PAGE 1 RUN TIME: 1027 [address] [place], [place] [address] Specimen Inquiry Name: PASCALE GARCÍA : [address]: Denice Christopher MD Acct: [id number] Unit: [id number] AGE: 54 Location: [facility] Re09/21/14 SEX: F Status: REG REF SPEC: [id number] KAMAR: 09/21/14-[address]: Denice Christopher MD REQ: [id number] RECD: 09/21/14-1548 STATUS: COMP _ SOURCE: URINE SPDESC: ORDERED: Urine Culture QUERIES: Provider Requisition # [id number] Procedure Result Verified Site Urine Culture Final 09/23/14- 1027 L Organism 1 NORMAL JAMES Vista Count >100,000 (Many) CFU/ML END OF REPORT * ML=Testing performed at Main Lab DEPARTMENT OF PATHOLOGY, [address] [place] [address] Osmar Edge M.D. Director [facility] # [id number] 34 Acute inflammation: >10.00 35 Because ethnic [...] 5 Kidney failure <15 (or dialysis) 36 Therapeutic target for the treatment of diabetes Mellitus patients is <7% HBA1C, and in selective patients <6.0%.Please refer to [employer] Diabetic care guidelines for further information. 37 Because ethnic data is not always [...] (or dialysis) 38 Acute inflammation: >10.00 39 Acute inflammation: >10.00 40 Because ethnic data is not always readily [...] 15-29 5 Kidney failure <15 (or dialysis) 41 REFERENCE VALUE Not present Test Performed by: [facility] - [address] [address] Varnish Melter Helper: Gavino Tyler M.D. 42 Because ethnic data is not always readily [...] 15-29 5 Kidney failure <15 (or dialysis) 43 Acute inflammation: >10.00 44 Reference Range and Interpretation: TnI (ng/mL) Interpretation Less Than 0.03 ng/mL Not supportive of diagnosis of UT 0.03 - 0.50 ng/mL Indeterminate: suggest serial studies if clinically indicated. Greater than 0.5 ng/mL Consistent with diagnosis of UT 45 RUN DATE: 08/07/14 [facility] LAB LIVE PAGE 1 RUN TIME: [address] [place] [address] Specimen Inquiry Name: PASCALE GARCÍA : [address]: Julio C Lindsey DO Acct: [id number] Unit: [id number] AGE: 53 Location: ED Re08/02/14 SEX: F Status: DEP ER SPEC: [id number] KAMAR: 08/02/[address]: Jase GIBSON REQ: [id number] RECD: 08/02/14 STATUS: PARIS AGUIRRE DR: Denice Lindsey DO _ SOURCE: BLOOD,VENO SPDESC: ORDERED: Blood Cult Procedure Result Verified Site Aerobic Culture Bottle Final 08/07/14- 1518 ML No Growth Day 5 Anaerobic Culture Bottle Final 08/07/14- 1518 ML No Growth Day 5 END OF REPORT * ML=Testing performed at Main Lab DEPARTMENT OF PATHOLOGY, [facility] [email or web address] [place], [place] Osmar Edge M.D. Director [facility] # [id number] 46 RUN DATE: 08/07/14 [facility] LAB LIVE PAGE 1 RUN TIME: 1441 [facility] [place], [place] [address] Specimen Inquiry Name: PASCALE GARCÍA : [address]: Julio C Lindsey DO Acct: [id number] Unit: [id number] AGE: 53 Location: ED Re08/02/14 SEX: F Status: DEP ER SPEC: [id number] KAMAR: 08/02/14-[address]: Jase GIBSON REQ: [id number] RECD: 08/02/14 STATUS: PARIS AGUIRRE DR: Denice Lindsey DO _ SOURCE: BLOOD,VENO SPDESC: ORDERED: Blood Cult Procedure Result Verified Site Aerobic Culture Bottle Final 08/07/14- 1441 ML No Growth Day 5 Anaerobic Culture Bottle Final 08/07/14- 1441 ML No Growth Day 5 END OF REPORT * ML=Testing performed at Main Lab DEPARTMENT OF PATHOLOGY, [address] [place] [address] Osmar Edge M.D. Director [facility] # [id number] 47 >100 to <200 pg/mL: likely compensated congestive heart failure (CHF) 200 to 400 pg/mL: likely moderate CHF >400 pg/mL: likely moderate to severe CHF CA HEART 48 Because ethnic data is not always readily [...] 15-29 5 Kidney failure <15 (or dialysis) 49 Reference Range and Interpretation: TnI (ng/mL) Interpretation Less Than 0.03 ng/mL Not supportive of diagnosis of UT 0.03 - 0.50 ng/mL Indeterminate: suggest serial studies if clinically indicated. Greater than 0.5 ng/mL Consistent with diagnosis of UT 50 Please note: The following may produce [...] 5 Kidney failure <15 (or dialysis) 52 Reference Range and Interpretation: TnI (ng/mL) Interpretation Less Than 0.03 ng/mL Not supportive of diagnosis of UT 0.03 - 0.50 ng/mL Indeterminate: suggest serial studies if clinically indicated. Greater than 0.5 ng/mL Consistent with diagnosis of UT 53 Acute inflammation: >10.00 54 This test detects intact HCG only and is indicated for the early detection of . 55 Please note: The following may produce a false positive D Dimer test: - Rheumatoid factor greater than 60 IU/ml - Plasma hemoglobin greater than 0.05 gm/dl - Bilirubin greater than 50 mg/dl - Lipids greater than 1000 mg/dl - FDP greater than 20 ug/ml 56 Because ethnic data is not always readily [...] 15-29 5 Kidney failure <15 (or dialysis) 57 Acute inflammation: >10.00 58 RUN DATE: 07/25/14 [facility] LAB LIVE PAGE 1 RUN TIME: [address] [place] [address] Specimen Inquiry Name: PASCALE GARCÍA : [address]: Wei Saini Acct: [id number] Unit: [id number] AGE: 53 Location: ED Re07/25/14 SEX: F Status: REG ER SPEC: [id number] KAMAR: 07/25/[address]: Wei WOODARD: [id number] RECD: 07/25/14 STATUS: PARIS AGUIRRE DR: Denice Christopher MD _ SOURCE: [facility]: ORDERED: Rapid Flu A B Procedure Result Verified Site Rapid Influenza A B Antigen Final 07/25/14402 ML Organism 1 Negative Influenza A B Antigen testing by enzyme immunoassay. Cell culture testing can be performed to confirm negative test results and to assist in detecting other viruses that can produce similar clinical symptoms. Please notify Microbiology Lab if further testing is desired. END OF REPORT * ML=Testing performed at Main Lab DEPARTMENT OF PATHOLOGY, [address] [place] [address] Osmar Edge M.D. Director [facility] # [id number] 59 Because ethnic data is not always [...] 5 Kidney failure <15 (or dialysis) 60 Acute inflammation: >10.00 61 This test detects intact HCG only and is indicated for the early detection of . 62 Because ethnic data is not always readily [...] 15-29 5 Kidney failure <15 (or dialysis) 63 RUN DATE: 07/12/14 [facility] LAB LIVE PAGE 1 RUN TIME: [address] [place] [address] Specimen Inquiry Name: BEBETO GARCÍAAUSTIN Dela Cruz : [address]: Denice Christopher MD Acct: [id number] Unit: [id number] AGE: 53 Location: [facility] Re07/09/14 SEX: F Status: REG REF SPEC: [id number] KAMAR: 07/09/14-[address] [facility] [address]: Denice Christopher MD REQ: [id number] RECD: 07/09/14 STATUS: COMP _ SOURCE: URINE SPDESC: ORDERED: Urine Culture QUERIES: [employer] Number [id number] Procedure Result Verified Site Urine Culture Final 07/12/14- 0836 ML Organism 1 NORMAL JAMES Vista Count 75-100,000 (Many) CFU/ML END OF REPORT * ML=Testing performed at Main Lab DEPARTMENT OF PATHOLOGY, [address] [place] [address] Osmar Edge M.D. Director [facility] # [id number] 64 Because ethnic data is not always readily [...] 15-29 5 Kidney failure <15 (or dialysis) 65 Reference Range and Interpretation: TnI (ng/mL) Interpretation Less Than 0.03 ng/mL Not supportive of diagnosis of UT 0.03 - 0.50 ng/mL Indeterminate: suggest serial studies if clinically indicated. Greater than 0.5 ng/mL Consistent with diagnosis of UT 66 Because ethnic data is not always readily [...] dialysis) Procedures Date Code Description Status 08/26/2015 00855 Trigger Finger Release Incision / Tendon Sheath Completed Incision 08/26/2015 07649 Trigger Finger Release Incision / Tendon Sheath Completed Incision 04/25/2015 51613 Diffusing Capacity Completed 04/25/2015 67189 Plethysmography Determination Lung Volumes & Per Airway Completed Resist 04/25/2015 36284 Pulmonary Function><Bronchodil Completed 11/25/2014 45305575 Mammogram Completed 10/18/2014 48821343 Colonoscopy Completed 09/23/2014 86405658 Colonoscopy Completed 09/07/2014 26359 EKG Tracing & Interpretation Completed 11/16/2013 26089 Xray Knee 3 Views Completed 11/16/2013 81762 Rad Exam; Knee, Ap&L Completed 08/28/2013 10336 Carpal Tunnel Release Completed 08/07/2013 72507 Carpal Tunnel Release Completed 06/18/2013 70029 Rad Exam; Wrist, Comp, Min 3 Views Completed 06/18/2013 77297 Rad Exam; Wrist, Comp, Min 3 Views Completed 05/29/2013 92873 EKG, Interpretation Only Completed 05/26/2013 49855 EKG, Interpretation Only Completed 01/07/2012 35434 Xray Knee 3 Views Completed 01/07/2012 42719 Rad Exam; Knee Comp Completed 01/07/2012 69140 Rad Exam; Tib-Fib Completed 06/20/2011 00922 Xray Knee 3 Views Completed 06/20/2011 18763 Rad Exam; Knee, Ap&L Completed 05/08/2011 95097 TKR Total Knee Replacement Completed 11/27/2010 60812 Xray Knee 3 Views Completed 11/27/2010 48214 Rad Exam; Knee, Ap&L Completed 11/27/2010 15880 Rad Exam; Elbow, Limited Completed 11/27/2010 10180 Inject/Drain Joint/Bursa Major W/O US Completed 07/03/2010 09500 Xray Knee 3 Views Completed 04/07/2010 98430 Xray Knee 3 Views Completed 03/07/2010 04928 TKR Total Knee Replacement Completed Encounters Type Date Location Provider Dx Diagnosis Office Visit 12/01/2018 Orthopedic Eva Esteves, T84.053A Periprosth 9:30a Services Of [facility].A. M.D. osteolysis of internal prosthetic l knee jt, init M25.562 Pain in left knee M25.462 Effusion, left knee M25.362 Other instability, left knee Z96.652 Presence of left artificial knee joint S83.412A Sprain of medial collateral ligament of left knee, init Office Visit 11/24/2018 11:15a Orthopedic Eva Esteves T84.053A Periprost[facility] Services Of M.D. osteolysis of C.M.A. internal prosthetic l knee jt, init M25.562 Pain in left knee M25.462 Effusion, left knee M25.362 Other instability, left knee Z96.652 Presence of left artificial knee joint Office Visit 11/14/2018 10:30a Jacinta Esteves S83.412A Sprain of medial Services Of M.D. collateral C.M.A. ligament of left knee, init T84.053A Periprosth osteolysis of internal prosthetic l knee jt, init M25.562 Pain in left knee M25.462 Effusion, left knee M25.362 Other instability, left knee Z96.652 Presence of left artificial knee joint Office Visit 10/28/2018 11:30a Jacinta Cary M25.562 Pain in left Services Of Marissa.Garfield Maki MD knee Z96.652 Presence of left [...] , Services Of Elder Nuno right ring Jose finger Office Visit 04/11/2015 2:00p Pulmonology And Linsey Mendoza, R06.02 Shortness of Sleep Services Of MD elly Proctor J44.9 Chronic obstructive pulmonary disease, unspecified F17.210 Nicotine dependence, cigarettes, uncomplicated F51.9 Sleep disorder not due to a sub or known physiol cond, unsp E66.09 Other obesity due to excess calories Office Visit 03/29/2015 10:30a [facility] Internal Darius Diaz, 491.21 Bronchitis Medicine - 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 Obstructive Chronic W/Acute Exacerbation 305.1 Tobacco Use Disorder Office Visit 03/14/2015 3:00p [facility] Internal Norbert Morgan, 786.05 Shortness Of Medicine - 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 Breath 724.2 Lumbago 496 COPD Airway Obstruction Chronic Not Class Elsewhere Office Visit 12/29/2014 10:00a [facility] Internal Darius Diaz, 692.6 Dermatitis Contact Medicine - 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 Due To Plants (Except Food) 782.1 Rash & Other Nonspec Skin Eruption Office Visit 12/10/2014 9:30a [facility] Internal Darius Diaz, BEAUTY OPERATOR APPRENTICE 528.9 Oral Soft Tissue Medicine - C[facility] Diseases Other & Unspec 782.0 Skin Sensation Disturbance Office Visit 2014 12:40p [facility] Internal Denice Christopher, 789.02 Pain Abdominal Medicine - Ccmob M.D. Left Upper Quadrant 789.63 Tenderness Abdominal Right Lower Quadrant Office Visit 09/07/2014 4:00p [facility] Internal Denice Christopher V72.84 Examination Medicine - M.D. 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 Unspec Site 288.60 Leukocytosis, Unspecified Office Visit 08/10/2014 9:48a [facility] Aline Roberto 789.00 Pain Abdominal Assoc,pc Yves, N.P. Unspec Site Hospitalists 496 COPD Airway Obstruction Chronic Not Class Elsewhere 288.60 Leukocytosis, Unspecified Office Visit 08/08/2014 9:47a [facility] Alissa 789.00 Pain Abdominal Assoc,pc Cantrell, BEAUTY OPERATOR APPRENTICE Unspec Site Hospitalists 496 COPD Airway Obstruction Chronic Not Class Elsewhere 288.60 Leukocytosis, Unspecified Office Visit 07/31/2014 11:43a [facility] Melita 789.00 Pain Abdominal Assoc,pc Janusz D.Ever. 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 Generalized Ccmob Office Visit 05/24/2014 1:00p [facility] Internal Gloria Menon, 727.05 Tenosynovitis Hand Medicine - POLYMERIZATION OVEN TENDER & Wrist Other Ccmob Office Visit 05/05/2014 8:30a [facility] Internal Gloria Menon, 786.50 Pain Chest Unspec Medicine - POLYMERIZATION OVEN TENDER Ccmob 847.1 Sprains & Strains Thoracic Office Visit 04/12/2014 1:00p [facility] Internal Gloria Menon, 789.07 Pain Abdominal Medicine - POLYMERIZATION OVEN TENDER Generalized Ccmob 288.50 Leukocytopenia, Unspecified Office Visit 03/26/2014 1:00p [facility] Internal Denice Christopher, 491.21 Bronchitis Medicine - M.D. Obstructive Chronic Ccmob W/Acute Exacerbation 492.8 Emphysema Other Office Visit 11/29/2013 4:32p [facility] Jose Alejandro Zuleta 786.50 Pain Chest Assoc,teo Muñoz M.D. Unspec Hospitalists Hospitalist 492.8 Emphysema Other 401.9 Hypertension Unspec 311 Depressive Disorder Not Elsewhere Spec Office Visit 11/28/2013 4:28p [facility] Guillermo Moon 786.50 Pain Chest Assoc,teo CASTILLO M.D. Unspec Hospitalists 492.8 Emphysema Other 401.9 Hypertension Unspec 311 Depressive Disorder Not Elsewhere Spec Office Visit 11/16/2013 Orthopedic Sacha Farfan, 726.64 Tendinitis 11:30a Services Of Jose Friedman Patellar Office Visit 06/18/2013 Orthopedic Lucille 354.0 Carpal Tunnel 9:00a Services Of Jose Nuno M.D. Syndrome [facility] 491.21 Bronchitis 2:46p Assocteo M.D. Obstructive Hospitalists Chronic W/Acute Exacerbation 481 Pneumonia Pneumococcal 311 Depressive Disorder Not Elsewhere Spec Office Visit 05/28/2013 2:46p [facility] 481 Pneumonia Assoc,teo Puente N.PHector Pneumococcal Hospitalists 311 Depressive Disorder Not Elsewhere Spec 491.21 Bronchitis Obstructive Chronic W/Acute Exacerbation Office Visit 05/26/2013 [facility] 491.21 Bronchitis 6:10p Assoc,teo Marie M.D. Obstructive Hospitalists Chronic W/Acute Exacerbation 786.52 Painful Respiration 311 Depressive Disorder Not Elsewhere Spec 794.31 Electrocardiogram (ECG) (EKG) Abnormal Office Visit 05/25/2013 [facility] 491.21 Bronchitis 6:10p Assoc,teo Marinelli, N.PHector Obstructive Hospitalists Chronic W/Acute Exacerbation 794.31 Electrocardiogram (ECG) (EKG) Abnormal 786.52 Painful Respiration 311 Depressive Disorder Not Elsewhere Spec Office Visit 10/16/2012 4:27p [facility] 492.8 Emphysema Other Assoc,teo Rader M.D. Hospitalists 466.0 Bronchitis Acute 305.1 Tobacco Use Disorder Office Visit 10/14/2012 4:26p [facility], 492.8 Emphysema Other Assoc,teo Friedman Hospitalists 466.0 Bronchitis Acute 305.1 Tobacco Use Disorder Office Visit 09/25/2012 [facility], 722.0 Intervertebral Disc 10:45a Services [facility]. [facility] Cervical W/O Myelopathy Office Visit 01/07/2012 [facility] 924.11 Contusion Knee 2:30p [facility] Office Visit 03/28/2011 [facility], 716.96 Arthropathy Unspec 2:45p [facility] Lower Leg [facility] Office Visit 11/27/2010 [facility] 716.96 Arthropathy Unspec 2:30p [facility] Lower Leg [facility] 715.96 Osteoarthrosis Unspec Genlzd Or Localized Lower Leg 726.32 Epicondylitis Lateral Office Visit 07/03/2010 8:15a [facility], 844.9 Sprains & Strains [facility] Knee & Leg Unspec [facility] Office Visit 02/23/2010 8:00a [facility] Maya 715.96 Osteoarthrosis [facility] Unspec Genlzd Or [facility] RPA-C Localized Lower Leg 719.46 Pain Joint Lower Leg Office Visit 02/08/2010 3:30p [facility] 715.96 Osteoarthrosis [facility] Unspec Genlzd Or [facility] Localized Lower Leg Plan of Treatment Future Appointment(s):02/13/2019 2:15 pm - Eva Esteves M.D. at [facility]01/30/2019 1:15 pm - Maximus Vu PA-C at [facility]01/30/2019 1:15 pm - ARTHUR Barba at [facility]01/30/2019 1:15 pm - Eva Esteves M.D. at [facility]01/21/2019 - Eva Esteves M.D.T84.053A Periprosthetic osteolysis of internal prosthetic left knee jFollow up:Follow up: 2 weeks after hyuigorB93.562 Pain in left kneeM25.462 Effusion, left kneeM25.362 Other instability, left knee
--- OUTSIDE RECORDS SUMMARY | 2019-02-06 20:34 | XMS REPORT | Continuity of Care Document ---
:1960 External Reference #:[id number] Author Name Gladis Olivares Care Team Providers Name Role Phone Tatiana Geronimo MD Primary Care Physician Unavailable Payers Date Identification Numbers Payment Provider Subscriber Policy Number: [id number] [facility] [employer] Turner PayID: [id number] [address] [address] [place] [address] Problems Active Problems Provider Date Leukopenia ALMA [...] Medications SIG Qnty Indications Ordering Date Provider Mike schwarz 1units Eva Esteves, 12/22/2018 [facility] [place]: s/p M.DHector knee replacement Voltaren apply to affected 200gm Ryan Cary 10/18/2018 1% Gel area up to three MD Glynn times daily on knee Clindamycin HCL 600mg 1 hours 2caps Emerson Michelle 11/08/2016 300mg prior to dental M.D. Capsules work Oxycodone HCL 1 tab by [...] swab Creon 1 by mouth three Unknown [id number] Caps DR times a day Part Atorvastatin Calcium 1 by mouth every Unknown 10mg day Tablets Amlodipine Besylate 1 by mouth every Unknown 5mg day Tablets Albuterol Sulfate 1 vial via Unknown nebulizer 4 times (2.5mg/3ML) 0.083% daily as needed Nebulizer Omeprazole take 1 capsule by 30caphamilton Morgan NP 40mg Capsules mouth every day [...] not effective. Proair HFA 2 puffs by Rhiannaungarry Diaz NP 12/29/2014 - 108(90Base) mcg/Act mouth [...] 07/26/2014 - 10mg Tablets mouth for 3 [employer]ATING [employer]MENT [employer]TER 08/13/2014 days then 3 tabs for 3 days, then 2 tab for 3 days then 1 tab for 5 days Mucinex 1 by mouth 10tabs 491.21 Gloria Menon, 07/26/2014 - 600mg Tablets ER 12HR twice for 3 [employer]DUCTION [employer]ATING [employer]IPMENT [employer]TER 08/13/2014 days Percocet 1-2 tabs po 30tabs Sacha Farfan, 07/09/2014 - 5-325mg Tablets q4-6 prn pain M.D. 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 07/26/2014 DR times a day as needed [...] CPT Code Status Date Vaccine Lot # [id number] Refused 03/29/2015 Influenza Virus Vaccine, Quadrivalent, Split, [...] H/L Range Note CBC Auto Diff 03/31/2015 [facility] White Blood 20.8 10^3/uL High 4.8-10.[address] [place] [address] [phone] Red Blood Count 4.74 10^6/uL N 4.0-5.4 [...] Cells % 0 N Laboratory test 03/31/2015 [facility] Lactic Acid 1.4 mmol/L N 0.5-2.[address] [place] [address] [phone] Comp Metabolic 03/31/2015 [facility] Sodium 135 mmol/L N 133- [address] [place] [address] [phone] Potassium 3.6 mmol/L N 3.5-5.0 Chloride 101 [...] 98.6 N >60 1 Laboratory test 03/31/2015 [facility] Troponin-I (TnI) 0.01 ng/ mL N <0.03 [address] [place] [address] [phone] Pathologist Review (SEE NOTE) N 3 CBC Auto Diff 03/28/2015 [facility] White Blood 10.3 10^3/uL N 4.8-10.[address] [place] [address] [phone] Red Blood Count 4.67 10^6/uL N 4.0-5.4 [...] Blood Cells % 0 N Inr/Protime 03/28/2015 [facility] Inr 0.91 N 0.78-1.07 [address] [place] [address] [phone] Laboratory test 03/28/2015 [facility] Lactic Acid 1.0 mmol/L N 0.5-2.2 finding [address] [place] [address] [phone] B-Type Natriuretic Peptide BNP 25 pg/mL N 4 Comp Metabolic Panel 03/28/2015 [facility] Sodium 135 mmol/L N 133-145 [address] [place] [address] [phone] Potassium 3.8 mmol/L N 3.5-5.0 Chloride 103 [...] 108.2 N >60 5 Laboratory test 03/28/2015 [facility] Creatine 30 U/L N 10- [address] Kinase(CK) [place] [address] [phone] Troponin-I (TnI) 0.00 ng/mL N <0.03 6 CKMB 03/28/2015 [facility] CKMB ng/mL 1.3 ng/mL N 0.6-6.[address] [place] [address] [phone] Laboratory 03/28/2015 [facility] D Dimer < 200 N Less Than 7 test finding [address] Quantitative ng/mL 230 [place] [address] [phone] CBC Auto Diff 03/12/2015 [facility] White Blood 11.5 High 4.8- 10.[address] Count 10^3/[place] [address] [phone] Red Blood Count 4.57 10^6/uL N 4.0-5.4 [...] Cells % 0 N Laboratory test 03/12/2015 [facility] Lactic Acid 1.2 mmol/L N 0.5-2.2 finding [address] [place] [address] [phone] Comp Metabolic 03/12/2015 [facility] Sodium 135 mmol/L N 133- 145 Panel [address] [place] [address] [phone] Potassium 4.1 mmol/L N 3.5-5.0 Chloride 102 [...] N >60 8 Laboratory test finding 03/12/2015 [facility] Lipase 18 U/L N 11.0-82.0 [address] [place] [address] [phone] C Reactive Protein 11.20 mg/L High < 5.00 9 Troponin-I (TnI) 0.00 ng/mL N <0.03 10 Urinalysis Profile 03/12/2015 [facility] Urine Color Yellow N [address] [place] [address] [phone] Urine Appearance Cloudy N Urine Specific Hannah 1.012 N 1.010-1.030 Urine pH 5.0 N [...] Cell Present Abnormal Absent Laboratory test 03/12/2015 [facility] Urine Culture And SEE RESULT [address] [place] [address] [phone] Laboratory test 03/07/2015 [facility] Troponin-I (TnI) 0.02 ng/ mL N <0.0 [address] 3 [place] [address] [phone] CBC Auto Diff 03/07/2015 [facility] White Blood Count 18.2 High 4.8- [address] 10^3/uL 10.8 [place] [address] [phone] Red Blood Count 4.81 10^6/uL N 4.0-5.4 [...] Blood Cells % 0 N Inr/Protime 03/07/2015 [facility] Inr 0.88 N 0.78-1.[address] [place], [place] [address] [phone] Laboratory test 03/07/2015 [facility] Partial 26.0 seconds N 26.0-36.[address] [place] [address] PTT [phone] Comp Metabolic 03/07/2015 [facility] Sodium 138 mmol/L N 133- [address] [place] [address] [phone] Chloride 103 mmol/L N 101-111 Co2 Carbon [...] 14 U/L N 13-39 Laboratory test 03/07/2015 [facility] Troponin-I 0.01 ng/mL N <0.[address] (TnI) [place] [address] [phone] CKMB 03/07/2015 [facility] CKMB ng/mL 2.2 ng/mL N 0.6-6.[address] [place] [address] [phone] Laboratory test 02/26/2015 [facility] Troponin-I 0.00 ng/mL N <0.[address] (TnI) [place] [address] [phone] Comp Metabolic 02/26/2015 [facility] Sodium 135 mmol/L N 133- [address] [place] [address] [phone] Potassium 3.7 mmol/L N 3.5-5.0 Chloride 101 [...] N >60 17 CBC Auto Diff 02/26/2015 [facility] White Blood 9.1 10^3/uL N 4.8-10.[address] [place] [address] [phone] Red Blood Count 4.73 10^6/uL N 4.0-5.4 [...] Cells % 0 N Laboratory test 02/26/2015 [facility] B-Type 18 pg/mL N [address] [place] [address] Peptide BNP [phone] CBC Auto Diff 01/17/2015 [facility] White Blood Count 10.1 N 4.8-[address] 10^3/uL 0.8 [place], [place] [address] [phone] Red Blood Count 4.70 10^6/uL N 4.0-5.4 [...] Cells % 0.1 N Laboratory test 01/17/2015 [facility] Lactic Acid 1.4 mmol/L N 0.5-2.[address] [place] [address] [phone] Inr/Protime 01/17/2015 [facility] Inr 0.95 N 0.78-1.[address] [place] [address] [phone] Laboratory test 01/17/2015 [facility] B-Type 25 pg/mL N [address] [place] [place] [address] Peptide BNP [phone] Comp Metabolic 01/17/2015 [facility] Sodium 135 mmol/L N 133- [address] [place] [address] [phone] Potassium 3.7 mmol/L N 3.5-5.0 Chloride 103 [...] 117.5 N >60 20 Laboratory test 01/17/2015 [facility] Creatine 39 U/L N 10- [address] Kinase(CK) [place] [address] [phone] Troponin-I (TnI) 0.00 ng/mL N <0.03 21 CKMB 01/17/2015 [facility] CKMB ng/mL 1.0 ng/mL N 0.6-6.[address] [place] [address] [phone] Laboratory test 01/17/2015 [facility] TSH 1.92 ?IU/mL N 0.34- 5.[address] ([place] [address] Stim Horm) [phone] Magnesium 1.8 mg/dL Low 1.9-2.7 Lipase 14 U/L N 11.0-82.0 C Reactive Protein 9.82 mg/L High < 5.00 22 Laboratory test 12/26/2014 [facility] Wound SEE RESULT [address] Culture/[place] [address] [phone] CBC Auto Diff 11/25/2014 [facility] White Blood Count 15.0 High 4.8- [address] 10^3/uL 10.8 [place] [id number] [phone] Red Blood Count 4.35 10^6/uL N 4.0-5.4 [...] Cells % 0 N Laboratory test 11/25/2014 [facility] Lactic Acid 0.6 mmol/L N 0.5-2.[address] [place] [address] [phone] Comp Metabolic 11/25/2014 [facility] Sodium 136 mmol/L N 133- [address] [place] [address] [phone] Potassium 3.8 mmol/L N 3.5-5.0 Chloride 104 [...] 126.2 N >60 24 Laboratory test 11/25/2014 [facility] C Reactive 96.66 mg/L High < 5.00 [address] [place] [address] [phone] Urinalysis 09/22/2014 [facility] Urine Color Yellow N Profile [address] [place] [address] [phone] Urine Appearance Cloudy N Urine Specific Hannah 1.023 N 1.010-1.030 Urine pH 5.0 N 5-9 Urine Urobilinogen Negative N Negative Urine Ketones Negative N Negative Urine Protein Negative N Negative Urine Leukocytes Negative N Negative Urine Blood Negative N Negative Urine Nitrite Negative N Negative Urine Bilirubin Negative N Negative Urine Glucose Negative N Negative CBC Auto 09/22/2014 [facility] White Blood 11.1 10^3/uL High 4.8-10.[address] [place] [address] [phone] Red Blood Count 4.60 10^6/uL N 4.0-5.4 [...] % 0 N Comp Metabolic Panel 09/22/2014 [facility] Sodium 135 mmol/L N 133-[address] [place] [address] [phone] Potassium 3.7 mmol/L N 3.5-5.0 Chloride 101 [...] N >60 26 Laboratory test finding 09/22/2014 [facility] Lipase 8 U/L Low 11.0-82.[address] [place] [address] [phone] C Reactive Protein 12.28 mg/L High < 5.00 27 Lactic Acid 1.2 mmol/L N 0.5-2.2 Urine Culture And 2014 [facility] Urine Culture (SEE NOTE ) [address] [place] [address] [phone] 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 Ua Specific 1.005 Hannah Ua PH 7 Ua Color yellow Ua Appera clear Ua WBC trace Ua Protein neg Ua Glucose neg Ua Ketones neg Ua Bilirubin small Ua Urobilinogen norm Ua Nitrite neg Ua Occult Blood neg CBC Auto Diff 09/08/2014 [facility] White Blood 10.1 10^3/uL N 4.8-10.[address] [place] [address] [phone] Red Blood Count 4.63 10^6/uL N 4.0-5.4 [...] Cells % 0.1 N Laboratory test 09/08/2014 [facility] Erythrocyte Sed 14 mm/Hr N 0-[address] [place] [address] [phone] C Reactive Protein 8.91 mg/L High < 5.00 29 Comp Metabolic Panel 09/08/2014 [facility] Sodium 135 mmol/L N 133-[address] [place] [address] [phone] Potassium 4.1 mmol/L N 3.5-5.0 Chloride 101 [...] 112.1 N >60 30 Laboratory test 09/08/2014 [facility] Hemoglobin A1c 6.2 % High Less than [address] 6.0 [place] [address] [phone] Comp Metabolic 08/23/2014 [facility] Sodium 134 N 133-[address] mmol/[place] [address] [phone] Potassium 3.8 mmol/L N 3.5-5.0 Chloride 101 [...] 105.2 N >60 32 Laboratory test 08/23/2014 [facility] Lipase 10 U/L Low 11.0- 82.[address] [place] [address] [phone] C Reactive Protein 7.87 mg/L High < 5.00 33 CBC Auto 08/23/2014 [facility] White Blood 14.2 10^3/uL High 4.8-10.[address] [place] [address] [phone] Red Blood Count 5.05 10^6/uL N 4.0-5.4 [...] Placental NotPresent N 36 CBC Auto 08/08/2014 [facility] White Blood 19.6 10^3/uL High 4.8-10.[address] [place] [address] [phone] Red Blood Count 5.06 10^6/uL N 4.0-5.4 [...] Cells % 0 N Laboratory test 08/08/2014 [facility] Lactic Acid 1.4 mmol/L N 0.5-2.2 finding [address] [place] [address] [phone] Comp Metabolic 08/08/2014 [facility] Sodium 133 mmol/L N 133- 145 Panel [address] [place] [address] [phone] Potassium 4.0 mmol/L N 3.5-5.0 Chloride 103 [...] N >60 37 Laboratory test finding 08/08/2014 [facility] Lipase 9 U/L Low 11.0-82.0 [address] [place] [address] [phone] C Reactive Protein 8.39 mg/L High < 5.00 38 Troponin I 0.00 ng/mL N <0.03 39 Urinalysis Profile 08/02/2014 [facility] Urine Color Yellow N [address] [place] [address] [phone] Urine Appearance Clear N Urine Specific Hannah 1.011 N 1.010-1.030 Urine pH 7.0 N 5-9 Urine Urobilinogen Negative N Negative Urine Ketones Negative N Negative Urine Protein Negative N Negative Urine Leukocytes Negative N Negative Urine Blood Negative N Negative Urine Nitrite Negative N Negative Urine Bilirubin Negative N Negative Urine Glucose Negative N Negative Blood Culture 08/02/2014 [facility] Blood Culture (SEE NOTE) [address] [place] [address] [phone] Laboratory test 08/02/2014 [facility] Lactic Acid 1.8 mmol/L N 0.5-2. finding [address] 2 [place] [address] [phone] Blood Culture (SEE NOTE) 41 Laboratory test 08/02/2014 [facility] B Type 13 pg/mL N [address] [place] [address] Peptide [phone] Comp Metabolic 08/02/2014 [facility] Sodium 138 mmol/L N 133- [address] [place] [address] [phone] Potassium 4.3 mmol/L N 3.5-5.0 Chloride 101 [...] 106.8 N >60 43 Laboratory test 08/02/2014 [facility] Creatine 30 U/L N 10- [address] [place] [address] [phone] CKMB 08/02/2014 [facility] CKMB ng/mL 1.2 N 0.6-6.[address] ng/[place] [address] [phone] Laboratory test 08/02/2014 [facility] Troponin I 0.00 N <0.03 [address] ng/[place] [address] [phone] CBC Auto Diff 08/02/2014 [facility] White Blood 14.4 High 4.8- 10.[address] Count 10^3/[place] [address] [phone] Red Blood Count 5.06 10^6/uL N 4.0-5.4 [...] RBC 0 10^3/uL N Manual Differential 08/02/2014 [facility] Neutrophil % 58 % N 38-[address] [place] [address] [phone] Lymphocytes % 31 % N 25-47 Monocytes % 7 % N 0-13 Eosinophils % 1 % N 0-6 Reactive Lymph % 3 % N 0-6 RBC Morphology Normal N Normal Laboratory test 08/02/2014 [facility] D Dimer < 200 ng/mL N Less [address] Quantitative Than 230 [place] [address] [phone] Urinalysis 07/31/2014 [facility] Urine Color Colorless N Profile [address] [place] [address] [phone] Urine Appearance Clear N Urine Specific Hannah 1.010 N 1.010-1.030 Urine pH 6 N 5-9 Urine Urobilinogen Negative N Negative Urine Ketones Negative N Negative Urine Protein Negative N Negative Urine Leukocytes Negative N Negative Urine Blood Negative N Negative Urine Nitrite Negative N Negative Urine Bilirubin Negative N Negative Urine Glucose Negative N Negative CBC Auto 07/31/2014 [facility] White Blood 15.7 10^3/uL High 4.8-10.[address] [place] [address] [phone] Red Blood Count 4.89 10^6/uL N 4.0-5.4 [...] Cells % 0 N Laboratory test 07/31/2014 [facility] Lactic Acid 1.1 mmol/L N 0.5-2.2 finding [address] [place] [address] [phone] Comp Metabolic 07/31/2014 [facility] Sodium 135 mmol/L N 133- 145 Panel [address] [place] [address] [phone] Potassium 4.2 mmol/L N 3.5-5.0 Chloride 103 [...] N >60 46 Laboratory test finding 07/31/2014 [facility] Lipase 23 U/L N 11.0-82.[address] [place] [address] [phone] Troponin I 0.00 ng/mL N <0.03 47 C Reactive Protein 4.94 mg/L N < 5.00 48 Serum Negative N Negative 49 D Dimer Quantitative < 200 ng/mL N Less Than 230 50 CBC Auto 07/27/2014 [facility] White Blood 11.2 10^3/uL High 4.8-10.[address] [place] [address] [phone] Red Blood Count 4.82 10^6/uL N 4.0-5.4 [...] Cells % 0 N Laboratory test 07/27/2014 [facility] Lactic Acid 1.5 mmol/L N 0.5-2.[address] [place] [address] [phone] Comp Metabolic 07/27/2014 [facility] Sodium 135 mmol/L N 133- [address] [place] [address] [phone] Potassium 4.2 mmol/L N 3.5-5.0 Chloride 105 [...] N >60 51 Laboratory test finding 07/27/2014 [facility] Lipase 13 U/L N 11.0-82.[address] [place] [address] [phone] C Reactive Protein 16.42 mg/L High < 5.00 52 Rapid Influenza 07/25/2014 [facility] Rapid Influenza (SEE NOTE ) 53 A B Antigen [address] [place] [address] [phone] Comp Metabolic 07/11/2014 [facility] Sodium 135 mmol/L N 133- [address] 5 [place] [address] [phone] Potassium 3.8 mmol/L N 3.5-5.0 Chloride 103 [...] N >60 54 Laboratory test finding 07/11/2014 [facility] Lipase 25 U/L N 11.0-82.0 [address] [place] [address] [phone] C Reactive Protein 8.26 mg/L High < 5.00 55 Lactic Acid 1.3 mmol/L N 0.5-2.2 Serum Negative N Negative 56 Inr/Protime 07/11/2014 [facility] Inr 0.93 N 0.85-1.06 [address] [place] [address] [phone] Urinalysis Profile 07/11/2014 [facility] Urine Color Yellow N [address] [place] [address] [phone] Urine Appearance Cloudy N Urine Specific Hannah 1.024 N 1.010-1.030 Urine pH 5.0 N 5-9 Urine Urobilinogen Negative N Negative Urine Ketones Trace Abnormal Negative Urine Protein Negative N Negative Urine Leukocytes Negative N Negative Urine Blood Negative N Negative Urine Nitrite Negative N Negative Urine Bilirubin Negative N Negative Urine Glucose Negative N Negative CBC Auto 07/11/2014 [facility] White Blood 10.9 10^3/uL High 4.8-10.8 Diff 101 [facility] [place] [place] [address] [phone] Red Blood Count 4.76 10^6/uL N 4.0-5.4 [...] Cells % 0 N CBC Auto 07/09/2014 [facility] White Blood 11.8 10^3/uL High 4.8-10.[address] [place] [address] [phone] Red Blood Count 4.58 10^6/uL N 4.0-5.4 [...] % 0.1 N Comp Metabolic Panel 07/09/2014 [facility] Sodium 135 mmol/L N 133-145 [address] [place] [address] [phone] Potassium 3.7 mmol/L N 3.5-5.0 Chloride 101 [...] N >60 57 Laboratory test finding 07/09/2014 [facility] Amylase 32 U/L N 29-103 [address] [place] [address] [phone] Erythrocyte Sed Rate 13 mm/Hr N 0-30 Urine Culture And 07/09/2014 [facility] Urine Culture (SEE NOTE ) 58 Sensitivities [address] [place] [address] [phone] Ua Routine 07/09/2014 [employer] In House Ua Specific 1.005 Hannah Ua PH 5.0 Ua Color yellow Ua [...] 31 U/L N 29-103 CBC Auto 01/30/2014 [facility] White Blood 11.3 10^3/uL High 4.8-10.[address] [place] [address] [phone] Red Blood Count 4.15 10^6/uL N 4.0-5.4 [...] Blood Cells % 0.1 N Inr/Protime 01/30/2014 [facility] Inr 0.91 N 0.85-1.[address] [place] [address] [phone] Laboratory test 01/30/2014 [facility] Activated 28.3 N 24.0- 36.[address] [place] [address] Thrombo Time [phone] Laboratory test 01/30/2014 [facility] Magnesium 1.8 mg/dL Low 1.9-2.[address] [place] [address] [phone] Troponin I 0.00 ng/mL N <0.03 60 TSH (Thyroid Stimulating Horm) 4.59 IU/mL N 0.34-5.60 Comp Metabolic Panel 01/30/2014 [facility] Sodium 136 mmol/L N 133-145 [address] [place] [address] [phone] Potassium 3.6 mmol/L Low 3.7-5.6 Chloride 103 [...] 0.03 ng/mL Not supportive of diagnosis of MO 0.03 - 0.50 ng/mL Indeterminate: suggest serial studies if clinically indicated. Greater than 0.5 ng/mL Consistent with diagnosis of MO 3 Absolute neutrophilia and absolute lymphocytosis, favor [...] 0.03 ng/mL Not supportive of diagnosis of MO 0.03 - 0.50 ng/mL Indeterminate: suggest serial studies if clinically indicated. Greater than 0.5 ng/mL Consistent with diagnosis of MO 7 Please note: The following may produce [...] 0.03 ng/mL Not supportive of diagnosis of MO 0.03 - 0.50 ng/mL Indeterminate: suggest serial studies if clinically indicated. Greater than 0.5 ng/mL Consistent with diagnosis of MO 11 SEE RESULT BELOW Name: PASCALE GARCÍA : [address]: Joseph Durand MD Acct: [id number] Unit: [id number] AGE: 54 Location: ED Re03/12/15 SEX: F Status: DEP ER SPEC: [id number] KAMAR: 03/12/[address] [facility] [address]: Joseph Durand MD REQ: [id number] RECD: 03/12/15 STATUS: COMP [facility] DR: Denice Christopher MD _ SOURCE: URINE SPDESC: ORDERED: Urine Culture Procedure Result Verified Site Urine Culture Final 03/14/15- 1045 ML Organism 1 NORMAL JAMES [place] Count 50-75,000 (Many) CFU/ML * ML - MAIN LAB ([facility]) . END OF REPORT * ML=Testing performed at Main Lab DEPARTMENT OF PATHOLOGY, [address] [place] [address] Osmar Edge M.D. Director [facility] # [id number] 12 Reference Range and Interpretation: TnI (ng/mL) Interpretation Less Than 0.03 ng/mL Not supportive of diagnosis of MO 0.03 - 0.50 ng/mL Indeterminate: suggest serial studies if clinically indicated. Greater than 0.5 ng/mL Consistent with diagnosis of MO 13 Consistent with previous results on 02/26/15. [...] 0.03 ng/mL Not supportive of diagnosis of MO 0.03 - 0.50 ng/mL Indeterminate: suggest serial studies if clinically indicated. Greater than 0.5 ng/mL Consistent with diagnosis of MO 16 Reference Range and Interpretation: TnI (ng/mL) Interpretation Less Than 0.03 ng/mL Not supportive of diagnosis of MO 0.03 - 0.50 ng/mL Indeterminate: suggest serial studies if clinically indicated. Greater than 0.5 ng/mL Consistent with diagnosis of MO 17 Because ethnic data is not always [...] 0.03 ng/mL Not supportive of diagnosis of MO 0.03 - 0.50 ng/mL Indeterminate: suggest serial studies if clinically indicated. Greater than 0.5 ng/mL Consistent with diagnosis of MO 22 Acute inflammation: >10.00 23 SEE RESULT BELOW Name: PASCALE GARCÍA : [address]: Darius Cottrell MD Acct: [id number] Unit: [id number] AGE: 54 Location: [facility] Re12/26/14 SEX: F Status: DEP ER SPEC: [id number] KAMAR: 12/26/[address] [facility] [address]: Darius Cottrell MD REQ: [id number] RECD: 12/26/14 STATUS: COMP [facility] DR: Denice Christopher MD _ SOURCE: HAND,LEFT SPDESC: ORDERED: Culture Stain Procedure Result Verified Site Wound/Misc Gram Stain Final 12/26/14- 1400 ML 1+ Neutrophils No Organisms Seen Wound/Misc Culture Final 12/28/14- 1124 ML No Growth Day 2 * ML - MAIN LAB ([facility]) . END OF REPORT * ML=Testing performed at Main Lab DEPARTMENT OF PATHOLOGY, [address] [place] [address] Osmar Edge M.D. Director [facility] # [id number] 24 Because ethnic data is not always [...] Acute inflammation: >10.00 28 RUN DATE: 09/23/14 [facility] LAB LIVE PAGE 1 RUN TIME: 4805 05 [place] [address] Specimen Inquiry Name: PASCALE GARCÍA : [address]: Denice Christopher MD Acct: [id number] Unit: [id number] AGE: 54 Location: [facility] Re09/21/14 SEX: F Status: REG REF SPEC: [id number] KAMAR: 09/21/14-[address]: Denice Christopher MD REQ: [id number] RECD: 09/21/14 STATUS: COMP _ SOURCE: URINE SPDESC: ORDERED: Urine Culture QUERIES: Provider Requisition # [id number] Procedure Result Verified Site Urine Culture Final 09/23/14- 1027 L Organism 1 NORMAL JAMES [place] Count >100,000 (Many) CFU/ML END OF REPORT * ML=Testing performed at Main Lab DEPARTMENT OF PATHOLOGY, [address] [place] [address] Osmar Edge M.D. Director [facility] # [id number] 29 Acute inflammation: >10.00 30 Because ethnic [...] and in selective patients <6.0%.Please refer to [place] [employer] Diabetic care guidelines for further [...] REFERENCE VALUE Not present Test Performed by: [place] [address] Game Technician: Gavino Tyler M.D. 37 Because ethnic data [...] 0.03 ng/mL Not supportive of diagnosis of MO 0.03 - 0.50 ng/mL Indeterminate: suggest serial studies if clinically indicated. Greater than 0.5 ng/mL Consistent with diagnosis of MO 40 RUN DATE: 08/07/14 [facility] LAB LIVE PAGE 1 RUN TIME: [address] [place] [address] Specimen Inquiry Name: PASCALE GARCÍA : [address]: Julio C Lindsey DO Acct: [id number] Unit: [id number] AGE: 53 Location: ED Re08/02/14 SEX: F Status: DEP ER SPEC: [id number] KAMAR: 08/02/[address]: Jase GIBSON REQ: [id number] RECD: 08/02/14 STATUS: [place] AGUIRRE DR: Denice Lindsey DO _ SOURCE: BLOOD,VENO SPDESC: ORDERED: Blood Cult Procedure Result Verified Site Aerobic Culture Bottle Final 08/07/14- 1518 ML No Growth Day 5 Anaerobic Culture Bottle Final 08/07/14- 1518 ML No Growth Day 5 END OF REPORT * ML=Testing performed at Main Lab DEPARTMENT OF PATHOLOGY, [facility] [employer] [place], [place] [address] Osmar Edge M.D. Director [facility] # [id number] 41 RUN DATE: 08/07/14 [facility] LAB LIVE PAGE 1 RUN TIME: 3404 [facility] [employer] [place], [place] [address] Specimen Inquiry Name: PASCALE GARCÍA : [address]: Julio C Lindsey DO Acct: [id number] Unit: [id number] AGE: 53 Location: ED Re08/02/14 SEX: F Status: DEP ER SPEC: [id number] KAMAR: 08/02/[address] [facility] [address]: Jase GIBSON REQ: [id number] RECD: 08/02/14 STATUS: [place]IS AGUIRRE DR: Denice Lindsey DO _ SOURCE: BLOOD,VENO SPDESC: ORDERED: Blood Cult Procedure Result Verified Site Aerobic Culture Bottle Final 08/07/14- 1440 ML No Growth Day 5 Anaerobic Culture Bottle Final 08/07/14- 1440 ML No Growth Day 5 END OF REPORT * ML=Testing performed at Main Lab DEPARTMENT OF PATHOLOGY, [address] [place] [address] Osmar Edge M.D. Director [facility] # [id number] 42 >100 to <200 pg/mL: likely compensated [...] 0.03 ng/mL Not supportive of diagnosis of MO 0.03 - 0.50 ng/mL Indeterminate: suggest serial studies if clinically indicated. Greater than 0.5 ng/mL Consistent with diagnosis of MO 45 Please note: The following may produce [...] 0.03 ng/mL Not supportive of diagnosis of MO 0.03 - 0.50 ng/mL Indeterminate: suggest serial studies if clinically indicated. Greater than 0.5 ng/mL Consistent with diagnosis of MO 48 Acute inflammation: >10.00 49 This test [...] Acute inflammation: >10.00 53 RUN DATE: 07/25/14 [facility] LAB LIVE PAGE 1 RUN TIME: [address] [place], [place] [address] Specimen Inquiry Name: PASCALE GARCÍA : [address]: Wei Saini Acct: [id number] Unit: [id number] AGE: 53 Location: ED Re07/25/14 SEX: F Status: REG ER SPEC: [id number] KAMAR: 07/25/[address]: Wei Thomason DO REQ: [id number] RECD: 07/25/14 STATUS: [place] AGUIRRE DR: Denice Christopher MD _ SOURCE: JONEL SPDES: ORDERED: Rapid Flu A B Procedure Result [...] performed at Main Lab DEPARTMENT OF PATHOLOGY, [address] [place] [address] Osmar Edge M.D. Director [facility] # [id number] 53 Because ethnic data is not always [...] <15 (or dialysis) 58 RUN DATE: 07/12/14 [facility] LAB LIVE PAGE 1 RUN TIME: [address] [place] [address] Specimen Inquiry Name: PASCALE GARCÍA : [address]: Denice Christopher MD Acct: [id number] Unit: [id number] AGE: 53 Location: [facility] Re07/09/14 SEX: F Status: REG REF SPEC: [id number] KAMAR: 07/09/14-[address]: Denice Christopher MD REQ: [id number] RECD: 07/09/147247 STATUS: COMP _ SOURCE: URINE SPDESC: ORDERED: Urine Culture QUERIES: [employer] Number [id number] Procedure Result Verified Site Urine Culture Final 07/12/14- 60 ML Organism 1 NORMAL JAMES [place] Count 75-100,000 (Many) CFU/ML END OF REPORT * ML=Testing performed at Main Lab DEPARTMENT OF PATHOLOGY, [address] [place] [address] Osmar Edge M.D. Director [facility] # [id number] 58 Because ethnic data is not always [...] 0.03 ng/mL Not supportive of diagnosis of MO 0.03 - 0.50 ng/mL Indeterminate: suggest serial studies if clinically indicated. Greater than 0.5 ng/mL Consistent with diagnosis of MO 61 Because ethnic data is not always [...] dialysis) Procedures Date Code Description Status 08/26/2015 92111 Trigger Finger Release Incision / Tendon Sheath Completed Incision 08/26/2015 50997 Trigger Finger Release Incision / Tendon Sheath Completed Incision 04/25/2015 18571 Diffusing Capacity Completed 04/25/2015 64751 Plethysmography Determination Lung Volumes & Per Airway Completed Resist 04/25/2015 62359 Pulmonary Function><Bronchodil Completed 11/25/2014 99059576 Mammogram Completed 10/18/2014 19869223 Colonoscopy Completed 09/23/2014 93976531 Colonoscopy Completed 09/07/2014 11463 EKG Tracing & Interpretation Completed 11/16/2013 24908 Xray Knee 3 Views Completed 11/16/2013 19076 Rad Exam; Knee, Ap&L Completed 08/28/2013 33131 Carpal Tunnel Release Completed 08/07/2013 73984 Carpal Tunnel Release Completed 06/18/2013 84776 Rad Exam; Wrist, Comp, Min 3 Views Completed 06/18/2013 50674 Rad Exam; Wrist, Comp, Min 3 Views Completed 05/29/2013 49448 EKG, Interpretation Only Completed 05/26/2013 44130 EKG, Interpretation Only Completed 01/07/2012 16971 Xray Knee 3 Views Completed 01/07/2012 61774 Rad Exam; Knee Comp Completed 01/07/2012 08485 Rad Exam; Tib-Fib Completed 06/20/2011 93702 Xray Knee 3 Views Completed 06/20/2011 02777 Rad Exam; Knee, Ap&L Completed 05/08/2011 72300 TKR Total Knee Replacement Completed 11/27/2010 65047 Xray Knee 3 Views Completed 11/27/2010 07708 Rad Exam; Knee, Ap&L Completed 11/27/2010 07412 Rad Exam; Elbow, Limited Completed 11/27/2010 31854 Inject/Drain Joint/Bursa Major W/O US Completed 07/03/2010 43804 Xray Knee 3 Views Completed 04/07/2010 91297 Xray Knee 3 Views Completed 03/07/2010 85252 TKR Total Knee Replacement Completed Encounters Type [...] init Office Visit 11/24/2018 11:15a Orthopedic Eva Esteves, T84.053A Periprosth Services Of M.D. osteolysis of C.M.A. internal prosthetic l knee jt, init M25.562 Pain in left knee M25.462 Effusion, left knee M25.362 Other instability, left knee Z96.652 Presence of left artificial knee joint Office Visit 11/14/2018 10:30a Orthopedic Eva Esteves, S83.412A Sprain of medial Services Of M.D. collateral C.M.A. ligament of left knee, init T84.053A Periprosth osteolysis of internal prosthetic l knee jt, init M25.562 Pain in left knee M25.462 Effusion, left knee M25.362 Other instability, left knee Z96.652 Presence of left artificial knee joint Office Visit 10/28/2018 11:30a Orthopedic Ryan Luis Daniel M25.562 Pain in left Services Of Jose Maki MD knee Z96.652 Presence of left artificial knee joint Office Visit 10/14/2018 10:00a Orthopedic Ryan Luis Daniel Z96.651 Presence of Services Of MD Glynn right artificial C.M.A. 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 Internal Darius Diaz, 491.21 Bronchitis Medicine - [employer]ANCE SALES PROFESSIONAL Obstructive Chronic W/Acute Exacerbation 305.1 Tobacco Use Disorder Office Visit 03/14/2015 3:00p [facility] Internal Norbert Morgan, 786.05 Shortness Of Medicine - [employer] SALES PROFESSIONAL Breath 724.2 Lumbago 496 COPD Airway Obstruction Chronic Not Class Elsewhere Office Visit 12/29/2014 10:00a [facility] Internal Darius Diaz, 692.6 Dermatitis Contact Medicine - [employer] INSURANCE SALES PROFESSIONAL Due To Plants (Except Food) 782.1 Rash & Other Nonspec Skin Eruption Office Visit 12/10/2014 9:30a [facility] Internal Darius Diaz NP 528.9 Oral Soft Tissue Medicine - [facility] Diseases Other & Unspec 782.0 Skin Sensation Disturbance Office Visit 2014 12:40p [facility] Internal Denice Christopher, 789.02 Pain Abdominal Medicine - [facility] M.D. Left Upper Quadrant 789.63 Tenderness Abdominal Right Lower Quadrant Office Visit 09/07/2014 4:00p [facility] Internal Denice Christopher, V72.84 Examination Medicine - M.D. Preoperative Unspec Ccmob 789.02 Pain Abdominal Left Upper Quadrant 530.11 Esophagitis Reflux V72.81 Examination Preoperative Cardiovascular 553.1 Hernia Umbilical 789.62 Tenderness Abdominal Left Upper Quadrant 790.95 Elevated C-Reactive Protein 790.5 Serum Enzyme Levels Abnormal Other Nonspec 530.81 Esophageal Reflux Office Visit 08/23/2014 3:00p [facility] Internal Norbert Morgan 789.02 Pain Abdominal Medicine - [employer] INS[employer]ANCE SALES PROFESSIONAL Left Upper Quadrant 787.01 Nausea W/ Vomiting Office Visit 08/13/2014 11:20a [facility] Internal Deniec Christopher, 789.00 Pain Abdominal Medicine - Ccm[facility] M.D. Unspec Site 288.60 Leukocytosis, Unspecified Office Visit 08/10/2014 9:48a [facility] Aline S. 789.00 Pain Abdominal Assoc,pc Yves, N.P. Unspec Site Hospitalists 496 COPD Airway Obstruction Chronic Not Class Elsewhere 288.60 Leukocytosis, Unspecified Office Visit 08/08/2014 9:47a [facility] Alissa 789.00 Pain Abdominal Assoc,pc DELFINO Cantrell Unspec Site Hospitalists 496 COPD Airway Obstruction Chronic Not Class Elsewhere 288.60 Leukocytosis, Unspecified Office Visit 07/31/2014 11:43a [facility] Melita 789.00 Pain Abdominal Assoc,pc Janusz, D.O. Unspec Site Hospitalists 530.11 Esophagitis Reflux 490 Bronchitis Acute Or Chronic Not Spec 311 Depressive Disorder Not Elsewhere Spec Office Visit 07/26/2014 11:30a 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 Internal Denice Christopher, 789.07 Pain Abdominal Medicine - M.D. Generalized Ccm[facility] Office Visit 05/24/2014 1:00p 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 Internal Denice Christopher, 491.21 Bronchitis Medicine - M.D. Obstructive Chronic Ccm[facility] W/Acute Exacerbation 492.8 Emphysema Other Office Visit 11/29/2013 4:32p [facility] Jose Alejandro Zuleta 786.50 Pain Chest Assoc,teo Muñoz M.D. Unspec Hospitalists Hospitalist 492.8 Emphysema Other 401.9 Hypertension Unspec 311 Depressive Disorder Not Elsewhere Spec Office Visit 11/28/2013 4:28p [facility] Guillermo Moon 786.50 Pain Chest Assoc,teo CASTILLO M.D. Unspec Hospitalists 492.8 Emphysema Other 401.9 Hypertension Unspec 311 Depressive Disorder Not Elsewhere Spec Office Visit 11/16/2013 Orthopedic Sacha Farfan, 726.64 Tendinitis 11:30a Services Of Jose Friedman Patellar Office Visit 06/18/2013 Orthopedic Lucille 354.0 Carpal Tunnel 9:00a Services Of Jose Nuno M.D. Syndrome Office Visit 05/29/2013 [facility] Smith Marie, 491.21 Bronchitis 2:46p Assocteo M.D. Obstructive Hospitalists Chronic W/Acute Exacerbation 481 Pneumonia Pneumococcal 311 Depressive Disorder Not Elsewhere Spec Office Visit 05/28/2013 2:46p [facility] Manuel 481 Pneumonia Assoc,teo Puente N.PHector Pneumococcal Hospitalists 311 Depressive Disorder Not Elsewhere Spec 491.21 Bronchitis Obstructive Chronic W/Acute Exacerbation Office Visit 05/26/2013 [facility] Smith 491.21 Bronchitis 6:10p Assoc,teo Marie M.D. Obstructive Hospitalists Chronic W/Acute Exacerbation 786.52 Painful Respiration 311 Depressive Disorder Not Elsewhere Spec 794.31 Electrocardiogram (ECG) (EKG) Abnormal Office Visit 05/25/2013 [facility] Aline S. 491.21 Bronchitis 6:10p Assoc,teo Marinelli N.P. Obstructive Hospitalists Chronic W/Acute Exacerbation 794.31 Electrocardiogram (ECG) (EKG) Abnormal 786.52 Painful Respiration 311 Depressive Disorder Not Elsewhere Spec Office Visit 10/16/2012 4:27p [facility] [place] 492.8 Emphysema Other Assoc,teo Rader M.D. 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 Office Visit 03/28/2011 Orthopedic Sacha Farfan, 716.96 Arthropathy Unspec 2:45p Services Of Elder Lower Leg C.M.A. Office Visit 11/27/2010 Jacinta Farfan, 716.96 Arthropathy Unspec 2:30p Services Of Elder Lower Leg C.M.A. 715.96 Osteoarthrosis Unspec Genlzd Or Localized Lower Leg 726.32 Epicondylitis Lateral Office Visit 07/03/2010 8:15a Orthopedic Sacha Farfan, 844.9 Sprains & Strains Services Of Elder Knee & Leg Unspec C.M.A. Office Visit 02/23/2010 8:00a Orthopedic Maya 715.96 Osteoarthrosis Services Of Jack Coyne Genlzd Or C.M.A. RPA-C Localized Lower Leg 719.46 Pain Joint Lower Leg Office Visit 02/08/2010 3:30p Orthopedic Sacha Farfan 715.96 Osteoarthrosis Services Of Elder Unspec Genlzd Or C.M.A. Localized Lower Leg Plan of Treatment Future Appointment(s):02/13/2019 2:15 pm - Eva Esteves M.D. at [facility].01/30/2019 12:30 pm - Maximus Vu PA-C at [facility] .M.A.01/30/2019 12:30 pm - ARTHUR Barba at [facility].01/30/2019 12:30 pm - Eva Esteves M.D. at [facility] M.A.01/21/2019 - Eva Esteves M.D.T84.053A Periprosthetic osteolysis of internal prosthetic left knee jFollow up:Follow up: 2 weeks after avbkqvoI88.562 Pain in left kneeM25.462 Effusion, left kneeM25.362 Other instability, left knee
--- NOTE | 2019-02-06 22:26 | ED ---
Lower Extremity - HPI Summary HPI Summary: This pt is a 58 y/o female [facility] [place]/o increasing pain and erythema to left knee s/p total left knee replacement on 01/30/19. Pt reports her surgery was done by Dr. Esteves on 01/30/19 and was discharged home on 02/02/19. She notes she began to notice redness and swelling on her left knee two days ago on . Pt states her redness was marked 2 days ago. Denies any other symptoms. Denies any fever. Pt had physical therapy today. - History of Current Complaint Chief Complaint: EDExtremityLower Stated Complaint: POSSIBLE INFECTION ON LT KNEE PER PT Time Seen by Provider: 02/06/19 22:16 Hx Obtained From: Patient Hx Last Menstrual Period: 1995 Mechanism Of Injury: Other - s/p total left knee replacement on 01/30/19. Onset of Pain: Days Onset/Duration: Days Severity Currently: Moderate Pain Intensity: 8 Pain Scale Used: 0-10 Numeric Timing: Lasting Days Location: Is Discrete @ - left knee Associated Signs And Symptoms: Positive: Swelling, Redness, Knee Pain - left. Negative: Fever Aggravating Factor(s): Nothing Alleviating Factor(s): Nothing Related History: Other - s/p total left knee replacement. - Allergies/Home Medications Allergies/Adverse Reactions: Allergies Allergy/AdvReac Type Severity Reaction Status Date / Time acetaminophen Allergy Severe See Comment Verified 02/06/19 20:27 aspirin Allergy Severe Hives Verified 02/06/19 20:27 ibuprofen Allergy Severe See Comment Verified 02/06/19 20:27 clarithromycin Allergy Intermediate GI Upset Verified 02/06/19 20:27 celecoxib [From Celebrex] Allergy Mild Hives Verified 02/06/19 20:27 Penicillins Allergy Mild Hives Verified 02/06/19 20:27 phenytoin [From Dilantin] Allergy Mild Hives Verified 02/06/19 20:27 rofecoxib [From Vioxx] Allergy Mild Hives Verified 02/06/19 20:27 Sulfa (Sulfonamide Allergy Mild Hives Verified 02/06/19 20:27 Antibiotics) PMH/Surg Hx/FS Hx/Imm Hx Endocrine/Hematology History: Denies: Hx Anticoagulant Therapy, Hx Diabetes, Hx Systemic Lupus Erythematosus, Hx Sickle Cell Disease, Hx Thyroid Disease, Hx Anemia Cardiovascular History: Reports: Hx Angina, Hx Hypertension - controlled with meds Denies: Hx Congestive Heart Failure, Hx Deep Vein Thrombosis, Hx Myocardial Infarction, Hx Pacemaker/ICD, Other Cardiovascular Problems/Disorders Respiratory History: Reports: Hx Asthma, Hx Chronic Bronchitis, Hx Chronic Obstructive Pulmonary Disease (COPD), Hx Seasonal Allergies, Other Respiratory Problems/Disorders - CURRENT SMOKER <1/2 PPD X 20+ YEARS Denies: Hx Lung Cancer, Hx Pneumonia, Hx Sleep Apnea GI History: Reports: Hx Gall Bladder Disease - removed 10 years ago, Hx Gastroesophageal Reflux Disease, Other GI Disorders - HX OF VENTRAL HERNIA REPAIR WITH MESH 01/2013, GERD Denies: Hx Gastrointestinal Bleed, Hx Ulcer, Hx Urosepsis History: Denies: Hx Dialysis, Hx Kidney Infection, Hx Kidney Stones, Hx Renal Disease , Other Problems/Disorders Musculoskeletal History: Reports: Hx Arthritis - HANDS, Hx Gout, Other Musculoskeletal History - BILATERAL TOTAL KNEE REPLACEMENT Denies: Hx Rheumatoid Arthritis Sensory History: Reports: Hx Contacts or Glasses - to read and drive Denies: Hx Glaucoma, Hx Macular Degeneration, Hx Hearing Aid Opthamlomology History: Reports: Hx Contacts or Glasses - to read and drive Denies: Hx Glaucoma, Hx Macular Degeneration Neurological History: Reports: Hx Migraine - RARE, Hx Seizures - LAST ONE 8 YRS AGO- depression seizures Denies: Other Neuro Impairments/Disorders Psychiatric History: Reports: Hx Anxiety, Hx Depression Denies: Hx Eating Disorder, Hx of Violent Episodes Against Others, Hx Substance Abuse - Cancer History Hx Chemotherapy: No - Surgical History Surgery Procedure, Year, and Place: right TKA -02/2010 [facility] [place]. left TKA- 04/2011 [facility] [place]. [facility] hysterectomy 1995. LAP FIDENCIO 2007. VENTRAL HERNIA REPAIR 01/2013 UMBILICAL HERNIA REPAIR. RIGHT INDEX TRIGGER FINGER 2005 [facility] [place] [facility]. R CTR 2013 [facility] [place] [facility] Hx Anesthesia Reactions: No - Immunization History Date of Tetanus Vaccine: Unk Date of Influenza Vaccine: 03/29 Infectious Disease History: No Infectious Disease History: Denies: Hx Clostridium Difficile, Hx Hepatitis, Hx Human Immunodeficiency Virus (HIV), Hx Shingles, Hx Tuberculosis, Hx Known/Suspected VRE, Hx Known/ Suspected VRSA, History Other Infectious Disease, Traveled Outside the [place] in Last 30 Days - Family History Known Family History: Positive: Hypertension, Other - No FHx of psychiatric disorders - Social History Alcohol Use: None Hx Substance Use: No Substance Use Type: Reports: None Hx Tobacco Use: Yes Smoking Status (MU): Light Every Day Tobacco Smoker Type: Cigarettes Amount Used/How Often: 4 CIGS/DAY for 20+ years Length of Time of Smoking/Using Tobacco: 20 YRS Have You Smoked in the Last Year: Yes Review of Systems Negative: Fever Musculoskeletal: Other - POSITIVE: left knee pain Skin: Other - POSITIVE: redness on left knee All Other Systems Reviewed And Are Negative: Yes Physical Exam - Summary Physical Exam Summary: Appearance: Well-appearing, Well-nourished, lying in bed comfortable. Does not appear toxic or ill. Skin: Warm, dry, no obvious rash Eyes: sclera anicteric, no conjunctival pallor ENT: mucous membranes moist Neck: deferred Respiratory: No signs of respiratory distress Cardiovascular: Appears well perfused, pulses are nml Abdomen: deferred Musculoskeletal: Left knee has an anterior severed scar with recent surgery and several centimeters of swelling and erythema about the wound more so than I would expect to see from severed healing. No drainage or abscess is present. Neurological: Awake and alert, mentation is normal, speech is fluent and appropriate Psychiatric: affect is normal, does not appear anxious or depressed Triage Information Reviewed: Yes Vital Signs On Initial Exam: Initial Vitals Temp Pulse Resp BP Pulse Ox 98.8 F 102 16 139/91 98 02/06/19 20:20 02/06/19 20:20 02/06/19 20:20 02/06/19 20:20 02/06/19 20:20 Vital Signs Reviewed: Yes Diagnostics - Vital Signs Vital Signs Temp Pulse Resp BP Pulse Ox 02/06/19 20:20 98.8 F 102 16 139/91 98 - Laboratory Result Diagrams: 02/06/19 22:34 02/06/19 22:34 Lab Statement: Any lab studies that have been ordered have been reviewed, and results considered in the medical decision making process. Lower Extremity Course/Dx - Course Assessment/Plan: Pt is a 58 y/o female presenting to [facility] c/o increasing pain and erythema to left knee s/p total left knee replacement on 01/30/19. Lab results remarkable for WBC of 11.6, hemoglobin of 9.4, hematocrit of 28, platelet count of 473, CRP of 64.09. Dr. Javed, orthopedist, examined the pt in the ED. In the ED course the pt was given Cefazolin. Pt will be discharged home with a follow up from Dr. Esteves on Saturday. She was given a prescription for Keflex. She was also given instructions to contact orthopedics if her symptoms worsen over the weekend. - Diagnoses Provider Diagnoses: Wound infection - Physician Notifications Discussed Care Of Patient With: Moses Javed Time Discussed With Above Provider: 22:36 Instructed by Provider To: Other - Discussed with Dr. Javed, orthopedist, who will come see the pt in the ED. Discharge - Sign-Out/Discharge Documenting (check all that apply): Patient Departure - Discharge home Patient Received Moderate/Deep Sedation with Procedure: No - Discharge Plan Condition: Good Disposition: HOME Prescriptions: Cephalexin CAP* [Keflex CAP*] 500 mg PO QID #40 cap Patient Education Materials: Wound Infection (ED) Referrals: Eva Esteves MD [Medical Doctor] - (on Saturday) Additional Instructions: If you start to feel much worse over the weekend contact the electronic gaming device supervisor provider for Dr. Esteves. - Billing Disposition and Condition Condition: GOOD Disposition: Home - Attestation Statements Document Initiated by Eileen: Yes Documenting Scribe: Lia Pozo Provider For Whom Eileen is Documenting (Include Credential): Joseph Santillan MD Scribe Attestation: Lia Boykin, fidelinaed for Joseph Santillan MD on 02/07/19 at 1850. Scribe Documentation Reviewed: Yes Provider Attestation: The documentation as recorded by the Lia mcneal accurately reflects the service I personally performed and the decisions made by me, Joseph Santillan MD Status of Scribe Document: Viewed
[2019-02-06 22:53] LABS: ABS Eosinophils 0.2 10^3/ul (0-0.6); ABS Lymphocytes 2.5 10^3/ul (1.0-4.8); ABS Monocytes 1.1 10^3/ul (0-0.8); ABS Neutrophils 7.7 10^3/ul (1.5-7.7); Eosinophil % 1.5 %; Hematocrit 28 % (35-47); Hemoglobin 9.4 g/dL (12.0-16.0); Lymphocyte % 21.8 %; Mean Corpuscular HGB Conc 33 g/dL (31-36); Mean Corpuscular Hemoglobin 31 pg (27-31); Mean Corpuscular Volume 92 fL (80-97); Mean Platelet Volume 9.2 fL (7.4-10.4); Platelet Count 473 10^3/uL (150-450); Red Blood Count 3.06 10^6 /uL (3.70-4.87); Red Cell Distribution Width 15 % (10-15); White Blood Count 11.6 10^3/uL (3.5-10.8)
[2019-02-06 23:01] LABS: INR 1.21 (0.82-1.09)
[2019-02-06 23:09] LABS: Albumin 3.6 g/dL (3.2-5.2); Albumin/Globulin Ratio 1.1 (1-3); BUN/Creatinine Ratio 13.8 (8-20); C Reactive Protein 64.09 mg/L (<8.01); Calcium 8.9 mg/dL (8.6-10.3); EGFR African American 128.8 (>60); EGFR Non-African American 106.4 (>60); Globulin 3.2 g/dL (2-4); Potassium 3.5 mmol/L (3.5-5.0); Total Bilirubin 0.3 mg/dL (0.2-1.0); Total Protein 6.8 g/dL (6.4-8.9)
[2019-02-06 23:11] LABS: Troponin I 0.01 ng/mL (<0.04)
[2019-02-06] MEDS ORDERED: ceFAZolin 2 GM PREMIX in ORs 2 GM/50 ML BAG IVPB ONE (23:19)
[2019-02-07 00:05] VITALS: BP 111/67
[2019-02-07 00:08] LABS: Erythrocyte Sed Rate 79 mm/Hr (0-29)
--- NOTE | 2019-02-07 02:51 | CONS ---
CC: Dr. Esteves; PCP CONSULTATION REPORT: DATE OF CONSULTATION: 02/06/19 ATTENDING PHYSICIAN: Moses Javed MD CHIEF COMPLAINT: Left knee pain and swelling. HISTORY OF PRESENT ILLNESS: Briefly, Ms. Turner is a 58-year-old female. She had a recent, on 01/30/19, a revision left total knee arthroplasty by Dr. Esteves, which was uncomplicated. She states that she was doing okay in the last few days. She just recently started therapy at home. She said last couple of days, she started noticing anterior erythema and some pain. She is still able to weight bear and has range of motion, but it is uncomfortable. She has not been febrile and does not have fever on examination today in the ER, but she does state that it is painful. She is concerned about the redness and warmth. There is no drainage. There are no new effusions. She denies any calf pain or shortness of breath. She does not have any history of a previous infection in that knee. She called the answering service and then was sent to the ER for concerns, if she had any increasing concerns. PAST MEDICAL HISTORY: Depression, history of pancreatitis, COPD, epilepsy, last seizure in 1997, GERD, high cholesterol, chronic pain, hypertension. PAST SURGICAL HISTORY: Hysterectomy, left total knee arthroplasty and then revision arthroplasty approximately a week ago, bilateral carpal tunnel release , hernia repair, right total knee arthroplasty. MEDICATIONS: 1. Venlafaxine. 2. Albuterol. 3. Amlodipine. 4. Bacitracin ointment. 5. Gabapentin. 6. Metoclopramide. 7. Mupirocin. 8. Valacyclovir. 9. Omeprazole. 10. Atorvastatin. 11. Fluticasone. 12. Lipase, protease, amylase. 13. Mag-Ox. 14. Tiotropium. 15. Eliquis. 16. Oxycodone. ALLERGIES: ACETAMINOPHEN, ASPIRIN, IBUPROFEN, CLARITHROMYCIN, CELEBREX, DILANTIN, which causes seizures, and ROFECOXIB FAMILY HISTORY: Cancer and MS. SOCIAL HISTORY: She lives alone. She smokes half a pack a day for the last 40 years. Denies drugs and alcohol. She is community ambulator. REVIEW OF SYSTEMS: A 14-point review of systems reviewed with the patient, significant for seizures, last one was in 1997; COPD; GERD; no history of DVT or PE. She does not have any fevers, but she has a redness and warmth and pain that began in the last couple of days. Otherwise, remainder of the systems negative. PHYSICAL EXAM: Vitals: Temperature 98.8, pulse is 95, oxygen 95, blood pressure 111/85. On physical exam, she is in no acute distress. She is lying comfortably in the bed. EOMI. Chest is clear to auscultation. Heart: Regular rate and rhythm. Abdomen soft, nontender. Examination of the left leg demonstrates a skin, there is a well healing incision. There is erythema surrounding the nylon sutures. It does not extend proximal or distal to this. There is no calf pain or shortness of breath. She is able to flex her knee from 0 to about 50 degrees both passively and actively without discomfort. She is sensate to light touch about the first dorsal webspace; medial, lateral, dorsal, and plantar foot. She has 2+ PT pulse. She does have 1+ pitting edema distally. No obvious effusion in the joint. She is not specifically tender to palpation other than around the incision and she does have some mild warmth and erythema again surrounding the suture line. DIAGNOSTIC STUDIES/LAB DATA: X-rays reviewed demonstrate satisfactory alignment of the arthroplasty. Labs: White count of 11.6, hematocrit of 28, platelets 473. INR is 1.21. Sodium is 138, potassium 3.5, chloride 104, carbon dioxide 26, BUN is 8, and creatinine 0.58, glucose is 96, lactic acid 0.8, alk phos is 178. CRP is 64.09. ESR is pending. ASSESSMENT AND PLAN: She appears to have some superficial cellulitis. At this point, we are going to treat this conservatively. I gave her a dose of Ancef. We talked about swelling, persistent pain, inability to weight bear, loss of motion. If she has any of these signs or symptoms or fever or chills, she needs to call the answering service and I will touch base with Dr. Esteves as well by sending her an e- mail this evening. The patient was reassured, I want her to also see Dr. Esteves on Saturday just for a followup. [id number]/[facility] #: [id number] [facility]
== END 2019-02-07 00:05 | disposition home or self-care (01) ==
LOC: ED 20:20
DX: T81.41XA Infection following a procedure, superficial incisional surgical site, initial encounter (principal); L08.9 Local infection of the skin and subcutaneous tissue, unspecified; I10 Essential (primary) hypertension; E78.00 Pure hypercholesterolemia, unspecified; J44.9 Chronic obstructive pulmonary disease, unspecified; K21.9 Gastro-esophageal reflux disease without esophagitis; F41.9 Anxiety disorder, unspecified; F32.9 Major depressive disorder, single episode, unspecified; R56.9 Unspecified convulsions; G89.29 Other chronic pain; Z79.01 Long term (current) use of anticoagulants; Z96.653 Presence of artificial knee joint, bilateral; Z88.6 Allergy status to analgesic agent; Z88.0 Allergy status to penicillin; Z88.2 Allergy status to sulfonamides; Z88.8 Allergy status to other drugs, medicaments and biological substances; F17.210 Nicotine dependence, cigarettes, uncomplicated
CPT/HCPCS: 36415; 80053; 83605; 84484; 85025; 85610; 85652; 85730; 86140; 87040; 96365; 96366; 99282; J0690

== ENCOUNTER 2019-02-20 22:04 | Emergency (ER) | payer MEDICARE ==
--- OUTSIDE RECORDS SUMMARY | 2019-02-20 22:18 | XMS REPORT | Continuity of Care Document ---
:1960 External Reference #:[id number] Author Name Gladis Olivares Care Team Providers Name Role Phone Tatiana Geronimo MD Primary Care Physician Unavailable Payers Date Identification Numbers Payment Provider Subscriber Policy Number: [id number] [facility] [employer] Turner PayID: [id number] [address] [address] [place] [address] Effective: 2018 Policy Number: [id number] [facility] Care [employer] Expires: 2020 Group Number: [id number] [facility] PayID: [id number] [address] Problems Active Problems Provider Date Leukopenia ALMA [...] Linsey Mendoza MD Onset: 04/11/2015 Chronic obstructive lung disease Linsey Mendoza MD Onset: 04/11/2015 Sprain of medial collateral ligament Ryan Maki [...] per day 30 years Smoking Status Reviewed: 02/18/19 Currently smokes 1-5 Cigarettes Daily ETOH Use [...] Medications SIG Qnty Indications Ordering Date Provider Hydroxyzine Pamoate 1 capsule po q8 30caps M25.562 Eva Esteves, 2018 25mg hours prn itching M.D. Capsules Doxycycline Monohydrate 1 by mouth twice 14caps Eva Esteves, 02/11/2019 a day for 7 days M.D. 100mg Capsules Oxycodone-Acetaminophen 1-2 tabs by mouth 60tabs Eva Esteves, 02/02/2019 every 4 hours for M.D. 5-325mg Tablets pain Eliquis 1 tab by mouth 60tabs Eva Esteves, 02/02/2019 2.5mg Tablets twice a day for M.D. 30 days Mike schwarz 1ungarry Esteves, 12/22/2018 [facility] [place]: s/p M.DHector knee replacement Voltaren apply to affected 200gm Ryan Cary 10/18/2018 1% Gel area up to three MD Glynn times daily on knee Clindamycin HCL 600mg 1 hours 2caps Emerson 11/08/2016 300mg prior to dental Elder Michelle Capsules work Effexor XR 1 by mouth every Unknown 04/10/2015 150mg Caps ER day 24HR Ventolin HFA 2 puffs by mouth Unknown 04/10/2015 108(90Base) four times a day mcg/Act Aerosol as needed Nicorette Starter Kit Chew one piece of 100units 491.21 Darius Diaz NP 2mg gum every 2 hours Gum as needed for cravings. Cephalexin Take 1 Capsule By Unknown 500mg Capsules Mouth Four Times Daily Spiriva Respimat 2 puffs, daily Unknown 1.25mcg/Act [...] swab Creon 1 by mouth three Unknown [id number] Caps DR times a day Part Atorvastatin Calcium 1 by mouth every Unknown 10mg day Tablets Amlodipine Besylate 1 by mouth every Unknown 5mg day Tablets Albuterol Sulfate 1 vial via Unknown nebulizer 4 times (2.5mg/3ML) 0.083% daily as needed Nebulizer Omeprazole take 1 capsule by norma Morgan NP 40mg Capsules DR mouth every day Oxycodone HCL as needed Irina, 5mg Tablets Cornelius Carrington MD Combivent Respimat inhale 1 puff by Unknown mouth four times 20-100mcg/Act Aerosol a day as needed Advair Diskus inhale 1 puff by Unknown mouth twice a day 250-50mcg/Dose Aerosol Venlafaxine HCL ER twice a day Unknown 150mg Caps ER 24HR History Medications Oxycodone HCL 1 tab by mouth 30caps Lucille 08/22/2015 - 5mg Capsules every 4-6 hours Elder Nuno 02/08/2019 as needed pain Do not fill until 08/26/15 Doxycycline Hyclate one tablet 20caps Norbert Morgan NP 03/17/2015 - 100mg twice daily for 03/29/2015 Capsules 10 days. Methocarbamol take 1 tablet 60tabs 724.2 Norbert Morgan NP 03/14/2015 - 750mg Tablets every six hours 03/29/2015 as needed for pain. may take second tablet if first not effective. Prednisone take 4 tab 20tabs 724.2 Norbert Morgan NP 03/14/2015 - 10mg Tablets daily x 2 days 04/10/2015 then 3 tab daily x 2 days, then 2 tab daily for 2 day, and 1 tab for 2 day. Proair HFA 2 puffs by 1units Darius [...] 07/26/2014 - 10mg Tablets mouth for 3 SPA MANAGER 08/13/2014 days then 3 tabs for 3 days, then 2 tab for 3 days then 1 tab for 5 days Mucinex 1 by mouth 10tabs 491.21 Gloria Menon, 07/26/2014 - 600mg Tablets ER 12HR twice for 3 SPA MANAGER 08/13/2014 days Percocet 1-2 tabs po 30tabs Sacha Farfan, 07/09/2014 - 5-325mg Tablets q4-6 prn pain M.D. 07/26/2014 Voltaren apply 1 gram 1tubes 727.05 Gloria Cordovak, 05/24/2014 - 1% Gel to affected SPA MANAGER 08/13/2014 area twice a day, as needed Wrist Splint/Left Small Use on left QS 727.05 Gloria Cordovak, 05/24/2014 - Misc hand as needed. SPA MANAGER 09/07/2014 Diclofenac Sodium take 1 tablet 60tabs 786.50 Gloria Menon, 05/05/2014 - 50mg Tablets by mouth 2 SPA MANAGER 07/26/2014 DR times a day as needed Methylprednisolone (Domenico) as directed 1pack 491.21 Denice Christopher, 2013 - 4mg M.D. 05/05/2014 Tablets Doxycycline Hyclate 1 by mouth 20tabs 491.21 Denice Christopher, 03/26/2014 - 100mg twice a day M.D. 05/05/2014 Tablets Azithromycin 2 tab by mouth 6tabs 491.21 Denice Christopher, 03/26/2014 - 250mg Tablets day 1 then 1 M.D. 03/26/2014 tab by mouth day 2-5 Sulfamethoxazole/Trimetho 1 tab by mouth 10tabs 491.21 Denice Christopher, 06/2014 - prim DS 2x per day M.D. 03/26/2014 800-160mg Tablets Flovent HFA 2 puffs twice 12gm Denice Christopher 03/26/2014 - 110mcg/Act Aerosol daily M.D. 09/07/2014 Tramadol HCL 1 tablets po q6 40tabs [...] 04/30/2011 - 2.5mg Tablets directed at 5pm M.DHector 07/30/2013 daily Percocet 1-2 tabs po 90tabs Sacha Farfan, 04/30/2011 - 5-325mg Tablets q4-6 prn pain M.D. 07/30/2013 Azithromycin as directed Irina, - 250mg Tablets Cornelius Carrington MD 04/10/2015 Doxycycline Hyclate Simba - 100mg MD Darius 03/14/2015 Capsules Augmented Betamethasone Simba - Dipropionate MD Darius 03/14/2015 0.05% Ointment Hydroxyzine Pamoate Unknown - 50mg 03/14/2015 Capsules Benadryl Allergy prn Unknown - 03/14/2015 Ativan 1/2-1 by mouth 10tabs Unknown - 1mg Tablets once a day as 09/07/2014 needed Folic Acid 1n by mouth Unknown - 400mcg Tablets every day 04/10/2015 Effexor XR one po bid Unknown - Tab 09/07/2014 Albuterol Inhaler 2 puffs qid prn Unknown - 12/29/2014 Medications Administered in Office Medication SIG Qnty Indications Ordering Provider Date Depomedrol 80MG Sacha Farfan M.D. 11/27/2010 Injection Immunizations CPT Code Status Date Vaccine Lot # [id number] Refused 03/29/2015 Influenza Virus Vaccine, Quadrivalent, Split, Preservative Free Vital Signs Date Vital Result Comment 02/18/2019 11:32am Height 59 inches 4'11" Weight 185.00 lb BP Systolic 125 mmHg BP Diastolic 76 mmHg Body Temperature 97.9 F BMI (Body Mass Index) 37.4 kg/m2 02/13/2019 2:18pm Height 59 inches 4'11" Heart Rate 100 /min BP Systolic 138 mmHg BP Diastolic 82 mmHg Body Temperature 99.3 F Pain Level 5 02/11/2019 11:27am Height 59 inches 4'11" Weight 179.00 lb BP Systolic 124 mmHg BP Diastolic 78 mmHg Respiratory Rate 18 /min Body Temperature 97.6 F Pain Level 8 BMI (Body Mass Index) 36.1 kg/m2 02/09/2019 9:47am Height 59 inches 4'11" Weight 179.00 lb BP Systolic 122 mmHg BP Diastolic 72 mmHg Respiratory Rate 17 /min Body Temperature 96.8 F Pain Level 7 BMI (Body Mass Index) 36.1 kg/m2 01/21/2019 10:10am Height 59 inches 4'11" Weight [...] Test Result H/L Range Note Comp Metabolic 01/21/2019 [facility] Sodium 138 mmol/L Normal 135-145 [address] [place] [address] [phone] Potassium 4.2 mmol/L Normal 3.5-5.0 Chloride 102 mmol/L Normal 101-111 Co2 Carbon Dioxide 30 mmol/L Normal 22-32 Anion Gap 6 mmol/L Normal 2-11 Glucose 86 mg/dL Normal 70-100 Blood Urea Nitrogen 13 mg/dL Normal 6-24 Creatinine 0.63 mg/dL Normal 0.51-0.95 BUN/Creatinine Ratio 20.6 High 8-20 Calcium 9.5 mg/dL Normal 8.6-10.3 Total Protein 7.0 g/dL Normal 6.4-8.9 Albumin 4.1 g/dL Normal 3.2-5.2 Globulin 2.9 g/dL Normal 2-4 Albumin/Globulin Ratio 1.4 Normal 1-3 Total Bilirubin 0.30 mg/dL Normal 0.2-1.0 Alkaline Phosphatase 112 U/L High 34-104 Alt 16 U/L Normal 7-52 Ast 17 U/L Normal 13-39 Egfr Non- 96.7 >60 Egfr 117.0 >60 2 Inr/Protime 01/21/2019 [facility] Inr 1.01 Normal 0.82-1.[address] [place] [address] [phone] Laboratory test 01/21/2019 [facility] Partial 35.7 Normal 26.0 -38.0 [address] [place] [address] Time PTT [phone] CBC Auto Diff 01/21/2019 [facility] White Blood 8.7 10^3/uL Normal 3.5-10.[address] [place] [address] [phone] Red Blood Count 4.74 10^6/uL Normal 3.70-4.87 Hemoglobin 14.5 g/dL Normal 12.0-16.0 Hematocrit 44 % Normal 35-47 Mean Corpuscular Volume 93 fL Normal 80-97 Mean Corpuscular Hemoglobin 31 pg Normal 27-31 Mean Corpuscular HGB Conc 33 g/dL Normal 31-36 Red Cell Distribution Width 14 % Normal 10-15 Platelet Count 307 10^3/uL Normal 150-450 Mean Platelet Volume 9.8 fL Normal 7.4-10.4 Abs Neutrophils 4.8 10^3/uL Normal 1.5-7.7 Abs Lymphocytes 3.0 10^3/uL Normal 1.0-4.8 Abs Monocytes 0.7 10^3/uL Normal 0-0.8 Abs Eosinophils 0.2 10^3/uL Normal 0-0.6 Abs Basophils 0.0 10^3/uL Normal 0-0.2 Abs Nucleated RBC 0.0 10^3/uL Granulocyte % 55.4 % Lymphocyte % 34.6 % Monocyte % 7.6 % Eosinophil % 1.9 % Basophil % 0.5 % Nucleated Red Blood Cells % 0.1 Urinalysis Profile 01/21/2019 [facility] Urine Color Yellow [address] [place] [address] [phone] Urine Appearance Clear Urine Specific Bourbon 1.018 Normal 1.010-1.030 Urine pH 6.0 Normal 5-9 Urine Urobilinogen Negative Negative Urine Ketones Negative Negative Urine Protein Negative Negative Urine Leukocytes Negative Negative Urine Blood Negative Negative Urine Nitrite Negative Negative Urine Bilirubin Negative Negative Urine Glucose Negative Negative Type & Screen 01/21/2019 [facility] Patient Blood Type O Positive [address] [place] [address] [phone] Antibody Screen NEGATIVE Urine Culture And 01/21/2019 [facility] Urine SEE RESULT [address] [place] [address] [phone] CBC Auto Diff 03/31/2015 [facility] White Blood 20.8 High 4.8- [address] Count 10^3/uL 0.8 [place] [address] [phone] Red Blood Count 4.74 10^6/uL Normal 4.0-5.4 Hemoglobin 14.0 g/dL Normal 12.0-16.0 Hematocrit 43 % Normal 35-47 Mean Corpuscular Volume 91 fL Normal 80-97 Mean Corpuscular Hemoglobin 30 pg Normal 27-31 Mean Corpuscular HGB Conc 32 g/dL Normal 31-36 Red Cell Distribution Width 14 % Normal 10.5-15 Platelet Count 394 10^3/uL Normal 150-450 Mean Platelet Volume 9 um3 Normal 7.4-10.4 Abs Neutrophils 13.2 10^3/uL High 1.5-7.7 Abs Lymphocytes 5.9 10^3/uL High 1.0-4.8 Abs Monocytes 1.6 10^3/uL High 0-0.8 Abs Eosinophils 0.1 10^3/uL Normal 0-0.6 Abs Basophils 0.1 10^3/uL Normal 0-0.2 Abs Nucleated RBC 0.01 10^3/uL Normal Granulocyte % 63.1 % Normal 38-83 Lymphocyte % 28.5 % Normal 25-47 Monocyte % 7.7 % Normal 1-9 Eosinophil % 0.4 % Normal 0-6 Basophil % 0.3 % Normal 0-2 Nucleated Red Blood Cells % 0 Normal Laboratory test 03/31/2015 [facility] Lactic Acid 1.4 mmol/L Normal 0.5-2.2 finding [address] [place] [address] [phone] Comp Metabolic 03/31/2015 [facility] Sodium 135 mmol/L Normal 133-145 Panel [address] [place] [address] [phone] Potassium 3.6 mmol/L Normal 3.5-5.0 Chloride 101 mmol/L Normal 101-111 Co2 Carbon Dioxide 27 mmol/L Normal 22-32 Anion Gap 7 mmol/L Normal 2-11 Glucose 131 mg/dL High 70-100 Blood Urea Nitrogen 27 mg/dL High 6-24 Creatinine 0.78 mg/dL Normal 0.51-0.95 BUN/Creatinine Ratio 34.6 High 8-20 Calcium 9.3 mg/dL Normal 8.6-10.3 Total Protein 6.9 g/dL Normal 6.4-8.9 Albumin 3.8 g/dL Normal 3.2-5.2 Globulin 3.1 g/dL Normal 2-4 Albumin/Globulin Ratio 1.2 Normal 1-3 Total Bilirubin 0.20 mg/dL Normal 0.2-1.0 Alkaline Phosphatase 105 U/L High 34-104 Alt 36 U/L Normal 7-52 Ast 27 U/L Normal 13-39 Egfr Non- 76.7 Normal >60 Egfr 98.6 Normal >60 6 Laboratory test 03/31/2015 [facility] Troponin-I 0.01 ng/mL Normal <0.03 [address] (TnI) [place] [address] [phone] Pathologist Review (SEE NOTE) Normal 8 CBC Auto 03/28/2015 [facility] White Blood 10.3 10^3/uL Normal 4.8-10.[address] [place] [address] [phone] Red Blood Count 4.67 10^6/uL Normal 4.0-5.4 Hemoglobin 13.9 g/dL Normal 12.0-16.0 Hematocrit 42 % Normal 35-47 Mean Corpuscular Volume 91 fL Normal 80-97 Mean Corpuscular Hemoglobin 30 pg Normal 27-31 Mean Corpuscular HGB Conc 33 g/dL Normal 31-36 Red Cell Distribution Width 14 % Normal 10.5-15 Platelet Count 356 10^3/uL Normal 150-450 Mean Platelet Volume 8 um3 Normal 7.4-10.4 Abs Neutrophils 6.2 10^3/uL Normal 1.5-7.7 Abs Lymphocytes 3.1 10^3/uL Normal 1.0-4.8 Abs Monocytes 0.7 10^3/uL Normal 0-0.8 Abs Eosinophils 0.2 10^3/uL Normal 0-0.6 Abs Basophils 0.1 10^3/uL Normal 0-0.2 Abs Nucleated RBC 0.01 10^3/uL Normal Granulocyte % 60.2 % Normal 38-83 Lymphocyte % 29.6 % Normal 25-47 Monocyte % 7.1 % Normal 1-9 Eosinophil % 2.1 % Normal 0-6 Basophil % 1.0 % Normal 0-2 Nucleated Red Blood Cells % 0 Normal Inr/Protime 03/28/2015 [facility] Inr 0.91 Normal 0.78-1.[address] [place] [address] [phone] Laboratory test 03/28/2015 [facility] Lactic Acid 1.0 Normal 0.5-2.2 finding 101 mmol/L [place], [place] [id number] [phone] B-Type Natriuretic Peptide BNP 25 pg/mL Normal 9 Comp Metabolic 03/28/2015 [facility] Sodium 135 mmol/L Normal 133-[address] [place] [address] [phone] Potassium 3.8 mmol/L Normal 3.5-5.0 Chloride 103 mmol/L Normal 101-111 Co2 Carbon Dioxide 29 mmol/L Normal 22-32 Anion Gap 3 mmol/L Normal 2-11 Glucose 103 mg/dL High 70-100 Blood Urea Nitrogen 16 mg/dL Normal 6-24 Creatinine 0.72 mg/dL Normal 0.51-0.95 BUN/Creatinine Ratio 22.2 High 8-20 Calcium 8.9 mg/dL Normal 8.6-10.3 Total Protein 6.4 g/dL Normal 6.4-8.9 Albumin 3.7 g/dL Normal 3.2-5.2 Globulin 2.7 g/dL Normal 2-4 Albumin/Globulin Ratio 1.4 Normal 1-3 Total Bilirubin 0.20 mg/dL Normal 0.2-1.0 Alkaline Phosphatase 112 U/L High 34-104 Alt 17 U/L Normal 7-52 Ast 12 U/L Low 13-39 Egfr Non- 84.1 Normal >60 Egfr 108.2 Normal >60 10 Laboratory test 03/28/2015 [facility] Creatine 30 U/L Normal 10-223 finding 101 Kinase(CK) [place] [address] [phone] Troponin-I (TnI) 0.00 ng/mL Normal <0.03 11 CKMB 03/28/2015 [facility] CKMB ng/mL 1.3 Normal 0.6-6.[address] ng/[place] [address] [phone] Laboratory 03/28/2015 [facility] D Dimer < 200 Normal Less Than 12 test finding 101 Quantitative ng/mL 230 [place] [address] [phone] CBC Auto Diff 03/12/2015 [facility] White Blood 11.5 High 4.8- 10.8 101 Count 10^3/[place] [address] [phone] Red Blood Count 4.57 10^6/uL Normal 4.0-5.4 Hemoglobin 13.2 g/dL Normal 12.0-16.0 Hematocrit 42 % Normal 35-47 Mean Corpuscular Volume 91 fL Normal 80-97 Mean Corpuscular Hemoglobin 29 pg Normal 27-31 Mean Corpuscular HGB Conc 32 g/dL Normal 31-36 Red Cell Distribution Width 15 % Normal 10.5-15 Platelet Count 340 10^3/uL Normal 150-450 Mean Platelet Volume 9 um3 Normal 7.4-10.4 Abs Neutrophils 6.9 10^3/uL Normal 1.5-7.7 Abs Lymphocytes 3.6 10^3/uL Normal 1.0-4.8 Abs Monocytes 0.9 10^3/uL High 0-0.8 Abs Eosinophils 0.1 10^3/uL Normal 0-0.6 Abs Basophils 0 10^3/uL Normal 0-0.2 Abs Nucleated RBC 0.01 10^3/uL Normal Granulocyte % 60.1 % Normal 38-83 Lymphocyte % 30.9 % Normal 25-47 Monocyte % 7.5 % Normal 1-9 Eosinophil % 1.1 % Normal 0-6 Basophil % 0.4 % Normal 0-2 Nucleated Red Blood Cells % 0 Normal Laboratory test 03/12/2015 [facility] Lactic Acid 1.2 mmol/L Normal 0.5-2.2 finding [address] [place] [address] [phone] Comp Metabolic 03/12/2015 [facility] Sodium 135 mmol/L Normal 133-145 Panel 101 [place] [address] [phone] Potassium 4.1 mmol/L Normal 3.5-5.0 Chloride 102 mmol/L Normal 101-111 Co2 Carbon Dioxide 28 mmol/L Normal 22-32 Anion Gap 5 mmol/L Normal 2-11 Glucose 89 mg/dL Normal 70-100 Blood Urea Nitrogen 13 mg/dL Normal 6-24 Creatinine 0.70 mg/dL Normal 0.51-0.95 BUN/Creatinine Ratio 18.6 Normal 8-20 Calcium 9.0 mg/dL Normal 8.6-10.3 Total Protein 6.5 g/dL Normal 6.4-8.9 Albumin 3.6 g/dL Normal 3.2-5.2 Globulin 2.9 g/dL Normal 2-4 Albumin/Globulin Ratio 1.2 Normal 1-3 Total Bilirubin 0.20 mg/dL Normal 0.2-1.0 Alkaline Phosphatase 110 U/L High 34-104 Alt 14 U/L Normal 7-52 Ast 13 U/L Normal 13-39 Egfr Non- 86.9 Normal >60 Egfr 111.7 Normal >60 13 Laboratory test 03/12/2015 [facility] Lipase 18 U/L Normal 11.0-82.[address] [place] [address] [phone] C Reactive Protein 11.20 mg/L High < 5.00 14 Troponin-I (TnI) 0.00 ng/mL Normal <0.03 15 Urinalysis Profile 03/12/2015 [facility] Urine Color Yellow Normal [address] [place] [address] [phone] Urine Appearance Cloudy Normal Urine Specific [place] 1.012 Normal 1.010-1.030 Urine pH 5.0 Normal 5-9 Urine Urobilinogen Negative Normal Negative Urine Ketones Negative Normal Negative Urine Protein Negative Normal Negative Urine Leukocytes 1+ Abnormal Negative Urine Blood Negative Normal Negative Urine Nitrite Negative Normal Negative Urine Bilirubin Negative Normal Negative Urine Glucose Negative Normal Negative Urine White Blood Cell 1+(6-10/hpf) Abnormal Absent Urine Red Blood Cell Absent Normal Absent Urine Bacteria Absent Normal Absent Urine Squamous Epithelial Cell Present Abnormal Absent Laboratory test 03/12/2015 [facility] Urine Culture And SEE RESULT [address] [place] [address] [phone] Laboratory test 03/07/2015 [facility] Troponin-I (TnI) 0.02 ng/ mL Normal <0.0 [address] [place] [address] [phone] CBC Auto Diff 03/07/2015 [facility] White Blood Count 18.2 High 4.8- [address] 10^3/uL 10.8 [place] [address] [phone] Red Blood Count 4.81 10^6/uL Normal 4.0-5.4 Hemoglobin 14.1 g/dL Normal 12.0-16.0 Hematocrit 44 % Normal 35-47 Mean Corpuscular Volume 91 fL Normal 80-97 Mean Corpuscular Hemoglobin 29 pg Normal 27-31 Mean Corpuscular HGB Conc 32 g/dL Normal 31-36 Red Cell Distribution Width 15 % Normal 10.5-15 Platelet Count 352 10^3/uL Normal 150-450 Mean Platelet Volume 9 um3 Normal 7.4-10.4 Abs Neutrophils 11.7 10^3/uL High 1.5-7.7 Abs Lymphocytes 5.2 10^3/uL High 1.0-4.8 18 Abs Monocytes 1.1 10^3/uL High 0-0.8 Abs Eosinophils 0.1 10^3/uL Normal 0-0.6 Abs Basophils 0.2 10^3/uL Normal 0-0.2 Abs Nucleated RBC 0 10^3/uL Normal Granulocyte % 64.2 % Normal 38-83 Lymphocyte % 28.3 % Normal 25-47 Monocyte % 5.8 % Normal 1-9 Eosinophil % 0.4 % Normal 0-6 Basophil % 1.3 % Normal 0-2 Nucleated Red Blood Cells % 0 Normal Inr/Protime 03/07/2015 [facility] Inr 0.88 Normal 0.78-1.07 [address] [place] [address] [phone] Laboratory test 03/07/2015 [facility] Partial 26.0 Normal 26.0 -36.[address] [facility] [place] [address] Time PTT [phone] Comp Metabolic 03/07/2015 [facility] Sodium 138 mmol/L Normal 133-145 Panel [address] [place] [address] [phone] Chloride 103 mmol/L Normal 101-111 Co2 Carbon Dioxide 30 mmol/L Normal 22-32 Glucose 108 mg/dL High 70-100 Blood Urea Nitrogen 11 mg/dL Normal 6-24 Creatinine 0.79 mg/dL Normal 0.51-0.95 BUN/Creatinine Ratio 13.9 Normal 8-20 Calcium 9.1 mg/dL Normal 8.6-10.3 Total Protein 7.0 g/dL Normal 6.4-8.9 Albumin 3.9 g/dL Normal 3.2-5.2 Globulin 3.1 g/dL Normal 2-4 Albumin/Globulin Ratio 1.3 Normal 1-3 Total Bilirubin 0.20 mg/dL Normal 0.2-1.0 Alkaline Phosphatase 122 U/L High 34-104 Alt 14 U/L Normal 7-52 Egfr Non- 75.6 Normal >60 Egfr 97.2 Normal >60 19 Potassium 3.8 mmol/L Normal 3.5-5.0 Anion Gap 5 mmol/L Normal 2-11 Ast 14 U/L Normal 13-39 Laboratory test 03/07/2015 [facility] Troponin-I 0.01 Normal < 0.03 [address] (TnI) ng/[place] [address] [phone] CKMB 03/07/2015 [facility] CKMB ng/mL 2.2 ng/mL Normal 0.6- 6.[address] [place] [address] [phone] Laboratory test 02/26/2015 [facility] Troponin-I 0.00 Normal < 0.03 [address] (TnI) ng/[place] [address] [phone] Comp Metabolic 02/26/2015 [facility] Sodium 135 Normal 133- [address] mmol/[place] [address] [phone] Potassium 3.7 mmol/L Normal 3.5-5.0 Chloride 101 mmol/L Normal 101-111 Co2 Carbon Dioxide 27 mmol/L Normal 22-32 Anion Gap 7 mmol/L Normal 2-11 Glucose 116 mg/dL High 70-100 Blood Urea Nitrogen 17 mg/dL Normal 6-24 Creatinine 0.74 mg/dL Normal 0.51-0.95 BUN/Creatinine Ratio 23.0 High 8-20 Calcium 9.0 mg/dL Normal 8.6-10.3 Total Protein 6.9 g/dL Normal 6.4-8.9 Albumin 4.0 g/dL Normal 3.2-5.2 Globulin 2.9 g/dL Normal 2-4 Albumin/Globulin Ratio 1.4 Normal 1-3 Total Bilirubin 0.20 mg/dL Normal 0.2-1.0 Alkaline Phosphatase 137 U/L High 34-104 Alt 13 U/L Normal 7-52 Ast 14 U/L Normal 13-39 Egfr Non- 81.5 Normal >60 Egfr 104.8 Normal >60 22 CBC Auto 02/26/2015 [facility] White Blood 9.1 10^3/uL Normal 4.8-10.[address] [place] [address] [phone] Red Blood Count 4.73 10^6/uL Normal 4.0-5.4 Hemoglobin 13.7 g/dL Normal 12.0-16.0 Hematocrit 43 % Normal 35-47 Mean Corpuscular Volume 91 fL Normal 80-97 Mean Corpuscular Hemoglobin 29 pg Normal 27-31 Mean Corpuscular HGB Conc 32 g/dL Normal 31-36 Red Cell Distribution Width 14 % Normal 10.5-15 Platelet Count 313 10^3/uL Normal 150-450 Mean Platelet Volume 9 um3 Normal 7.4-10.4 Abs Neutrophils 4.7 10^3/uL Normal 1.5-7.7 Abs Lymphocytes 3.4 10^3/uL Normal 1.0-4.8 Abs Monocytes 0.8 10^3/uL Normal 0-0.8 Abs Eosinophils 0.2 10^3/uL Normal 0-0.6 Abs Basophils 0 10^3/uL Normal 0-0.2 Abs Nucleated RBC 0 10^3/uL Normal Granulocyte % 52.0 % Normal 38-83 Lymphocyte % 36.9 % Normal 25-47 Monocyte % 9.0 % Normal 1-9 Eosinophil % 1.7 % Normal 0-6 Basophil % 0.4 % Normal 0-2 Nucleated Red Blood Cells % 0 Normal Laboratory test 02/26/2015 [facility] B-Type 18 pg/mL Normal [address] [place] [address] Peptide BNP [phone] CBC Auto Diff 01/17/2015 [facility] White Blood 10.1 Normal 4.8- [address] Count 10^3/uL 10.8 [place] [address] [phone] Red Blood Count 4.70 10^6/uL Normal 4.0-5.4 Hemoglobin 13.6 g/dL Normal 12.0-16.0 Hematocrit 42 % Normal 35-47 Mean Corpuscular Volume 90 fL Normal 80-97 Mean Corpuscular Hemoglobin 29 pg Normal 27-31 Mean Corpuscular HGB Conc 32 g/dL Normal 31-36 Red Cell Distribution Width 15 % Normal 10.5-15 Platelet Count 276 10^3/uL Normal 150-450 Mean Platelet Volume 10 um3 Normal 7.4-10.4 Abs Neutrophils 7.8 10^3/uL High 1.5-7.7 Abs Lymphocytes 1.8 10^3/uL Normal 1.0-4.8 Abs Monocytes 0.3 10^3/uL Normal 0-0.8 Abs Eosinophils 0.1 10^3/uL Normal 0-0.6 Abs Basophils 0.1 10^3/uL Normal 0-0.2 Abs Nucleated RBC 0.01 10^3/uL Normal Granulocyte % 77.1 % Normal 38-83 Lymphocyte % 18.2 % Low 25-47 Monocyte % 3.4 % Normal 1-9 Eosinophil % 0.5 % Normal 0-6 Basophil % 0.8 % Normal 0-2 Nucleated Red Blood Cells % 0.1 Normal Laboratory 01/17/2015 [facility] Lactic Acid 1.4 Normal 0.5- 2.2 test finding [address] mmol/L [place], [place] [address] [phone] Inr/Protime 01/17/2015 [facility] Inr 0.95 Normal 0.78-1.[address] [place] [address] [phone] Laboratory 01/17/2015 [facility] B-Type 25 pg/mL Normal 24 test finding [address] [place] [address] Peptide BNP [phone] Comp Metabolic 01/17/2015 [facility] Sodium 135 Normal 133- [address] mmol/[place] [address] [phone] Potassium 3.7 mmol/L Normal 3.5-5.0 Chloride 103 mmol/L Normal 101-111 Co2 Carbon Dioxide 26 mmol/L Normal 22-32 Anion Gap 6 mmol/L Normal 2-11 Glucose 97 mg/dL Normal 70-100 Blood Urea Nitrogen 10 mg/dL Normal 6-24 Creatinine 0.67 mg/dL Normal 0.51-0.95 BUN/Creatinine Ratio 14.9 Normal 8-20 Calcium 9.1 mg/dL Normal 8.6-10.3 Total Protein 7.2 g/dL Normal 6.4-8.9 Albumin 4.0 g/dL Normal 3.2-5.2 Globulin 3.2 g/dL Normal 2-4 Albumin/Globulin Ratio 1.3 Normal 1-3 Total Bilirubin 0.30 mg/dL Normal 0.2-1.0 Alkaline Phosphatase 107 U/L High 34-104 Alt 11 U/L Normal 7-52 Ast 14 U/L Normal 13-39 Egfr Non- 91.4 Normal >60 Egfr 117.5 Normal >60 25 Laboratory test 01/17/2015 [facility] Creatine 39 U/L Normal 10-[address] Kinase(CK) [place] [address] [phone] Troponin-I (TnI) 0.00 ng/mL Normal <0.03 26 CKMB 01/17/2015 [facility] CKMB 1.0 ng/mL Normal 0.6-6.[address] ng/[place] [address] [phone] Laboratory test 01/17/2015 [facility] TSH 1.92 Normal 0.34- 5.[address] (Thyroid ?IU/[place] [address] Stim Horm) [phone] Magnesium 1.8 mg/dL Low 1.9-2.7 Lipase 14 U/L Normal 11.0-82.0 C Reactive Protein 9.82 mg/L High < 5.00 27 Laboratory test 12/26/2014 [facility] Wound SEE RESULT [address] Culture/[place] [address] [phone] CBC Auto Diff 11/25/2014 [facility] White Blood Count 15.0 High 4.8- [address] 10^3/uL 10.8 [place] [address] [phone] Red Blood Count 4.35 10^6/uL Normal 4.0-5.4 Hemoglobin 13.5 g/dL Normal 12.0-16.0 Hematocrit 39 % Normal 35-47 Mean Corpuscular Volume 90 fL Normal 80-97 Mean Corpuscular Hemoglobin 31 pg Normal 27-31 Mean Corpuscular HGB Conc 34 g/dL Normal 31-36 Red Cell Distribution Width 14 % Normal 10.5-15 Platelet Count 301 10^3/uL Normal 150-450 Mean Platelet Volume 9 um3 Normal 7.4-10.4 Abs Neutrophils 11.8 10^3/uL High 1.5-7.7 Abs Lymphocytes 1.8 10^3/uL Normal 1.0-4.8 Abs Monocytes 1.2 10^3/uL High 0-0.8 Abs Eosinophils 0.1 10^3/uL Normal 0-0.6 Abs Basophils 0.1 10^3/uL Normal 0-0.2 Abs Nucleated RBC 0 10^3/uL Normal Granulocyte % 78.6 % Normal 38-83 Lymphocyte % 11.8 % Low 25-47 Monocyte % 8.3 % Normal 1-9 Eosinophil % 0.6 % Normal 0-6 Basophil % 0.7 % Normal 0-2 Nucleated Red Blood Cells % 0 Normal Laboratory test 11/25/2014 [facility] Lactic Acid 0.6 mmol/L Normal 0.5-2.2 finding [address] [place] [address] [phone] Comp Metabolic 11/25/2014 [facility] Sodium 136 mmol/L Normal 133-145 Panel 101 [place] [address] [phone] Potassium 3.8 mmol/L Normal 3.5-5.0 Chloride 104 mmol/L Normal 101-111 Co2 Carbon Dioxide 26 mmol/L Normal 22-32 Anion Gap 6 mmol/L Normal 2-11 Glucose 108 mg/dL High 70-100 Blood Urea Nitrogen 10 mg/dL Normal 6-24 Creatinine 0.63 mg/dL Normal 0.51-0.95 BUN/Creatinine Ratio 15.9 Normal 8-20 Calcium 9.1 mg/dL Normal 8.6-10.3 Total Protein 6.9 g/dL Normal 6.4-8.9 Albumin 3.8 g/dL Normal 3.2-5.2 Globulin 3.1 g/dL Normal 2-4 Albumin/Globulin Ratio 1.2 Normal 1-3 Total Bilirubin 0.50 mg/dL Normal 0.2-1.0 Alkaline Phosphatase 131 U/L High 34-104 Alt 18 U/L Normal 7-52 Ast 12 U/L Low 13-39 Egfr Non- 98.1 Normal >60 Egfr 126.2 Normal >60 29 Laboratory test 11/25/2014 [facility] C Reactive 96.66 mg/L High < 5.[address] [place] [address] [phone] Urinalysis 09/22/2014 [facility] Urine Color Yellow Normal Profile [address] [place] [address] [phone] Urine Appearance Cloudy Normal Urine Specific [place] 1.023 Normal 1.010-1.030 Urine pH 5.0 Normal 5-9 Urine Urobilinogen Negative Normal Negative Urine Ketones Negative Normal Negative Urine Protein Negative Normal Negative Urine Leukocytes Negative Normal Negative Urine Blood Negative Normal Negative Urine Nitrite Negative Normal Negative Urine Bilirubin Negative Normal Negative Urine Glucose Negative Normal Negative CBC Auto 09/22/2014 [facility] White Blood 11.1 10^3/uL High 4.8-10.[address] [place] [address] [phone] Red Blood Count 4.60 10^6/uL Normal 4.0-5.4 Hemoglobin 13.8 g/dL Normal 12.0-16.0 Hematocrit 42 % Normal 35-47 Mean Corpuscular Volume 92 fL Normal 80-97 Mean Corpuscular Hemoglobin 30 pg Normal 27-31 Mean Corpuscular HGB Conc 33 g/dL Normal 31-36 Red Cell Distribution Width 14 % Normal 10.5-15 Platelet Count 357 10^3/uL Normal 150-450 Mean Platelet Volume 10 um3 Normal 7.4-10.4 Abs Neutrophils 6.9 10^3/uL Normal 1.5-7.7 Abs Lymphocytes 3.2 10^3/uL Normal 1.0-4.8 Abs Monocytes 0.9 10^3/uL High 0-0.8 Abs Eosinophils 0.1 10^3/uL Normal 0-0.6 Abs Basophils 0 10^3/uL Normal 0-0.2 Abs Nucleated RBC 0 10^3/uL Normal Granulocyte % 62.2 % Normal 38-83 Lymphocyte % 28.9 % Normal 25-47 Monocyte % 7.9 % Normal 1-9 Eosinophil % 0.7 % Normal 0-6 Basophil % 0.3 % Normal 0-2 Nucleated Red Blood Cells % 0 Normal Comp Metabolic 09/22/2014 [facility] Sodium 135 mmol/L Normal 133-[address] [place] [address] [phone] Potassium 3.7 mmol/L Normal 3.5-5.0 Chloride 101 mmol/L Normal 101-111 Co2 Carbon Dioxide 29 mmol/L Normal 22-32 Anion Gap 5 mmol/L Normal 2-11 Glucose 89 mg/dL Normal 70-100 Blood Urea Nitrogen 12 mg/dL Normal 6-24 Creatinine 0.71 mg/dL Normal 0.51-0.95 BUN/Creatinine Ratio 16.9 Normal 8-20 Calcium 9.6 mg/dL Normal 8.6-10.3 Total Protein 7.3 g/dL Normal 6.4-8.9 Albumin 4.1 g/dL Normal 3.2-5.2 Globulin 3.2 g/dL Normal 2-4 Albumin/Globulin Ratio 1.3 Normal 1-3 Total Bilirubin 0.30 mg/dL Normal 0.2-1.0 Alkaline Phosphatase 117 U/L High 34-104 Alt 15 U/L Normal 7-52 Ast 16 U/L Normal 13-39 Egfr Non- 85.5 Normal >60 Egfr 109.9 Normal >60 31 Laboratory test finding 09/22/2014 [facility] Lipase 8 U/L Low 11.0-82.[address] [place] [address] [phone] C Reactive Protein 12.28 mg/L High < 5.00 32 Lactic Acid 1.2 mmol/L Normal 0.5-2.2 Urine Culture And 2014 [facility] Urine Culture (SEE NOTE ) [address] [place] [address] [phone] Ua Routine 2014 [employer] Ua Specific 1.005 [place] Ua PH 7 Ua Color yellow Ua Appera clear Ua WBC trace Ua Protein neg Ua Glucose neg Ua Ketones neg Ua Bilirubin small Ua Urobilinogen norm Ua Nitrite neg Ua Occult Blood neg CBC Auto 09/08/2014 [facility] White Blood 10.1 10^3/uL Normal 4.8-10.[address] [place] [address] [phone] Red Blood Count 4.63 10^6/uL Normal 4.0-5.4 Hemoglobin 14.3 g/dL Normal 12.0-16.0 Hematocrit 43 % Normal 35-47 Mean Corpuscular Volume 92 fL Normal 80-97 Mean Corpuscular Hemoglobin 31 pg Normal 27-31 Mean Corpuscular HGB Conc 34 g/dL Normal 31-36 Red Cell Distribution Width 13 % Normal 10.5-15 Platelet Count 294 10^3/uL Normal 150-450 Mean Platelet Volume 10 um3 Normal 7.4-10.4 Abs Neutrophils 6.0 10^3/uL Normal 1.5-7.7 Abs Lymphocytes 3.2 10^3/uL Normal 1.0-4.8 Abs Monocytes 0.8 10^3/uL Normal 0-0.8 Abs Eosinophils 0.1 10^3/uL Normal 0-0.6 Abs Basophils 0 10^3/uL Normal 0-0.2 Abs Nucleated RBC 0.01 10^3/uL Normal Granulocyte % 58.8 % Normal 38-83 Lymphocyte % 31.6 % Normal 25-47 Monocyte % 8.3 % Normal 1-9 Eosinophil % 1.0 % Normal 0-6 Basophil % 0.3 % Normal 0-2 Nucleated Red Blood Cells % 0.1 Normal Laboratory test 09/08/2014 [facility] Erythrocyte Sed 14 mm/Hr Normal 0-[address] [place] [address] [phone] C Reactive Protein 8.91 mg/L High < 5.00 34 Comp Metabolic 09/08/2014 [facility] Sodium 135 mmol/L Normal 133-[address] [place] [address] [phone] Potassium 4.1 mmol/L Normal 3.5-5.0 Chloride 101 mmol/L Normal 101-111 Co2 Carbon Dioxide 29 mmol/L Normal 22-32 Anion Gap 5 mmol/L Normal 2-11 Glucose 79 mg/dL Normal 70-100 Blood Urea Nitrogen 14 mg/dL Normal 6-24 Creatinine 0.70 mg/dL Normal 0.51-0.95 BUN/Creatinine Ratio 20.0 Normal 8-20 Calcium 10.0 mg/dL Normal 8.6-10.3 Total Protein 7.0 g/dL Normal 6.4-8.9 Albumin 4.3 g/dL Normal 3.2-5.2 Globulin 2.7 g/dL Normal 2-4 Albumin/Globulin Ratio 1.6 Normal 1-3 Total Bilirubin 0.30 mg/dL Normal 0.2-1.0 Alkaline Phosphatase 124 U/L High 34-104 Alt 17 U/L Normal 7-52 Ast 16 U/L Normal 13-39 Egfr Non- 87.2 Normal >60 Egfr 112.1 Normal >60 35 Laboratory test 09/08/2014 [facility] Hemoglobin A1c 6.2 % High Less [address] than 6.0 [place] [address] [phone] Comp Metabolic 08/23/2014 [facility] Sodium 134 Normal 133- [address] mmol/[place] [address] [phone] Potassium 3.8 mmol/L Normal 3.5-5.0 Chloride 101 mmol/L Normal 101-111 Co2 Carbon Dioxide 25 mmol/L Normal 22-32 Anion Gap 8 mmol/L Normal 2-11 Glucose 112 mg/dL High 70-100 Blood Urea Nitrogen 20 mg/dL Normal 6-24 Creatinine 0.74 mg/dL Normal 0.51-0.95 BUN/Creatinine Ratio 27.0 High 8-20 Calcium 9.7 mg/dL Normal 8.6-10.3 Total Protein 7.8 g/dL Normal 6.4-8.9 Albumin 4.4 g/dL Normal 3.2-5.2 Globulin 3.4 g/dL Normal 2-4 Albumin/Globulin Ratio 1.3 Normal 1-3 Total Bilirubin 0.30 mg/dL Normal 0.2-1.0 Alkaline Phosphatase 130 U/L High 34-104 Alt 26 U/L Normal 7-52 Ast 21 U/L Normal 13-39 Egfr Non- 81.8 Normal >60 Egfr 105.2 Normal >60 37 Laboratory test 08/23/2014 [facility] Lipase 10 U/L Low 11.0- 82.[address] [place] [address] [phone] C Reactive Protein 7.87 mg/L High < 5.00 38 CBC Auto 08/23/2014 [facility] White Blood 14.2 10^3/uL High 4.8-10.[address] [place] [address] [phone] Red Blood Count 5.05 10^6/uL Normal 4.0-5.4 Hemoglobin 15.0 g/dL Normal 12.0-16.0 Hematocrit 47 % Normal 35-47 Mean Corpuscular Volume 93 fL Normal 80-97 Mean Corpuscular Hemoglobin 30 pg Normal 27-31 Mean Corpuscular HGB Conc 32 g/dL Normal 31-36 Red Cell Distribution Width 14 % Normal 10.5-15 Platelet Count 393 10^3/uL Normal 150-450 Mean Platelet Volume 9 um3 Normal 7.4-10.4 Abs Neutrophils 8.8 10^3/uL High 1.5-7.7 Abs Lymphocytes 4.3 10^3/uL Normal 1.0-4.8 Abs Monocytes 0.9 10^3/uL High 0-0.8 Abs Eosinophils 0.1 10^3/uL Normal 0-0.6 Abs Basophils 0.1 10^3/uL Normal 0-0.2 Abs Nucleated RBC 0.01 10^3/uL Normal Granulocyte % 61.7 % Normal 38-83 Lymphocyte % 30.4 % Normal 25-47 Monocyte % 6.5 % Normal 1-9 Eosinophil % 0.9 % Normal 0-6 Basophil % 0.5 % Normal 0-2 Nucleated Red Blood Cells % 0.1 Normal CBC Auto Diff 08/13/2014 White Blood Count 10.8 10^3/uL Normal 4.8-10.8 Red Blood Count 4.61 10^6/uL Normal 4.0-5.4 Hemoglobin 14.0 g/dL Normal 12.0-16.0 Hematocrit 42 % Normal 35-47 Mean Corpuscular Volume 92 fL Normal 80-97 Mean Corpuscular Hemoglobin 30 pg Normal 27-31 Mean Corpuscular HGB Conc 33 g/dL Normal 31-36 Red Cell Distribution Width 14 % Normal 10.5-15 Platelet Count 356 10^3/uL Normal 150-450 Mean Platelet Volume 9 um3 Normal 7.4-10.4 Abs Neutrophils 6.2 10^3/uL Normal 1.5-7.7 Abs Lymphocytes 3.6 10^3/uL Normal 1.0-4.8 Abs Monocytes 0.8 10^3/uL Normal 0-0.8 Abs Eosinophils 0.1 10^3/uL Normal 0-0.6 Abs Basophils 0.1 10^3/uL Normal 0-0.2 Abs Nucleated RBC 0 10^3/uL Normal Granulocyte % 57.4 % Normal 38-83 Lymphocyte % 33.3 % Normal 25-47 Monocyte % 7.0 % Normal 1-9 Eosinophil % 1.3 % Normal 0-6 Basophil % 1.0 % Normal 0-2 Nucleated Red Blood Cells % 0 Normal Laboratory test finding 08/13/2014 Erythrocyte Sed Rate 19 mm/Hr Normal 0-30 C Reactive Protein 12.03 mg/L High < 5.00 39 Comp Metabolic Panel 08/13/2014 Sodium 136 mmol/L Normal 133-145 Potassium 4.0 mmol/L Normal 3.5-5.0 Chloride 101 mmol/L Normal 101-111 Co2 Carbon Dioxide 29 mmol/L Normal 22-32 Anion Gap 6 mmol/L Normal 2-11 Glucose 84 mg/dL Normal 70-100 Blood Urea Nitrogen 9 mg/dL Normal 6-24 Creatinine 0.72 mg/dL Normal 0.51-0.95 BUN/Creatinine Ratio 12.5 Normal 8-20 Calcium 9.8 mg/dL Normal 8.6-10.3 Total Protein 6.9 g/dL Normal 6.4-8.9 Albumin 4.2 g/dL Normal 3.2-5.2 Globulin 2.7 g/dL Normal 2-4 Albumin/Globulin Ratio 1.6 Normal 1-3 Total Bilirubin 0.30 mg/dL Normal 0.2-1.0 Alkaline Phosphatase 141 U/L High 34-104 Alt 69 U/L High 7-52 Ast 38 U/L Normal 13-39 Egfr Non- 84.4 Normal >60 Egfr 108.6 Normal >60 40 Laboratory test finding 08/13/2014 Amylase 32 U/L Normal 29-103 Lipase 13 U/L Normal 11.0-82.0 Alkaline Phos 08/13/2014 Alkaline Phosphatase 153 U/L Abnormal 41 - 108 Isoenzymes Alp Liver 1% 52.6 % Normal 27.8-76.3 Alp Liver 1 80.5 IU/L Abnormal 16.2-70.2 Alp Liver 2% 14.6 % Abnormal 0.0-8.0 Alp Liver 2 22.3 IU/L Abnormal 0.0-5.8 Alp Bone % 29.9 % Normal 19.1-67.7 Alp Bone 45.7 IU/L Abnormal 12.1-42.7 Alp Intestine % 2.9 % Normal 0.0-20.6 Alp Intestine 4.4 IU/L Normal 0.0-11.0 Alp Placental NotPresent Normal 41 CBC Auto 08/08/2014 [facility] White Blood 19.6 10^3/uL High 4.8-10.[address] [place] [address] [phone] Red Blood Count 5.06 10^6/uL Normal 4.0-5.4 Hemoglobin 15.1 g/dL Normal 12.0-16.0 Hematocrit 46 % Normal 35-47 Mean Corpuscular Volume 91 fL Normal 80-97 Mean Corpuscular Hemoglobin 30 pg Normal 27-31 Mean Corpuscular HGB Conc 33 g/dL Normal 31-36 Red Cell Distribution Width 14 % Normal 10.5-15 Platelet Count 356 10^3/uL Normal 150-450 Mean Platelet Volume 9 um3 Normal 7.4-10.4 Abs Neutrophils 18.1 10^3/uL High 1.5-7.7 Abs Lymphocytes 0.9 10^3/uL Low 1.0-4.8 Abs Monocytes 0.6 10^3/uL Normal 0-0.8 Abs Eosinophils 0 10^3/uL Normal 0-0.6 Abs Basophils 0.1 10^3/uL Normal 0-0.2 Abs Nucleated RBC 0 10^3/uL Normal Granulocyte % 92.3 % High 38-83 Lymphocyte % 4.4 % Low 25-47 Monocyte % 2.8 % Normal 1-9 Eosinophil % 0.1 % Normal 0-6 Basophil % 0.4 % Normal 0-2 Nucleated Red Blood Cells % 0 Normal Laboratory test 08/08/2014 [facility] Lactic Acid 1.4 mmol/L Normal 0.5-2.2 finding [address] [place] [address] [phone] Comp Metabolic 08/08/2014 [facility] Sodium 133 mmol/L Normal 133-145 Panel [address] [place] [address] [phone] Potassium 4.0 mmol/L Normal 3.5-5.0 Chloride 103 mmol/L Normal 101-111 Co2 Carbon Dioxide 23 mmol/L Normal 22-32 Anion Gap 7 mmol/L Normal 2-11 Glucose 121 mg/dL High 70-100 Blood Urea Nitrogen 21 mg/dL Normal 6-24 Creatinine 0.64 mg/dL Normal 0.51-0.95 BUN/Creatinine Ratio 32.8 High 8-20 Calcium 9.0 mg/dL Normal 8.6-10.3 Total Protein 7.2 g/dL Normal 6.4-8.9 Albumin 4.1 g/dL Normal 3.2-5.2 Globulin 3.1 g/dL Normal 2-4 Albumin/Globulin Ratio 1.3 Normal 1-3 Total Bilirubin 0.50 mg/dL Normal 0.2-1.0 Alkaline Phosphatase 103 U/L Normal 34-104 Alt 31 U/L Normal 7-52 Ast 28 U/L Normal 13-39 Egfr Non- 96.7 Normal >60 Egfr 124.4 Normal >60 42 Laboratory test finding 08/08/2014 [facility] Lipase 9 U/L Low 11.0-82.[address] [place] [address] [phone] C Reactive Protein 8.39 mg/L High < 5.00 43 Troponin I 0.00 ng/mL Normal <0.03 44 Urinalysis Profile 08/02/2014 [facility] Urine Color Yellow Normal [address] [place] [address] [phone] Urine Appearance Clear Normal Urine Specific [place] 1.011 Normal 1.010-1.030 Urine pH 7.0 Normal 5-9 Urine Urobilinogen Negative Normal Negative Urine Ketones Negative Normal Negative Urine Protein Negative Normal Negative Urine Leukocytes Negative Normal Negative Urine Blood Negative Normal Negative Urine Nitrite Negative Normal Negative Urine Bilirubin Negative Normal Negative Urine Glucose Negative Normal Negative Blood Culture 08/02/2014 [facility] Blood Culture (SEE NOTE) [address] [place] [address] [phone] Laboratory test 08/02/2014 [facility] Lactic Acid 1.8 mmol/L Normal 0.5-[address]2 [place] [address] [phone] Blood Culture (SEE NOTE) 46 Laboratory test 08/02/2014 [facility] B Type 13 pg/mL Normal [address] [place] [address] Peptide [phone] Comp Metabolic 08/02/2014 [facility] Sodium 138 mmol/L Normal 133- Panel [address] [place] [address] [phone] Potassium 4.3 mmol/L Normal 3.5-5.0 Chloride 101 mmol/L Normal 101-111 Co2 Carbon Dioxide 31 mmol/L Normal 22-32 Anion Gap 6 mmol/L Normal 2-11 Glucose 91 mg/dL Normal 70-100 Blood Urea Nitrogen 14 mg/dL Normal 6-24 Creatinine 0.73 mg/dL Normal 0.51-0.95 BUN/Creatinine Ratio 19.2 Normal 8-20 Calcium 9.7 mg/dL Normal 8.6-10.3 Total Protein 7.7 g/dL Normal 6.4-8.9 Albumin 4.3 g/dL Normal 3.2-5.2 Globulin 3.4 g/dL Normal 2-4 Albumin/Globulin Ratio 1.3 Normal 1-3 Total Bilirubin 0.30 mg/dL Normal 0.2-1.0 Alkaline Phosphatase 119 U/L High 34-104 Alt 21 U/L Normal 7-52 Ast 16 U/L Normal 13-39 Egfr Non- 83.1 Normal >60 Egfr 106.8 Normal >60 48 Laboratory test 08/02/2014 [facility] Creatine 30 U/L Normal 10-[address] [place] [address] [phone] CKMB 08/02/2014 [facility] CKMB ng/mL 1.2 Normal 0.6-6.[address] ng/[place] [address] [phone] Laboratory test 08/02/2014 [facility] Troponin I 0.00 Normal < 0.03 [address] ng/[place] [address] [phone] CBC Auto Diff 08/02/2014 [facility] White Blood 14.4 High 4.8- 10.[address] Count 10^3/[place] [address] [phone] Red Blood Count 5.06 10^6/uL Normal 4.0-5.4 Hemoglobin 14.9 g/dL Normal 12.0-16.0 Hematocrit 47 % Normal 35-47 Mean Corpuscular Volume 92 fL Normal 80-97 Mean Corpuscular Hemoglobin 30 pg Normal 27-31 Mean Corpuscular HGB Conc 32 g/dL Normal 31-36 Red Cell Distribution Width 14 % Normal 10.5-15 Platelet Count 404 10^3/uL Normal 150-450 Mean Platelet Volume 10 um3 Normal 7.4-10.4 Abs Neutrophils 8.3 10^3/uL High 1.5-7.7 Abs Lymphocytes 4.5 10^3/uL Normal 1.0-4.8 Abs Monocytes 1.0 10^3/uL High 0-0.8 Abs Eosinophils 0.14 10^3/uL Normal 0-0.6 Abs Basophils 0 10^3/uL Normal 0-0.2 Abs Nucleated RBC 0 10^3/uL Normal Manual Differential 08/02/2014 [facility] Neutrophil % 58 % Normal 38-[address] [place] [address] [phone] Lymphocytes % 31 % Normal 25-47 Monocytes % 7 % Normal 0-13 Eosinophils % 1 % Normal 0-6 Reactive Lymph % 3 % Normal 0-6 RBC Morphology Normal Normal Normal Laboratory 08/02/2014 [facility] D Dimer < 200 ng/mL Normal Less 50 test finding [address] [address] [phone] Urinalysis 07/31/2014 [facility] Urine Color Colorless Normal Profile [address] [place] [address] [phone] Urine Appearance Clear Normal Urine Specific [place] 1.010 Normal 1.010-1.030 Urine pH 6 Normal 5-9 Urine Urobilinogen Negative Normal Negative Urine Ketones Negative Normal Negative Urine Protein Negative Normal Negative Urine Leukocytes Negative Normal Negative Urine Blood Negative Normal Negative Urine Nitrite Negative Normal Negative Urine Bilirubin Negative Normal Negative Urine Glucose Negative Normal Negative CBC Auto 07/31/2014 [facility] White Blood 15.7 10^3/uL High 4.8-10.[address] [place] [address] [phone] Red Blood Count 4.89 10^6/uL Normal 4.0-5.4 Hemoglobin 14.7 g/dL Normal 12.0-16.0 Hematocrit 45 % Normal 35-47 Mean Corpuscular Volume 91 fL Normal 80-97 Mean Corpuscular Hemoglobin 30 pg Normal 27-31 Mean Corpuscular HGB Conc 33 g/dL Normal 31-36 Red Cell Distribution Width 14 % Normal 10.5-15 Platelet Count 354 10^3/uL Normal 150-450 Mean Platelet Volume 9 um3 Normal 7.4-10.4 Abs Neutrophils 11.4 10^3/uL High 1.5-7.7 Abs Lymphocytes 3.3 10^3/uL Normal 1.0-4.8 Abs Monocytes 0.8 10^3/uL Normal 0-0.8 Abs Eosinophils 0 10^3/uL Normal 0-0.6 Abs Basophils 0.1 10^3/uL Normal 0-0.2 Abs Nucleated RBC 0 10^3/uL Normal Granulocyte % 72.7 % Normal 38-83 Lymphocyte % 21.2 % Low 25-47 Monocyte % 5.2 % Normal 1-9 Eosinophil % 0.1 % Normal 0-6 Basophil % 0.8 % Normal 0-2 Nucleated Red Blood Cells % 0 Normal Laboratory test 07/31/2014 [facility] Lactic Acid 1.1 mmol/L Normal 0.5-2.2 finding [address] [place] [address] [phone] Comp Metabolic 07/31/2014 [facility] Sodium 135 mmol/L Normal 133-145 Panel [address] [place] [address] [phone] Potassium 4.2 mmol/L Normal 3.5-5.0 Chloride 103 mmol/L Normal 101-111 Co2 Carbon Dioxide 28 mmol/L Normal 22-32 Anion Gap 4 mmol/L Normal 2-11 Glucose 119 mg/dL High 70-100 Blood Urea Nitrogen 19 mg/dL Normal 6-24 Creatinine 0.63 mg/dL Normal 0.51-0.95 BUN/Creatinine Ratio 30.2 High 8-20 Calcium 9.4 mg/dL Normal 8.6-10.3 Total Protein 7.4 g/dL Normal 6.4-8.9 Albumin 4.2 g/dL Normal 3.2-5.2 Globulin 3.2 g/dL Normal 2-4 Albumin/Globulin Ratio 1.3 Normal 1-3 Total Bilirubin 0.20 mg/dL Normal 0.2-1.0 Alkaline Phosphatase 112 U/L High 34-104 Alt 23 U/L Normal 7-52 Ast 14 U/L Normal 13-39 Egfr Non- 98.5 Normal >60 Egfr 126.6 Normal >60 51 Laboratory test 07/31/2014 [facility] Lipase 23 U/L Normal 11.0-82.0 finding [address] [place] [address] [phone] Troponin I 0.00 ng/mL Normal <0.03 52 C Reactive Protein 4.94 mg/L Normal < 5.00 53 Serum Negative Normal Negative 54 D Dimer Quantitative < 200 ng/mL Normal Less Than 230 55 CBC Auto 07/27/2014 [facility] White Blood 11.2 10^3/uL High 4.8-10.[address] [facility] [place] [address] [phone] Red Blood Count 4.82 10^6/uL Normal 4.0-5.4 Hemoglobin 14.4 g/dL Normal 12.0-16.0 Hematocrit 44 % Normal 35-47 Mean Corpuscular Volume 92 fL Normal 80-97 Mean Corpuscular Hemoglobin 30 pg Normal 27-31 Mean Corpuscular HGB Conc 33 g/dL Normal 31-36 Red Cell Distribution Width 14 % Normal 10.5-15 Platelet Count 342 10^3/uL Normal 150-450 Mean Platelet Volume 9 um3 Normal 7.4-10.4 Abs Neutrophils 9.6 10^3/uL High 1.5-7.7 Abs Lymphocytes 1.2 10^3/uL Normal 1.0-4.8 Abs Monocytes 0.4 10^3/uL Normal 0-0.8 Abs Eosinophils 0 10^3/uL Normal 0-0.6 Abs Basophils 0 10^3/uL Normal 0-0.2 Abs Nucleated RBC 0 10^3/uL Normal Granulocyte % 85.6 % High 38-83 Lymphocyte % 11.0 % Low 25-47 Monocyte % 3.1 % Normal 1-9 Eosinophil % 0 % Normal 0-6 Basophil % 0.3 % Normal 0-2 Nucleated Red Blood Cells % 0 Normal Laboratory test 07/27/2014 [facility] Lactic Acid 1.5 mmol/L Normal 0.5-2.2 finding [address] [place] [address] [phone] Comp Metabolic 07/27/2014 [facility] Sodium 135 mmol/L Normal 133-[address] [place] [address] [phone] Potassium 4.2 mmol/L Normal 3.5-5.0 Chloride 105 mmol/L Normal 101-111 Co2 Carbon Dioxide 22 mmol/L Normal 22-32 Anion Gap 8 mmol/L Normal 2-11 Glucose 159 mg/dL High 70-100 Blood Urea Nitrogen 15 mg/dL Normal 6-24 Creatinine 0.63 mg/dL Normal 0.51-0.95 BUN/Creatinine Ratio 23.8 High 8-20 Calcium 9.6 mg/dL Normal 8.6-10.3 Total Protein 7.6 g/dL Normal 6.4-8.9 Albumin 4.3 g/dL Normal 3.2-5.2 Globulin 3.3 g/dL Normal 2-4 Albumin/Globulin Ratio 1.3 Normal 1-3 Total Bilirubin 0.20 mg/dL Normal 0.2-1.0 Alkaline Phosphatase 110 U/L High 34-104 Alt 28 U/L Normal 7-52 Ast 22 U/L Normal 13-39 Egfr Non- 98.5 Normal >60 Egfr 126.6 Normal >60 56 Laboratory test 07/27/2014 [facility] Lipase 13 U/L Normal 11.0-82.[address] [place] [address] [phone] C Reactive Protein 16.42 mg/L High < 5.00 57 Rapid Influenza 07/25/2014 [facility] Rapid (SEE NOTE) 58 A B Antigen [address] [address] B Antigen [phone] Comp Metabolic 07/11/2014 [facility] Sodium 135 mmol/L Normal 133-[address] [place] [address] [phone] Potassium 3.8 mmol/L Normal 3.5-5.0 Chloride 103 mmol/L Normal 101-111 Co2 Carbon Dioxide 25 mmol/L Normal 22-32 Anion Gap 7 mmol/L Normal 2-11 Glucose 106 mg/dL High 70-100 Blood Urea Nitrogen 15 mg/dL Normal 6-24 Creatinine 0.79 mg/dL Normal 0.51-0.95 BUN/Creatinine Ratio 19.0 Normal 8-20 Calcium 9.3 mg/dL Normal 8.6-10.3 Total Protein 7.1 g/dL Normal 6.4-8.9 Albumin 4.2 g/dL Normal 3.2-5.2 Globulin 2.9 g/dL Normal 2-4 Albumin/Globulin Ratio 1.4 Normal 1-3 Total Bilirubin 0.20 mg/dL Normal 0.2-1.0 Alkaline Phosphatase 122 U/L High 34-104 Alt 17 U/L Normal 7-52 Ast 14 U/L Normal 13-39 Egfr Non- 75.8 Normal >60 Egfr 97.5 Normal >60 59 Laboratory test 07/11/2014 [facility] Lipase 25 U/L Normal 11.0-82.0 finding [address] [place] [address] [phone] C Reactive Protein 8.26 mg/L High < 5.00 60 Lactic Acid 1.3 mmol/L Normal 0.5-2.2 Serum Negative Normal Negative 61 Inr/Protime 07/11/2014 [facility] Inr 0.93 Normal 0.85-1.[address] [place] [address] [phone] Urinalysis 07/11/2014 [facility] Urine Yellow Normal Profile [address] [place] [address] [phone] Urine Appearance Cloudy Normal Urine Specific [place] 1.024 Normal 1.010-1.030 Urine pH 5.0 Normal 5-9 Urine Urobilinogen Negative Normal Negative Urine Ketones Trace Abnormal Negative Urine Protein Negative Normal Negative Urine Leukocytes Negative Normal Negative Urine Blood Negative Normal Negative Urine Nitrite Negative Normal Negative Urine Bilirubin Negative Normal Negative Urine Glucose Negative Normal Negative CBC Auto 07/11/2014 [facility] White Blood 10.9 10^3/uL High 4.8-10.[address] [place] [address] [phone] Red Blood Count 4.76 10^6/uL Normal 4.0-5.4 Hemoglobin 14.5 g/dL Normal 12.0-16.0 Hematocrit 44 % Normal 35-47 Mean Corpuscular Volume 92 fL Normal 80-97 Mean Corpuscular Hemoglobin 30 pg Normal 27-31 Mean Corpuscular HGB Conc 33 g/dL Normal 31-36 Red Cell Distribution Width 14 % Normal 10.5-15 Platelet Count 341 10^3/uL Normal 150-450 Mean Platelet Volume 9 um3 Normal 7.4-10.4 Abs Neutrophils 6.2 10^3/uL Normal 1.5-7.7 Abs Lymphocytes 3.6 10^3/uL Normal 1.0-4.8 Abs Monocytes 0.9 10^3/uL High 0-0.8 Abs Eosinophils 0.1 10^3/uL Normal 0-0.6 Abs Basophils 0.1 10^3/uL Normal 0-0.2 Abs Nucleated RBC 0.01 10^3/uL Normal Granulocyte % 57.1 % Normal 38-83 Lymphocyte % 32.9 % Normal 25-47 Monocyte % 8.1 % Normal 1-9 Eosinophil % 1.2 % Normal 0-6 Basophil % 0.7 % Normal 0-2 Nucleated Red Blood Cells % 0 Normal CBC Auto 07/09/2014 [facility] White Blood 11.8 10^3/uL High 4.8-10.[address] [place] [address] [phone] Red Blood Count 4.58 10^6/uL Normal 4.0-5.4 Hemoglobin 13.9 g/dL Normal 12.0-16.0 Hematocrit 42 % Normal 35-47 Mean Corpuscular Volume 92 fL Normal 80-97 Mean Corpuscular Hemoglobin 30 pg Normal 27-31 Mean Corpuscular HGB Conc 33 g/dL Normal 31-36 Red Cell Distribution Width 14 % Normal 10.5-15 Platelet Count 322 10^3/uL Normal 150-450 Mean Platelet Volume 9 um3 Normal 7.4-10.4 Abs Neutrophils 7.5 10^3/uL Normal 1.5-7.7 Abs Lymphocytes 3.4 10^3/uL Normal 1.0-4.8 Abs Monocytes 0.8 10^3/uL Normal 0-0.8 Abs Eosinophils 0.1 10^3/uL Normal 0-0.6 Abs Basophils 0.1 10^3/uL Normal 0-0.2 Abs Nucleated RBC 0.01 10^3/uL Normal Granulocyte % 63.5 % Normal 38-83 Lymphocyte % 28.5 % Normal 25-47 Monocyte % 6.4 % Normal 1-9 Eosinophil % 1.1 % Normal 0-6 Basophil % 0.5 % Normal 0-2 Nucleated Red Blood Cells % 0.1 Normal Comp Metabolic 07/09/2014 [facility] Sodium 135 mmol/L Normal 133-[address] [place] [address] [phone] Potassium 3.7 mmol/L Normal 3.5-5.0 Chloride 101 mmol/L Normal 101-111 Co2 Carbon Dioxide 28 mmol/L Normal 22-32 Anion Gap 6 mmol/L Normal 2-11 Glucose 104 mg/dL High 70-100 Blood Urea Nitrogen 15 mg/dL Normal 6-24 Creatinine 0.68 mg/dL Normal 0.51-0.95 BUN/Creatinine Ratio 22.1 High 8-20 Calcium 9.4 mg/dL Normal 8.6-10.3 Total Protein 7.3 g/dL Normal 6.4-8.9 Albumin 4.2 g/dL Normal 3.2-5.2 Globulin 3.1 g/dL Normal 2-4 Albumin/Globulin Ratio 1.4 Normal 1-3 Total Bilirubin 0.20 mg/dL Normal 0.2-1.0 Alkaline Phosphatase 106 U/L High 34-104 Alt 18 U/L Normal 7-52 Ast 17 U/L Normal 13-39 Egfr Non- 90.2 Normal >60 Egfr 116.0 Normal >60 62 Laboratory test 07/09/2014 [facility] Amylase 32 U/L Normal 29 -103 finding [address] [place] [address] [phone] Erythrocyte Sed Rate 13 mm/Hr Normal 0-30 Urine Culture And 07/09/2014 [facility] Urine Culture (SEE NOTE ) 63 Sensitivities [address] [place] [address] [phone] Ua Routine 07/09/2014 [facility] House Ua Specific 1.005 [place] Ua PH 5.0 Ua Color yellow Ua Appera cloudy Ua WBC trace Ua Protein Negative Ua Glucose Negative Ua Ketones Negative Ua Bilirubin Small Ua Urobilinogen Normal Ua Nitrite Negative Ua Occult Blood Negative CBC Auto Diff 04/12/2014 White Blood Count 13.7 10^3/uL High 4.8-10.8 Red Blood Count 4.60 10^6/uL Normal 4.0-5.4 Hemoglobin 14.1 g/dL Normal 12.0-16.0 Hematocrit 42 % Normal 35-47 Mean Corpuscular Volume 91 fL Normal 80-97 Mean Corpuscular Hemoglobin 31 pg Normal 27-31 Mean Corpuscular HGB Conc 34 g/dL Normal 31-36 Red Cell Distribution Width 13 % Normal 10.5-15 Platelet Count 317 10^3/uL Normal 150-450 Mean Platelet Volume 9 um3 Normal 7.4-10.4 Abs Neutrophils 8.6 10^3/uL High 1.5-7.7 Abs Lymphocytes 3.6 10^3/uL Normal 1.0-4.8 Abs Monocytes 1.3 10^3/uL High 0-0.8 Abs Eosinophils 0.1 10^3/uL Normal 0-0.6 Abs Basophils 0.1 10^3/uL Normal 0-0.2 Abs Nucleated RBC 0 10^3/uL Normal Granulocyte % 63.0 % Normal 38-83 Lymphocyte % 26.3 % Normal 25-47 Monocyte % 9.3 % High 1-9 Eosinophil % 1.0 % Normal 0-6 Basophil % 0.4 % Normal 0-2 Nucleated Red Blood Cells % 0 Normal Comp Metabolic Panel 04/12/2014 Sodium 136 mmol/L Normal 133-145 Potassium 4.1 mmol/L Normal 3.7-5.6 Chloride 100 mmol/L Low 101-111 Co2 Carbon Dioxide 31 mmol/L Normal 22-32 Anion Gap 5 mmol/L Normal 2-11 Glucose 76 mg/dL Normal 70-100 Blood Urea Nitrogen 12 mg/dL Normal 6-24 Creatinine 0.75 mg/dL Normal 0.51-0.95 BUN/Creatinine Ratio 16.0 Normal 8-20 Calcium 9.6 mg/dL Normal 8.6-10.3 Total Protein 6.7 g/dL Normal 6.4-8.9 Albumin 4.0 g/dL Normal 3.2-5.2 Globulin 2.7 g/dL Normal 2-4 Albumin/Globulin Ratio 1.5 Normal 1-3 Total Bilirubin 0.30 mg/dL Normal 0.2-1.0 Alkaline Phosphatase 97 U/L Normal 34-104 Alt 22 U/L Normal 7-52 Ast 17 U/L Normal 13-39 Egfr Non- 80.5 Normal >60 Egfr 103.6 Normal >60 64 Laboratory test finding 04/12/2014 Lipase 22 U/L Normal 11.0-82.0 Amylase 31 U/L Normal 29-103 CBC Auto 01/30/2014 [facility] White Blood 11.3 10^3/uL High 4.8-10.[address] [place] [address] [phone] Red Blood Count 4.15 10^6/uL Normal 4.0-5.4 Hemoglobin 13.0 g/dL Normal 12.0-16.0 Hematocrit 38 % Normal 35-47 Mean Corpuscular Volume 91 fL Normal 80-97 Mean Corpuscular Hemoglobin 31 pg Normal 27-31 Mean Corpuscular HGB Conc 34 g/dL Normal 31-36 Red Cell Distribution Width 13 % Normal 10.5-15 Platelet Count 292 10^3/uL Normal 150-450 Mean Platelet Volume 9 um3 Normal 7.4-10.4 Abs Neutrophils 7.9 10^3/uL High 1.5-7.7 Abs Lymphocytes 2.3 10^3/uL Normal 1.0-4.8 Abs Monocytes 1.0 10^3/uL High 0-0.8 Abs Eosinophils 0.1 10^3/uL Normal 0-0.6 Abs Basophils 0 10^3/uL Normal 0-0.2 Abs Nucleated RBC 0.01 10^3/uL Normal Granulocyte % 70.0 % Normal 38-83 Lymphocyte % 20.2 % Low 25-47 Monocyte % 8.4 % Normal 1-9 Eosinophil % 1.0 % Normal 0-6 Basophil % 0.4 % Normal 0-2 Nucleated Red Blood Cells % 0.1 Normal Inr/Protime 01/30/2014 [facility] Inr 0.91 Normal 0.85-1.06 [address] [place] [address] [phone] Laboratory test 01/30/2014 [facility] Activated 28.3 Normal 24.0-36.[address] [facility] [place] [address] Thrombo Time [phone] Laboratory test 01/30/2014 [facility] Magnesium 1.8 mg/dL Low 1.9-2.7 finding 101 [place] [address] [phone] Troponin I 0.00 ng/mL Normal <0.03 65 TSH (Thyroid Stimulating Horm) 4.59 IU/mL Normal 0.34-5.60 Comp Metabolic 01/30/2014 [facility] Sodium 136 mmol/L Normal 133-145 Panel 101 [place] [address] [phone] Potassium 3.6 mmol/L Low 3.7-5.6 Chloride 103 mmol/L Normal 101-111 Co2 Carbon Dioxide 28 mmol/L Normal 22-32 Anion Gap 5 mmol/L Normal 2-11 Glucose 118 mg/dL High 70-100 Blood Urea Nitrogen 16 mg/dL Normal 6-24 Creatinine 0.70 mg/dL Normal 0.51-0.95 BUN/Creatinine Ratio 22.9 High 8-20 Calcium 9.4 mg/dL Normal 8.6-10.3 Total Protein 6.9 g/dL Normal 6.4-8.9 Albumin 4.0 g/dL Normal 3.2-5.2 Globulin 2.9 g/dL Normal 2-4 Albumin/Globulin Ratio 1.4 Normal 1-3 Total Bilirubin 0.20 mg/dL Normal 0.2-1.0 Alkaline Phosphatase 98 U/L Normal 34-104 Alt 15 U/L Normal 7-52 Ast 15 U/L Normal 13-39 Egfr Non- 87.2 Normal >60 Egfr 112.1 Normal >60 66 1 01/30 2 Because ethnic [...] [address]: Eva Esteves MD Acct: [id number] Unit: [id number] AGE: 58 Location: [facility] Re01/21/19 SEX: F Status: REG REF SPEC: [id number] KAMAR: 01/21/19-[address] [facility] [address]: Eva Esteves MD REQ: [id number] RECD: 01/21/19 STATUS: PARIS AGUIRRE DR: Tatiana Geronimo MD _ SOURCE: URINE SPDESC: ORDERED: Urine Culture COMMENTS: RIGO 01/30 QUERIES: Urine Source: Clean Catch Procedure Result Reported Site Urine Culture Final 01/22/19- 1221 ML No Growth (<1,000 CFU/mL) * ML - Main Lab . END OF REPORT DEPARTMENT OF PATHOLOGY, [address] [place] [address] Osmar Edge M.D. Director [facility] # [id number] 6 Because ethnic data is not always [...] 0.03 ng/mL Not supportive of diagnosis of [place] 0.03 - 0.50 ng/mL Indeterminate: suggest serial studies if clinically indicated. Greater than 0.5 ng/mL Consistent with diagnosis of [place] 8 Absolute neutrophilia and absolute lymphocytosis, favor [...] 0.03 ng/mL Not supportive of diagnosis of [place] 0.03 - 0.50 ng/mL Indeterminate: suggest serial studies if clinically indicated. Greater than 0.5 ng/mL Consistent with diagnosis of [place] 12 Please note: The following may produce [...] 0.03 ng/mL Not supportive of diagnosis of [place] 0.03 - 0.50 ng/mL Indeterminate: suggest serial studies if clinically indicated. Greater than 0.5 ng/mL Consistent with diagnosis of [place] 16 SEE RESULT BELOW Name: PASCALE GARCÍA : [address]: Joseph Durand MD Acct: [id number] Unit: [id number] AGE: 54 Location: ED Re03/12/15 SEX: F Status: DEP ER SPEC: [id number] KAMAR: 03/12/[address] [facility] [address]: Joseph Durand MD REQ: [id number] RECD: 03/12/15 STATUS: PARIS AGUIRRE DR: Denice Christopher MD _ SOURCE: URINE SPDESC: ORDERED: Urine Culture Procedure Result Verified Site Urine Culture Final 03/14/15- 1045 ML Organism 1 NORMAL JAMES [place] Count 50-75,000 (Many) CFU/ML * ML - MAIN LAB ([facility]) . END OF REPORT * ML=Testing performed at Main Lab DEPARTMENT OF PATHOLOGY, [address] [place] [address] Osmar Edge M.D. Director [facility] # [id number] 17 Reference Range and Interpretation: TnI (ng/mL) Interpretation Less Than 0.03 ng/mL Not supportive of diagnosis of WI 0.03 - 0.50 ng/mL Indeterminate: suggest serial studies if clinically indicated. Greater than 0.5 ng/mL Consistent with diagnosis of [place] 18 Consistent with previous results on 02/26/15. [...] 0.03 ng/mL Not supportive of diagnosis of [place] 0.03 - 0.50 ng/mL Indeterminate: suggest serial studies if clinically indicated. Greater than 0.5 ng/mL Consistent with diagnosis of [place] 21 Reference Range and Interpretation: TnI (ng/mL) Interpretation Less Than 0.03 ng/mL Not supportive of diagnosis of [place] 0.03 - 0.50 ng/mL Indeterminate: suggest serial studies if clinically indicated. Greater than 0.5 ng/mL Consistent with diagnosis of [place] 22 Because ethnic data is not always [...] 0.03 ng/mL Not supportive of diagnosis of WI 0.03 - 0.50 ng/mL Indeterminate: suggest serial studies if clinically indicated. Greater than 0.5 ng/mL Consistent with diagnosis of [place] 27 Acute inflammation: >10.00 28 SEE RESULT BELOW Name: PASCALE GARCÍA : [address]: Darius Cottrell MD Acct: [id number] Unit: [id number] AGE: 54 Location: [facility] Re12/26/14 SEX: F Status: DEP ER SPEC: [id number] KAMAR: 12/26/14-[address] [facility] [address]: Darius Cottrell MD REQ: [id number] RECD: 12/26/14 STATUS: PARIS AGUIRRE DR: Denice Christopher MD _ SOURCE: HAND,LEFT SPDESC: ORDERED: Culture Stain Procedure Result Verified Site Wound/Misc Gram Stain Final 12/26/14- 1400 ML 1+ Neutrophils No Organisms Seen Wound/Misc Culture Final 12/28/14- 1124 ML No Growth Day 2 * ML - MAIN LAB ([facility]) . END OF REPORT * ML=Testing performed at Main Lab DEPARTMENT OF PATHOLOGY, [address] [place] [address] Osmar Edge M.D. Director [facility] # [id number] 29 Because ethnic data is not always [...] Acute inflammation: >10.00 33 RUN DATE: 09/23/14 [facility] LAB LIVE PAGE 1 RUN TIME: [address] [place] [address] Specimen Inquiry Name: PASCALE GARCÍA : [address]: Denice Christopher MD Acct: [id number] Unit: [id number] AGE: 54 Location: [facility] Re09/21/14 SEX: F Status: REG REF SPEC: [id number] KAMAR: 09/21/14-[address] [facility] [address]: Denice Christopher MD REQ: [id number] RECD: 09/21/144264 STATUS: COMP _ SOURCE: URINE SPDESC: ORDERED: Urine Culture QUERIES: Provider Requisition # [id number] Procedure Result Verified Site Urine Culture Final 09/23/14- 1027 L Organism 1 NORMAL JAMES [place] Count >100,000 (Many) CFU/ML END OF REPORT * ML=Testing performed at Main Lab DEPARTMENT OF PATHOLOGY, [address] [place] [address] Osmar Edge M.D. Director [facility] # [id number] 34 Acute inflammation: >10.00 35 Because ethnic [...] and in selective patients <6.0%.Please refer to [place] [employer] Diabetic care guidelines for further [...] REFERENCE VALUE Not present Test Performed by: [address] [address] Spoilage Worker: Gavino Tyler M.D. 42 Because ethnic data [...] 0.03 ng/mL Not supportive of diagnosis of [place] 0.03 - 0.50 ng/mL Indeterminate: suggest serial studies if clinically indicated. Greater than 0.5 ng/mL Consistent with diagnosis of [place] 45 RUN DATE: 08/07/14 [facility] LAB LIVE PAGE 1 RUN TIME: [address] [place] [address] Specimen Inquiry Name: PASCALE GARCÍA : [address]: Julio C Lindsey DO Acct: [id number] Unit: [id number] AGE: 53 Location: ED Re08/02/14 SEX: F Status: DEP ER SPEC: [id number] KAMAR: 08/02/[address]: Jase GIBSON REQ: [id number] RECD: 08/02/14 STATUS: [place] AGUIRRE DR: Denice Lindsey DO _ SOURCE: BLOOD,VENO SPDESC: ORDERED: Blood Cult Procedure Result Verified Site Aerobic Culture Bottle Final 08/07/14- 1517 ML No Growth Day 5 Anaerobic Culture Bottle Final 08/07/14- 1517 ML No Growth Day 5 END OF REPORT * ML=Testing performed at Main Lab DEPARTMENT OF PATHOLOGY, [address] [place] [address] Osmar Edge M.D. Director [facility] # [id number] 46 RUN DATE: 08/07/14 [facility] LAB LIVE PAGE 1 RUN TIME: [address] [place] [address] Specimen Inquiry Name: PASCALE GARCÍA : [address]: Julio C Lindsey DO Acct: [id number] Unit: [id number] AGE: 53 Location: ED Re08/02/14 SEX: F Status: DEP ER SPEC: [id number] KAMAR: 08/02/[address]: Jase GIBSON REQ: [id number] RECD: 08/02/14 STATUS: PARIS AGUIRRE DR: Denice Lindsey DO _ SOURCE: BLOOD,VENO SPDESC: ORDERED: Blood Cult Procedure Result Verified Site Aerobic Culture Bottle Final 08/07/14- 1441 ML No Growth Day 5 Anaerobic Culture Bottle Final 08/07/14- 1441 ML No Growth Day 5 END OF REPORT * ML=Testing performed at Main Lab DEPARTMENT OF PATHOLOGY, [address] [place] [address] Osmar Edge M.D. Director [facility] # [id number] 47 >100 to <200 pg/mL: likely compensated congestive heart failure (CHF) 200 to 400 pg/mL: likely moderate CHF >400 pg/mL: likely moderate to severe CHF [place] [facility] 48 Because ethnic data is not [...] 0.03 ng/mL Not supportive of diagnosis of [place] 0.03 - 0.50 ng/mL Indeterminate: suggest serial studies if clinically indicated. Greater than 0.5 ng/mL Consistent with diagnosis of [place] 50 Please note: The following may produce [...] 0.03 ng/mL Not supportive of diagnosis of [place] 0.03 - 0.50 ng/mL Indeterminate: suggest serial studies if clinically indicated. Greater than 0.5 ng/mL Consistent with diagnosis of [place] 53 Acute inflammation: >10.00 54 This test [...] Acute inflammation: >10.00 58 RUN DATE: 07/25/14 [facility] LAB LIVE PAGE 1 RUN TIME: [address] [place] [address] Specimen Inquiry Name: PASCALE GARCÍA : [address]: Wei Saini Acct: [id number] Unit: [id number] AGE: 53 Location: ED Re07/25/14 SEX: F Status: REG ER SPEC: [id number] KAMAR: 07/25/[address]: Wei Thomason DO REQ: [id number] RECD: 07/25/14 STATUS: PARIS BARRAGAN DR: Denice Christopher MD _ [facility] ORDERED: Rapid Flu A B Procedure Result [...] performed at Main Lab DEPARTMENT OF PATHOLOGY, [address] [place] [address] Osmar Edge M.D. Director [facility] # [id number] 59 Because ethnic data is not always [...] <15 (or dialysis) 63 RUN DATE: 07/12/14 [facility] LAB LIVE PAGE 1 RUN TIME: [address] [place] [address] Specimen Inquiry Name: PASCALE GARCÍA : [address]: Denice Christopher MD Acct: [id number] Unit: [id number] AGE: 53 Location: [facility] Re07/09/14 SEX: F Status: REG REF SPEC: [id number] KAMAR: 07/09/14-[address] [facility] [address]: Denice Christopher MD REQ: [id number] RECD: 07/09/14 STATUS: COMP _ SOURCE: URINE SPDESC: ORDERED: Urine Culture QUERIES: [employer] Number [id number] Procedure Result Verified Site Urine Culture Final 07/12/14- 0836 ML Organism 1 NORMAL JAMES [place] Count 75-100,000 (Many) CFU/ML END OF REPORT * ML=Testing performed at Main Lab DEPARTMENT OF PATHOLOGY, [address] [place] [address] Osmar Edge M.D. Director [facility] # [id number] 64 Because ethnic data is not always [...] 0.03 ng/mL Not supportive of diagnosis of WI 0.03 - 0.50 ng/mL Indeterminate: suggest serial studies if clinically indicated. Greater than 0.5 ng/mL Consistent with diagnosis of [place] 66 Because ethnic data is not always [...] (or dialysis) Procedures Date Code Description Status 01/30/2019 96553 Revision TKA W Or W/O Allograft;Femoral & Entire Tibial Completed Component 01/30/2019 15570 Revision TKA W Or W/O Allograft;Femoral & Entire Tibial Completed Component 08/26/2015 20676 Trigger Finger Release Incision / Tendon Sheath Completed Incision 08/26/2015 57487 Trigger Finger Release Incision / Tendon Sheath Completed Incision 04/25/2015 74708 Diffusing Capacity Completed 04/25/2015 87678 Plethysmography Determination Lung Volumes & Per Airway Completed Resist 04/25/2015 12326 Pulmonary Function><Bronchodil Completed 11/25/2014 86337299 Mammogram Completed 10/18/2014 49243693 Colonoscopy Completed 09/23/2014 12504775 Colonoscopy Completed 09/07/2014 97589 EKG Tracing & Interpretation Completed 11/16/2013 04625 Xray Knee 3 Views Completed 11/16/2013 42932 Rad Exam; Knee, Ap&L Completed 08/28/2013 94755 Carpal Tunnel Release Completed 08/07/2013 00220 Carpal Tunnel Release Completed 06/18/2013 94793 Rad Exam; Wrist, Comp, Min 3 Views Completed 06/18/2013 38542 Rad Exam; Wrist, Comp, Min 3 Views Completed 05/29/2013 23685 EKG, Interpretation Only Completed 05/26/2013 87106 EKG, Interpretation Only Completed 01/07/2012 66411 Xray Knee 3 Views Completed 01/07/2012 13676 Rad Exam; Knee Comp Completed 01/07/2012 50736 Rad Exam; Tib-Fib Completed 06/20/2011 23043 Xray Knee 3 Views Completed 06/20/2011 58114 Rad Exam; Knee, Ap&L Completed 05/08/2011 88934 TKR Total Knee Replacement Completed 11/27/2010 22811 Xray Knee 3 Views Completed 11/27/2010 68005 Rad Exam; Knee, Ap&L Completed 11/27/2010 81911 Rad Exam; Elbow, Limited Completed 11/27/201074603 Inject/Drain Joint/Bursa Major W/O US Completed 07/03/2010 20684 Xray Knee 3 Views Completed 04/07/2010 34508 Xray Knee 3 Views Completed 03/07/2010 03919 TKR Total Knee Replacement Completed Encounters Type Date Location Provider Dx Diagnosis Office Visit 02/06/2019 Orthopedic Moses Javed MD L03.116 Cellulitis of left 7:44a [facility] lower limb Z96.652 Presence of left artificial knee joint Office Visit 02/01/2019 9:55a [facility],teo Lamar NP (primary) Hospitalists hypertension J44.9 Chronic obstructive pulmonary disease, unspecified Office Visit 01/31/2019 9:55a [facility],teo Lamar NP (primary) Hospitalists hypertension J44.9 Chronic obstructive pulmonary disease, unspecified Office Visit 12/01/2018 9:30a Orthopedic Eva Esteves, T84.053A Periprosth Services Of [...] [place] M25.562 Pain in left [facility] Maki MD knee Z96.652 Presence of left artificial knee joint Office Visit 10/14/2018 10:00a Orthopedic Ryan [place] Z96.651 Presence of Services Of MD [place]nn right artificial [facility] knee joint S83.412A Sprain of medial collateral ligament of left knee, init M25.561 Pain in right knee Office Visit 04/08/2018 10:15a Orthopedic Ryan F Z96.651 Presence of [facility] [place] right artificial [facility] knee joint S83.412A Sprain of medial collateral ligament of left knee, init M25.561 Pain in right knee Office Visit 08/01/2016 8:00a Orthopedic k Naheed, M54.41 Lumbago with Services Of Jose Friedman [...] to excess calories Office Visit 03/29/2015 10:30a [facility] Internal Darius Diaz, 491.21 Bronchitis Medicine - [facility] [employer]QU[employer] COMM[employer]IONER Obstructive Chronic W/Acute Exacerbation 305.1 Tobacco Use Disorder Office Visit 03/14/2015 3:00p [facility] Internal Norbert Morgan, 786.05 Shortness Of Medicine - [facility] [employer] COMM[employer]ER Breath 724.2 Lumbago 496 COPD Airway Obstruction Chronic Not Class Elsewhere Office Visit 12/29/2014 10:00a [facility] Internal Darius Diaz, 692.6 Dermatitis Contact Medicine - [facility] [employer]QU[employer] COMMISSIONER Due To Plants (Except Food) 782.1 Rash & Other Nonspec Skin Eruption Office Visit 12/10/2014 9:30a [facility] Internal Darius Diaz, LIQUOR COMMISSIONER 528.9 Oral Soft Tissue Medicine - [facility] Diseases Other & Unspec 782.0 Skin Sensation Disturbance Office Visit 2014 12:40p [facility] Internal Denice Christopher, 789.02 Pain Abdominal Medicine - [facility] M.D. Left Upper Quadrant 789.63 Tenderness Abdominal Right Lower Quadrant Office Visit 09/07/2014 4:00p [facility] Internal Denice Christopher, V72.84 Examination Medicine - M.D. Preoperative Unspec [facility] 789.02 Pain Abdominal Left Upper Quadrant 530.11 Esophagitis Reflux V72.81 Examination Preoperative Cardiovascular 553.1 Hernia Umbilical 789.62 Tenderness Abdominal Left Upper Quadrant 790.95 Elevated C-Reactive Protein 790.5 Serum Enzyme Levels Abnormal Other Nonspec 530.81 Esophageal Reflux Office Visit 08/23/2014 3:00p [facility] Internal Norbert Eddie, 789.02 Pain Abdominal Medicine - [facility] [employer]QU[employer] COMMISSIONER Left Upper Quadrant 787.01 Nausea W/ Vomiting Office Visit 08/13/2014 11:20a [facility] Internal Denice Christopher, 789.00 Pain Abdominal Medicine - [facility] M.D. Unspec Site 288.60 Leukocytosis, Unspecified Office Visit 08/10/2014 9:48a [facility] Aline SHector 789.00 Pain Abdominal Assoc,pc Yves, N.P. Unspec Site Hospitalists 496 COPD Airway Obstruction Chronic Not Class Elsewhere 288.60 Leukocytosis, Unspecified Office Visit 08/08/2014 9:47a [facility] Alissa 789.00 Pain Abdominal Assoc,pc Óscar, DELFINO Unspec Site Hospitalists 496 COPD Airway Obstruction Chronic Not Class Elsewhere 288.60 Leukocytosis, Unspecified Office Visit 07/31/2014 11:43a [facility] Melita 789.00 Pain Abdominal Assoc,pc Janusz, D.O. Unspec Site Hospitalists 530.11 Esophagitis Reflux 490 Bronchitis Acute Or Chronic Not Spec 311 Depressive Disorder Not Elsewhere Spec Office Visit 07/26/2014 11:30a [facility] Internal Gloria Menon, 491.21 Bronchitis Medicine - SPA MANAGER Obstructive Chronic Ccmob W/Acute Exacerbation 466.0 Bronchitis Acute 786.2 Cough 305.1 Tobacco Use Disorder Office Visit 07/09/2014 2:20p [facility] Internal Denice Christopher, 789.07 Pain Abdominal Medicine - M.D. Generalized Ccmob Office Visit 05/24/2014 1:00p [facility] Internal Gloria Menon, 727.05 Tenosynovitis Hand Medicine - SPA MANAGER & Wrist Other Ccmob Office Visit 05/05/2014 8:30a [facility] Internal Gloria Menon, 786.50 Pain Chest Unspec Medicine - SPA MANAGER Ccmob 847.1 Sprains & Strains Thoracic Office Visit 04/12/2014 1:00p [facility] Internal Gloria Menon, 789.07 Pain Abdominal Medicine - SPA MANAGER Generalized Ccmob 288.50 Leukocytopenia, Unspecified Office Visit 03/26/2014 1:00p [facility] Internal Denice Christopher, 491.21 Bronchitis Medicine - M.D. Obstructive Chronic Ccmob W/Acute Exacerbation 492.8 Emphysema Other Office Visit 11/29/2013 4:32p [facility] Jose Alejandro Zuleta 786.50 Pain Chest Assoc,teo Muñoz M.D. Unspec Hospitalists Hospitalist 492.8 Emphysema Other 401.9 Hypertension Unspec 311 Depressive Disorder Not Elsewhere Spec Office Visit 11/28/2013 4:28p [facility] Guillermo Moon 786.50 Pain Chest Assoc,teo CASTILLO M.D. Unspec Hospitalists 492.8 Emphysema Other 401.9 Hypertension Unspec 311 Depressive Disorder Not Elsewhere Spec Office Visit 11/16/2013 [facility] Sacha Farfan, 726.64 Tendinitis 11:30a [facility] Friedman Patellar Office Visit 06/18/2013 Orthopedic Lucille 354.0 Carpal Tunnel 9:00a [facility] Nuno M.D. Syndrome Office Visit 05/29/2013 [facility] Smith Marie, 491.21 Bronchitis 2:46p teo Leyva M.D. Obstructive Hospitalists Chronic W/Acute Exacerbation 481 Pneumonia Pneumococcal 311 Depressive Disorder Not Elsewhere Spec Office Visit 05/28/2013 2:46p [facility] Manuel 481 Pneumonia Assoc,teo Puente N.Shola Pneumococcal Hospitalists 311 Depressive Disorder Not Elsewhere Spec 491.21 Bronchitis Obstructive Chronic W/Acute Exacerbation Office [facility] 491.21 Bronchitis 6:10p Assocteo M.D. Obstructive Hospitalists Chronic W/Acute Exacerbation 786.52 Painful Respiration 311 Depressive Disorder Not Elsewhere Spec 794.31 Electrocardiogram (ECG) (EKG) Abnormal Office Visit 05/25/2013 [facility] Aline SHector 491.21 Bronchitis 6:10p Assocteo N.PHector Obstructive Hospitalists Chronic W/Acute Exacerbation 794.31 Electrocardiogram (ECG) (EKG) Abnormal 786.52 Painful Respiration 311 Depressive Disorder Not Elsewhere Spec Office Visit 10/16/2012 4:27p [facility] [place] 492.8 Emphysema Other Assoc,teo Rader M.D. Hospitalists 466.0 Bronchitis Acute 305.1 Tobacco Use Disorder [facility].8 Emphysema Other Assoc,teo Friedman Hospitalists 466.0 Bronchitis Acute 305.1 Tobacco Use Disorder Office Visit 09/25/2012 Orthopedic Sacha Farfan, 722.0 Intervertebral Disc 10:45a [facility] C.M.A. Cervical W/O Myelopathy Office Visit 01/07/2012 Orthopedic Rui 924.11 Contusion Knee 2:30p [facility] Limon C.M.A. Office Visit 03/28/2011 Jacinta Farfan, 716.96 Arthropathy Unspec 2:45p [facility] Lower Leg C.M.A. Office Visit 11/27/2010 Jacinta Farfan 716.96 Arthropathy Unspec 2:30p Services [facility] [...] C.M.A. Localized Lower Leg Plan of Treatment 02/18/2019 - Eva Esteves M.D.M25.562 Pain in left kneeFollow up:Follow up: 2 vednrX81.652 Presence of left artificial knee andnrS01.1 Aftercare following joint replacement surgery
--- OUTSIDE RECORDS SUMMARY | 2019-02-20 22:19 | XMS REPORT | Continuity of Care Document ---
:1960 External Reference #:[id number] Author Name Gladis Olivares Care Team Providers Name Role Phone Tatiana Geronimo MD Primary Care Physician Unavailable Payers Date Identification Numbers Payment Provider Subscriber Policy Number: [id number] [facility] [employer] PayID: [id number] [address] [address] [place] [address] Effective: 2018 Policy Number: [id number] [facility] Care [employer] Expires: 2020 Group Number: 90% [id number] [facility] PayID: [id number] [address] Problems Active Problems Provider Date Leukopenia ALMA [...] per day 30 years Smoking Status Reviewed: 02/13/19 Currently smokes 1-5 Cigarettes Daily ETOH Use [...] prn itching M.D. Capsules Doxycycline Monohydrate 1 po bid for 7 14caps Eva Esteves, 02/11/2019 days M.D. 100mg Capsules Oxycodone-Acetaminophen 1-2 tabs by mouth 60tabs Eva Esteves, 02/02/2019 every 4 hours for M.D. 5-325mg Tablets pain Eliquis 1 tab by mouth 60tabs Eva Esteves, 02/02/2019 2.5mg Tablets twice a day for M.D. 30 days Walker pedro walker 1units Eva Esteves, 12/22/[address] [facility] with seat dx: s/p M.DHector knee replacement Voltaren apply to affected 200gm Ryan F 10/18/2018 1% Gel area up to three [...] swab Creon 1 by mouth three Unknown [id number] Caps DR times a day Part Atorvastatin [...] 07/26/2014 - 10mg Tablets mouth for 3 [employer] 08/13/2014 days then 3 tabs for 3 days, then 2 tab for 3 days then 1 tab for 5 days Mucinex 1 by mouth 10tabs 491.21 Gloria Menon, 07/26/2014 - 600mg Tablets ER 12HR twice for 3 [employer] 08/13/2014 days Percocet 1-2 tabs po 30tabs Sacha Farfan, 07/09/2014 - 5-325mg Tablets q4-6 prn pain M.D. 07/26/2014 Voltaren apply 1 gram 1tubes 727.05 Gloria Menon, 05/24/2014 - 1% Gel to affected [employer] 08/13/2014 area twice a day, as needed Wrist Splint/Left Small Use on left QS 727.05 Gloria Menon, 05/24/2014 - Misc hand as needed. [employer] 09/07/2014 Diclofenac Sodium take 1 tablet 60tabs 786.50 Benedictogabe Cordovak, 05/05/2014 - 50mg Tablets by mouth 2 [employer] 07/26/2014 DR times a day as needed [...] CPT Code Status Date Vaccine Lot # [id number] Refused 03/29/2015 Influenza Virus Vaccine, Quadrivalent, Split, Preservative Free Vital Signs Date Vital Result Comment 02/13/2019 2:18pm Height 59 inches 4'11" Heart [...] Result H/L Range Note Comp Metabolic 01/21/2019 [facility] Sodium 138 mmol/L Normal 135-[address] [place] [address] [phone] Potassium 4.2 mmol/L Normal 3.5-5.0 Chloride 102 [...] >60 Egfr 117.0 >60 2 Inr/Protime 01/21/2019 [facility] Inr 1.01 Normal 0.82-1.[address] [place] [address] [phone] Laboratory test 01/21/2019 [facility] Partial 35.7 Normal 26.0 -38.0 [address] [place] [address] Time PTT [phone] CBC Auto Diff 01/21/2019 [facility] White Blood 8.7 10^3/uL Normal 3.5-10.[address] [place] [address] [phone] Red Blood Count 4.74 10^6/uL Normal 3.70-4.87 [...] Blood Cells % 0.1 Urinalysis Profile 01/21/2019 [facility] Urine Color Yellow [address] [place] [address] [phone] Urine Appearance Clear Urine Specific [place] 1.018 Normal 1.010-1.030 Urine pH 6.0 Normal 5-9 Urine Urobilinogen Negative Negative Urine Ketones Negative Negative Urine Protein Negative Negative Urine Leukocytes Negative Negative Urine Blood Negative Negative Urine Nitrite Negative Negative Urine Bilirubin Negative Negative Urine Glucose Negative Negative Type & Screen 01/21/2019 [facility] Patient Blood Type O Positive [address] [place] [address] [phone] Antibody Screen NEGATIVE Urine Culture And 01/21/2019 [facility] Urine SEE RESULT [address] [place] [place] [address] [phone] CBC Auto Diff 03/31/2015 [facility] White Blood 20.8 High 4.8- [address] Count 10^3/uL 0.8 [place] [address] [phone] Red Blood Count 4.74 10^6/uL Normal 4.0-5.4 [...] Cells % 0 Normal Laboratory test 03/31/2015 [facility] Lactic Acid 1.4 mmol/L Normal 0.5-2.2 finding [address] [place] [address] [phone] Comp Metabolic 03/31/2015 [facility] Sodium 135 mmol/L Normal 133-145 Panel [address] [place] [address] [phone] Potassium 3.6 mmol/L Normal 3.5-5.0 Chloride 101 [...] 98.6 Normal >60 6 Laboratory test 03/31/2015 [facility] Troponin-I 0.01 ng/mL Normal <0.03 [address] (TnI) [place] [address] [phone] Pathologist Review (SEE NOTE) Normal 8 CBC Auto 03/28/2015 [facility] White Blood 10.3 10^3/uL Normal 4.8-10.[address] [place] [address] [phone] Red Blood Count 4.67 10^6/uL Normal 4.0-5.4 [...] Blood Cells % 0 Normal Inr/Protime 03/28/2015 [facility] Inr 0.91 Normal 0.78-1.[address] [place] [address] [phone] Laboratory test 03/28/2015 [facility] Lactic Acid 1.0 Normal 0.5-2.[address] mmol/[place] [address] [phone] B-Type Natriuretic Peptide BNP 25 pg/mL Normal 9 Comp Metabolic 03/28/2015 [facility] Sodium 135 mmol/L Normal 133-[address] [place] [address] [phone] Potassium 3.8 mmol/L Normal 3.5-5.0 Chloride 103 [...] 108.2 Normal >60 10 Laboratory test 03/28/2015 [facility] Creatine 30 U/L Normal 10-[address] Kinase(CK) [place] [address] [phone] Troponin-I (TnI) 0.00 ng/mL Normal <0.03 11 CKMB 03/28/2015 [facility] CKMB ng/mL 1.3 Normal 0.6-6.[address] ng/[place] [address] [phone] Laboratory 03/28/2015 [facility] D Dimer < 200 Normal Less Than 12 test finding [address] Quantitative ng/mL 230 [place] [address] [phone] CBC Auto Diff 03/12/2015 [facility] White Blood 11.5 High 4.8- 10.[address] Count 10^3/[place] [address] [phone] Red Blood Count 4.57 10^6/uL Normal 4.0-5.4 [...] Cells % 0 Normal Laboratory test 03/12/2015 [facility] Lactic Acid 1.2 mmol/L Normal 0.5-2.2 finding [address] [place] [address] [phone] Comp Metabolic 03/12/2015 [facility] Sodium 135 mmol/L Normal 133-145 Panel [address] [place] [address] [phone] Potassium 4.1 mmol/L Normal 3.5-5.0 Chloride 102 [...] 111.7 Normal >60 13 Laboratory test 03/12/2015 [facility] Lipase 18 U/L Normal 11.0-82.[address] [place] [address] [phone] C Reactive Protein 11.20 mg/L High < 5.00 14 Troponin-I (TnI) 0.00 ng/mL Normal <0.03 15 Urinalysis Profile 03/12/2015 [facility] Urine Color Yellow Normal [address] [place] [address] [phone] Urine Appearance Cloudy Normal Urine Specific [place] 1.012 Normal 1.010-1.030 Urine pH 5.0 Normal [...] Cell Present Abnormal Absent Laboratory test 03/12/2015 [facility] Urine Culture And SEE RESULT [address] [place] [address] [phone] Laboratory test 03/07/2015 [facility] Troponin-I (TnI) 0.02 ng/ mL Normal <0.0 [address] 3 [place] [address] [phone] CBC Auto Diff 03/07/2015 [facility] White Blood Count 18.2 High 4.8- [address] 10^3/uL 10.8 [place] [address] [phone] Red Blood Count 4.81 10^6/uL Normal 4.0-5.4 [...] Blood Cells % 0 Normal Inr/Protime 03/07/2015 [facility] Inr 0.88 Normal 0.78-1.07 [address] [place] [address] [phone] Laboratory test 03/07/2015 [facility] Partial 26.0 Normal 26.0 -36.3 finding [address] [facility] [place] [address] Time PTT [phone] Comp Metabolic 03/07/2015 [facility] Sodium 138 mmol/L Normal 133-145 Panel [address] [place], [place] [phone] Chloride 103 mmol/L Normal 101-111 Co2 Carbon [...] 14 U/L Normal 13-39 Laboratory test 03/07/2015 [facility] Troponin-I 0.01 Normal < 0.03 [address] (TnI) ng/[place] [address] [phone] CKMB 03/07/2015 [facility] CKMB ng/mL 2.2 ng/mL Normal 0.6- 6.[address] [place] [address] [phone] Laboratory test 02/26/2015 [facility] Troponin-I 0.00 Normal < 0.03 [address] (TnI) ng/[place] [address] [phone] Comp Metabolic 02/26/2015 [facility] Sodium 135 Normal 133- [address] mmol/[place] [address] [phone] Potassium 3.7 mmol/L Normal 3.5-5.0 Chloride 101 [...] 104.8 Normal >60 22 CBC Auto 02/26/2015 [facility] White Blood 9.1 10^3/uL Normal 4.8-10.[address] [place] [address] [phone] Red Blood Count 4.73 10^6/uL Normal 4.0-5.4 [...] Cells % 0 Normal Laboratory test 02/26/2015 [facility] B-Type 18 pg/mL Normal [address] [place] [address] Peptide BNP [phone] CBC Auto Diff 01/17/2015 [facility] White Blood 10.1 Normal 4.8- [address] Count 10^3/uL 10.8 [place] [address] [phone] Red Blood Count 4.70 10^6/uL Normal 4.0-5.4 [...] Blood Cells % 0.1 Normal Laboratory 01/17/2015 [facility] Lactic Acid 1.4 Normal 0.5- 2.2 test finding [address] mmol/[place] [address] [phone] Inr/Protime 01/17/2015 [facility] Inr 0.95 Normal 0.78-1.[address] [place], [place] [address] [phone] Laboratory 01/17/2015 [facility] B-Type 25 pg/mL Normal 24 test finding [address] [place] [address] Peptide BNP [phone] Comp Metabolic 01/17/2015 [facility] Sodium 135 Normal 133- [address] mmol/[place] [address] [phone] Potassium 3.7 mmol/L Normal 3.5-5.0 Chloride 103 [...] 117.5 Normal >60 25 Laboratory test 01/17/2015 [facility] Creatine 39 U/L Normal 10-[address] Kinase(CK) [place], [place] [id number] [phone] Troponin-I (TnI) 0.00 ng/mL Normal <0.03 26 CKMB 01/17/2015 [facility] CKMB 1.0 ng/mL Normal 0.6-6.[address] ng/[place] [address] [phone] Laboratory test 01/17/2015 [facility] TSH 1.92 Normal 0.34- 5.[address] (Thyroid ?IU/[place] [address] Stim Horm) [phone] Magnesium 1.8 mg/dL Low 1.9-2.7 Lipase 14 U/L Normal 11.0-82.0 C Reactive Protein 9.82 mg/L High < 5.00 27 Laboratory test 12/26/2014 [facility] Wound SEE RESULT [address] Culture/[place] [address] [phone] CBC Auto Diff 11/25/2014 [facility] White Blood Count 15.0 High 4.8- [address] 10^3/uL 10.8 [place] [address] [phone] Red Blood Count 4.35 10^6/uL Normal 4.0-5.4 [...] Cells % 0 Normal Laboratory test 11/25/2014 [facility] Lactic Acid 0.6 mmol/L Normal 0.5-2.2 finding [address] [place] [address] [phone] Comp Metabolic 11/25/2014 [facility] Sodium 136 mmol/L Normal 133-145 Panel 101 [place] [address] [phone] Potassium 3.8 mmol/L Normal 3.5-5.0 Chloride 104 [...] 126.2 Normal >60 29 Laboratory test 11/25/2014 [facility] C Reactive 96.66 mg/L High < 5.00 30 finding 101 [facility] [address] [phone] Urinalysis 09/22/2014 [facility] Urine Color Yellow Normal Profile [address] [place] [address] [phone] Urine Appearance Cloudy Normal Urine Specific [place] 1.023 Normal 1.010-1.030 Urine pH 5.0 Normal 5-9 Urine Urobilinogen Negative Normal Negative Urine Ketones Negative Normal Negative Urine Protein Negative Normal Negative Urine Leukocytes Negative Normal Negative Urine Blood Negative Normal Negative Urine Nitrite Negative Normal Negative Urine Bilirubin Negative Normal Negative Urine Glucose Negative Normal Negative CBC Auto 09/22/2014 [facility] White Blood 11.1 10^3/uL High 4.8-10.[address] [place] [address] [phone] Red Blood Count 4.60 10^6/uL Normal 4.0-5.4 [...] Cells % 0 Normal Comp Metabolic 09/22/2014 [facility] Sodium 135 mmol/L Normal 133-[address] [place] [address] [phone] Potassium 3.7 mmol/L Normal 3.5-5.0 Chloride 101 [...] Normal >60 31 Laboratory test finding 09/22/2014 [facility] Lipase 8 U/L Low 11.0-82.[address] [place] [address] [phone] C Reactive Protein 12.28 mg/L High < 5.00 32 Lactic Acid 1.2 mmol/L Normal 0.5-2.2 Urine Culture And 2014 [facility] Urine Culture (SEE NOTE ) [address] [place] [address] [phone] Ua Routine [address] [place] [place] [facility] [place] Ua Specific 1.005 [place] Ua PH 7 Ua Color yellow Ua Appera clear Ua WBC trace Ua Protein neg Ua Glucose neg Ua Ketones neg Ua Bilirubin small Ua Urobilinogen norm Ua Nitrite neg Ua Occult Blood neg CBC Auto 09/08/2014 [facility] White Blood 10.1 10^3/uL Normal 4.8-10.[address] [place] [address] [phone] Red Blood Count 4.63 10^6/uL Normal 4.0-5.4 [...] Cells % 0.1 Normal Laboratory test 09/08/2014 [facility] Erythrocyte Sed 14 mm/Hr Normal 0-[address] [place] [address] [phone] C Reactive Protein 8.91 mg/L High < 5.00 34 Comp Metabolic 09/08/2014 [facility] Sodium 135 mmol/L Normal 133-[address] [place] [address] [phone] Potassium 4.1 mmol/L Normal 3.5-5.0 Chloride 101 [...] 112.1 Normal >60 35 Laboratory test 09/08/2014 [facility] Hemoglobin A1c 6.2 % High Less [address] than 6.0 [place] [address] [phone] Comp Metabolic 08/23/2014 [facility] Sodium 134 Normal 133- [address] mmol/[place] [address] [phone] Potassium 3.8 mmol/L Normal 3.5-5.0 Chloride 101 [...] 105.2 Normal >60 37 Laboratory test 08/23/2014 [facility] Lipase 10 U/L Low 11.0- 82.[address] [place] [address] [phone] C Reactive Protein 7.87 mg/L High < 5.00 38 CBC Auto 08/23/2014 [facility] White Blood 14.2 10^3/uL High 4.8-10.[address] [place] [address] [phone] Red Blood Count 5.05 10^6/uL Normal 4.0-5.4 [...] Placental NotPresent Normal 41 CBC Auto 08/08/2014 [facility] White Blood 19.6 10^3/uL High 4.8-10.[address] [place] [address] [phone] Red Blood Count 5.06 10^6/uL Normal 4.0-5.4 [...] Cells % 0 Normal Laboratory test 08/08/2014 [facility] Lactic Acid 1.4 mmol/L Normal 0.5-2.2 finding [address] [place] [address] [phone] Comp Metabolic 08/08/2014 [facility] Sodium 133 mmol/L Normal 133-145 Panel [address] [place] [address] [phone] Potassium 4.0 mmol/L Normal 3.5-5.0 Chloride 103 [...] Normal >60 42 Laboratory test finding 08/08/2014 [facility] Lipase 9 U/L Low 11.0-82.[address] [place] [address] [phone] C Reactive Protein 8.39 mg/L High < 5.00 43 Troponin I 0.00 ng/mL Normal <0.03 44 Urinalysis Profile 08/02/2014 [facility] Urine Color Yellow Normal [address] [place], [place] [address] [phone] Urine Appearance Clear Normal Urine Specific [place] 1.011 Normal 1.010-1.030 Urine pH 7.0 Normal 5-9 Urine Urobilinogen Negative Normal Negative Urine Ketones Negative Normal Negative Urine Protein Negative Normal Negative Urine Leukocytes Negative Normal Negative Urine Blood Negative Normal Negative Urine Nitrite Negative Normal Negative Urine Bilirubin Negative Normal Negative Urine Glucose Negative Normal Negative Blood Culture 08/02/2014 [facility] Blood Culture (SEE NOTE) [address] [place] [address] [phone] Laboratory test 08/02/2014 [facility] Lactic Acid 1.8 mmol/L Normal 0.5-[address]2 [place] [address] [phone] Blood Culture (SEE NOTE) 46 Laboratory test 08/02/2014 [facility] B Type 13 pg/mL Normal [address] [place] [address] Peptide [phone] Comp Metabolic 08/02/2014 [facility] Sodium 138 mmol/L Normal 133- Panel [address] 145 [place] [address] [phone] Potassium 4.3 mmol/L Normal 3.5-5.0 Chloride 101 [...] 106.8 Normal >60 48 Laboratory test 08/02/2014 [facility] Creatine 30 U/L Normal 10-[address] [place] [address] [phone] CKMB 08/02/2014 [facility] CKMB ng/mL 1.2 Normal 0.6-6.[address] ng/[place] [address] [phone] Laboratory test 08/02/2014 [facility] Troponin I 0.00 Normal < 0.03 [address] ng/[place] [address] [phone] CBC Auto Diff 08/02/2014 [facility] White Blood 14.4 High 4.8- 10.[address] Count 10^3/[place] [address] [phone] Red Blood Count 5.06 10^6/uL Normal 4.0-5.4 [...] RBC 0 10^3/uL Normal Manual Differential 08/02/2014 [facility] Neutrophil % 58 % Normal 38-[address] [place] [address] [phone] Lymphocytes % 31 % Normal 25-47 Monocytes % 7 % Normal 0-13 Eosinophils % 1 % Normal 0-6 Reactive Lymph % 3 % Normal 0-6 RBC Morphology Normal Normal Normal Laboratory 08/02/2014 [facility] D Dimer < 200 ng/mL Normal Less 50 test finding [address] [place] [address] [phone] Urinalysis 07/31/2014 [facility] Urine Color Colorless Normal Profile [address] [place] [address] [phone] Urine Appearance Clear Normal Urine Specific [place] 1.010 Normal 1.010-1.030 Urine pH 6 Normal 5-9 Urine Urobilinogen Negative Normal Negative Urine Ketones Negative Normal Negative Urine Protein Negative Normal Negative Urine Leukocytes Negative Normal Negative Urine Blood Negative Normal Negative Urine Nitrite Negative Normal Negative Urine Bilirubin Negative Normal Negative Urine Glucose Negative Normal Negative CBC Auto 07/31/2014 [facility] White Blood 15.7 10^3/uL High 4.8-10.[address] [place] [address] [phone] Red Blood Count 4.89 10^6/uL Normal 4.0-5.4 [...] Cells % 0 Normal Laboratory test 07/31/2014 [facility] Lactic Acid 1.1 mmol/L Normal 0.5-2.2 finding [address] [place] [address] [phone] Comp Metabolic 07/31/2014 [facility] Sodium 135 mmol/L Normal 133-145 Panel [address] [place] [address] [phone] Potassium 4.2 mmol/L Normal 3.5-5.0 Chloride 103 [...] 126.6 Normal >60 51 Laboratory test 07/31/2014 [facility] Lipase 23 U/L Normal 11.0-82.0 finding [address] [place] [address] [phone] Troponin I 0.00 ng/mL Normal <0.03 52 C Reactive Protein 4.94 mg/L Normal < 5.00 53 Serum Negative Normal Negative 54 D Dimer Quantitative < 200 ng/mL Normal Less Than 230 55 CBC Auto 07/27/2014 [facility] White Blood 11.2 10^3/uL High 4.8-10.[address] [place] [address] [phone] Red Blood Count 4.82 10^6/uL Normal 4.0-5.4 [...] Cells % 0 Normal Laboratory test 07/27/2014 [facility] Lactic Acid 1.5 mmol/L Normal 0.5-2.2 finding [address] [place] [address] [phone] Comp Metabolic 07/27/2014 [facility] Sodium 135 mmol/L Normal 133-145 Panel [address] [place] [address] [phone] Potassium 4.2 mmol/L Normal 3.5-5.0 Chloride 105 [...] 126.6 Normal >60 56 Laboratory test 07/27/2014 [facility] Lipase 13 U/L Normal 11.0-82.[address] [place] [address] [phone] C Reactive Protein 16.42 mg/L High < 5.00 57 Rapid Influenza 07/25/2014 [facility] Rapid (SEE NOTE) 58 A B Antigen [address] [place] [address] B Antigen [phone] Comp Metabolic 07/11/2014 [facility] Sodium 135 mmol/L Normal 133-[address] 45 [place] [address] [phone] Potassium 3.8 mmol/L Normal 3.5-5.0 Chloride 103 [...] 97.5 Normal >60 59 Laboratory test 07/11/2014 [facility] Lipase 25 U/L Normal 11.0-82.[address] [place] [address] [phone] C Reactive Protein 8.26 mg/L High < 5.00 60 Lactic Acid 1.3 mmol/L Normal 0.5-2.2 Serum Negative Normal Negative 61 Inr/Protime 07/11/2014 [facility] Inr 0.93 Normal 0.85-1.[address] [place] [address] [phone] Urinalysis 07/11/2014 [facility] Urine Yellow Normal Profile [address] [place] [address] [phone] Urine Appearance Cloudy Normal Urine Specific [place] 1.024 Normal 1.010-1.030 Urine pH 5.0 Normal 5-9 Urine Urobilinogen Negative Normal Negative Urine Ketones Trace Abnormal Negative Urine Protein Negative Normal Negative Urine Leukocytes Negative Normal Negative Urine Blood Negative Normal Negative Urine Nitrite Negative Normal Negative Urine Bilirubin Negative Normal Negative Urine Glucose Negative Normal Negative CBC Auto 07/11/2014 [facility] White Blood 10.9 10^3/uL High 4.8-10.[address] [place] [address] [phone] Red Blood Count 4.76 10^6/uL Normal 4.0-5.4 [...] Cells % 0 Normal CBC Auto 07/09/2014 [facility] White Blood 11.8 10^3/uL High 4.8-10.[address] [place] [address] [phone] Red Blood Count 4.58 10^6/uL Normal 4.0-5.4 [...] Cells % 0.1 Normal Comp Metabolic 07/09/2014 [facility] Sodium 135 mmol/L Normal 133-[address] [place] [address] [phone] Potassium 3.7 mmol/L Normal 3.5-5.0 Chloride 101 [...] 116.0 Normal >60 62 Laboratory test 07/09/2014 [facility] Amylase 32 U/L Normal 29 -[address] [place] [address] [phone] Erythrocyte Sed Rate 13 mm/Hr Normal 0-30 Urine Culture And 07/09/2014 [facility] Urine Culture (SEE NOTE ) [address] [place] [address] [phone] Ua Routine 07/09/2014 [facility] Ua Specific 1.005 [place] Ua PH 5.0 Ua Color yellow Ua [...] 31 U/L Normal 29-103 CBC Auto 01/30/2014 [facility] White Blood 11.3 10^3/uL High 4.8-10.[address] [place] [address] [phone] Red Blood Count 4.15 10^6/uL Normal 4.0-5.4 [...] Blood Cells % 0.1 Normal Inr/Protime 01/30/2014 [facility] Inr 0.91 Normal 0.85-1.06 [address] [place] [address] [phone] Laboratory test 01/30/2014 [facility] Activated 28.3 Normal 24.0-36.[address] [place] [address] [place] [address] Thrombo Time [phone] Laboratory test 01/30/2014 [facility] Magnesium 1.8 mg/dL Low 1.9-2.7 finding [address] [place] [address] [phone] Troponin I 0.00 ng/mL Normal <0.03 65 TSH (Thyroid Stimulating Horm) 4.59 IU/mL Normal 0.34-5.60 Comp Metabolic 01/30/2014 [facility] Sodium 136 mmol/L Normal 133-145 Panel [address] [place] [address] [phone] Potassium 3.6 mmol/L Low 3.7-5.6 Chloride 103 [...] [address]: Eva Esteves MD Acct: [id number] Unit: [id number] AGE: 58 Location: PAT Re01/21/19 SEX: F Status: REG REF SPEC: [id number] KAMAR: 01/21/19-[address] [facility] [address]: vEa Esteves MD REQ: [id number] RECD: 01/21/19 STATUS: [place] AGUIR[facility] DR: Tatiana Geronimo MD _ SOURCE: URINE SPDESC: ORDERED: Urine Culture COMMENTS: RIGO 01/30 QUERIES: Urine Source: Clean Catch Procedure Result Reported Site Urine Culture Final 01/22/19- 1221 ML No Growth (<1,000 CFU/mL) * ML - Main Lab . END OF REPORT DEPARTMENT OF PATHOLOGY, [address] [place] [address] Osmar Edge M.D. Director [facility] # [id number] 6 Because ethnic data is not always [...] 0.03 ng/mL Not supportive of diagnosis of ID 0.03 - 0.50 ng/mL Indeterminate: suggest serial studies if clinically indicated. Greater than 0.5 ng/mL Consistent with diagnosis of ID 8 Absolute neutrophilia and absolute lymphocytosis, favor [...] 0.03 ng/mL Not supportive of diagnosis of ID 0.03 - 0.50 ng/mL Indeterminate: suggest serial studies if clinically indicated. Greater than 0.5 ng/mL Consistent with diagnosis of ID 12 Please note: The following may produce [...] 0.03 ng/mL Not supportive of diagnosis of ID 0.03 - 0.50 ng/mL Indeterminate: suggest serial studies if clinically indicated. Greater than 0.5 ng/mL Consistent with diagnosis of ID 16 SEE RESULT BELOW Name: PASCALE GARCÍA : [address]: Joseph Durand MD Acct: [id number] Unit: [id number] AGE: 54 Location: ED Re03/12/15 SEX: F Status: DEP ER SPEC: [id number] KAMAR: 03/12/[address] [facility] [address]: Joseph Durand MD REQ: [id number] RECD: 03/12/15 STATUS: [place] AGUIRRE DR: Denice Christopher MD _ SOURCE: [facility] ORDERED: Urine Culture Procedure Result Verified Site Urine Culture Final 03/14/15- 1045 ML Organism 1 NORMAL JAMES [place] Count 50-75,000 (Many) CFU/ML * ML - MAIN LAB ([facility]) . END OF REPORT * ML=Testing performed at Main Lab DEPARTMENT OF PATHOLOGY, [address] [place] [address] Osmar Edge M.D. Director [facility] # [id number] 17 Reference Range and Interpretation: TnI (ng/mL) Interpretation Less Than 0.03 ng/mL Not supportive of diagnosis of ID 0.03 - 0.50 ng/mL Indeterminate: suggest serial studies if clinically indicated. Greater than 0.5 ng/mL Consistent with diagnosis of ID 18 Consistent with previous results on 02/26/15. [...] 0.03 ng/mL Not supportive of diagnosis of ID 0.03 - 0.50 ng/mL Indeterminate: suggest serial studies if clinically indicated. Greater than 0.5 ng/mL Consistent with diagnosis of ID 21 Reference Range and Interpretation: TnI (ng/mL) Interpretation Less Than 0.03 ng/mL Not supportive of diagnosis of ID 0.03 - 0.50 ng/mL Indeterminate: suggest serial studies if clinically indicated. Greater than 0.5 ng/mL Consistent with diagnosis of ID 22 Because ethnic data is not always [...] 0.03 ng/mL Not supportive of diagnosis of ID 0.03 - 0.50 ng/mL Indeterminate: suggest serial studies if clinically indicated. Greater than 0.5 ng/mL Consistent with diagnosis of ID 27 Acute inflammation: >10.00 28 SEE RESULT BELOW Name: PASCALE GARCÍA : [address]: Darius Cottrell MD Acct: [id number] Unit: [id number] AGE: 54 Location: [facility] Re12/26/14 SEX: F Status: DEP ER SPEC: [id number] KAMAR: 12/26/14-[address] [facility] [address]: Darius Cottrell MD REQ: [id number] RECD: 12/26/14 STATUS: [place] AGUIR[place] DR: Denice Christopher MD _ SOURCE: HAND,LEFT SPDESC: ORDERED: Culture Stain Procedure Result Verified Site Wound/Misc Gram Stain Final 12/26/14- 1400 ML 1+ Neutrophils No Organisms Seen Wound/Misc Culture Final 12/28/14- 1124 ML No Growth Day 2 * ML - MAIN LAB ([facility]) . END OF REPORT * ML=Testing performed at Main Lab DEPARTMENT OF PATHOLOGY, [address] [place] [address] Osmar Edge M.D. Director [facility] # [id number] 29 Because ethnic data is not always [...] Acute inflammation: >10.00 33 RUN DATE: 09/23/14 [facility] LAB LIVE PAGE 1 RUN TIME: [address] [place], [place] [address] Specimen Inquiry Name: PASCALE GARCÍA : [address]: Denice Christopher MD Acct: [id number] Unit: [id number] AGE: 54 Location: [facility] Re09/21/14 SEX: F Status: REG REF SPEC: [id number] KAMAR: 09/21/14-[address] [facility] [address]: Denice Christopher MD REQ: [id number] RECD: 09/21/149856 STATUS: COMP _ SOURCE: URINE SPDESC: ORDERED: Urine Culture QUERIES: Provider Requisition # [id number] Procedure Result Verified Site Urine Culture Final 09/23/14- 1027 L Organism 1 NORMAL JAMES [place] Count >100,000 (Many) CFU/ML END OF REPORT * ML=Testing performed at Main Lab DEPARTMENT OF PATHOLOGY, [address] [place] [address] Osmar Edge M.D. Director [facility] # [id number] 34 Acute inflammation: >10.00 35 Because ethnic [...] and in selective patients <6.0%.Please refer to [employer] Diabetic care guidelines for further [...] REFERENCE VALUE Not present Test Performed by: [facility] [address] [address] [employer]: Gavino Tyler M.D. 42 Because ethnic data [...] 0.03 ng/mL Not supportive of diagnosis of ID 0.03 - 0.50 ng/mL Indeterminate: suggest serial studies if clinically indicated. Greater than 0.5 ng/mL Consistent with diagnosis of ID 45 RUN DATE: 08/07/14 [facility] LAB LIVE PAGE 1 RUN TIME: [address] [place] [address] Specimen Inquiry Name: PASCALE GARCÍA : [address]: Julio C Lindsey DO Acct: [id number] Unit: [id number] AGE: 53 Location: ED Re08/02/14 SEX: F Status: DEP ER SPEC: [id number] KAMAR: 08/02/[address] [facility] [address]: Jase Mejia III PA REQ: [id number] RECD: 08/02/14 STATUS: [place] AGUIR[place] DR: Denice Lindsey DO _ SOURCE: BLOOD,VENO SPDESC: ORDERED: Blood Cult Procedure Result Verified Site Aerobic Culture Bottle Final 08/07/14- 8 ML No Growth Day 5 Anaerobic Culture Bottle Final 08/07/14- 1518 ML No Growth Day 5 END OF REPORT * ML=Testing performed at Main Lab DEPARTMENT OF PATHOLOGY, [facility] [employer] [place], [place] [address] Osmar Edge M.D. Director [place] # [id number] RUN DATE: 08/07/14 [facility] LAB LIVE PAGE 1 RUN TIME: 2216 [facility] [employer] [place], [place] [address] Specimen Inquiry Name: PASCALE GARCÍA : [address]: Julio C Lindsey DO Acct: [id number] Unit: [id number] AGE: 53 Location: ED Re08/02/14 SEX: F Status: DEP ER SPEC: [id number] KAMAR: 08/02/[address]: Jase GIBSON REQ: [id number] RECD: 08/02/14 STATUS: [place] AGUIRRE DR: Denice Lindsey DO _ SOURCE: BLOOD,VENO SPDESC: ORDERED: Blood Cult Procedure Result Verified Site Aerobic Culture Bottle Final 08/07/14- 1441 ML No Growth Day 5 Anaerobic Culture Bottle Final 08/07/14- 1441 ML No Growth Day 5 END OF REPORT * ML=Testing performed at Main Lab DEPARTMENT OF PATHOLOGY, [address] [place] [address] Osmar Edge M.D. Director [facility] # [id number] 47 >100 to <200 pg/mL: likely compensated congestive heart failure (CHF) 200 to 400 pg/mL: likely moderate CHF >400 pg/mL: likely moderate to severe CHF DC HEART 48 Because ethnic data is not [...] 0.03 ng/mL Not supportive of diagnosis of ID 0.03 - 0.50 ng/mL Indeterminate: suggest serial studies if clinically indicated. Greater than 0.5 ng/mL Consistent with diagnosis of ID 50 Please note: The following may produce [...] 0.03 ng/mL Not supportive of diagnosis of ID 0.03 - 0.50 ng/mL Indeterminate: suggest serial studies if clinically indicated. Greater than 0.5 ng/mL Consistent with diagnosis of ID 53 Acute inflammation: >10.00 54 This test [...] Acute inflammation: >10.00 58 RUN DATE: 07/25/14 [facility] LAB LIVE PAGE 1 RUN TIME: [address] [place] [address] Specimen Inquiry Name: PASCALE GARCÍA : [address]: Wei Saini Acct: [id number] Unit: [id number] AGE: 53 Location: ED Re07/25/14 SEX: F Status: REG ER SPEC: [id number] KAMAR: 07/25/[address]: Wei Thomason DO REQ: [id number] RECD: 07/25/14 STATUS: [place] AGUIR[place] DR: Denice Christopher MD _ SOURCE: [facility]: ORDERED: Rapid Flu A B Procedure [...] performed at Main Lab DEPARTMENT OF PATHOLOGY, [address] [place] [address] Osmar Edge M.D. Director [facility] # [id number] 59 Because ethnic data is not always [...] <15 (or dialysis) 63 RUN DATE: 07/12/14 [facility] LAB LIVE PAGE 1 RUN TIME: [address] [place] [address] Specimen Inquiry Name: PASCALE GARCÍA : [address]: Denice Christopher MD Acct: [id number] Unit: [id number] AGE: 53 Location: [facility] Re07/09/14 SEX: F Status: REG REF SPEC: [id number] KAMAR: 07/09/[address] [facility] [address]: Denice Christopher MD REQ: [id number] RECD: 07/09/14 STATUS: COMP _ SOURCE: URINE SPDESC: ORDERED: Urine Culture QUERIES: [employer] Number [id number] Procedure Result Verified Site Urine Culture Final 07/12/14835 ML Organism 1 NORMAL JAMES [place] Count 75-100,000 (Many) CFU/ML END OF REPORT * ML=Testing performed at Main Lab DEPARTMENT OF PATHOLOGY, [address] [place] [address] Osmar Edge M.D. Director [facility] # [id number] 64 Because ethnic data is not always [...] 0.03 ng/mL Not supportive of diagnosis of ID 0.03 - 0.50 ng/mL Indeterminate: suggest serial studies if clinically indicated. Greater than 0.5 ng/mL Consistent with diagnosis of ID 66 Because ethnic data is not always [...] dialysis) Procedures Date Code Description Status 01/30/2019 16284 Revision TKA W Or W/O Allograft;Femoral & Entire Tibial Completed Component 01/30/2019 18543 Revision TKA W Or W/O Allograft;Femoral & Entire Tibial Completed Component 08/26/2015 12197 Trigger Finger Release Incision / Tendon Sheath Completed Incision 08/26/2015 07046 Trigger Finger Release Incision / Tendon Sheath Completed Incision 04/25/2015 06763 Diffusing Capacity Completed 04/25/2015 34337 Plethysmography Determination Lung Volumes & Per Airway Completed Resist 04/25/2015 86775 Pulmonary Function><Bronchodil Completed 11/25/2014 77153606 Mammogram Completed 10/18/2014 36697607 Colonoscopy Completed 09/23/2014 60613186 Colonoscopy Completed 09/07/2014 19054 EKG Tracing & Interpretation Completed 11/16/2013 86216 Xray Knee 3 Views Completed 11/16/2013 47252 Rad Exam; Knee, Ap&L Completed 08/28/2013 78529 Carpal Tunnel Release Completed 08/07/2013 93098 Carpal Tunnel Release Completed 06/18/2013 24487 Rad Exam; Wrist, Comp, Min 3 Views Completed 06/18/2013 28278 Rad Exam; Wrist, Comp, Min 3 Views Completed 05/29/2013 22950 EKG, Interpretation Only Completed 05/26/2013 23838 EKG, Interpretation Only Completed 01/07/2012 29634 Xray Knee 3 Views Completed 01/07/2012 58201 Rad Exam; Knee Comp Completed 01/07/2012 29195 Rad Exam; Tib-Fib Completed 06/20/2011 08857 Xray Knee 3 Views Completed 06/20/2011 95597 Rad Exam; Knee, Ap&L Completed 05/08/2011 14949 TKR Total Knee Replacement Completed 11/27/2010 17468 Xray Knee 3 Views Completed 11/27/2010 32044 Rad Exam; Knee, Ap&L Completed 11/27/2010 39187 Rad Exam; Elbow, Limited Completed 11/27/201003676 Inject/Drain Joint/Bursa Major W/O US Completed 07/03/2010 39019 Xray Knee 3 Views Completed 04/07/2010 13941 Xray Knee 3 Views Completed 03/07/2010 65162 TKR Total Knee Replacement Completed Encounters Type Date Location Provider Dx Diagnosis Office Visit 02/01/2019 [facility] I10 Essential (primary) 9:55a Assocteo NP hypertension Hospitalists J44.9 Chronic obstructive pulmonary disease, unspecified Office Visit 01/31/2019 9:55a [facility] I10 Essential Assocteo NP (primary) Hospitalists hypertension J44.9 Chronic obstructive [...] to excess calories Office Visit 03/29/2015 10:30a [facility] Internal Darius Diaz, 491.21 Bronchitis Medicine - [facility] LEARNING SUPPORT SERVICES DIRECTOR Obstructive Chronic W/Acute Exacerbation 305.1 Tobacco Use Disorder Office Visit 03/14/2015 3:00p [facility] Internal Norbert Morgan, 786.05 Shortness Of Medicine - [facility] LEARNING SUPPORT SERVICES DIRECTOR Breath 724.2 Lumbago 496 COPD Airway Obstruction Chronic Not Class Elsewhere Office Visit 12/29/2014 10:00a [facility] Internal Darius Diaz, 692.6 Dermatitis Contact Medicine - [facility] LEARNING SUPPORT SERVICES DIRECTOR Due To Plants (Except Food) 782.1 Rash & Other Nonspec Skin Eruption Office Visit 12/10/2014 9:30a [facility] Internal Darius Diaz, LEARNING SUPPORT SERVICES DIRECTOR 528.9 Oral Soft Tissue Medicine - [facility] Diseases Other & Unspec 782.0 Skin Sensation Disturbance Office Visit 2014 12:40p [facility] Internal Denice Christopher, 789.02 Pain Abdominal Medicine - [facility] M.D. Left Upper Quadrant 789.63 Tenderness Abdominal Right Lower Quadrant Office Visit 09/07/2014 4:00p [facility] Internal Denice Christopher V72.84 Examination Medicine - M.D. Preoperative Unspec [facility] 789.02 Pain Abdominal Left Upper Quadrant 530.11 Esophagitis Reflux V72.81 Examination Preoperative Cardiovascular 553.1 Hernia Umbilical 789.62 Tenderness Abdominal Left Upper Quadrant 790.95 Elevated C-Reactive Protein 790.5 Serum Enzyme Levels Abnormal Other Nonspec 530.81 Esophageal Reflux Office Visit 08/23/2014 3:00p [facility] Internal Norbert Morgan, 789.02 Pain Abdominal Medicine - [facility] LEARNING SUPPORT SERVICES DIRECTOR Left Upper Quadrant 787.01 Nausea W/ Vomiting Office Visit 08/13/2014 11:20a [facility] Internal Denice Christopher, 789.00 Pain Abdominal Medicine - [facility] M.D. Unspec Site 288.60 Leukocytosis, Unspecified Office Visit 08/10/2014 9:48a [facility] Aline Roberto 789.00 Pain Abdominal Assoc,pc vYes, N.P. Unspec Site Hospitalists 496 COPD Airway Obstruction Chronic Not Class Elsewhere 288.60 Leukocytosis, Unspecified Office Visit 08/08/2014 9:47a [facility] Alissa 789.00 Pain Abdominal Assoc,pc Óscar, LEARNING SUPPORT SERVICES DIRECTOR Unspec Site Hospitalists 496 COPD Airway Obstruction Chronic Not Class Elsewhere 288.60 Leukocytosis, Unspecified Office Visit 07/31/2014 11:43a [facility] Melita 789.00 [facility] Abdominal Assoc,pc Janusz, D.O. Unspec Site Hospitalists 530.11 Esophagitis Reflux 490 Bronchitis Acute Or Chronic Not Spec 311 Depressive Disorder Not Elsewhere Spec Office Visit 07/26/2014 11:30a [facility] Internal Gloria Menon, 491.21 Bronchitis Medicine - CAFE TE[employer] MEMBER Obstructive Chronic [facility] W/Acute Exacerbation 466.0 Bronchitis Acute 786.2 Cough 305.1 Tobacco Use Disorder Office Visit 07/09/2014 2:20p [facility] Internal Denice Christopher, 789.07 Pain Abdominal Medicine - M.D. Generalized [facility] Office Visit 05/24/2014 1:00p [facility] Internal Gloria Menon, 727.05 Tenosynovitis Hand Medicine - [employer]BER & Wrist Other [facility] Office Visit 05/05/2014 8:30a [facility] Internal Gloria Menon, 786.50 Pain Chest Unspec Medicine - [employer] TE[employer] MEMBER [facility] 847.1 Sprains & Strains Thoracic Office Visit 04/12/2014 1:00p [facility] Internal Gloria Menon, 789.07 Pain Abdominal Medicine - [employer] TE[employer] MEMBER Generalized [facility] 288.50 Leukocytopenia, Unspecified Office Visit 03/26/2014 1:00p [facility] Internal Denice Christopher, 491.21 Bronchitis Medicine - M.D. Obstructive Chronic [facility] W/Acute Exacerbation 492.8 Emphysema Other Office Visit 11/29/2013 4:32p [facility] Jose Alejandro Zuleta 786.50 Pain Chest Assoc,teo Muñoz M.D. Unspec Hospitalists Hospitalist 492.8 Emphysema Other 401.9 Hypertension Unspec 311 Depressive Disorder Not Elsewhere Spec Office Visit 11/28/2013 4:28p [facility] Guillermo Moon 786.50 Pain Chest Assoc,teo CASTILLO M.D. Unspec Hospitalists 492.8 Emphysema Other 401.9 Hypertension Unspec 311 Depressive Disorder Not Elsewhere Spec Office Visit 11/16/2013 [facility] Sacha Farfan, 726.64 Tendinitis 11:30a [facility] Patellar Office Visit 06/18/2013 [facility] Lucille 354.0 Carpal Tunnel 9:00a [facility] M.D. Syndrome [facility] 491.21 Bronchitis 2:46p Assteo gaming M.D. Obstructive Hospitalists Chronic W/Acute Exacerbation 481 Pneumonia Pneumococcal 311 Depressive Disorder Not Elsewhere Spec Office Visit 05/28/2013 2:46p [facility] Manuel 481 Pneumonia Assoc,teo Puente N.PHector Pneumococcal Hospitalists 311 Depressive Disorder Not Elsewhere Spec 491.21 Bronchitis Obstructive Chronic W/Acute Exacerbation Office Visit 05/26/2013 [facility] 491.21 Bronchitis 6:10p Assoc,teo Marie M.D. Obstructive Hospitalists Chronic W/Acute Exacerbation 786.52 Painful Respiration 311 Depressive Disorder Not Elsewhere Spec 794.31 Electrocardiogram (ECG) (EKG) Abnormal Office Visit 05/25/2013 [facility] Aline S. 491.21 Bronchitis 6:10p Assoc,teo Marinelli, N.PHector Obstructive Hospitalists Chronic W/Acute Exacerbation 794.31 Electrocardiogram (ECG) (EKG) Abnormal 786.52 Painful Respiration 311 Depressive Disorder Not Elsewhere Spec Office Visit 10/16/2012 4:27p [facility] [place] 492.8 Emphysema Other Assoc,teo Rader M.D. Hospitalists 466.0 Bronchitis Acute 305.1 Tobacco Use Disorder Office Visit 10/14/2012 4:26p [facility] Paulette De Oliveira 492.8 Emphysema Other Assoc,teo Friedman Hospitalists 466.0 [...] Localized Lower Leg Plan of Treatment Future Appointment(s):02/25/2019 9:00 am - Eva Esteves M.D. at [facility]02/13/2019 - Eva Esteves M.D.M25.562 Pain in left kneeNew Medication:Hydroxyzine Pamoate 25 mg - 1 capsule po q8 hours prn itchingFollow up:Follow up: 02/18/19Z96.652 Presence of left artificial knee rrrupC96.116 Cellulitis of left lower limbZ47.1 Aftercare following joint replacement surgery
--- OUTSIDE RECORDS SUMMARY | 2019-02-20 22:20 | XMS REPORT | Continuity of Care Document ---
:1960 External Reference #:[id number] Author Name Gladis Olivares Care Team Providers Name Role Phone Tatiana Geronimo MD Primary Care Physician Unavailable Payers Date Identification Numbers Payment Provider Subscriber Policy Number: [id number] [facility] [employer] Turner PayID: [id number] [address] [address] [facility] [place] [address] Effective: 2018 Policy Number: [id number] [facility] Care [employer] Turner Expires: 2020 Group Number: [id number] [facility] PayID: [id number] [address] Problems Active Problems Provider Date Leukopenia ALMA [...] Sacha Farfan M.D. Onset: 04/23/2014 Dyspnea Linsey Menodza MD Onset: 04/11/2015 Non-organic sleep disorder Linsey [...] Medications SIG Qnty Indications Ordering Date Provider Doxycycline Monohydrate 1 po bid for 7 14caps Eva Esteves, 02/11/2019 days M.D. 100mg Capsules Oxycodone-Acetaminophen 1-2 tabs by mouth 60tabs Eva Esteves, 02/02/2019 every 4 hours for M.D. 5-325mg Tablets pain Eliquis 1 tab by mouth 60tabs Eva Esteves, 02/02/2019 2.5mg Tablets twice a day for M.D. 30 days Walker rolling walker 1units Eva Esteves, 12/22/2018 Misc with seat dx: s/p M.D. knee replacement Voltaren apply to affected 200gm [...] swab Creon 1 by mouth three Unknown [id number] Caps DR times a day Part Atorvastatin [...] until 08/26/15 Doxycycline Hyclate one tablet 20caps Norebrt Morgan NP 03/17/2015 - 100mg twice daily [...] 07/26/2014 - 10mg Tablets mouth for 3 PROGRAMMER ANALYST 08/13/2014 days then 3 tabs for 3 days, then 2 tab for 3 days then 1 tab for 5 days Mucinex 1 by mouth 10tabs 491.21 Gloria Menon, 07/26/2014 - 600mg Tablets ER 12HR twice for 3 PROGRAMMER ANALYST 08/13/2014 days Percocet 1-2 tabs po 30tabs Dirdeangelo Farfan, 07/09/2014 - 5-325mg Tablets q4-6 prn pain M.D. 07/26/2014 Voltaren apply 1 gram 1tubes 727.05 Gloria Menon, 05/24/2014 - 1% Gel to affected PROGRAMMER ANALYST 08/13/2014 area twice a day, as needed Wrist Splint/Left Small Use on left QS 727.05 Gloria Menon, 05/24/2014 - Misc hand as needed. PROGRAMMER ANALYST 09/07/2014 Diclofenac Sodium take 1 tablet 60tabs 786.50 Gloria Menon, 05/05/2014 - 50mg Tablets by mouth 2 PROGRAMMER ANALYST 07/26/2014 DR times a day as needed [...] Tablets Cornelius Carrington MD 04/10/2015 Doxycycline Hyclate Simba, - 100mg MD Darius 03/14/2015 Capsules Augmented Betamethasone Simba, - Dipropionate [...] CPT Code Status Date Vaccine Lot # [id number] Refused 03/29/2015 Influenza Virus Vaccine, Quadrivalent, Split, [...] Result H/L Range Note Comp Metabolic 01/21/2019 [facility] Sodium 138 mmol/L Normal 135-[address] [place] [address] [phone] Potassium 4.2 mmol/L Normal 3.5-5.0 Chloride 102 [...] >60 Egfr 117.0 >60 2 Inr/Protime 01/21/2019 [facility] Inr 1.01 Normal 0.82-1.[address] [place] [address] [phone] Laboratory test 01/21/2019 [facility] Partial 35.7 Normal 26.0 -38.0 [address] [place] [place] [address] Time PTT [phone] CBC Auto Diff 01/21/2019 [facility] White Blood 8.7 10^3/uL Normal 3.5-10.[address] [place] [address] [phone] Red Blood Count 4.74 10^6/uL Normal 3.70-4.87 [...] Blood Cells % 0.1 Urinalysis Profile 01/21/2019 [facility] Urine Color Yellow [address] [place] [address] [phone] Urine Appearance Clear Urine Specific [place] 1.018 Normal 1.010-1.030 Urine pH 6.0 Normal 5-9 Urine Urobilinogen Negative Negative Urine Ketones Negative Negative Urine Protein Negative Negative Urine Leukocytes Negative Negative Urine Blood Negative Negative Urine Nitrite Negative Negative Urine Bilirubin Negative Negative Urine Glucose Negative Negative Type & Screen 01/21/2019 [facility] Patient Blood Type O Positive [address] [place] [address] [phone] Antibody Screen NEGATIVE Urine Culture And 01/21/2019 [facility] Urine SEE RESULT [address] [place] [place] [address] [phone] CBC Auto Diff 03/31/2015 [facility] White Blood 20.8 High 4.8- [address] Count 10^3/uL 0.8 [place] [address] [phone] Red Blood Count 4.74 10^6/uL Normal 4.0-5.4 [...] Cells % 0 Normal Laboratory test 03/31/2015 [facility] Lactic Acid 1.4 mmol/L Normal 0.5-2.2 finding 101 [place] [address] [phone] Comp Metabolic 03/31/2015 [facility] Sodium 135 mmol/L Normal 133-145 Panel 101 [place] [address] [phone] Potassium 3.6 mmol/L Normal 3.5-5.0 Chloride 101 [...] 98.6 Normal >60 6 Laboratory test 03/31/2015 [facility] Troponin-I 0.01 ng/mL Normal <0.03 [address] (TnI) [place] [address] [phone] Pathologist Review (SEE NOTE) Normal 8 CBC Auto 03/28/2015 [facility] White Blood 10.3 10^3/uL Normal 4.8-10.[address] [place] [address] [phone] Red Blood Count 4.67 10^6/uL Normal 4.0-5.4 [...] Blood Cells % 0 Normal Inr/Protime 03/28/2015 [facility] Inr 0.91 Normal 0.78-1.[address] [place] [address] [phone] Laboratory test 03/28/2015 [facility] Lactic Acid 1.0 Normal 0.5-2.[address] mmol/[place] [address] [phone] B-Type Natriuretic Peptide BNP 25 pg/mL Normal 9 Comp Metabolic 03/28/2015 [facility] Sodium 135 mmol/L Normal 133-[address] [place] [address] [phone] Potassium 3.8 mmol/L Normal 3.5-5.0 Chloride 103 [...] 108.2 Normal >60 10 Laboratory test 03/28/2015 [facility] Creatine 30 U/L Normal 10-[address] Kinase(CK) [place] [address] [phone] Troponin-I (TnI) 0.00 ng/mL Normal <0.03 11 CKMB 03/28/2015 [facility] CKMB ng/mL 1.3 Normal 0.6-6.[address] ng/[place] [address] [phone] Laboratory 03/28/2015 [facility] D Dimer < 200 Normal Less Than [address] Quantitative ng/mL 230 [place] [address] [phone] CBC Auto Diff 03/12/2015 [facility] White Blood 11.5 High 4.8- 10.[address] Count 10^3/[place] [address] [phone] Red Blood Count 4.57 10^6/uL Normal 4.0-5.4 [...] Cells % 0 Normal Laboratory test 03/12/2015 [facility] Lactic Acid 1.2 mmol/L Normal 0.5-2.2 finding 101 [place] [address] [phone] Comp Metabolic 03/12/2015 [facility] Sodium 135 mmol/L Normal 133-145 Panel [address] [place] [address] [phone] Potassium 4.1 mmol/L Normal 3.5-5.0 Chloride 102 [...] 111.7 Normal >60 13 Laboratory test 03/12/2015 [facility] Lipase 18 U/L Normal 11.0-82.[address] [place] [address] [phone] C Reactive Protein 11.20 mg/L High < 5.00 14 Troponin-I (TnI) 0.00 ng/mL Normal <0.03 15 Urinalysis Profile 03/12/2015 [facility] Urine Color Yellow Normal [address] [place] [address] [phone] Urine Appearance Cloudy Normal Urine Specific [place] 1.012 Normal 1.010-1.030 Urine pH 5.0 Normal [...] Cell Present Abnormal Absent Laboratory test 03/12/2015 [facility] Urine Culture And SEE RESULT [address] [place] [address] [phone] Laboratory test 03/07/2015 [facility] Troponin-I (TnI) 0.02 ng/ mL Normal <0.0 [address] 3 [place] [address] [phone] CBC Auto Diff 03/07/2015 [facility] White Blood Count 18.2 High 4.8- [address] 10^3/uL 10.8 [place] [address] [phone] Red Blood Count 4.81 10^6/uL Normal 4.0-5.4 [...] Blood Cells % 0 Normal Inr/Protime 03/07/2015 [facility] Inr 0.88 Normal 0.78-1.07 [address] [place] [address] [phone] Laboratory test 03/07/2015 [facility] Partial 26.0 Normal 26.0 -36.3 finding 101 [facility] [place] [address] Time PTT [phone] Comp Metabolic 03/07/2015 [facility] Sodium 138 mmol/L Normal 133-145 Panel [address] [place], [place] [phone] Chloride 103 mmol/L Normal 101-111 Co2 Carbon [...] 14 U/L Normal 13-39 Laboratory test 03/07/2015 [facility] Troponin-I 0.01 Normal < 0.03 [address] (TnI) ng/[place] [address] [phone] CKMB 03/07/2015 [facility] CKMB ng/mL 2.2 ng/mL Normal 0.6- 6.[address] [place] [address] [phone] Laboratory test 02/26/2015 [facility] Troponin-I 0.00 Normal < 0.03 [address] (TnI) ng/[place] [address] [phone] Comp Metabolic 02/26/2015 [facility] Sodium 135 Normal 133- [address] mmol/[place] [address] [phone] Potassium 3.7 mmol/L Normal 3.5-5.0 Chloride 101 [...] 104.8 Normal >60 22 CBC Auto 02/26/2015 [facility] White Blood 9.1 10^3/uL Normal 4.8-10.[address] [place] [address] [phone] Red Blood Count 4.73 10^6/uL Normal 4.0-5.4 [...] Cells % 0 Normal Laboratory test 02/26/2015 [facility] B-Type 18 pg/mL Normal [address] [place] [address] Peptide BNP [phone] CBC Auto Diff 01/17/2015 [facility] White Blood 10.1 Normal 4.8- [address] Count 10^3/uL 10.8 [place] [address] [phone] Red Blood Count 4.70 10^6/uL Normal 4.0-5.4 [...] Blood Cells % 0.1 Normal Laboratory 01/17/2015 [facility] Lactic Acid 1.4 Normal 0.5- 2.2 test finding [address] mmol/[place] [address] [phone] Inr/Protime 01/17/2015 [facility] Inr 0.95 Normal 0.78-1.[address] [place] [address] [phone] Laboratory 01/17/2015 [facility] B-Type 25 pg/mL Normal 24 test finding [address] [place] [address] Peptide BNP [phone] Comp Metabolic 01/17/2015 [facility] Sodium 135 Normal 133- [address] mmol/[place] [address] [phone] Potassium 3.7 mmol/L Normal 3.5-5.0 Chloride 103 [...] 117.5 Normal >60 25 Laboratory test 01/17/2015 [facility] Creatine 39 U/L Normal 10-[address] Kinase(CK) [place] [address] [phone] Troponin-I (TnI) 0.00 ng/mL Normal <0.03 26 CKMB 01/17/2015 [facility] CKMB 1.0 ng/mL Normal 0.6-6.[address] ng/mL [place], [place] [address] [phone] Laboratory test 01/17/2015 [facility] TSH 1.92 Normal 0.34- 5.[address] (Thyroid ?IU/[place] [address] Stim Xeji) [phone] Magnesium 1.8 mg/dL Low 1.9-2.7 Lipase 14 U/L Normal 11.0-82.0 C Reactive Protein 9.82 mg/L High < 5.00 27 Laboratory test 12/26/2014 [facility] Wound SEE RESULT [address] Culture/[place] [address] [phone] CBC Auto Diff 11/25/2014 [facility] White Blood Count 15.0 High 4.8- [address] 10^3/uL 10.8 [place] [address] [phone] Red Blood Count 4.35 10^6/uL Normal 4.0-5.4 [...] Cells % 0 Normal Laboratory test 11/25/2014 [facility] Lactic Acid 0.6 mmol/L Normal 0.5-2.2 finding [address] [place] [address] [phone] Comp Metabolic 11/25/2014 [facility] Sodium 136 mmol/L Normal 133-145 Panel [address] [place] [address] [phone] Potassium 3.8 mmol/L Normal 3.5-5.0 Chloride 104 [...] 126.2 Normal >60 29 Laboratory test 11/25/2014 [facility] C Reactive 96.66 mg/L High < 5.00 30 finding 101 [facility] [place] [address] [phone] Urinalysis 09/22/2014 [facility] Urine Color Yellow Normal Profile [address] [place] [address] [phone] Urine Appearance Cloudy Normal Urine Specific [place] 1.023 Normal 1.010-1.030 Urine pH 5.0 Normal 5-9 Urine Urobilinogen Negative Normal Negative Urine Ketones Negative Normal Negative Urine Protein Negative Normal Negative Urine Leukocytes Negative Normal Negative Urine Blood Negative Normal Negative Urine Nitrite Negative Normal Negative Urine Bilirubin Negative Normal Negative Urine Glucose Negative Normal Negative CBC Auto 09/22/2014 [facility] White Blood 11.1 10^3/uL High 4.8-10.[address] [place] [address] [phone] Red Blood Count 4.60 10^6/uL Normal 4.0-5.4 [...] Cells % 0 Normal Comp Metabolic 09/22/2014 [facility] Sodium 135 mmol/L Normal 133-[address] [place] [address] [phone] Potassium 3.7 mmol/L Normal 3.5-5.0 Chloride 101 [...] Normal >60 31 Laboratory test finding 09/22/2014 [facility] Lipase 8 U/L Low 11.0-82.[address] [place] [address] [phone] C Reactive Protein 12.28 mg/L High < 5.00 32 Lactic Acid 1.2 mmol/L Normal 0.5-2.2 Urine Culture And 2014 [facility] Urine Culture (SEE NOTE ) [address] [place] [address] [phone] Ua Routine 2014 [employer] Eligibility Worker In House Ua Specific 1.005 [place] Ua PH 7 Ua Color yellow Ua Appera clear Ua WBC trace Ua Protein neg Ua Glucose neg Ua Ketones neg Ua Bilirubin small Ua Urobilinogen norm Ua Nitrite neg Ua Occult Blood neg CBC Auto 09/08/2014 [facility] White Blood 10.1 10^3/uL Normal 4.8-10.[address] [place] [address] [phone] Red Blood Count 4.63 10^6/uL Normal 4.0-5.4 [...] Cells % 0.1 Normal Laboratory test 09/08/2014 [facility] Erythrocyte Sed 14 mm/Hr Normal 0-[address] [place] [address] [phone] C Reactive Protein 8.91 mg/L High < 5.00 34 Comp Metabolic 09/08/2014 [facility] Sodium 135 mmol/L Normal 133-[address] [place] [address] [phone] Potassium 4.1 mmol/L Normal 3.5-5.0 Chloride 101 [...] 112.1 Normal >60 35 Laboratory test 09/08/2014 [facility] Hemoglobin A1c 6.2 % High Less [address] than 6.0 [place] [address] [phone] Comp Metabolic 08/23/2014 [facility] Sodium 134 Normal 133- [address] mmol/[place] [address] [phone] Potassium 3.8 mmol/L Normal 3.5-5.0 Chloride 101 [...] 105.2 Normal >60 37 Laboratory test 08/23/2014 [facility] Lipase 10 U/L Low 11.0- 82.[address] [place] [address] [phone] C Reactive Protein 7.87 mg/L High < 5.00 38 CBC Auto 08/23/2014 [facility] White Blood 14.2 10^3/uL High 4.8-10.[address] [place] [address] [phone] Red Blood Count 5.05 10^6/uL Normal 4.0-5.4 [...] Placental NotPresent Normal 41 CBC Auto 08/08/2014 [facility] White Blood 19.6 10^3/uL High 4.8-10.[address] [place] [address] [phone] Red Blood Count 5.06 10^6/uL Normal 4.0-5.4 [...] Cells % 0 Normal Laboratory test 08/08/2014 [facility] Lactic Acid 1.4 mmol/L Normal 0.5-2.2 finding [address] [place] [address] [phone] Comp Metabolic 08/08/2014 [facility] Sodium 133 mmol/L Normal 133-145 Panel [address] [place] [address] [phone] Potassium 4.0 mmol/L Normal 3.5-5.0 Chloride 103 [...] Normal >60 42 Laboratory test finding 08/08/2014 [facility] Lipase 9 U/L Low 11.0-82.[address] [place] [address] [phone] C Reactive Protein 8.39 mg/L High < 5.00 43 Troponin I 0.00 ng/mL Normal <0.03 44 Urinalysis Profile 08/02/2014 [facility] Urine Color Yellow Normal [address] [place], [place] [address] [phone] Urine Appearance Clear Normal Urine Specific [place] 1.011 Normal 1.010-1.030 Urine pH 7.0 Normal 5-9 Urine Urobilinogen Negative Normal Negative Urine Ketones Negative Normal Negative Urine Protein Negative Normal Negative Urine Leukocytes Negative Normal Negative Urine Blood Negative Normal Negative Urine Nitrite Negative Normal Negative Urine Bilirubin Negative Normal Negative Urine Glucose Negative Normal Negative Blood Culture 08/02/2014 [facility] Blood Culture (SEE NOTE) [address] [place] [address] [phone] Laboratory test 08/02/2014 [facility] Lactic Acid 1.8 mmol/L Normal 0.5-[address]2 [place] [address] [phone] Blood Culture (SEE NOTE) 46 Laboratory test 08/02/2014 [facility] B Type 13 pg/mL Normal [address] [place] [address] Peptide [phone] Comp Metabolic 08/02/2014 [facility] Sodium 138 mmol/L Normal 133- Panel [address] [place] [address] [phone] Potassium 4.3 mmol/L Normal 3.5-5.0 Chloride 101 [...] 106.8 Normal >60 48 Laboratory test 08/02/2014 [facility] Creatine 30 U/L Normal 10-[address] [place] [address] [phone] CKMB 08/02/2014 [facility] CKMB ng/mL 1.2 Normal 0.6-6.[address] ng/[place] [address] [phone] Laboratory test 08/02/2014 [facility] Troponin I 0.00 Normal < 0.03 [address] ng/[place] [address] [phone] CBC Auto Diff 08/02/2014 [facility] White Blood 14.4 High 4.8- 10.[address] Count 10^3/[place] [address] [phone] Red Blood Count 5.06 10^6/uL Normal 4.0-5.4 [...] RBC 0 10^3/uL Normal Manual Differential 08/02/2014 [facility] Neutrophil % 58 % Normal 38-[address] [place] [address] [phone] Lymphocytes % 31 % Normal 25-47 Monocytes % 7 % Normal 0-13 Eosinophils % 1 % Normal 0-6 Reactive Lymph % 3 % Normal 0-6 RBC Morphology Normal Normal Normal Laboratory 08/02/2014 [facility] D Dimer < 200 ng/mL Normal Less 50 test finding [address] [place] [address] [phone] Urinalysis 07/31/2014 [facility] Urine Color Colorless Normal Profile [address] [place] [address] [phone] Urine Appearance Clear Normal Urine Specific [place] 1.010 Normal 1.010-1.030 Urine pH 6 Normal 5-9 Urine Urobilinogen Negative Normal Negative Urine Ketones Negative Normal Negative Urine Protein Negative Normal Negative Urine Leukocytes Negative Normal Negative Urine Blood Negative Normal Negative Urine Nitrite Negative Normal Negative Urine Bilirubin Negative Normal Negative Urine Glucose Negative Normal Negative CBC Auto 07/31/2014 [facility] White Blood 15.7 10^3/uL High 4.8-10.[address] [place] [address] [phone] Red Blood Count 4.89 10^6/uL Normal 4.0-5.4 [...] Cells % 0 Normal Laboratory test 07/31/2014 [facility] Lactic Acid 1.1 mmol/L Normal 0.5-2.2 finding 101 [place] [address] [phone] Comp Metabolic 07/31/2014 [facility] Sodium 135 mmol/L Normal 133-145 Panel [address] [place] [address] [phone] Potassium 4.2 mmol/L Normal 3.5-5.0 Chloride 103 [...] 126.6 Normal >60 51 Laboratory test 07/31/2014 [facility] Lipase 23 U/L Normal 11.0-82.0 finding 101 [place] [address] [phone] Troponin I 0.00 ng/mL Normal <0.03 52 C Reactive Protein 4.94 mg/L Normal < 5.00 53 Serum Negative Normal Negative 54 D Dimer Quantitative < 200 ng/mL Normal Less Than 230 55 CBC Auto 07/27/2014 [facility] White Blood 11.2 10^3/uL High 4.8-10.8 Diff 101 [facility] [place] [address] [phone] Red Blood Count 4.82 10^6/uL Normal 4.0-5.4 [...] Cells % 0 Normal Laboratory test 07/27/2014 [facility] Lactic Acid 1.5 mmol/L Normal 0.5-2.2 finding [address] [place] [address] [phone] Comp Metabolic 07/27/2014 [facility] Sodium 135 mmol/L Normal 133-145 Panel [address] [place] [address] [phone] Potassium 4.2 mmol/L Normal 3.5-5.0 Chloride 105 [...] 126.6 Normal >60 56 Laboratory test 07/27/2014 [facility] Lipase 13 U/L Normal 11.0-82.[address] [place] [address] [phone] C Reactive Protein 16.42 mg/L High < 5.00 57 Rapid Influenza 07/25/2014 [facility] Rapid (SEE NOTE) 58 A B Antigen [address] [place] [address] B Antigen [phone] Comp Metabolic 07/11/2014 [facility] Sodium 135 mmol/L Normal 133-[address] [place] [address] [phone] Potassium 3.8 mmol/L Normal 3.5-5.0 Chloride 103 [...] 97.5 Normal >60 59 Laboratory test 07/11/2014 [facility] Lipase 25 U/L Normal 11.0-82.0 finding [address] [place] [address] [phone] C Reactive Protein 8.26 mg/L High < 5.00 60 Lactic Acid 1.3 mmol/L Normal 0.5-2.2 Serum Negative Normal Negative 61 Inr/Protime 07/11/2014 [facility] Inr 0.93 Normal 0.85-1.06 [address] [place] [address] [phone] Urinalysis 07/11/2014 [facility] Urine Yellow Normal Profile [address] [place] [address] [phone] Urine Appearance Cloudy Normal Urine Specific [place] 1.024 Normal 1.010-1.030 Urine pH 5.0 Normal 5-9 Urine Urobilinogen Negative Normal Negative Urine Ketones Trace Abnormal Negative Urine Protein Negative Normal Negative Urine Leukocytes Negative Normal Negative Urine Blood Negative Normal Negative Urine Nitrite Negative Normal Negative Urine Bilirubin Negative Normal Negative Urine Glucose Negative Normal Negative CBC Auto 07/11/2014 [facility] White Blood 10.9 10^3/uL High 4.8-10.[address] [place] [address] [phone] Red Blood Count 4.76 10^6/uL Normal 4.0-5.4 [...] Cells % 0 Normal CBC Auto 07/09/2014 [facility] White Blood 11.8 10^3/uL High 4.8-10.[address] [place] [address] [phone] Red Blood Count 4.58 10^6/uL Normal 4.0-5.4 [...] Cells % 0.1 Normal Comp Metabolic 07/09/2014 [facility] Sodium 135 mmol/L Normal 133-145 Panel [address] [place] [address] [phone] Potassium 3.7 mmol/L Normal 3.5-5.0 Chloride 101 [...] 116.0 Normal >60 62 Laboratory test 07/09/2014 [facility] Amylase 32 U/L Normal 29 -[address] [place] [address] [phone] Erythrocyte Sed Rate 13 mm/Hr Normal 0-30 Urine Culture And 07/09/2014 [facility] Urine Culture (SEE NOTE ) [address] [place] [address] [phone] Ua Routine 07/09/2014 [employer] [facility] House Ua Specific 1.005 [place] Ua PH 5.0 Ua Color yellow Ua [...] 31 U/L Normal 29-103 CBC Auto 01/30/2014 [facility] White Blood 11.3 10^3/uL High 4.8-10.[address] [place] [address] [phone] Red Blood Count 4.15 10^6/uL Normal 4.0-5.4 [...] Blood Cells % 0.1 Normal Inr/Protime 01/30/2014 [facility] Inr 0.91 Normal 0.85-1.[address] [place] [address] [phone] Laboratory test 01/30/2014 [facility] Activated 28.3 Normal 24.0-36.[address] [place] [address] Thrombo Time [phone] Laboratory test 01/30/2014 [facility] Magnesium 1.8 mg/dL Low 1.9-2.[address] [place] [address] [phone] Troponin I 0.00 ng/mL Normal <0.03 65 TSH (Thyroid Stimulating Horm) 4.59 IU/mL Normal 0.34-5.60 Comp Metabolic 01/30/2014 [facility] Sodium 136 mmol/L Normal 133-[address] [place] [address] [phone] Potassium 3.6 mmol/L Low 3.7-5.6 Chloride 103 [...] >60 Egfr 112.1 Normal >60 66 1 AA 01/30 2 Because ethnic data is not [...] 4 01/30 5 SEE RESULT BELOW Name: BEBETO TURNERAUSTIN Dela Cruz : [address]: Eva Esteves MD Acct: [id number] Unit: [id number] AGE: 58 Location: [facility] Re01/21/19 SEX: F Status: REG REF SPEC: [id number] KAMAR: 01/21/19-[address]: Eva Esteves MD REQ: [id number] RECD: 01/21/19-1313 STATUS: [place] AGUIRRE DR: Tatiana Geronimo MD _ SOURCE: URINE SPDESC: ORDERED: Urine Culture COMMENTS: RIGO 01/30 QUERIES: Urine Source: Clean Catch Procedure Result Reported Site Urine Culture Final 01/22/19- 1221 ML No Growth (<1,000 CFU/mL) * ML - Main Lab . END OF REPORT DEPARTMENT OF PATHOLOGY, [address] [place] [address] Osmar Edge M.D. Director [facility] # [id number] 6 Because ethnic data is not always [...] [address]: Joseph Durand MD Acct: [id number] Unit: [id number] AGE: 54 Location: ED Re03/12/15 SEX: F Status: DEP ER SPEC: [id number] KAMAR: 03/12/[address]: Joseph Durand MD REQ: [id number] RECD: 03/12/15 STATUS: [place] AGUIRRE DR: Denice Christopher MD _ SOURCE: URINE SPDESC: ORDERED: Urine Culture Procedure Result Verified Site Urine Culture Final 03/14/15- 1045 ML Organism 1 NORMAL JAMES [place] Count 50-75,000 (Many) CFU/ML * ML - MAIN LAB ([facility]) . END OF REPORT * ML=Testing performed at Main Lab DEPARTMENT OF PATHOLOGY, [address] [place] [address] Osmar Edge M.D. Director [facility] # [id number] 17 Reference Range and Interpretation: TnI (ng/mL) [...] [address]: Darius Cottrell MD Acct: [id number] Unit: [id number] AGE: 54 Location: [facility] Re12/26/14 SEX: F Status: DEP ER SPEC: [id number] KAMAR: 12/26/14-[address] [facility] [address]: Darius Cottrell MD REQ: [id number] RECD: 12/26/14 STATUS: [place] AGUIRRE DR: Denice Christopher MD _ SOURCE: HAND,LEFT SPDESC: ORDERED: Culture Stain Procedure Result Verified Site Wound/Misc Gram Stain Final 12/26/14- 1400 ML 1+ Neutrophils No Organisms Seen Wound/Misc Culture Final 12/28/14- 1124 ML No Growth Day 2 * ML - MAIN LAB ([facility]) . END OF REPORT * ML=Testing performed at Main Lab DEPARTMENT OF PATHOLOGY, [address] [place] [address] Osmar Edge M.D. Director [facility] # [id number] 29 Because ethnic data is not always [...] Acute inflammation: >10.00 33 RUN DATE: 09/23/14 [facility] LAB LIVE PAGE 1 RUN TIME: [address] [place], [place] [address] Specimen Inquiry Name: RICKYPASCALE M : [address]: Denice Christopher MD Acct: [id number] Unit: [id number] AGE: 54 Location: [facility] Re09/21/14 SEX: F Status: REG REF SPEC: [id number] KAMAR: 09/21/14-[address]: Denice Christopher MD REQ: [id number] RECD: 09/21/14 STATUS: COMP _ SOURCE: URINE SPDESC: ORDERED: Urine Culture QUERIES: Provider Requisition # [id number] Procedure Result Verified Site Urine Culture Final 09/23/14- 1027 L Organism 1 NORMAL [place] Count >100,000 (Many) CFU/ML END OF REPORT * ML=Testing performed at Main Lab DEPARTMENT OF PATHOLOGY, [address] [place] [address] Osmar Edge M.D. Director [facility] # [id number] 34 Acute inflammation: >10.00 35 Because ethnic [...] and in selective patients <6.0%.Please refer to [place] [employer] Diabetic care guidelines for further [...] REFERENCE VALUE Not present Test Performed by: [address] [address] Make Up Man: Gavino Tyler M.D. 42 Because ethnic data [...] diagnosis of UT 45 RUN DATE: 08/07/14 [facility] LAB LIVE PAGE 1 RUN TIME: [address] [place] [address] Specimen Inquiry Name: PASCALE GARCÍA : [address]: Julio C Lindsey DO Acct: [id number] Unit: [id number] AGE: 53 Location: ED Re08/02/14 SEX: F Status: DEP ER SPEC: [id number] KAMAR: 08/02/14-[address]: Jase GIBSON REQ: [id number] RECD: 08/02/14 STATUS: [place] AGUIRRE DR: Denice Lindsey DO _ SOURCE: BLOOD,VENO SPDES: ORDERED: Blood Cult Procedure Result Verified Site Aerobic Culture Bottle Final 08/07/14- 1518 ML No Growth Day 5 Anaerobic Culture Bottle Final 08/07/14- 1518 ML No Growth Day 5 END OF REPORT * ML=Testing performed at Main Lab DEPARTMENT OF PATHOLOGY, [facility] [employer] [place], [place] [address] Osmar Edge M.D. Director [facility] # [id number] 46 RUN DATE: 08/07/14 [facility] LAB LIVE PAGE 1 RUN TIME: 1441 [facility] [employer] [place], [place] [address] Specimen Inquiry Name: PASCALE GARCÍA : [address]: Julio C Lindsey DO Acct: [id number] Unit: [id number] AGE: 53 Location: ED Re08/02/14 SEX: F Status: DEP ER SPEC: [id number] KAMAR: 08/02/[address]: Jase GIBSON REQ: [id number] RECD: 08/02/14 STATUS: [place] AGUIRRE DR: Denice Lindsey DO _ SOURCE: BLOOD,VENO SPDESC: ORDERED: Blood Cult Procedure Result Verified Site Aerobic Culture Bottle Final 08/07/14- 1441 ML No Growth Day 5 Anaerobic Culture Bottle Final 08/07/14- 1441 ML No Growth Day 5 END OF REPORT * ML=Testing performed at Main Lab DEPARTMENT OF PATHOLOGY, [address] [place] [address] Osmar Edge M.D. Director [facility] # [id number] 47 >100 to <200 pg/mL: likely compensated congestive heart failure (CHF) 200 to 400 pg/mL: likely moderate CHF >400 pg/mL: likely moderate to severe CHF MI HEART 48 Because ethnic data is not [...] Acute inflammation: >10.00 58 RUN DATE: 07/25/14 [facility] LAB LIVE PAGE 1 RUN TIME: [address] [place] [address] Specimen Inquiry Name: PASCALE GARCÍA : [address]: Wei Saini Acct: [id number] Unit: [id number] AGE: 53 Location: ED Re07/25/14 SEX: F Status: REG ER SPEC: [id number] KAMAR: 07/25/[address]: Wei Thomason DO REQ: [id number] RECD: 07/25/14 STATUS: [place] AGUIRRE DR: Denice Christopher MD _ SOURCE: [facility]: ORDERED: Rapid Flu A B [...] performed at Main Lab DEPARTMENT OF PATHOLOGY, [address] [place] [address] Osmar Edge M.D. Director [facility] # [id number] 59 Because ethnic data is not always [...] <15 (or dialysis) 63 RUN DATE: 07/12/14 [facility] LAB LIVE PAGE 1 RUN TIME: [address] [place] [address] Specimen Inquiry Name: PASCALE GARCÍA : [address]: Denice Christopher MD Acct: [id number] Unit: [id number] AGE: 53 Location: [facility] Re07/09/14 SEX: F Status: REG REF SPEC: [id number] KAMAR: 07/09/14-[address] [facility] [address]: Denice Christopher MD REQ: [id number] RECD: 07/09/14 STATUS: COMP _ SOURCE: URINE SPDESC: ORDERED: Urine Culture QUERIES: Med[employer] Number [id number] Procedure Result Verified Site Urine Culture Final 07/12/14- 0836 ML Organism 1 NORMAL [place] Count 75-100,000 (Many) CFU/ML END OF REPORT * ML=Testing performed at Main Lab DEPARTMENT OF PATHOLOGY, [address] [place] [address] Osmar Edge M.D. Director [facility] # [id number] 64 Because ethnic data is not always [...] dialysis) Procedures Date Code Description Status 01/30/2019 83191 Revision TKA W Or W/O Allograft;Femoral & Entire Tibial Completed Component 01/30/2019 96749 Revision TKA W Or W/O Allograft;Femoral & Entire Tibial Completed Component 08/26/2015 38404 Trigger Finger Release Incision / Tendon Sheath Completed Incision 08/26/2015 02841 Trigger Finger Release Incision / Tendon Sheath Completed Incision 04/25/2015 79472 Diffusing Capacity Completed 04/25/2015 26958 Plethysmography Determination Lung Volumes & Per Airway Completed Resist 04/25/2015 97019 Pulmonary Function><Bronchodil Completed 11/25/2014 64217799 Mammogram Completed 10/18/2014 64465908 Colonoscopy Completed 09/23/2014 86538548 Colonoscopy Completed 09/07/2014 60378 EKG Tracing & Interpretation Completed 11/16/2013 01963 Xray Knee 3 Views Completed 11/16/2013 52842 Rad Exam; Knee, Ap&L Completed 08/28/2013 76002 Carpal Tunnel Release Completed 08/07/2013 40627 Carpal Tunnel Release Completed 06/18/2013 89520 Rad Exam; Wrist, Comp, Min 3 Views Completed 06/18/2013 35736 Rad Exam; Wrist, Comp, Min 3 Views Completed 05/29/2013 94503 EKG, Interpretation Only Completed 05/26/2013 18464 EKG, Interpretation Only Completed 01/07/2012 34983 Xray Knee 3 Views Completed 01/07/2012 04488 Rad Exam; Knee Comp Completed 01/07/2012 27855 Rad Exam; Tib-Fib Completed 06/20/2011 84192 Xray Knee 3 Views Completed 06/20/2011 10069 Rad Exam; Knee, Ap&L Completed 05/08/2011 80209 TKR Total Knee Replacement Completed 11/27/2010 45580 Xray Knee 3 Views Completed 11/27/2010 43320 Rad Exam; Knee, Ap&L Completed 11/27/2010 44225 Rad Exam; Elbow, Limited Completed 11/27/201079162 Inject/Drain Joint/Bursa Major W/O US Completed 07/03/2010 46207 Xray Knee 3 Views Completed 04/07/2010 42101 Xray Knee 3 Views Completed 03/07/2010 51075 TKR Total Knee Replacement Completed Encounters Type Date Location Provider Dx Diagnosis Office Visit 02/01/2019 [facility] I10 Essential (primary) 9:55a Assoc,teo Lamar NP hypertension Hospitalists J44.9 Chronic obstructive pulmonary disease, unspecified Office Visit 01/31/2019 9:55a [facility] [place] [facility] I10 Essential Assoc,teo Lamar NP (primary) Hospitalists hypertension J44.9 Chronic obstructive pulmonary disease, unspecified Office Visit 12/01/2018 9:30a Orthopedic Eva Esteves, 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 Obstructive Chronic W/Acute Exacerbation 305.1 Tobacco Use Disorder Office Visit 03/14/2015 3:00p [facility] Internal Norbert Morgan, 786.05 Shortness Of Medicine - Ccmob LICENSED MASS REAL 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 APPRAISER Breath 724.2 Lumbago 496 COPD Airway Obstruction Chronic Not Class Elsewhere Office Visit 12/29/2014 10:00a [facility] Internal Darius Diaz, 692.6 Dermatitis Contact Medicine - Ccmob LICENSED MASS 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 Left Upper Quadrant 789.63 Tenderness Abdominal Right Lower Quadrant Office Visit 09/07/2014 4:00p [facility] Internal Denice Christopher V72.84 Examination Medicine - M.D. 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 Unspec Site 288.60 Leukocytosis, Unspecified Office Visit 08/10/2014 9:48a [facility] Aline SHector 789.00 Pain Abdominal Assoc,pc Yves, N.P. Unspec Site Hospitalists 496 COPD Airway Obstruction Chronic Not Class Elsewhere 288.60 Leukocytosis, Unspecified Office Visit 08/08/2014 9:47a [facility] Alissa 789.00 Pain Abdominal Assoc,pc Óscar, DELFINO Unspec Site Hospitalists 496 COPD Airway Obstruction Chronic Not Class Elsewhere 288.60 Leukocytosis, Unspecified Office Visit 07/31/2014 11:43a [facility] Melita 789.00 Pain Abdominal Assoc,pc Carlito Boudreaux Unspec Site Hospitalists 530.11 Esophagitis Reflux 490 Bronchitis Acute Or Chronic Not Spec 311 Depressive Disorder Not Elsewhere Spec Office Visit 07/26/2014 11:30a [facility] Internal Gloria Menon, 491.21 Bronchitis 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 Generalized Ccmob Office Visit 05/24/2014 1:00p [facility] Internal Gloria Menon, 727.05 Tenosynovitis Hand Medicine - PROGRAMMER ANALYST & Wrist Other Ccmob Office Visit 05/05/2014 8:30a [facility] Internal Gloria Menon, 786.50 Pain Chest Unspec Medicine - PROGRAMMER ANALYST Ccmob 847.1 Sprains & Strains Thoracic Office Visit 04/12/2014 1:00p [facility] Internal Gloria Menon, 789.07 Pain Abdominal Medicine - PROGRAMMER ANALYST Generalized Ccmob 288.50 Leukocytopenia, Unspecified Office Visit 03/26/2014 1:00p [facility] Internal Denice Christopher, 491.21 Bronchitis Medicine - M.D. Obstructive Chronic Ccmob W/Acute Exacerbation 492.8 Emphysema Other Office Visit 11/29/2013 4:32p [facility] Jose Alejandro Zuleta 786.50 Pain Chest Assoc,teo Muñoz M.D. Unspec Hospitalists Hospitalist 492.8 Emphysema Other 401.9 Hypertension Unspec 311 Depressive Disorder Not Elsewhere Spec Office Visit 11/28/2013 4:28p [facility] Guillermo Moon 786.50 Pain Chest Assoc,teo CASTILLO M.D. Unspec Hospitalists 492.8 Emphysema Other 401.9 Hypertension Unspec 311 Depressive Disorder Not Elsewhere Spec Office Visit 11/16/2013 Orthopedic Sacha Farfan, 726.64 Tendinitis 11:30a Services Of Jose Friedman Patellar Office Visit 06/18/2013 Orthopedic Lucille 354.0 Carpal Tunnel 9:00a Services Of Jose Nuno M.D. Syndrome Office Visit 05/29/2013 [facility] Smith Marie, 491.21 Bronchitis 2:46p Assoc,teo Friedman Obstructive Hospitalists Chronic W/Acute Exacerbation 481 Pneumonia Pneumococcal 311 Depressive Disorder Not Elsewhere Spec Office Visit 05/28/2013 2:46p [facility] Manuel 481 Pneumonia Assoc,teo Puente N.P. Pneumococcal Hospitalists 311 Depressive Disorder Not Elsewhere Spec 491.21 Bronchitis Obstructive Chronic W/Acute Exacerbation [facility].21 Bronchitis 6:10p Assoc,teo Marie M.D. Obstructive Hospitalists Chronic W/Acute Exacerbation 786.52 Painful Respiration 311 Depressive Disorder Not Elsewhere Spec 794.31 Electrocardiogram (ECG) (EKG) Abnormal Office Visit 05/25/2013 [facility] Aline SHector 491.21 Bronchitis 6:10p Assoc,teo Marinelli N.PHector Obstructive Hospitalists Chronic W/Acute Exacerbation 794.31 Electrocardiogram (ECG) (EKG) Abnormal 786.52 Painful Respiration 311 Depressive Disorder Not Elsewhere Spec Office Visit 10/16/2012 4:27p [facility] [place] 492.8 Emphysema Other Assoc,teo Rader M.D. Hospitalists 466.0 Bronchitis Acute 305.1 Tobacco Use Disorder Office Visit 10/14/2012 4:26p [facility] Paulette De Oliveira, 492.8 Emphysema Other Assoc,teo Friedman Hospitalists 466.0 Bronchitis Acute 305.1 Tobacco Use Disorder Office Visit 09/25/2012 Orthopedic Sacha Farfan, 722.0 Intervertebral Disc 10:45a [facility] Beavers C.M.Jorge Luis Cervical W/O Myelopathy Office Visit 01/07/2012 Orthopedic Rui 924.11 Contusion Knee 2:30p [facility] Limon C.M.A. Office Visit 03/28/2011 Orthopedic Sacha Farfan 716.96 Arthropathy Unspec 2:45p Services Of M.Song Lower Leg C.M.A. Office Visit 11/27/2010 Jacinta Farfan 716.96 Arthropathy Unspec 2:30p Services Of MRico Lower Leg C.M.A. 715.96 Osteoarthrosis Unspec Genlzd [...] Eva Esteves M.D.M25.562 Pain in left kneeNew Medication: -Follow up:Follow up: 02/18/19Z96.652 Presence of left artificial knee idnjuE66.116 Cellulitis of left lower limbZ47.1 Aftercare following joint replacement surgery
--- OUTSIDE RECORDS SUMMARY | 2019-02-20 22:21 | XMS REPORT | Continuity of Care Document ---
:1960 External Reference #:[id number] Author Name Gladis Olivares Care Team Providers Name Role Phone Tatiana Geronimo MD Primary Care Physician Unavailable Payers Date Identification Numbers Payment Provider Subscriber Policy Number: [id number] [facility] [employer] Pascale Turner PayID: [id number] [address] [address] [place] [address] Effective: 2018 Policy Number: [id number] [facility] Care Pascale Turner Expires: 2020 Group Number: [id number] [facility] PayID: [id number] [address] Problems Active Problems Provider Date Leukopenia ALMA [...] per day 30 years Smoking Status Reviewed: 02/11/19 Currently smokes 1-5 Cigarettes Daily ETOH Use [...] swab Creon 1 by mouth three Unknown [id number] Caps DR times a day Part Atorvastatin [...] 07/26/2014 - 10mg Tablets mouth for 3 [employer] 08/13/2014 days then 3 tabs for 3 days, then 2 tab for 3 days then 1 tab for 5 days Mucinex 1 by mouth 10tabs 491.21 Gloria Menon, 07/26/2014 - 600mg Tablets ER 12HR twice for 3 [employer] 08/13/2014 days Percocet 1-2 tabs po 30tabs Dirdeangelo Farfan, 07/09/2014 - 5-325mg Tablets q4-6 prn pain M.D. 07/26/2014 Voltaren apply 1 gram 1tubes 727.05 Gloria Menon, 05/24/2014 - 1% Gel to affected [employer] 08/13/2014 area twice a day, as needed Wrist Splint/Left Small Use on left QS 727.05 Gloria Menon, 05/24/2014 - Misc hand as needed. [employer] 09/07/2014 Diclofenac Sodium take 1 tablet 60tabs 786.50 Gloria Menon, 05/05/2014 - 50mg Tablets by mouth 2 [employer] 07/26/2014 DR times a day as needed [...] CPT Code Status Date Vaccine Lot # [id number] Refused 03/29/2015 Influenza Virus Vaccine, Quadrivalent, Split, Preservative Free Vital Signs Date Vital Result Comment 02/11/2019 11:27am Height 59 inches 4'11" Weight [...] Result H/L Range Note Comp Metabolic 01/21/2019 [facility] Sodium 138 mmol/L Normal 135-145 1 [place] [address] [phone] Potassium 4.2 mmol/L Normal 3.5-5.0 Chloride 102 [...] >60 Egfr 117.0 >60 2 Inr/Protime 01/21/2019 [facility] Inr 1.01 Normal 0.82-1.09 3 [place] [address] [phone] Laboratory test 01/21/2019 [facility] Partial 35.7 Normal 26.0 -38.0 4 [place] [address] Time PTT [phone] CBC Auto Diff 01/21/2019 [facility] White Blood 8.7 10^3/uL Normal 3.5-10.8 [place] [address] [phone] Red Blood Count 4.74 10^6/uL Normal 3.70-4.87 [...] Blood Cells % 0.1 Urinalysis Profile 01/21/2019 [facility] Urine Color Yellow [address] [place] [address] [phone] Urine Appearance Clear Urine Specific Ransom 1.018 Normal 1.010-1.030 Urine pH 6.0 Normal 5-9 Urine Urobilinogen Negative Negative Urine Ketones Negative Negative Urine Protein Negative Negative Urine Leukocytes Negative Negative Urine Blood Negative Negative Urine Nitrite Negative Negative Urine Bilirubin Negative Negative Urine Glucose Negative Negative Type & Screen 01/21/2019 [facility] Patient Blood Type O Positive [address] [place] [address] [phone] Antibody Screen NEGATIVE Urine Culture And 01/21/2019 [facility] Urine SEE RESULT [address] [place] [place] [address] [phone] CBC Auto Diff 03/31/2015 [facility] White Blood 20.8 High 4.8- [address] Count 10^3/uL 0.8 [place] [address] [phone] Red Blood Count 4.74 10^6/uL Normal 4.0-5.4 [...] Cells % 0 Normal Laboratory test 03/31/2015 [facility] Lactic Acid 1.4 mmol/L Normal 0.5-2.2 finding [address] [place] [address] [phone] Comp Metabolic 03/31/2015 [facility] Sodium 135 mmol/L Normal 133-145 Panel [address] [place] [address] [phone] Potassium 3.6 mmol/L Normal 3.5-5.0 Chloride 101 [...] 98.6 Normal >60 6 Laboratory test 03/31/2015 [facility] Troponin-I 0.01 ng/mL Normal <0.[address] (TnI) [place] [address] [phone] Pathologist Review (SEE NOTE) Normal 8 CBC Auto 03/28/2015 [facility] White Blood 10.3 10^3/uL Normal 4.8-10.[address] [place] [address] [phone] Red Blood Count 4.67 10^6/uL Normal 4.0-5.4 [...] Blood Cells % 0 Normal Inr/Protime 03/28/2015 [facility] Inr 0.91 Normal 0.78-1.[address] [place] [address] [phone] Laboratory test 03/28/2015 [facility] Lactic Acid 1.0 Normal 0.5-2.[address] mmol/[place] [address] [phone] B-Type Natriuretic Peptide BNP 25 pg/mL Normal 9 Comp Metabolic 03/28/2015 [facility] Sodium 135 mmol/L Normal 133-[address] [place] [address] [phone] Potassium 3.8 mmol/L Normal 3.5-5.0 Chloride 103 [...] 108.2 Normal >60 10 Laboratory test 03/28/2015 [facility] Creatine 30 U/L Normal 10-[address] Kinase(CK) [place] [address] [phone] Troponin-I (TnI) 0.00 ng/mL Normal <0.03 11 CKMB 03/28/2015 [facility] CKMB ng/mL 1.3 Normal 0.6-6.[address] ng/[place] [address] [phone] Laboratory 03/28/2015 [facility] D Dimer < 200 Normal Less Than 12 test finding [address] Quantitative ng/mL 230 [place] [address] [phone] CBC Auto Diff 03/12/2015 [facility] White Blood 11.5 High 4.8- 10.[address] Count 10^3/[place] [address] [phone] Red Blood Count 4.57 10^6/uL Normal 4.0-5.4 [...] Cells % 0 Normal Laboratory test 03/12/2015 [facility] Lactic Acid 1.2 mmol/L Normal 0.5-2.2 finding [address] [place] [address] [phone] Comp Metabolic 03/12/2015 [facility] Sodium 135 mmol/L Normal 133-145 Panel [address] [place] [address] [phone] Potassium 4.1 mmol/L Normal 3.5-5.0 Chloride 102 [...] 111.7 Normal >60 13 Laboratory test 03/12/2015 [facility] Lipase 18 U/L Normal 11.0-82.[address] [place] [address] [phone] C Reactive Protein 11.20 mg/L High < 5.00 14 Troponin-I (TnI) 0.00 ng/mL Normal <0.03 15 Urinalysis Profile 03/12/2015 [facility] Urine Color Yellow Normal [address] [place] [address] [phone] Urine Appearance Cloudy Normal Urine Specific Ransom 1.012 Normal 1.010-1.030 Urine pH 5.0 Normal [...] Cell Present Abnormal Absent Laboratory test 03/12/2015 [facility] Urine Culture And SEE RESULT [address] [place] [address] [phone] Laboratory test 03/07/2015 [facility] Troponin-I (TnI) 0.02 ng/ mL Normal <0.[address] 3 [place] [address] [phone] CBC Auto Diff 03/07/2015 [facility] White Blood Count 18.2 High 4.8- [address] 10^3/uL 10.8 [place] [address] [phone] Red Blood Count 4.81 10^6/uL Normal 4.0-5.4 [...] Blood Cells % 0 Normal Inr/Protime 03/07/2015 [facility] Inr 0.88 Normal 0.78-1.07 [address] [place] [address] [phone] Laboratory test 03/07/2015 [facility] Partial 26.0 Normal 26.0 -36.3 finding [address] [facility] [place] [address] Time PTT [phone] Comp Metabolic 03/07/2015 [facility] Sodium 138 mmol/L Normal 133-145 Panel [address] [place] [address] [phone] Chloride 103 mmol/L Normal 101-111 Co2 Carbon [...] 14 U/L Normal 13-39 Laboratory test 03/07/2015 [facility] Troponin-I 0.01 Normal < 0.03 [address] (TnI) ng/[place] [address] [phone] CKMB 03/07/2015 [facility] CKMB ng/mL 2.2 ng/mL Normal 0.6- 6.[address] [place] [address] [phone] Laboratory test 02/26/2015 [facility] Troponin-I 0.00 Normal < 0.03 [address] (TnI) ng/[place] [address] [phone] Comp Metabolic 02/26/2015 [facility] Sodium 135 Normal 133- [address] mmol/[place] [address] [phone] Potassium 3.7 mmol/L Normal 3.5-5.0 Chloride 101 [...] 104.8 Normal >60 22 CBC Auto 02/26/2015 [facility] White Blood 9.1 10^3/uL Normal 4.8-10.[address] [place] [address] [phone] Red Blood Count 4.73 10^6/uL Normal 4.0-5.4 [...] Cells % 0 Normal Laboratory test 02/26/2015 [facility] B-Type 18 pg/mL Normal [address] [place] [address] Peptide BNP [phone] CBC Auto Diff 01/17/2015 [facility] White Blood 10.1 Normal 4.8- [address] Count 10^3/uL 10.8 [place] [address] [phone] Red Blood Count 4.70 10^6/uL Normal 4.0-5.4 [...] Blood Cells % 0.1 Normal Laboratory 01/17/2015 [facility] Lactic Acid 1.4 Normal 0.5- 2.2 test finding [address] mmol/L [place], [place] [phone] Inr/Protime 01/17/2015 [facility] Inr 0.95 Normal 0.78-1.[address] [place] [address] [phone] Laboratory 01/17/2015 [facility] B-Type 25 pg/mL Normal 24 test finding [address] [place] [address] Peptide BNP [phone] Comp Metabolic 01/17/2015 [facility] Sodium 135 Normal 133- [address] mmol/L [place], [place] [address] [phone] Potassium 3.7 mmol/L Normal 3.5-5.0 Chloride 103 [...] 117.5 Normal >60 25 Laboratory test 01/17/2015 [facility] Creatine 39 U/L Normal 10-[address] Kinase(CK) [place] [phone] Troponin-I (TnI) 0.00 ng/mL Normal <0.03 26 CKMB 01/17/2015 [facility] CKMB 1.0 ng/mL Normal 0.6-6.[address] ng/[place] [address] [phone] Laboratory test 01/17/2015 [facility] TSH 1.92 Normal 0.34- 5.[address] (Thyroid ?IU/[place] [address] Stim Horm) [phone] Magnesium 1.8 mg/dL Low 1.9-2.7 Lipase 14 U/L Normal 11.0-82.0 C Reactive Protein 9.82 mg/L High < 5.00 27 Laboratory test 12/26/2014 [facility] Wound SEE RESULT [address] Culture/Sensi BELOW [place] [phone] CBC Auto Diff 11/25/2014 [facility] White Blood Count 15.0 High 4.8- [address] 10^3/uL 10.8 [place], [place] [address] [phone] Red Blood Count 4.35 10^6/uL Normal 4.0-5.4 [...] Cells % 0 Normal Laboratory test 11/25/2014 [facility] Lactic Acid 0.6 mmol/L Normal 0.5-2.2 finding 101 [place] [address] [phone] Comp Metabolic 11/25/2014 [facility] Sodium 136 mmol/L Normal 133-145 Panel [address] [place] [address] [phone] Potassium 3.8 mmol/L Normal 3.5-5.0 Chloride 104 [...] 126.2 Normal >60 29 Laboratory test 11/25/2014 [facility] C Reactive 96.66 mg/L High < 5.00 30 finding 101 [facility] [place] [address] [phone] Urinalysis 09/22/2014 [facility] Urine Color Yellow Normal Profile [address] [place] [address] [phone] Urine Appearance Cloudy Normal Urine Specific Ransom 1.023 Normal 1.010-1.030 Urine pH 5.0 Normal 5-9 Urine Urobilinogen Negative Normal Negative Urine Ketones Negative Normal Negative Urine Protein Negative Normal Negative Urine Leukocytes Negative Normal Negative Urine Blood Negative Normal Negative Urine Nitrite Negative Normal Negative Urine Bilirubin Negative Normal Negative Urine Glucose Negative Normal Negative CBC Auto 09/22/2014 [facility] White Blood 11.1 10^3/uL High 4.8-10.[address] [place] [address] [phone] Red Blood Count 4.60 10^6/uL Normal 4.0-5.4 [...] Cells % 0 Normal Comp Metabolic 09/22/2014 [facility] Sodium 135 mmol/L Normal 133-[address] [place] [address] [phone] Potassium 3.7 mmol/L Normal 3.5-5.0 Chloride 101 [...] Normal >60 31 Laboratory test finding 09/22/2014 [facility] Lipase 8 U/L Low 11.0-82.[address] [place] [address] [phone] C Reactive Protein 12.28 mg/L High < 5.00 32 Lactic Acid 1.2 mmol/L Normal 0.5-2.2 Urine Culture And 2014 [facility] Urine Culture (SEE NOTE ) 33 Sensitivities [address] [place] [address] [phone] Ua Routine 2014 [employer] House Ua Specific 1.005 Ransom Ua PH 7 Ua Color yellow Ua Appera clear Ua WBC trace Ua Protein neg Ua Glucose neg Ua Ketones neg Ua Bilirubin small Ua Urobilinogen norm Ua Nitrite neg Ua Occult Blood neg CBC Auto 09/08/2014 [facility] White Blood 10.1 10^3/uL Normal 4.8-10.[address] [place] [address] [phone] Red Blood Count 4.63 10^6/uL Normal 4.0-5.4 [...] Cells % 0.1 Normal Laboratory test 09/08/2014 [facility] Erythrocyte Sed 14 mm/Hr Normal 0-[address] [place] [address] [phone] C Reactive Protein 8.91 mg/L High < 5.00 34 Comp Metabolic 09/08/2014 [facility] Sodium 135 mmol/L Normal 133-[address] [place] [address] [phone] Potassium 4.1 mmol/L Normal 3.5-5.0 Chloride 101 [...] 112.1 Normal >60 35 Laboratory test 09/08/2014 [facility] Hemoglobin A1c 6.2 % High Less [address] than 6.0 [place] [address] [phone] Comp Metabolic 08/23/2014 [facility] Sodium 134 Normal 133- [address] mmol/[place] [address] [phone] Potassium 3.8 mmol/L Normal 3.5-5.0 Chloride 101 [...] 105.2 Normal >60 37 Laboratory test 08/23/2014 [facility] Lipase 10 U/L Low 11.0- 82.[address] [place] [address] [phone] C Reactive Protein 7.87 mg/L High < 5.00 38 CBC Auto 08/23/2014 [facility] White Blood 14.2 10^3/uL High 4.8-10.[address] [place] [address] [phone] Red Blood Count 5.05 10^6/uL Normal 4.0-5.4 [...] Placental NotPresent Normal 41 CBC Auto 08/08/2014 [facility] White Blood 19.6 10^3/uL High 4.8-10.[address] [place] [address] [phone] Red Blood Count 5.06 10^6/uL Normal 4.0-5.4 [...] Cells % 0 Normal Laboratory test 08/08/2014 [facility] Lactic Acid 1.4 mmol/L Normal 0.5-2.2 finding [address] [place] [address] [phone] Comp Metabolic 08/08/2014 [facility] Sodium 133 mmol/L Normal 133-145 Panel [address] [place] [address] [phone] Potassium 4.0 mmol/L Normal 3.5-5.0 Chloride 103 [...] Normal >60 42 Laboratory test finding 08/08/2014 [facility] Lipase 9 U/L Low 11.0-82.0 [address] [place] [address] [phone] C Reactive Protein 8.39 mg/L High < 5.00 43 Troponin I 0.00 ng/mL Normal <0.03 44 Urinalysis Profile 08/02/2014 [facility] Urine Color Yellow Normal [address] [place] [address] [phone] Urine Appearance Clear Normal Urine Specific [place]ansom 1.011 Normal 1.010-1.030 Urine pH 7.0 Normal 5-9 Urine Urobilinogen Negative Normal Negative Urine Ketones Negative Normal Negative Urine Protein Negative Normal Negative Urine Leukocytes Negative Normal Negative Urine Blood Negative Normal Negative Urine Nitrite Negative Normal Negative Urine Bilirubin Negative Normal Negative Urine Glucose Negative Normal Negative Blood Culture 08/02/2014 [facility] Blood Culture (SEE NOTE) [address] [place] [address] [phone] Laboratory test 08/02/2014 [facility] Lactic Acid 1.8 mmol/L Normal 0.5-[address] .2 [place] [address] [phone] Blood Culture (SEE NOTE) 46 Laboratory test 08/02/2014 [facility] B Type 13 pg/mL Normal [address] [place] [address] Peptide [phone] Comp Metabolic 08/02/2014 [facility] Sodium 138 mmol/L Normal 133- Panel [address] [place] [address] [phone] Potassium 4.3 mmol/L Normal 3.5-5.0 Chloride 101 [...] 106.8 Normal >60 48 Laboratory test 08/02/2014 [facility] Creatine 30 U/L Normal 10-[address] [place] [address] [phone] CKMB 08/02/2014 [facility] CKMB ng/mL 1.2 Normal 0.6-6.[address] ng/[place] [address] [phone] Laboratory test 08/02/2014 [facility] Troponin I 0.00 Normal < 0.03 [address] ng/[place] [address] [phone] CBC Auto Diff 08/02/2014 [facility] White Blood 14.4 High 4.8- 10.[address] Count 10^3/[place] [address] [phone] Red Blood Count 5.06 10^6/uL Normal 4.0-5.4 [...] RBC 0 10^3/uL Normal Manual Differential 08/02/2014 [facility] Neutrophil % 58 % Normal 38-[address] [place] [address] [phone] Lymphocytes % 31 % Normal 25-47 Monocytes % 7 % Normal 0-13 Eosinophils % 1 % Normal 0-6 Reactive Lymph % 3 % Normal 0-6 RBC Morphology Normal Normal Normal Laboratory 08/02/2014 [facility] D Dimer < 200 ng/mL Normal Less [address] [place] [address] [phone] Urinalysis 07/31/2014 [facility] Urine Color Colorless Normal Profile [address] [place] [address] [phone] Urine Appearance Clear Normal Urine Specific Ransom 1.010 Normal 1.010-1.030 Urine pH 6 Normal 5-9 Urine Urobilinogen Negative Normal Negative Urine Ketones Negative Normal Negative Urine Protein Negative Normal Negative Urine Leukocytes Negative Normal Negative Urine Blood Negative Normal Negative Urine Nitrite Negative Normal Negative Urine Bilirubin Negative Normal Negative Urine Glucose Negative Normal Negative CBC Auto 07/31/2014 [facility] White Blood 15.7 10^3/uL High 4.8-10.[address] [place] [address] [phone] Red Blood Count 4.89 10^6/uL Normal 4.0-5.4 [...] Cells % 0 Normal Laboratory test 07/31/2014 [facility] Lactic Acid 1.1 mmol/L Normal 0.5-2.[address] [place] [address] [phone] Comp Metabolic 07/31/2014 [facility] Sodium 135 mmol/L Normal 133-145 Panel [address] [place] [address] [phone] Potassium 4.2 mmol/L Normal 3.5-5.0 Chloride 103 [...] 126.6 Normal >60 51 Laboratory test 07/31/2014 [facility] Lipase 23 U/L Normal 11.0-82.0 finding [address] [place] [address] [phone] Troponin I 0.00 ng/mL Normal <0.03 52 C Reactive Protein 4.94 mg/L Normal < 5.00 53 Serum Negative Normal Negative 54 D Dimer Quantitative < 200 ng/mL Normal Less Than 230 55 CBC Auto 07/27/2014 [facility] White Blood 11.2 10^3/uL High 4.8-10.[address] [place] [address] [phone] Red Blood Count 4.82 10^6/uL Normal 4.0-5.4 [...] Cells % 0 Normal Laboratory test 07/27/2014 [facility] Lactic Acid 1.5 mmol/L Normal 0.5-2.2 finding [address] [place] [address] [phone] Comp Metabolic 07/27/2014 [facility] Sodium 135 mmol/L Normal 133-145 Panel [address] [place] [address] [phone] Potassium 4.2 mmol/L Normal 3.5-5.0 Chloride 105 [...] 126.6 Normal >60 56 Laboratory test 07/27/2014 [facility] Lipase 13 U/L Normal 11.0-82.0 finding [address] [place] [address] [phone] C Reactive Protein 16.42 mg/L High < 5.00 57 Rapid Influenza 07/25/2014 [facility] Rapid (SEE NOTE) 58 A B Antigen [address] [place] [address] B Antigen [phone] Comp Metabolic 07/11/2014 [facility] Sodium 135 mmol/L Normal 133-[address] [place] [address] [phone] Potassium 3.8 mmol/L Normal 3.5-5.0 Chloride 103 [...] 97.5 Normal >60 59 Laboratory test 07/11/2014 [facility] Lipase 25 U/L Normal 11.0-82.0 finding [address] [place] [address] [phone] C Reactive Protein 8.26 mg/L High < 5.00 60 Lactic Acid 1.3 mmol/L Normal 0.5-2.2 Serum Negative Normal Negative 61 Inr/Protime 07/11/2014 [facility] Inr 0.93 Normal 0.85-1.06 [address] [place] [address] [phone] Urinalysis 07/11/2014 [facility] Urine Yellow Normal Profile [address] [place] [address] [phone] Urine Appearance Cloudy Normal Urine Specific Ransom 1.024 Normal 1.010-1.030 Urine pH 5.0 Normal 5-9 Urine Urobilinogen Negative Normal Negative Urine Ketones Trace Abnormal Negative Urine Protein Negative Normal Negative Urine Leukocytes Negative Normal Negative Urine Blood Negative Normal Negative Urine Nitrite Negative Normal Negative Urine Bilirubin Negative Normal Negative Urine Glucose Negative Normal Negative CBC Auto 07/11/2014 [facility] White Blood 10.9 10^3/uL High 4.8-10.[address] [place] [address] [phone] Red Blood Count 4.76 10^6/uL Normal 4.0-5.4 [...] Cells % 0 Normal CBC Auto 07/09/2014 [facility] White Blood 11.8 10^3/uL High 4.8-10.[address] [place] [address] [phone] Red Blood Count 4.58 10^6/uL Normal 4.0-5.4 [...] Cells % 0.1 Normal Comp Metabolic 07/09/2014 [facility] Sodium 135 mmol/L Normal 133-[address] [place] [address] [phone] Potassium 3.7 mmol/L Normal 3.5-5.0 Chloride 101 [...] 116.0 Normal >60 62 Laboratory test 07/09/2014 [facility] Amylase 32 U/L Normal 29 -[address] [place] [address] [phone] Erythrocyte Sed Rate 13 mm/Hr Normal 0-30 Urine Culture And 07/09/2014 [facility] Urine Culture (SEE NOTE ) 63 Sensitivities [address] [place] [address] [phone] Ua Routine 07/09/2014 [employer] Ua Specific 1.005 Ransom Ua PH 5.0 Ua Color yellow Ua [...] 31 U/L Normal 29-103 CBC Auto 01/30/2014 [facility] White Blood 11.3 10^3/uL High 4.8-10.[address] [place] [address] [phone] Red Blood Count 4.15 10^6/uL Normal 4.0-5.4 [...] Blood Cells % 0.1 Normal Inr/Protime 01/30/2014 [facility] Inr 0.91 Normal 0.85-1.[address] [place] [address] [phone] Laboratory test 01/30/2014 [facility] Activated 28.3 Normal 24.0-36.[address] [place] [address] Thrombo Time [phone] Laboratory test 01/30/2014 [facility] Magnesium 1.8 mg/dL Low 1.9-2.[address] [place] [address] [phone] Troponin I 0.00 ng/mL Normal <0.03 65 TSH (Thyroid Stimulating Horm) 4.59 IU/mL Normal 0.34-5.60 Comp Metabolic 01/30/2014 [facility] Sodium 136 mmol/L Normal 133-145 Panel [address] [place] [address] [phone] Potassium 3.6 mmol/L Low 3.7-5.6 Chloride 103 [...] [address]: Eva Esteves MD Acct: [id number] Unit: [id number] AGE: 58 Location: [facility] Re01/21/19 SEX: F Status: REG REF SPEC: [id number] KAMAR: 01/21/19-[address]: Eva Esteves MD REQ: [id number] RECD: 01/21/19-1313 STATUS: COMP [facility] DR: Tatiana Geronimo MD _ SOURCE: URINE SPDESC: ORDERED: Urine Culture COMMENTS: 01/30 QUERIES: Urine Source: Clean Catch Procedure Result Reported Site Urine Culture Final 01/22/19- 1221 ML No Growth (<1,000 CFU/mL) * ML - Main Lab . END OF REPORT DEPARTMENT OF PATHOLOGY, [address] [place] [address] Osmar Edge M.D. Director [facility] # [id number] 6 Because ethnic data is not always [...] 0.03 ng/mL Not supportive of diagnosis of [place] 0.03 - 0.50 ng/mL Indeterminate: suggest serial studies if clinically indicated. Greater than 0.5 ng/mL Consistent with diagnosis of [place] 8 Absolute neutrophilia and absolute lymphocytosis, favor [...] 0.03 ng/mL Not supportive of diagnosis of MN 0.03 - 0.50 ng/mL Indeterminate: suggest serial studies if clinically indicated. Greater than 0.5 ng/mL Consistent with diagnosis of [place] 12 Please note: The following may produce [...] 0.03 ng/mL Not supportive of diagnosis of MN 0.03 - 0.50 ng/mL Indeterminate: suggest serial studies if clinically indicated. Greater than 0.5 ng/mL Consistent with diagnosis of [place] 16 SEE RESULT BELOW Name: PASCALE GARCÍA : [address]: Joseph Durand MD Acct: [id number] Unit: [id number] AGE: 54 Location: ED Re03/12/15 SEX: F Status: DEP ER SPEC: [id number] KAMAR: 03/12/[address] [place]: Joseph Durand MD REQ: [id number] RECD: 03/12/15 STATUS: [place] AGUIR[place] DR: Denice Christopher MD _ SOURCE: URINE [facility]: ORDERED: Urine Culture Procedure Result Verified Site Urine Culture Final 03/14/15- 1045 ML Organism 1 NORMAL JAMES Combes Count 50-75,000 (Many) CFU/ML * ML - MAIN LAB ([facility]) . END OF REPORT * ML=Testing performed at Main Lab DEPARTMENT OF PATHOLOGY, [address] [place] [address] Osmar Edge M.D. Director [facility] # [id number] 17 Reference Range and Interpretation: TnI (ng/mL) Interpretation Less Than 0.03 ng/mL Not supportive of diagnosis of MN 0.03 - 0.50 ng/mL Indeterminate: suggest serial studies if clinically indicated. Greater than 0.5 ng/mL Consistent with diagnosis of [place] 18 Consistent with previous results on 02/26/15. [...] 0.03 ng/mL Not supportive of diagnosis of MN 0.03 - 0.50 ng/mL Indeterminate: suggest serial studies if clinically indicated. Greater than 0.5 ng/mL Consistent with diagnosis of [place] 21 Reference Range and Interpretation: TnI (ng/mL) Interpretation Less Than 0.03 ng/mL Not supportive of diagnosis of MN 0.03 - 0.50 ng/mL Indeterminate: suggest serial studies if clinically indicated. Greater than 0.5 ng/mL Consistent with diagnosis of [place] 22 Because ethnic data is not always [...] 0.03 ng/mL Not supportive of diagnosis of MN 0.03 - 0.50 ng/mL Indeterminate: suggest serial studies if clinically indicated. Greater than 0.5 ng/mL Consistent with diagnosis of [place] 27 Acute inflammation: >10.00 28 SEE RESULT BELOW Name: PASCALE GARCÍA : [address]: Darius Cottrell MD Acct: [id number] Unit: [id number] AGE: 54 Location: [facility] Re12/26/14 SEX: F Status: DEP ER SPEC: [id number] KAMAR: 12/26/[address]: Darius Cottrell MD REQ: [id number] RECD: 12/26/14 STATUS: [place] AGUIR[place] DR: Denice Christopher MD _ SOURCE: HAND,LEFT SPDESC: ORDERED: Culture Stain Procedure Result Verified Site Wound/Misc Gram Stain Final 12/26/14- 1400 ML 1+ Neutrophils No Organisms Seen Wound/Misc Culture Final 12/28/14- 1124 ML No Growth Day 2 * ML - MAIN LAB ([facility]) . END OF REPORT * ML=Testing performed at Main Lab DEPARTMENT OF PATHOLOGY, [address] [place], [place] [address] Osmar Edge M.D. Director [facility] # [id number] 29 Because ethnic data is not always [...] Acute inflammation: >10.00 33 RUN DATE: 09/23/14 [facility] LAB LIVE PAGE 1 RUN TIME: 3515 [address] [place], [place] [address] Specimen Inquiry Name: PASCALE GARCÍA : [address]: Denice Christopher MD Acct: [id number] Unit: [id number] AGE: 54 Location: [facility] Re09/21/14 SEX: F Status: REG REF SPEC: [id number] KAMAR: 09/21/14-[address]: Denice Christopher MD REQ: [id number] RECD: 09/21/146972 STATUS: COMP _ SOURCE: URINE SPDESC: ORDERED: Urine Culture QUERIES: Provider Requisition # [id number] Procedure Result Verified Site Urine Culture Final 09/23/14- 1027 L Organism 1 NORMAL JAMES Combes Count >100,000 (Many) CFU/ML END OF REPORT * ML=Testing performed at Main Lab DEPARTMENT OF PATHOLOGY, [address] [place] [address] Osmar Edge M.D. Director [facility] # [id number] 34 Acute inflammation: >10.00 35 Because ethnic [...] and in selective patients <6.0%.Please refer to [place] [employer] Diabetic care guidelines for further [...] REFERENCE VALUE Not present Test Performed by: [facility] [place] [address] [employer] Mechanic: Gavino Tyler M.D. 42 Because ethnic data [...] 0.03 ng/mL Not supportive of diagnosis of MN 0.03 - 0.50 ng/mL Indeterminate: suggest serial studies if clinically indicated. Greater than 0.5 ng/mL Consistent with diagnosis of MN 45 RUN DATE: 08/07/14 [facility] LAB LIVE PAGE 1 RUN TIME: [address] [place] [address] Specimen Inquiry Name: PASCALE GARCÍA : [address]: Julio C Lindsey DO Acct: [id number] Unit: [id number] AGE: 53 Location: ED Re08/02/14 SEX: F Status: DEP ER SPEC: [id number] KAMAR: 08/02/[address]: Jase GIBSON REQ: [id number] RECD: 08/02/14 STATUS: COMP [facility] DR: Denice Lindsey DO _ SOURCE: BLOOD,VENO SPDESC: ORDERED: Blood Cult Procedure Result Verified Site Aerobic Culture Bottle Final 08/07/14- 1518 ML No Growth Day 5 Anaerobic Culture Bottle Final 08/07/14- 1518 ML No Growth Day 5 END OF REPORT * ML=Testing performed at Main Lab DEPARTMENT OF PATHOLOGY, [facility] [employer] [place], [place] [address] Osmar Edge M.D. Director [facility] # [id number] 46 RUN DATE: 08/07/14 [facility] LAB LIVE PAGE 1 RUN TIME: 1182 [facility] [employer] [place], [place] [address] Specimen Inquiry Name: PASCALE GARCÍA : [address]: Julio C Lindsey DO Acct: [id number] Unit: [id number] AGE: 53 Location: ED Re08/02/14 SEX: F Status: DEP ER SPEC: [id number] KAMAR: 08/02/[address]: Jase Mejia III PA REQ: [id number] RECD: 08/02/14 STATUS: [place] AGUIR[place] DR: Denice Lindsey DO _ SOURCE: BLOOD,VENO SPDESC: ORDERED: Blood Cult Procedure Result Verified Site Aerobic Culture Bottle Final 08/07/14- 1441 ML No Growth Day 5 Anaerobic Culture Bottle Final 08/07/14- 1441 ML No Growth Day 5 END OF REPORT * ML=Testing performed at Main Lab DEPARTMENT OF PATHOLOGY, [address] [place] [address] Osmar Edge M.D. Director [facility] # [id number] 47 >100 to <200 pg/mL: likely compensated [...] 0.03 ng/mL Not supportive of diagnosis of MN 0.03 - 0.50 ng/mL Indeterminate: suggest serial studies if clinically indicated. Greater than 0.5 ng/mL Consistent with diagnosis of [place] 50 Please note: The following may produce [...] 0.03 ng/mL Not supportive of diagnosis of MN 0.03 - 0.50 ng/mL Indeterminate: suggest serial studies if clinically indicated. Greater than 0.5 ng/mL Consistent with diagnosis of [place] 53 Acute inflammation: >10.00 54 This test [...] Acute inflammation: >10.00 58 RUN DATE: 07/25/14 [facility] LAB LIVE PAGE 1 RUN TIME: [address] [place] [address] Specimen Inquiry Name: PASCALE GARCÍA : [address]: Wei Saini Acct: [id number] Unit: [id number] AGE: 53 Location: ED Re07/25/14 SEX: F Status: REG ER SPEC: [id number] KAMAR: 07/25/[address]: Wei Thomason DO REQ: [id number] RECD: 07/25/14 STATUS: [place] AGUIR[place] DR: Denice Christopher MD _ SOURCE: [facility]: ORDERED: Rapid Flu A B Procedure [...] performed at Main Lab DEPARTMENT OF PATHOLOGY, [address] [place] [address] Osmar Edge M.D. Director [facility] # [id number] 59 Because ethnic data is not always [...] <15 (or dialysis) 63 RUN DATE: 07/12/14 [facility] LAB LIVE PAGE 1 RUN TIME: [address] [place] [address] Specimen Inquiry Name: PASCALE GARCÍA : [address]: Denice Christopher MD Acct: [id number] Unit: [id number] AGE: 53 Location: [facility] Re07/09/14 SEX: F Status: REG REF SPEC: [id number] KAMAR: 07/09/14-[address] [place] [address]: Denice Christopher MD REQ: [id number] RECD: 07/09/14 STATUS: COMP _ SOURCE: URINE SPDESC: ORDERED: Urine Culture QUERIES: [facility] Number [id number] Procedure Result Verified Site Urine Culture Final 07/12/14- 0836 ML Organism 1 NORMAL JAMES Combes Count 75-100,000 (Many) CFU/ML END OF REPORT * ML=Testing performed at Main Lab DEPARTMENT OF PATHOLOGY, [address] [place] [address] Osmar Edge M.D. Director [facility] # [id number] 64 Because ethnic data is not always [...] 0.03 ng/mL Not supportive of diagnosis of MN 0.03 - 0.50 ng/mL Indeterminate: suggest serial studies if clinically indicated. Greater than 0.5 ng/mL Consistent with diagnosis of [place] 66 Because ethnic data is not always [...] dialysis) Procedures Date Code Description Status 01/30/2019 21398 Revision TKA W Or W/O Allograft;Femoral & Entire Tibial Completed Component 01/30/2019 56581 Revision TKA W Or W/O Allograft;Femoral & Entire Tibial Completed Component 08/26/2015 26797 Trigger Finger Release Incision / Tendon Sheath Completed Incision 08/26/2015 06189 Trigger Finger Release Incision / Tendon Sheath Completed Incision 04/25/2015 53148 Diffusing Capacity Completed 04/25/2015 43731 Plethysmography Determination Lung Volumes & Per Airway Completed Resist 04/25/2015 88578 Pulmonary Function><Bronchodil Completed 11/25/2014 83238193 Mammogram Completed 10/18/2014 56799521 Colonoscopy Completed 09/23/2014 62215108 Colonoscopy Completed 09/07/2014 72152 EKG Tracing & Interpretation Completed 11/16/2013 32385 Xray Knee 3 Views Completed 11/16/2013 72294 Rad Exam; Knee, Ap&L Completed 08/28/2013 96409 Carpal Tunnel Release Completed 08/07/2013 51545 Carpal Tunnel Release Completed 06/18/2013 76684 Rad Exam; Wrist, Comp, Min 3 Views Completed 06/18/2013 41724 Rad Exam; Wrist, Comp, Min 3 Views Completed 05/29/2013 89422 EKG, Interpretation Only Completed 05/26/2013 35646 EKG, Interpretation Only Completed 01/07/2012 10750 Xray Knee 3 Views Completed 01/07/2012 02900 Rad Exam; Knee Comp Completed 01/07/2012 81768 Rad Exam; Tib-Fib Completed 06/20/2011 25503 Xray Knee 3 Views Completed 06/20/2011 99429 Rad Exam; Knee, Ap&L Completed 05/08/2011 55457 TKR Total Knee Replacement Completed 11/27/2010 82407 Xray Knee 3 Views Completed 11/27/2010 79304 Rad Exam; Knee, Ap&L Completed 11/27/2010 34208 Rad Exam; Elbow, Limited Completed 11/27/2010 53488 Inject/Drain Joint/Bursa Major W/O US Completed 07/03/2010 73852 Xray Knee 3 Views Completed 04/07/2010 74039 Xray Knee 3 Views Completed 03/07/2010 40374 TKR Total Knee Replacement Completed Encounters Type Date Location Provider Dx Diagnosis Office Visit 02/01/2019 [facility] I10 Essential (primary) 9:55a Assoc,teo Lamar NP hypertension Hospitalists J44.9 Chronic obstructive pulmonary disease, unspecified Office Visit 12/01/2018 9:30a [facility]opedic Eva Esteves T84.053A [facility] 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 collateral C.M.A. 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 J44.9 Chronic obstructive pulmonary disease, unspecified F17.210 Nicotine dependence, cigarettes, uncomplicated F51.9 Sleep disorder not due to a sub or known physiol cond, unsp E66.09 Other obesity due to excess calories Office Visit 03/29/2015 10:30a [facility] Darius Diaz, 491.21 Bronchitis Medicine - Ccmob LACE ROLLER Obstructive Chronic W/Acute Exacerbation 305.1 Tobacco Use Disorder Office Visit 03/14/2015 3:00p [facility] Norbert Morgan, 786.05 Shortness Of Medicine - [facility] LACE ROLLER Breath 724.2 Lumbago 496 COPD Airway Obstruction Chronic Not Class Elsewhere Office Visit 12/29/2014 10:00a [facility] Darius Diaz, 692.6 Dermatitis Contact Medicine - Ccmob LACE ROLLER Due To Plants (Except Food) 782.1 Rash & Other Nonspec Skin Eruption Office Visit 12/10/2014 9:30a [facility] Darius Diaz, LACE ROLLER 528.9 Oral Soft Tissue Medicine - [facility] Diseases Other & Unspec 782.0 Skin Sensation Disturbance Office Visit 2014 12:40p [facility] Denice Christopher, 789.02 Pain Abdominal Medicine - Ccmob M.D. Left Upper Quadrant 789.63 Tenderness Abdominal Right Lower Quadrant Office Visit 09/07/2014 4:00p [facility] Denice Christopher, V72.84 Examination Medicine - M.D. Preoperative Unspec Ccmob 789.02 Pain Abdominal Left Upper Quadrant 530.11 Esophagitis Reflux V72.81 Examination Preoperative Cardiovascular 553.1 Hernia Umbilical 789.62 Tenderness Abdominal Left Upper Quadrant 790.95 Elevated C-Reactive Protein 790.5 Serum Enzyme Levels Abnormal Other Nonspec 530.81 Esophageal Reflux Office Visit 08/23/2014 3:00p [facility] Norbert Morgan, 789.02 Pain Abdominal Medicine - Ccmob LACE ROLLER Left Upper Quadrant 787.01 Nausea W/ Vomiting Office Visit 08/13/2014 11:20a [facility] Denice Christopher 789.00 Pain Abdominal Medicine - Ccmob M.D. Unspec Site 288.60 Leukocytosis, Unspecified Office Visit 08/10/2014 9:48a [facility] Aline Roberto 789.00 Pain Abdominal Assoc,teo Marinelli, N.P. Unspec Site Hospitalists 496 COPD Airway Obstruction Chronic Not Class Elsewhere 288.60 Leukocytosis, Unspecified Office Visit 08/08/2014 9:47a [facility] Alissa 789.00 Pain Abdominal Assoc,pc DELFINO Cantrell Unspec Site Hospitalists 496 COPD Airway Obstruction Chronic Not Class Elsewhere 288.60 Leukocytosis, Unspecified Office Visit 07/31/2014 11:43a [facility] Melita 789.00 Pain Abdominal Assoc,pc Carlito Boudreaux Unspec Site Hospitalists 530.11 Esophagitis Reflux 490 Bronchitis Acute Or Chronic Not Spec 311 Depressive Disorder Not Elsewhere Spec Office Visit 07/26/2014 11:30a [facility] Gloria Menon, 491.21 Bronchitis Medicine - MUTUAL FUND ACCOUNTANT Obstructive Chronic Ccmob W/Acute Exacerbation 466.0 Bronchitis Acute 786.2 Cough 305.1 Tobacco Use Disorder Office Visit 07/09/2014 2:20p [facility] Denice Christopher, 789.07 Pain Abdominal Medicine - M.D. Generalized Ccmob Office Visit 05/24/2014 1:00p [facility] Gloria Menon, 727.05 Tenosynovitis Hand Medicine - MUTUAL FUND ACCOUNTANT & Wrist Other Ccmob Office Visit 05/05/2014 8:30a [facility] Gloria Menon, 786.50 Pain Chest Unspec Medicine - MUTUAL FUND ACCOUNTANT Ccmob 847.1 Sprains & Strains Thoracic Office Visit 04/12/2014 1:00p [facility] Gloria Menon, 789.07 Pain Abdominal Medicine - MUTUAL FUND ACCOUNTANT Generalized Ccmob 288.50 Leukocytopenia, Unspecified Office Visit 03/26/2014 1:00p [facility] Denice Christopher, 491.21 Bronchitis Medicine - M.D. Obstructive Chronic Ccmob W/Acute Exacerbation 492.8 Emphysema Other Office Visit 11/29/2013 4:32p [facility] Jose Alejandro Zuleta 786.50 Pain Chest Assoc,teo Muñoz M.D. Unspec Hospitalists Hospitalist 492.8 Emphysema Other 401.9 Hypertension Unspec 311 Depressive Disorder Not Elsewhere Spec Office Visit 11/28/2013 4:28p [facility] Guillermo Moon 786.50 Pain Chest Assoc,teo CASTILLO M.D. Unspec Hospitalists 492.8 Emphysema Other 401.9 Hypertension Unspec 311 Depressive Disorder Not Elsewhere Spec Office Visit 11/16/2013 Orthopedic Sacha Farfan, 726.64 Tendinitis 11:30a Services Of [facility] Friedman Patellar Office Visit 06/18/2013 Orthopedic Lucille 354.0 Carpal Tunnel 9:00a Services Of [facility] Nuno M.D. Syndrome Office Visit 05/29/2013 [facility] Cynthia, 491.21 Bronchitis 2:46p Assteo gaming M.D. Obstructive Hospitalists Chronic W/Acute Exacerbation 481 Pneumonia Pneumococcal 311 Depressive Disorder Not Elsewhere Spec Office Visit 05/28/2013 2:46p [facility] Manuel 481 Pneumonia Assoc,pc Kwame NAlessia Pneumococcal Hospitalists 311 Depressive Disorder Not Elsewhere Spec 491.21 Bronchitis Obstructive Chronic W/Acute Exacerbation Office Visit 05/26/2013 [facility] 491.21 Bronchitis 6:10p Assoc,teo Marie M.D. Obstructive Hospitalists Chronic W/Acute Exacerbation 786.52 Painful Respiration 311 Depressive Disorder Not Elsewhere Spec 794.31 Electrocardiogram (ECG) (EKG) Abnormal Office Visit 05/25/2013 [facility] Aline S. 491.21 Bronchitis 6:10p Assoc,teo Marinelli N.PHector Obstructive Hospitalists Chronic W/Acute Exacerbation 794.31 Electrocardiogram (ECG) (EKG) Abnormal 786.52 Painful Respiration 311 Depressive Disorder Not Elsewhere Spec Office Visit 10/16/2012 4:27p [facility] [place] 492.8 Emphysema Other Assoc,teo Rader M.D. Hospitalists 466.0 Bronchitis Acute 305.1 Tobacco Use Disorder Office Visit 10/14/2012 4:26p [facility] Paulette Hohn, 492.8 Emphysema Other Assoc,teo Friedman Hospitalists 466.0 Bronchitis Acute 305.1 Tobacco Use Disorder Office Visit 09/25/2012 Orthopedic Sacha Farfan, 722.0 Intervertebral Disc 10:45a [facility] Beavers C.M.AHector Cervical W/O Myelopathy Office Visit 01/07/2012 Orthopedic Rui 924.11 Contusion Knee 2:30p [facility] Limon C.M.AHector Office Visit 03/28/2011 Orthopedic Sacha Farfan, 716.96 Arthropathy Unspec 2:45p [facility] Lower Leg C.M.AHector Office Visit 11/27/2010 Orthopedic Sacha Farfan, 716.96 Arthropathy Unspec 2:30p [facility] Lower Leg C.M.AHector 715.96 Osteoarthrosis Unspec Genlzd Or Localized Lower Leg 726.32 Epicondylitis Lateral Office Visit 07/03/2010 8:15a [facility]opedic Sacha Farfan, 844.9 Sprains & Strains [facility] Knee & Leg Unspec C.M.A. Office Visit 02/23/2010 8:00a Orthopedic Maya 715.96 Osteoarthrosis [facility] [place], Unspec Genlzd Or C.M.A. RPA-C Localized Lower Leg 719.46 Pain Joint Lower Leg Office Visit 02/08/2010 3:30p Orthopedic Sacha Farfan, 715.96 Osteoarthrosis [facility] Unspec Genlzd Or C.M.A. Localized Lower Leg Plan of Treatment Future Appointment(s):02/13/2019 2:15 pm - Eva Esteves M.D. at [facility]02/11/2019 - Eva Esteves M.D.M25.562 Pain in left kneeFollow up:Follow up: 2L03.116 Cellulitis of left lower limbZ96.652 Presence of left artificial knee pyuhpO92.1 Aftercare following joint replacement surgery
--- OUTSIDE RECORDS SUMMARY | 2019-02-20 22:22 | XMS REPORT | Continuity of Care Document ---
:1960 External Reference #:[id number] Author Name Tanisha Sarabia Care Team Providers Name Role Phone Tatiana Geronimo MD Primary Care Physician Unavailable Payers Date Identification Numbers Payment Provider Subscriber Policy Number: [id number] [facility] [employer] Turner PayID: [id number] [address] [address] [place] [address] Effective: 2018 Policy Number: [id number] [facility] Care [employer]asc[employer] Turner Expires: 2020 Group Number: [id number] [facility] PayID: [id number] [address] Problems Active Problems Provider Date Leukopenia ALMA [...] per day 30 years Smoking Status Reviewed: 02/09/19 Currently smokes 1-5 Cigarettes Daily ETOH Use [...] Medications SIG Qnty Indications Ordering Date Provider Oxycodone-Acetaminophen 1-2 tabs by mouth 60tabs Eva Esteves, 02/02/2019 every 4 hours for M.D. 5-325mg Tablets pain Eliquis 1 tab by mouth 60tabs Eva Esteves, 02/02/2019 2.5mg Tablets twice a day for M.D. 30 days Walker rolling walker 1units Eva Esteves, 12/22/2018 Mis with seat dx: s/p M.D. knee replacement [...] swab Creon 1 by mouth three Unknown [id number] Caps DR times a day Part Atorvastatin Calcium 1 by mouth every Unknown 10mg day Tablets Amlodipine Besylate 1 by mouth every Unknown 5mg day Tablets Albuterol Sulfate 1 vial via Unknown nebulizer 4 times (2.5mg/3ML) 0.083% daily as needed Nebulizer Omeprazole take 1 capsule by norma Morgan NP 40mg Capsules DR mouth every day Oxycodone HCL as needed Irina 5mg Tablets Cornelius Carrington MD Combivent Respimat [...] 07/26/2014 - 10mg Tablets mouth for 3 [employer] 08/13/2014 days then 3 tabs for 3 days, then 2 tab for 3 days then 1 tab for 5 days Mucinex 1 by mouth 10tabs 491.21 Gloria Menon, 07/26/2014 - 600mg Tablets ER 12HR twice for 3 [employer] 08/13/2014 days Percocet 1-2 tabs po 30tabs Sacha Farfan, 07/09/2014 - 5-325mg Tablets q4-6 prn pain M.D. 07/26/2014 Voltaren apply 1 gram 1tubes 727.05 Gloria Menon, 05/24/2014 - 1% Gel to affected [employer] 08/13/2014 area twice a day, as needed Wrist Splint/Left Small Use on left QS 727.05 Gloria Menon, 05/24/2014 - Misc hand as needed. [employer] 09/07/2014 Diclofenac Sodium take 1 tablet 60tabs 786.50 Maryamygabe Cordovak, 05/05/2014 - 50mg Tablets by mouth 2 [employer] 07/26/2014 DR times a day as needed [...] Farfan, 04/30/2011 - 5-325mg Tablets q4-6 prn german Friedman 07/30/2013 Azithromycin as directed Irina, - 250mg [...] CPT Code Status Date Vaccine Lot # [id number] Refused 03/29/2015 Influenza Virus Vaccine, Quadrivalent, Split, Preservative Free Vital Signs Date Vital Result Comment 02/09/2019 9:47am Height 59 inches 4'11" Weight [...] Range Note Comp Metabolic Panel 01/21/2019 [facility] Sodium 138 mmol/L N 135-[address] [place] [address] [phone] Potassium 4.2 mmol/L N 3.5-5.0 Chloride 102 [...] Egfr 117.0 >60 2 Inr/Protime 01/21/2019 [facility] Inr 1.01 N 0.82-1.[address] [place] [address] [phone] Laboratory test 01/21/2019 [facility] Partial 35.7 seconds N 26.0-38.0 [address] [place] [address] PTT [phone] CBC Auto Diff 01/21/2019 [facility] White Blood 8.7 10^3/uL N 3.5-10.[address] [place] [address] [phone] Red Blood Count 4.74 10^6/uL N 3.70-4.87 [...] Cells % 0.1 Urinalysis Profile 01/21/2019 [facility] Urine Color Yellow [address] [place] [address] [phone] Urine Appearance Clear Urine Specific Vici 1.018 N 1.010-1.030 Urine pH 6.0 N 5-9 Urine Urobilinogen Negative Negative Urine Ketones Negative Negative Urine Protein Negative Negative Urine Leukocytes Negative Negative Urine Blood Negative Negative Urine Nitrite Negative Negative Urine Bilirubin Negative Negative Urine Glucose Negative Negative Type & Screen 01/21/2019 [facility] Patient Blood Type O Positive [address] [place] [address] [phone] Antibody Screen NEGATIVE Urine Culture And 01/21/2019 [facility] Urine SEE RESULT [address] [place] [address] [phone] CBC Auto Diff 03/31/2015 [facility] White Blood 20.8 High 4.8- [address] Count 10^3/uL 0.8 [place], [place] [id number] [phone] Red Blood Count 4.74 10^6/uL N 4.0-5.4 [...] % 0 N Laboratory test 03/31/2015 [facility] Lactic Acid 1.4 mmol/L N 0.5-2.2 finding [address] [place] [address] [phone] Comp Metabolic 03/31/2015 [facility] Sodium 135 mmol/L N 133- 145 Panel [address] [place] [address] [phone] Potassium 3.6 mmol/L N 3.5-5.0 Chloride 101 [...] N >60 6 Laboratory test 03/31/2015 [facility] Troponin-I (TnI) 0.01 ng/ mL N <0.03 7 finding [address] [place] [address] [phone] Pathologist Review (SEE NOTE) N 8 CBC Auto Diff 03/28/2015 [facility] White Blood 10.3 10^3/uL N 4.8-10.[address] [place] [address] [phone] Red Blood Count 4.67 10^6/uL N 4.0-5.4 [...] Cells % 0 N Inr/Protime 03/28/2015 [facility] Inr 0.91 N 0.78-1.07 [address] [place] [address] [phone] Laboratory test 03/28/2015 [facility] Lactic Acid 1.0 mmol/L N 0.5-2.2 finding [address] [place] [address] [phone] B-Type Natriuretic Peptide BNP 25 pg/mL N 9 Comp Metabolic Panel 03/28/2015 [facility] Sodium 135 mmol/L N 133-145 [address] [place] [address] [phone] Potassium 3.8 mmol/L N 3.5-5.0 Chloride 103 [...] N >60 10 Laboratory test 03/28/2015 [facility] Creatine 30 U/L N 10- [address] Kinase(CK) [place] [address] [phone] Troponin-I (TnI) 0.00 ng/mL N <0.03 11 CKMB 03/28/2015 [facility] CKMB ng/mL 1.3 N 0.6-6.[address] ng/[place] [address] [phone] Laboratory 03/28/2015 [facility] D Dimer < 200 N Less Than 12 test finding [address] Quantitative ng/mL 230 [place] [address] [phone] CBC Auto Diff 03/12/2015 [facility] White Blood 11.5 High 4.8- 10.[address] Count 10^3/[place] [address] [phone] Red Blood Count 4.57 10^6/uL N 4.0-5.4 [...] % 0 N Laboratory test 03/12/2015 [facility] Lactic Acid 1.2 mmol/L N 0.5-2.2 finding [address] [place] [address] [phone] Comp Metabolic 03/12/2015 [facility] Sodium 135 mmol/L N 133- 145 Panel [address] [place] [address] [phone] Potassium 4.1 mmol/L N 3.5-5.0 Chloride 102 [...] >60 13 Laboratory test finding 03/12/2015 [facility] Lipase 18 U/L N 11.0-82.0 [address] [place] [address] [phone] C Reactive Protein 11.20 mg/L High < 5.00 14 Troponin-I (TnI) 0.00 ng/mL N <0.03 15 Urinalysis Profile 03/12/2015 [facility] Urine Color Yellow N [address] [place] [address] [phone] Urine Appearance Cloudy N Urine Specific Vici 1.012 N 1.010-1.030 Urine pH 5.0 N [...] Present Abnormal Absent Laboratory test 03/12/2015 [facility] Urine Culture And SEE RESULT [address] [place] [address] [phone] Laboratory test 03/07/2015 [facility] Troponin-I (TnI) 0.02 ng/ mL N <0.0 [address] 3 [place] [address] [phone] CBC Auto Diff 03/07/2015 [facility] White Blood Count 18.2 High 4.8- [address] 10^3/uL 10.8 [place] [address] [phone] Red Blood Count 4.81 10^6/uL N 4.0-5.4 [...] Cells % 0 N Inr/Protime 03/07/2015 [facility] Inr 0.88 N 0.78-1.[address] [place] [address] [phone] Laboratory test 03/07/2015 [facility] Partial 26.0 seconds N 26.0-36.[address] [place] [address] PTT [phone] Comp Metabolic 03/07/2015 [facility] Sodium 138 mmol/L N 133- [address] [place] [address] [phone] Chloride 103 mmol/L N 101-111 Co2 Carbon [...] U/L N 13-39 Laboratory test 03/07/2015 [facility] Troponin-I 0.01 ng/mL N <0.[address] (TnI) [place] [address] [phone] CKMB 03/07/2015 [facility] CKMB ng/mL 2.2 ng/mL N 0.6-6.[address] [place] [address] [phone] Laboratory test 02/26/2015 [facility] Troponin-I 0.00 ng/mL N <0.03 [address] (TnI) [place] [address] [phone] Comp Metabolic 02/26/2015 [facility] Sodium 135 mmol/L N 133- [address] [place] [address] [phone] Potassium 3.7 mmol/L N 3.5-5.0 Chloride 101 [...] >60 22 CBC Auto Diff 02/26/2015 [facility] White Blood 9.1 10^3/uL N 4.8-10.[address] [place] [address] [phone] Red Blood Count 4.73 10^6/uL N 4.0-5.4 [...] % 0 N Laboratory test 02/26/2015 [facility] B-Type 18 pg/mL N [address] [place] [address] Peptide BNP [phone] CBC Auto Diff 01/17/2015 [facility] White Blood Count 10.1 N 4.8-[address] 10^3/uL 0.8 [place] [address] [phone] Red Blood Count 4.70 10^6/uL N 4.0-5.4 [...] % 0.1 N Laboratory test 01/17/2015 [facility] Lactic Acid 1.4 mmol/L N 0.5-2.[address] [place] [address] [phone] Inr/Protime 01/17/2015 [facility] Inr 0.95 N 0.78-1.[address] [place] [address] [phone] Laboratory test 01/17/2015 [facility] B-Type 25 pg/mL N [address] [place] [address] Peptide BNP [phone] Comp Metabolic 01/17/2015 [facility] Sodium 135 mmol/L N 133- [address] [place] [address] [phone] Potassium 3.7 mmol/L N 3.5-5.0 Chloride 103 [...] N >60 25 Laboratory test 01/17/2015 [facility] Creatine 39 U/L N 10- [address] Kinase(CK) [place] [address] [phone] Troponin-I (TnI) 0.00 ng/mL N <0.03 26 CKMB 01/17/2015 [facility] CKMB ng/mL 1.0 ng/mL N 0.6-6.[address] [place] [address] [phone] Laboratory test 01/17/2015 [facility] TSH 1.92 ?IU/mL N 0.34- 5.[address] (Thyroid [place] [id number] Stim Qgzq) [phone] Magnesium 1.8 mg/dL Low 1.9-2.7 Lipase 14 U/L N 11.0-82.0 C Reactive Protein 9.82 mg/L High < 5.00 27 Laboratory test 12/26/2014 [facility] Wound SEE RESULT [address] Culture/Sensi BELOW [place] [id number] [phone] CBC Auto Diff 11/25/2014 [facility] White Blood Count 15.0 High 4.8- [address] 10^3/uL 10.8 [place] [address] [phone] Red Blood Count 4.35 10^6/uL N 4.0-5.4 [...] % 0 N Laboratory test 11/25/2014 [facility] Lactic Acid 0.6 mmol/L N 0.5-2.[address] [place] [address] [phone] Comp Metabolic 11/25/2014 [facility] Sodium 136 mmol/L N 133- [address] [place] [address] [phone] Potassium 3.8 mmol/L N 3.5-5.0 Chloride 104 [...] N >60 29 Laboratory test 11/25/2014 [facility] C Reactive 96.66 mg/L High < 5.[address] [place] [address] [phone] Urinalysis 09/22/2014 [facility] Urine Color Yellow N Profile [address] [place] [address] [phone] Urine Appearance Cloudy N Urine Specific Vici 1.023 N 1.010-1.030 Urine pH 5.0 N 5-9 Urine Urobilinogen Negative N Negative Urine Ketones Negative N Negative Urine Protein Negative N Negative Urine Leukocytes Negative N Negative Urine Blood Negative N Negative Urine Nitrite Negative N Negative Urine Bilirubin Negative N Negative Urine Glucose Negative N Negative CBC Auto 09/22/2014 [facility] White Blood 11.1 10^3/uL High 4.8-10.[address] [place] [address] [phone] Red Blood Count 4.60 10^6/uL N 4.0-5.4 [...] 0 N Comp Metabolic Panel 09/22/2014 [facility] Sodium 135 mmol/L N 133-145 [address] [place] [address] [phone] Potassium 3.7 mmol/L N 3.5-5.0 Chloride 101 [...] >60 31 Laboratory test finding 09/22/2014 [facility] Lipase 8 U/L Low 11.0-82.[address] [place] [address] [phone] C Reactive Protein 12.28 mg/L High < 5.00 32 Lactic Acid 1.2 mmol/L N 0.5-2.2 Urine Culture And 2014 [facility] Urine Culture (SEE NOTE ) [address] [place] [address] [phone] Ua Routine 2014 [employer] House Ua Specific 1.005 Vici Ua PH 7 Ua Color yellow Ua Appera clear Ua WBC trace Ua Protein neg Ua Glucose neg Ua Ketones neg Ua Bilirubin small Ua Urobilinogen norm Ua Nitrite neg Ua Occult Blood neg CBC Auto Diff 09/08/2014 [facility] White Blood 10.1 10^3/uL N 4.8-10.[address] [place] [address] [phone] Red Blood Count 4.63 10^6/uL N 4.0-5.4 [...] % 0.1 N Laboratory test 09/08/2014 [facility] Erythrocyte Sed 14 mm/Hr N 0-[address] [place] [address] [phone] C Reactive Protein 8.91 mg/L High < 5.00 34 Comp Metabolic Panel 09/08/2014 [facility] Sodium 135 mmol/L N 133-[address] [place] [address] [phone] Potassium 4.1 mmol/L N 3.5-5.0 Chloride 101 [...] N >60 35 Laboratory test 09/08/2014 [facility] Hemoglobin A1c 6.2 % High Less than [address] 6.0 [place] [address] [phone] Comp Metabolic 08/23/2014 [facility] Sodium 134 N 133-[address] mmol/[place] [address] [phone] Potassium 3.8 mmol/L N 3.5-5.0 Chloride 101 [...] N >60 37 Laboratory test 08/23/2014 [facility] Lipase 10 U/L Low 11.0- 82.[address] [place] [address] [phone] C Reactive Protein 7.87 mg/L High < 5.00 38 CBC Auto 08/23/2014 [facility] White Blood 14.2 10^3/uL High 4.8-10.[address] [place] [address] [phone] Red Blood Count 5.05 10^6/uL N 4.0-5.4 [...] NotPresent N 41 CBC Auto 08/08/2014 [facility] White Blood 19.6 10^3/uL High 4.8-10.[address] [place] [address] [phone] Red Blood Count 5.06 10^6/uL N 4.0-5.4 [...] % 0 N Laboratory test 08/08/2014 [facility] Lactic Acid 1.4 mmol/L N 0.5-2.2 finding [address] [place] [address] [phone] Comp Metabolic 08/08/2014 [facility] Sodium 133 mmol/L N 133- 145 Panel [address] [place] [address] [phone] Potassium 4.0 mmol/L N 3.5-5.0 Chloride 103 [...] >60 42 Laboratory test finding 08/08/2014 [facility] Lipase 9 U/L Low 11.0-82.0 [address] [place] [address] [phone] C Reactive Protein 8.39 mg/L High < 5.00 43 Troponin I 0.00 ng/mL N <0.03 44 Urinalysis Profile 08/02/2014 [facility] Urine Color Yellow N [address] [place] [address] [phone] Urine Appearance Clear N Urine Specific Vici 1.011 N 1.010-1.030 Urine pH 7.0 N 5-9 Urine Urobilinogen Negative N Negative Urine Ketones Negative N Negative Urine Protein Negative N Negative Urine Leukocytes Negative N Negative Urine Blood Negative N Negative Urine Nitrite Negative N Negative Urine Bilirubin Negative N Negative Urine Glucose Negative N Negative Blood Culture 08/02/2014 [facility] Blood Culture (SEE NOTE) [address] [place], [place] [address] [phone] Laboratory test 08/02/2014 [facility] Lactic Acid 1.8 mmol/L N 0.5-2. finding [address] 2 [place] [address] [phone] Blood Culture (SEE NOTE) 46 Laboratory test 08/02/2014 [facility] B Type 13 pg/mL N [address] [place] [address] Peptide [phone] Comp Metabolic 08/02/2014 [facility] Sodium 138 mmol/L N 133- [address] 45 [place] [address] [phone] Potassium 4.3 mmol/L N 3.5-5.0 Chloride 101 [...] N >60 48 Laboratory test 08/02/2014 [facility] Creatine 30 U/L N 10- [address] [place] [address] [phone] CKMB 08/02/2014 [facility] CKMB ng/mL 1.2 N 0.6-6.[address] ng/[place] [address] [phone] Laboratory test 08/02/2014 [facility] Troponin I 0.00 N <0.03 [address] ng/[place] [address] [phone] CBC Auto Diff 08/02/2014 [facility] White Blood 14.4 High 4.8- 10.[address] Count 10^3/[place] [address] [phone] Red Blood Count 5.06 10^6/uL N 4.0-5.4 [...] 0 10^3/uL N Manual Differential 08/02/2014 [facility] Neutrophil % 58 % N 38-[address] [place] [address] [phone] Lymphocytes % 31 % N 25-47 Monocytes % 7 % N 0-13 Eosinophils % 1 % N 0-6 Reactive Lymph % 3 % N 0-6 RBC Morphology Normal N Normal Laboratory test 08/02/2014 [facility] D Dimer < 200 ng/mL N Less [address] Quantitative Than 230 [place] [address] [phone] Urinalysis 07/31/2014 [facility] Urine Color Colorless N Profile [address] [place] [address] [phone] Urine Appearance Clear N Urine Specific Vici 1.010 N 1.010-1.030 Urine pH 6 N 5-9 Urine Urobilinogen Negative N Negative Urine Ketones Negative N Negative Urine Protein Negative N Negative Urine Leukocytes Negative N Negative Urine Blood Negative N Negative Urine Nitrite Negative N Negative Urine Bilirubin Negative N Negative Urine Glucose Negative N Negative CBC Auto 07/31/2014 [facility] White Blood 15.7 10^3/uL High 4.8-10.[address] [place] [address] [phone] Red Blood Count 4.89 10^6/uL N 4.0-5.4 [...] % 0 N Laboratory test 07/31/2014 [facility] Lactic Acid 1.1 mmol/L N 0.5-2.[address] [place] [address] [phone] Comp Metabolic 07/31/2014 [facility] Sodium 135 mmol/L N 133- 145 Panel [address] [place] [address] [phone] Potassium 4.2 mmol/L N 3.5-5.0 Chloride 103 [...] >60 51 Laboratory test finding 07/31/2014 [facility] Lipase 23 U/L N 11.0-82.[address] [place] [address] [phone] Troponin I 0.00 ng/mL N <0.03 52 C Reactive Protein 4.94 mg/L N < 5.00 53 Serum Negative N Negative 54 D Dimer Quantitative < 200 ng/mL N Less Than 230 55 CBC Auto 07/27/2014 [facility] White Blood 11.2 10^3/uL High 4.8-10.[address] [place] [address] [phone] Red Blood Count 4.82 10^6/uL N 4.0-5.4 [...] % 0 N Laboratory test 07/27/2014 [facility] Lactic Acid 1.5 mmol/L N 0.5-2.[address] [place] [address] [phone] Comp Metabolic 07/27/2014 [facility] Sodium 135 mmol/L N 133- [address] [place] [address] [phone] Potassium 4.2 mmol/L N 3.5-5.0 Chloride 105 [...] >60 56 Laboratory test finding 07/27/2014 [facility] Lipase 13 U/L N 11.0-82.[address] [place] [address] [phone] C Reactive Protein 16.42 mg/L High < 5.00 57 Rapid Influenza 07/25/2014 [facility] Rapid Influenza (SEE NOTE ) 58 A B Antigen [address] [place] [address] [phone] Comp Metabolic 07/11/2014 [facility] Sodium 135 mmol/L N 133- [address] [place] [address] [phone] Potassium 3.8 mmol/L N 3.5-5.0 Chloride 103 [...] >60 59 Laboratory test finding 07/11/2014 [facility] Lipase 25 U/L N 11.0-82.0 [address] [place] [address] [phone] C Reactive Protein 8.26 mg/L High < 5.00 60 Lactic Acid 1.3 mmol/L N 0.5-2.2 Serum Negative N Negative 61 Inr/Protime 07/11/2014 [facility] Inr 0.93 N 0.85-1.06 [address] [place] [address] [phone] Urinalysis Profile 07/11/2014 [facility] Urine Color Yellow N [address] [place] [address] [phone] Urine Appearance Cloudy N Urine Specific Vici 1.024 N 1.010-1.030 Urine pH 5.0 N 5-9 Urine Urobilinogen Negative N Negative Urine Ketones Trace Abnormal Negative Urine Protein Negative N Negative Urine Leukocytes Negative N Negative Urine Blood Negative N Negative Urine Nitrite Negative N Negative Urine Bilirubin Negative N Negative Urine Glucose Negative N Negative CBC Auto 07/11/2014 [facility] White Blood 10.9 10^3/uL High 4.8-10.[address] [place] [address] [phone] Red Blood Count 4.76 10^6/uL N 4.0-5.4 [...] % 0 N CBC Auto 07/09/2014 [facility] White Blood 11.8 10^3/uL High 4.8-10.[address] [place] [address] [phone] Red Blood Count 4.58 10^6/uL N 4.0-5.4 [...] 0.1 N Comp Metabolic Panel 07/09/2014 [facility] Sodium 135 mmol/L N 133-[address] [place] [address] [phone] Potassium 3.7 mmol/L N 3.5-5.0 Chloride 101 [...] >60 62 Laboratory test finding 07/09/2014 [facility] Amylase 32 U/L N 29-[address] [place] [address] [phone] Erythrocyte Sed Rate 13 mm/Hr N 0-30 Urine Culture And 07/09/2014 [facility] Urine Culture (SEE NOTE ) [address] [place] [address] [phone] Ua Routine 07/09/2014 [employer] Ua Specific 1.005 Vici Ua PH 5.0 Ua Color yellow Ua [...] U/L N 29-103 CBC Auto 01/30/2014 [facility] White Blood 11.3 10^3/uL High 4.8-10.[address] [place] [address] [phone] Red Blood Count 4.15 10^6/uL N 4.0-5.4 [...] Cells % 0.1 N Inr/Protime 01/30/2014 [facility] Inr 0.91 N 0.85-1.[address] [place] [address] [phone] Laboratory test 01/30/2014 [facility] Activated 28.3 N 24.0- 36.[address] [place] [address] Thrombo Time [phone] Laboratory test 01/30/2014 [facility] Magnesium 1.8 mg/dL Low 1.9-2.[address] [place] [address] [phone] Troponin I 0.00 ng/mL N <0.03 65 TSH (Thyroid Stimulating Horm) 4.59 IU/mL N 0.34-5.60 Comp Metabolic Panel 01/30/2014 [facility] Sodium 136 mmol/L N 133-[address] [place] [address] [phone] Potassium 3.6 mmol/L Low 3.7-5.6 Chloride 103 [...] >60 Egfr 112.1 N >60 66 1 AA 01/30 2 Because [...] 4 01/30 5 SEE RESULT BELOW Name: SHANTELRUIPASCALE M : [address]: Eva Esteves MD Acct: [id number] Unit: [id number] AGE: 58 Location: [facility] Re01/21/19 SEX: F Status: REG REF SPEC: [id number] KAMAR: 01/21/19-1230 [facility] DR: Eva Esteves MD REQ: [id number] RECD: 01/21/19 STATUS: PARIS AGUIRRE DR: Tatiana Geronimo MD _ SOURCE: URINE SPDESC: ORDERED: Urine Culture COMMENTS: 01/30 QUERIES: Urine Source: Clean Catch Procedure Result Reported Site Urine Culture Final 01/22/19- 1221 ML No Growth (<1,000 CFU/mL) * ML - Main Lab . END OF REPORT DEPARTMENT OF PATHOLOGY, [address] [place] [address] Osmar Edge M.D. Director [facility] # [id number] 6 Because ethnic data is not always [...] 0.03 ng/mL Not supportive of diagnosis of [place] 0.03 - 0.50 ng/mL Indeterminate: suggest serial studies if clinically indicated. Greater than 0.5 ng/mL Consistent with diagnosis of [place] 8 Absolute neutrophilia and absolute lymphocytosis, favor [...] 0.03 ng/mL Not supportive of diagnosis of [place] 0.03 - 0.50 ng/mL Indeterminate: suggest serial studies if clinically indicated. Greater than 0.5 ng/mL Consistent with diagnosis of [place] 12 Please note: The following may produce [...] 0.03 ng/mL Not supportive of diagnosis of [place] 0.03 - 0.50 ng/mL Indeterminate: suggest serial studies if clinically indicated. Greater than 0.5 ng/mL Consistent with diagnosis of [place] 16 SEE RESULT BELOW Name: PASCALE GARCÍA : [address]: Joseph Durand MD Acct: [id number] Unit: [id number] AGE: 54 Location: ED Re03/12/15 SEX: F Status: DEP ER SPEC: [id number] KAMAR: 03/12/15 [facility] [address]: Joseph Durand MD REQ: [id number] RECD: 03/12/15 STATUS: PAR[place] AGUIRRE DR: Denice Christopher MD _ SOURCE: URINE SPDESC: ORDERED: Urine Culture Procedure Result Verified Site Urine Culture Final 03/14/15- 1045 ML Organism 1 NORMAL JAMES [place] Count 50-75,000 (Many) CFU/ML * ML - MAIN LAB ([facility]) . END OF REPORT * ML=Testing performed at Main Lab DEPARTMENT OF PATHOLOGY, [address] [place] [address] Osmar Edge M.D. Director [facility] # [id number] 17 Reference Range and Interpretation: TnI (ng/mL) Interpretation Less Than 0.03 ng/mL Not supportive of diagnosis of [place] 0.03 - 0.50 ng/mL Indeterminate: suggest serial studies if clinically indicated. Greater than 0.5 ng/mL Consistent with diagnosis of [place] 18 Consistent with previous results on 02/26/15. [...] 0.03 ng/mL Not supportive of diagnosis of [place] 0.03 - 0.50 ng/mL Indeterminate: suggest serial studies if clinically indicated. Greater than 0.5 ng/mL Consistent with diagnosis of [place] 21 Reference Range and Interpretation: TnI (ng/mL) Interpretation Less Than 0.03 ng/mL Not supportive of diagnosis of [place] 0.03 - 0.50 ng/mL Indeterminate: suggest serial studies if clinically indicated. Greater than 0.5 ng/mL Consistent with diagnosis of [place] 22 Because ethnic data is not always [...] 0.03 ng/mL Not supportive of diagnosis of [place] 0.03 - 0.50 ng/mL Indeterminate: suggest serial studies if clinically indicated. Greater than 0.5 ng/mL Consistent with diagnosis of [place] 27 Acute inflammation: >10.00 28 SEE RESULT BELOW Name: PASCALE GARCÍA : [address]: Darius Cottrell MD Acct: [id number] Unit: [id number] AGE: 54 Location: [facility] Re12/26/14 SEX: F Status: DEP ER SPEC: [id number] KAMAR: 12/26/14-[address] [facility] [address]: Darius Cottrell MD REQ: [id number] RECD: 12/26/14 STATUS: [place] AGUIRRE DR: Denice Christopher MD _ SOURCE: HAND,LEFT SPDESC: ORDERED: Culture Stain Procedure Result Verified Site Wound/Misc Gram Stain Final 12/26/14- 1400 ML 1+ Neutrophils No Organisms Seen Wound/Misc Culture Final 12/28/14- 1124 ML No Growth Day 2 * ML - MAIN LAB ([facility]) . END OF REPORT * ML=Testing performed at Main Lab DEPARTMENT OF PATHOLOGY, [address] [place] [address] Osmar Edge M.D. Director [facility] # [id number] 29 Because ethnic data is not always [...] inflammation: >10.00 33 RUN DATE: 09/23/14 [facility] LAB LIVE PAGE 1 RUN TIME: [address] [place], [place] [address] Specimen Inquiry Name: PASCALE GARCÍA : [address]: Denice Christopher MD Acct: [id number] Unit: [id number] AGE: 54 Location: [facility] Re09/21/14 SEX: F Status: REG REF SPEC: [id number] KAMAR: 09/21/14-[address]: Denice Christopher MD REQ: [id number] RECD: 09/21/14 STATUS: COMP _ SOURCE: URINE SPDESC: ORDERED: Urine Culture QUERIES: Provider Requisition # [id number] Procedure Result Verified Site Urine Culture Final 09/23/14- 1027 L Organism 1 NORMAL JAMES [place] Count >100,000 (Many) CFU/ML END OF REPORT * ML=Testing performed at Main Lab DEPARTMENT OF PATHOLOGY, [address] [place] [address] Osmar Edge M.D. Director [facility] # [id number] 34 Acute inflammation: >10.00 35 Because ethnic [...] and in selective patients <6.0%.Please refer to [place] [employer] Diabetic care guidelines for further [...] REFERENCE VALUE Not present Test Performed by: [place] [address] Counseling Services Director: Gavino Tyler M.D. 42 Because ethnic data [...] 0.03 ng/mL Not supportive of diagnosis of [place] 0.03 - 0.50 ng/mL Indeterminate: suggest serial studies if clinically indicated. Greater than 0.5 ng/mL Consistent with diagnosis of [place] 45 RUN DATE: 08/07/14 [facility] LAB LIVE PAGE 1 RUN TIME: [address] [place] [address] Specimen Inquiry Name: PASCALE GARCÍA : [address]: Julio C Lindsey DO Acct: [id number] Unit: [id number] AGE: 53 Location: ED Re08/02/14 SEX: F Status: DEP ER SPEC: [id number] KAMAR: 08/02/[address]: Jase GIBSON REQ: [id number] RECD: 08/02/14 STATUS: [place] AGUIRRE DR: Denice Lindsey DO _ SOURCE: BLOOD,VENO SPDESC: ORDERED: Blood Cult Procedure Result Verified Site Aerobic Culture Bottle Final 08/07/14- 1518 ML No Growth Day 5 Anaerobic Culture Bottle Final 08/07/14- 1518 ML No Growth Day 5 END OF REPORT * ML=Testing performed at Main Lab DEPARTMENT OF PATHOLOGY, [facility] [place] [address] Osmar Edge M.D. Director [facility] # [id number] 46 RUN DATE: 08/07/14 [facility] LAB LIVE PAGE 1 RUN TIME: 1441 [facility] [place], [place] [address] Specimen Inquiry Name: PASCALE GARCÍA : [address]: Julio C Lindsey DO Acct: [id number] Unit: [id number] AGE: 53 Location: ED Re08/02/14 SEX: F Status: DEP ER SPEC: [id number] KAMAR: 08/02/[address]: Jase GIBSON REQ: [id number] RECD: 08/02/14 STATUS: [place] AGUIRRE DR: Denice Lindsey DO _ SOURCE: BLOOD,VENO SPDES: ORDERED: Blood Cult Procedure Result Verified Site Aerobic Culture Bottle Final 08/07/14- 1440 ML No Growth Day 5 Anaerobic Culture Bottle Final 08/07/14- 1440 ML No Growth Day 5 END OF REPORT * ML=Testing performed at Main Lab DEPARTMENT OF PATHOLOGY, [address] [place] [address] Osmar Edge M.D. Director [facility] # [id number] 47 >100 to <200 pg/mL: likely compensated [...] 0.03 ng/mL Not supportive of diagnosis of [place] 0.03 - 0.50 ng/mL Indeterminate: suggest serial studies if clinically indicated. Greater than 0.5 ng/mL Consistent with diagnosis of [place] 50 Please note: The following may produce [...] 0.03 ng/mL Not supportive of diagnosis of [place] 0.03 - 0.50 ng/mL Indeterminate: suggest serial studies if clinically indicated. Greater than 0.5 ng/mL Consistent with diagnosis of [place] 53 Acute inflammation: >10.00 54 This test [...] inflammation: >10.00 58 RUN DATE: 07/25/14 [facility] LAB LIVE PAGE 1 RUN TIME: [address] [place] [address] Specimen Inquiry Name: PASCALE GARCÍA : [address]: Wei Saini Acct: [id number] Unit: [id number] AGE: 53 Location: ED Re07/25/14 SEX: F Status: REG ER SPEC: [id number] KAMAR: 07/25/[address]: Wei Thomason DO REQ: [id number] RECD: 07/25/14 STATUS: [place] AGUIRRE DR: Denice Christopher MD _ SOURCE: [facility]: ORDERED: Rapid Flu A B Procedure Result Verified Site Rapid Influenza A B Antigen Final 07/25/14- 402 ML Organism 1 Negative Influenza A B Antigen testing by enzyme immunoassay. Cell culture testing can be performed to confirm negative test results and to assist in detecting other viruses that can produce similar clinical symptoms. Please notify Microbiology Lab if further testing is desired. END OF REPORT * ML=Testing performed at Main Lab DEPARTMENT OF PATHOLOGY, [address] [place] [address] Osmar Edge M.D. Director [facility] # [id number] 58 Because ethnic data is not always [...] (or dialysis) 63 RUN DATE: 07/12/14 [facility] LAB LIVE PAGE 1 RUN TIME: [address] [place] [address] Specimen Inquiry Name: PASCALE GARCÍA : [address]: Denice Christopher MD Acct: [id number] Unit: [id number] AGE: 53 Location: [facility] Re07/09/14 SEX: F Status: REG REF SPEC: [id number] KAMAR: 07/09/14-[address] [facility] [address]: Denice Christopher MD REQ: [id number] RECD: 07/09/144503 STATUS: COMP _ SOURCE: URINE SPDESC: ORDERED: Urine Culture QUERIES: Med[employer] Number [id number] Procedure Result Verified Site Urine Culture Final 07/12/14- 0836 ML Organism 1 NORMAL JAMES [place] Count 75-100,000 (Many) CFU/ML END OF REPORT * ML=Testing performed at Main Lab DEPARTMENT OF PATHOLOGY, [address] [place] [address] Osmar Edge M.D. Director [facility] # [id number] 64 Because ethnic data is not always [...] 0.03 ng/mL Not supportive of diagnosis of [place] 0.03 - 0.50 ng/mL Indeterminate: suggest serial studies if clinically indicated. Greater than 0.5 ng/mL Consistent with diagnosis of [place] 66 Because ethnic data is not always [...] dialysis) Procedures Date Code Description Status 01/30/2019 98965 Revision TKA W Or W/O Allograft;Femoral & Entire Tibial Completed Component 01/30/2019 85259 Revision TKA W Or W/O Allograft;Femoral & Entire Tibial Completed Component 08/26/2015 16901 Trigger Finger Release Incision / Tendon Sheath Completed Incision 08/26/2015 73042 Trigger Finger Release Incision / Tendon Sheath Completed Incision 04/25/2015 16504 Diffusing Capacity Completed 04/25/2015 10759 Plethysmography Determination Lung Volumes & Per Airway Completed Resist 04/25/2015 36818 Pulmonary Function><Bronchodil Completed 11/25/2014 02832540 Mammogram Completed 10/18/2014 18551590 Colonoscopy Completed 09/23/2014 22107241 Colonoscopy Completed 09/07/2014 94219 EKG Tracing & Interpretation Completed 11/16/2013 73703 Xray Knee 3 Views Completed 11/16/2013 16974 Rad Exam; Knee, Ap&L Completed 08/28/2013 83366 Carpal Tunnel Release Completed 08/07/2013 84025 Carpal Tunnel Release Completed 06/18/2013 67128 Rad Exam; Wrist, Comp, Min 3 Views Completed 06/18/2013 28405 Rad Exam; Wrist, Comp, Min 3 Views Completed 05/29/2013 23740 EKG, Interpretation Only Completed 05/26/2013 99291 EKG, Interpretation Only Completed 01/07/2012 68890 Xray Knee 3 Views Completed 01/07/2012 10929 Rad Exam; Knee Comp Completed 01/07/2012 28525 Rad Exam; Tib-Fib Completed 06/20/2011 83926 Xray Knee 3 Views Completed 06/20/2011 82807 Rad Exam; Knee, Ap&L Completed 05/08/2011 36406 TKR Total Knee Replacement Completed 11/27/2010 24312 Xray Knee 3 Views Completed 11/27/2010 05676 Rad Exam; Knee, Ap&L Completed 11/27/2010 53864 Rad Exam; Elbow, Limited Completed 11/27/2010 00989 Inject/Drain Joint/Bursa Major W/O US Completed 07/03/2010 25768 Xray Knee 3 Views Completed 04/07/2010 71493 Xray Knee 3 Views Completed 03/07/2010 38299 TKR Total Knee Replacement Completed Encounters Type [...] to excess calories Office Visit 03/29/2015 10:30a [facility] Darius Diaz, 491.21 Bronchitis Medicine - Ccmob TAX DIRECTOR Obstructive Chronic W/Acute Exacerbation 305.1 Tobacco Use Disorder Office Visit 03/14/2015 3:00p [facility] Norbert Morgan, 786.05 Shortness Of Medicine - Ccmob TAX DIRECTOR Breath 724.2 Lumbago 496 COPD Airway Obstruction Chronic Not Class Elsewhere Office Visit 12/29/2014 10:00a [facility] Darius Diaz, 692.6 Dermatitis Contact Medicine - Ccmob TAX DIRECTOR Due To Plants (Except Food) 782.1 Rash & Other Nonspec Skin Eruption Office Visit 12/10/2014 9:30a [facility] Darius Diaz, TAX DIRECTOR 528.9 Oral Soft Tissue Medicine - Ccmob Diseases Other & Unspec 782.0 Skin Sensation Disturbance Office Visit 2014 12:40p [facility] Denice Christopher, 789.02 Pain Abdominal Medicine - Ccmob M.D. Left Upper Quadrant 789.63 Tenderness Abdominal Right Lower Quadrant Office Visit 09/07/2014 4:00p [facility] Denice Christopher, V72.84 Examination Medicine - M.D. Preoperative Unspec Ccmob 789.02 Pain Abdominal Left Upper Quadrant 530.11 Esophagitis Reflux V72.81 Examination Preoperative Cardiovascular 553.1 Hernia Umbilical 789.62 Tenderness Abdominal Left Upper Quadrant 790.95 Elevated C-Reactive Protein 790.5 Serum Enzyme Levels Abnormal Other Nonspec 530.81 Esophageal Reflux Office Visit 08/23/2014 3:00p [facility] Norbert Morgan 789.02 Pain Abdominal Medicine - Ccmob TAX DIRECTOR Left Upper Quadrant 787.01 Nausea W/ Vomiting Office Visit 08/13/2014 11:20a [facility] Denice Christopher, 789.00 Pain Abdominal Medicine - Ccmob M.D. Unspec Site 288.60 Leukocytosis, Unspecified Office Visit 08/10/2014 9:48a [facility] Aline S. 789.00 Pain Abdominal Assoc,pc Yves, N.P. Unspec Site Hospitalists 496 COPD Airway Obstruction Chronic Not Class Elsewhere 288.60 Leukocytosis, Unspecified Office Visit 08/08/2014 9:47a [facility] Alissa 789.00 Pain Abdominal Assoc,pc DELFINO Cantrell Unspec Site Hospitalists 496 COPD Airway Obstruction Chronic Not Class Elsewhere 288.60 Leukocytosis, Unspecified Office Visit 07/31/2014 11:43a [facility] Melita 789.00 Pain Abdominal Assoc,pc Janusz, D.O. Unspec Site Hospitalists 530.11 Esophagitis Reflux 490 Bronchitis Acute Or Chronic Not Spec 311 Depressive Disorder Not Elsewhere Spec Office Visit 07/26/2014 11:30a [facility] Gloria Menon, 491.21 Bronchitis Medicine - JEWELRY SALES Obstructive Chronic Ccmob W/Acute Exacerbation 466.0 Bronchitis Acute 786.2 Cough 305.1 Tobacco Use Disorder Office Visit 07/09/2014 2:20p [facility] Denice Christopher, 789.07 Pain Abdominal Medicine - M.D. Generalized Ccmob Office Visit 05/24/2014 1:00p [facility] Maryofia Sinan, 727.05 Tenosynovitis Hand Medicine - JEWELRY SALES & Wrist Other Ccmob Office Visit 05/05/2014 8:30a [facility] Maryofigabe Menon, 786.50 Pain Chest Unspec Medicine - JEWELRY SALES Ccmob 847.1 Sprains & Strains Thoracic Office Visit 04/12/2014 1:00p [facility] Maryofia Sinan, 789.07 Pain Abdominal Medicine - JEWELRY SALES Generalized Ccmob 288.50 Leukocytopenia, Unspecified Office Visit 03/26/2014 1:00p [facility] Denice Christopher, 491.21 Bronchitis Medicine - M.D. Obstructive Chronic Ccmob W/Acute Exacerbation 492.8 Emphysema Other Office Visit 11/29/2013 4:32p [facility] Jose Alejandro Zuleta 786.50 Pain Chest Assoc,teo Muñoz M.D. Unspec Hospitalists Hospitalist 492.8 Emphysema Other 401.9 Hypertension Unspec 311 Depressive Disorder Not Elsewhere Spec Office Visit 11/28/2013 4:28p [facility] Guillermo Moon 786.50 Pain Chest Assoc,teo CASTILLO M.D. Unspec Hospitalists 492.8 Emphysema Other 401.9 Hypertension Unspec 311 Depressive Disorder Not Elsewhere Spec Office Visit 11/16/2013 Orthopedic Sacha Farfan, 726.64 Tendinitis 11:30a [facility] Friedman Patellar Office Visit 06/18/2013 Orthopedic Lucille 354.0 Carpal Tunnel 9:00a [facility] Nuno M.D. Syndrome Office Visit 05/29/2013 [facility] Smith Marie, 491.21 Bronchitis 2:46p Assoc,teo Friedman Obstructive Hospitalists Chronic W/Acute Exacerbation 481 Pneumonia Pneumococcal 311 Depressive Disorder Not Elsewhere Spec Office Visit 05/28/2013 2:46p [facility] Manuel 481 Pneumonia Assoc,teo Puente, N.P. Pneumococcal Hospitalists 311 Depressive Disorder Not Elsewhere Spec 491.21 Bronchitis Obstructive Chronic W/Acute Exacerbation Office Visit 05/26/2013 [facility] Smith 491.21 Bronchitis 6:10p Assoc,teo Marie M.D. Obstructive Hospitalists Chronic W/Acute Exacerbation 786.52 Painful Respiration 311 Depressive Disorder Not Elsewhere Spec 794.31 Electrocardiogram (ECG) (EKG) Abnormal Office Visit 05/25/2013 [facility] Aline S. 491.21 Bronchitis 6:10p Assoc,pc Hawa Marinelli Obstructive Hospitalists Chronic W/Acute Exacerbation 794.31 Electrocardiogram (ECG) (EKG) Abnormal 786.52 Painful Respiration 311 Depressive Disorder Not Elsewhere Spec Office Visit 10/16/2012 4:27p [facility] [place]essa 492.8 Emphysema Other Assoc,teo Rader M.D. Hospitalists 466.0 Bronchitis Acute 305.1 Tobacco Use Disorder Office Visit 10/14/2012 4:26p [facility] Paulette De Oliveira, 492.8 Emphysema Other [...] Farfan 715.96 Osteoarthrosis [facility] Unspec Genljamesd Or Sam. Localized Lower Leg Plan of Treatment Future Appointment(s):02/13/2019 2:15 pm - Eva Esteves M.D. at [facility]02/09/2019 - Eva Esteves M.D.M25.562 Pain in left kneeFollow up:Follow up:Z96.652 Presence of left artificial knee ihymnM87.116 Cellulitis of left lower limbFollow up:This Saturday02/13/19
[2019-02-21] MEDS ORDERED: oxyCODONE TAB* 5 MG TAB PO ONE ×2 (00:46→02:38)
--- NOTE | 2019-02-21 00:46 | ED ---
Lower Extremity - HPI Summary HPI Summary: This patient is a 58 year old female presenting to [facility] with a chief complaint of left leg pain. She had left knee surgery 1 month ago. She has been on abx x2 weeks for incision infection. Today shebegan with increased pain in left hip radiating down to the left ankle with redness. She denies fever. She states the incision site has been improving with antibiotics. She states she has not taken pain medication even though she has oxycodeine at home, because she did not know if she would have to drive. The patient takes blood thinners BID. - History of Current Complaint Chief Complaint: EDExtremityLower Stated Complaint: LEFT LEG PAIN, RECENT SURGERY PER PT Time Seen by Provider: 02/21/19 00:34 Hx Obtained From: Patient Hx Last Menstrual Period: 1995 Pain Intensity: 8 Pain Scale Used: 0-10 Numeric Associated Signs And Symptoms: Positive: Redness - Allergies/Home Medications Allergies/Adverse Reactions: Allergies Allergy/AdvReac Type Severity Reaction Status Date / Time acetaminophen Allergy Severe See Comment Verified 02/20/19 22:13 aspirin Allergy Severe Hives Verified 02/20/19 22:13 ibuprofen Allergy Severe See Comment Verified 02/20/19 22:13 clarithromycin Allergy Intermediate GI Upset Verified 02/20/19 22:13 celecoxib [From Celebrex] Allergy Mild Hives Verified 02/20/19 22:13 Penicillins Allergy Mild Hives Verified 02/20/19 22:13 phenytoin [From Dilantin] Allergy Mild Hives Verified 02/20/19 22:13 rofecoxib [From Vioxx] Allergy Mild Hives Verified 02/20/19 22:13 Sulfa (Sulfonamide Allergy Mild Hives Verified 02/20/19 22:13 Antibiotics) PMH/Surg Hx/FS Hx/Imm Hx Endocrine/Hematology History: Denies: Hx Anticoagulant Therapy, Hx Diabetes, Hx Systemic Lupus Erythematosus, Hx Sickle Cell Disease, Hx Thyroid Disease, Hx Anemia Cardiovascular History: Reports: Hx Angina, Hx Hypertension - controlled with meds Denies: Hx Congestive Heart Failure, Hx Deep Vein Thrombosis, Hx Myocardial Infarction, Hx Pacemaker/ICD, Other Cardiovascular Problems/Disorders Respiratory History: Reports: Hx Asthma, Hx Chronic Bronchitis, Hx Chronic Obstructive Pulmonary Disease (COPD), Hx Seasonal Allergies, Other Respiratory Problems/Disorders - CURRENT SMOKER <1/2 PPD X 20+ YEARS Denies: Hx Lung Cancer, Hx Pneumonia, Hx Sleep Apnea GI History: Reports: Hx Gall Bladder Disease - removed 10 years ago, Hx Gastroesophageal Reflux Disease, Other GI Disorders - HX OF VENTRAL HERNIA REPAIR WITH MESH 01/2013, GERD Denies: Hx Gastrointestinal Bleed, Hx Ulcer, Hx Urosepsis History: Denies: Hx Dialysis, Hx Kidney Infection, Hx Kidney Stones, Hx Renal Disease , Other Problems/Disorders Musculoskeletal History: Reports: Hx Arthritis - HANDS, Hx Gout, Other Musculoskeletal History - BILATERAL TOTAL KNEE REPLACEMENT Denies: Hx Rheumatoid Arthritis Sensory History: Reports: Hx Contacts or Glasses - to read and drive Denies: Hx Glaucoma, Hx Macular Degeneration, Hx Hearing Aid Opthamlomology History: Reports: Hx Contacts or Glasses - to read and drive Denies: Hx Glaucoma, Hx Macular Degeneration Neurological History: Reports: Hx Migraine - RARE, Hx Seizures - LAST ONE 8 YRS AGO- depression seizures Denies: Other Neuro Impairments/Disorders Psychiatric History: Reports: Hx Anxiety, Hx Depression Denies: Hx Eating Disorder, Hx of Violent Episodes Against Others, Hx Substance Abuse - Cancer History Hx Chemotherapy: No - Surgical History Surgery Procedure, Year, and Place: right TKA -02/2010 [facility]. left TKA- 04/2011 [facility]. [facility] hysterectomy 1995. LAP FIDENCIO 2007. VENTRAL HERNIA REPAIR 01/2013 UMBILICAL HERNIA REPAIR. RIGHT INDEX TRIGGER FINGER 2005 [facility]. R CTR 2013 [facility] Hx Anesthesia Reactions: No - Immunization History Date of Tetanus Vaccine: Unk Date of Influenza Vaccine: 03/29 Infectious Disease History: No Infectious Disease History: Denies: Hx Clostridium Difficile, Hx Hepatitis, Hx Human Immunodeficiency Virus (HIV), Hx Shingles, Hx Tuberculosis, Hx Known/Suspected VRE, Hx Known/ Suspected VRSA, History Other Infectious Disease, Traveled Outside the [place] in Last 30 Days - Family History Known Family History: Positive: Hypertension, Other - No FHx of psychiatric disorders - Social History Alcohol Use: None Hx Substance Use: No Substance Use Type: Reports: None Hx Tobacco Use: Yes Smoking Status (MU): Light Every Day Tobacco Smoker Type: Cigarettes Amount Used/How Often: 4 CIGS/DAY for 20+ years Length of Time of Smoking/Using Tobacco: 20 YRS Have You Smoked in the Last Year: Yes Review of Systems Negative: Fever Positive: Edema - LLE , Other - LLE pain and erythema. All Other Systems Reviewed And Are Negative: Yes Physical Exam - Summary Physical Exam Summary: VITAL SIGNS: Reviewed. GENERAL: Patient is a well-developed and nourished FEMALE who is lying comfortable in the stretcher. Patient is not in any acute respiratory distress. HEAD AND FACE: No signs of trauma. No ecchymosis, hematomas or skull depressions. No sinus tenderness. EYES: PERRLA, EOMI x 2, No injected conjunctiva, no nystagmus. EARS: Hearing grossly intact. Ear canals and tympanic membranes are within normal limits. MOUTH: Oropharynx within normal limits. NECK: Supple, trachea is midline, no adenopathy, no JVD, no carotid bruit, no c- spine tenderness, neck with full ROM. CHEST: Symmetric, no tenderness at palpation LUNGS: Clear to auscultation bilaterally. No wheezing or crackles. CVS: Regular rate and rhythm, S1 and S2 present, no murmurs or gallops appreciated. ABDOMEN: Soft, non-tender. No signs of distention. No rebound no guarding, and no masses palpated. Bowel sounds are normal. EXTREMITIES: FROM in all major joints, no cyanosis or clubbing. +1 LLE edema, old. Tenderness over the distal thigh laterally without redness or warmness. NEURO: Alert and oriented x 3. No acute neurological deficits. Speech is normal and follows commands. SKIN: Dry and warm. Redness over the left knee with scab formation which is old. Triage Information Reviewed: Yes Vital Signs On Initial Exam: Initial Vitals Temp Pulse Resp BP Pulse Ox 98.2 F 91 20 115/83 96 02/20/19 22:08 02/20/19 22:08 02/20/19 22:08 02/20/19 22:08 02/20/19 22:08 Vital Signs Reviewed: Yes Diagnostics - Vital Signs Vital Signs Temp Pulse Resp BP Pulse Ox 02/21/19 00:06 97.5 F 80 22 127/72 97 02/20/19 22:08 98.2 F 91 20 115/83 96 - Laboratory Result Diagrams: 02/21/19 01:52 02/21/19 01:51 Lab Statement: Any lab studies that have been ordered have been reviewed, and results considered in the medical decision making process. Lower Extremity Course/Dx - Course Course Of Treatment: This patient is a 58 year old female presenting to [facility] with a chief complaint of left leg pain. Patient is already taking eliquis so suspicious of DVT is low. Labs were unremarkable. We do not have functioning ultrasound now so we will ask the patient to come back tomorrow or follow up with her PCP for the ultrasound to rule out DVT. A plan for discharge was discussed with the patient and she was agreeable with this plan. - Diagnoses Provider Diagnoses: Left thigh pain Discharge - Sign-Out/Discharge Documenting (check all that apply): Patient Departure - Discharge Patient Received Moderate/Deep Sedation with Procedure: No - Discharge Plan Condition: Stable Disposition: HOME Referrals: Tatiana Geronimo MD [Primary Care Provider] - Additional Instructions: Follow up for ultrasound of the LLE. Return to ED with any new or worsening symptoms. - Attestation Statements Document Initiated by Hennyibe: Yes Documenting Scribe: Rui Ladd Provider For Whom Hennyibe is Documenting (Include Credential): Jane Sousa MD Scribe Attestation: IRui, scribed for Jane Sousa MD on 02/21/19 at 0243. Status of Scribe Document: Ready
[2019-02-21 02:05] LABS: ABS Eosinophils 0.2 10^3/ul (0-0.6); ABS Monocytes 0.8 10^3/ul (0-0.8); ABS Neutrophils 4.7 10^3/ul (1.5-7.7); Eosinophil % 1.8 %; Hematocrit 31 % (35-47); Hemoglobin 10.2 g/dL (12.0-16.0); Lymphocyte % 34.6 %; Mean Corpuscular HGB Conc 33 g/dL (31-36); Mean Corpuscular Hemoglobin 29 pg (27-31); Mean Corpuscular Volume 89 fL (80-97); Mean Platelet Volume 9.1 fL (7.4-10.4); Platelet Count 444 10^3/uL (150-450); Red Cell Distribution Width 15 % (10-15); White Blood Count 8.6 10^3/uL (3.5-10.8)
[2019-02-21 02:15] LABS: INR 1.26 (0.82-1.09)
[2019-02-21 02:25] LABS: Albumin 3.8 g/dL (3.2-5.2); Albumin/Globulin Ratio 1.3 (1-3); BUN/Creatinine Ratio 28.6 (8-20); C Reactive Protein 14.18 mg/L (<8.01); Calcium 9.5 mg/dL (8.6-10.3); EGFR African American 134.1 (>60); EGFR Non-African American 110.8 (>60); Potassium 3.8 mmol/L (3.5-5.0); Total Bilirubin 0.3 mg/dL (0.2-1.0); Total Protein 6.8 g/dL (6.4-8.9)
[2019-02-21 02:58] VITALS: BP 118/74
== END 2019-02-21 02:57 | disposition home or self-care (01) ==
LOC: ED 22:04
DX: M79.652 Pain in left thigh (principal); I20.9 Angina pectoris, unspecified; I10 Essential (primary) hypertension; J44.9 Chronic obstructive pulmonary disease, unspecified; F17.210 Nicotine dependence, cigarettes, uncomplicated; Z79.899 Other long term (current) drug therapy; Z88.6 Allergy status to analgesic agent; Z88.1 Allergy status to other antibiotic agents; Z88.0 Allergy status to penicillin; Z88.2 Allergy status to sulfonamides; Z88.8 Allergy status to other drugs, medicaments and biological substances
CPT/HCPCS: 36415; 80053; 82550; 85025; 85610; 85730; 86140; 99282; A9270-GY

== ENCOUNTER 2019-02-21 09:19 | Emergency (ER) | payer MEDICARE ==
[2019-02-21 10:26] LABS: ABS Eosinophils 0.2 10^3/ul (0-0.6); ABS Lymphocytes 1.7 10^3/ul (1.0-4.8); ABS Monocytes 0.6 10^3/ul (0-0.8); ABS Neutrophils 4.2 10^3/ul (1.5-7.7); Eosinophil % 2.2 %; Hematocrit 33 % (35-47); Hemoglobin 10.8 g/dL (12.0-16.0); Lymphocyte % 25.3 %; Mean Corpuscular HGB Conc 33 g/dL (31-36); Mean Corpuscular Hemoglobin 29 pg (27-31); Mean Corpuscular Volume 89 fL (80-97); Mean Platelet Volume 8.9 fL (7.4-10.4); Platelet Count 444 10^3/uL (150-450); Red Blood Count 3.69 10^6 /uL (3.70-4.87); Red Cell Distribution Width 15 % (10-15); White Blood Count 6.7 10^3/uL (3.5-10.8)
[2019-02-21 10:31] LABS: INR 1.32 (0.82-1.09)
--- NOTE | 2019-02-21 10:32 | ED ---
Lower Extremity - HPI Summary HPI Summary: This patient is a 58 year old F presenting to ED with a chief complaint of LLE edema and pain since two days ago. Patient had a L knee replacement 01/30/19 and noticed left leg pain and swelling two days ago. Patient is on post-operative Eliquis and Keflex. She called her orthopedic surgeon and was told to come here to rule out DVT. The patient rates the pain 5/10 in severity, achy located in her L knee. Denies fevers. No hx blood clots. Patient denies SOB. - History of Current Complaint Chief Complaint: EDExtremityLower Stated Complaint: NEEDS A SONOGRAM PER PT Time Seen by Provider: 02/21/19 09:50 Hx Obtained From: Patient Hx Last Menstrual Period: 1995 Mechanism Of Injury: Other - Post-operative Onset of Pain: Days - 2 days ago Onset/Duration: Still Present Severity Initially: Moderate Severity Currently: Moderate Pain Intensity: 5 Pain Scale Used: 0-10 Numeric Timing: Constant, Lasting Days - Since 2 days ago Location: Is Discrete @ - Left thigh Associated Signs And Symptoms: Positive: Negative - SOB, Swelling, Knee Pain. Negative: Fever Aggravating Factor(s): Nothing Alleviating Factor(s): Nothing - Allergies/Home Medications Allergies/Adverse Reactions: Allergies Allergy/AdvReac Type Severity Reaction Status Date / Time acetaminophen Allergy Severe See Comment Verified 02/21/19 09:25 aspirin Allergy Severe Hives Verified 02/21/19 09:25 ibuprofen Allergy Severe See Comment Verified 02/21/19 09:25 clarithromycin Allergy Intermediate GI Upset Verified 02/21/19 09:25 celecoxib [From Celebrex] Allergy Mild Hives Verified 02/21/19 09:25 Penicillins Allergy Mild Hives Verified 02/21/19 09:25 phenytoin [From Dilantin] Allergy Mild Hives Verified 02/21/19 09:25 rofecoxib [From Vioxx] Allergy Mild Hives Verified 02/21/19 09:25 Sulfa (Sulfonamide Allergy Mild Hives Verified 02/21/19 09:25 Antibiotics) PMH/Surg Hx/FS Hx/Imm Hx Endocrine/Hematology History: Denies: Hx Anticoagulant Therapy, Hx Diabetes, Hx Systemic Lupus Erythematosus, Hx Sickle Cell Disease, Hx Thyroid Disease, Hx Anemia Cardiovascular History: Reports: Hx Angina, Hx Hypertension - controlled with meds Denies: Hx Congestive Heart Failure, Hx Deep Vein Thrombosis, Hx Myocardial Infarction, Hx Pacemaker/ICD, Other Cardiovascular Problems/Disorders Respiratory History: Reports: Hx Asthma, Hx Chronic Bronchitis, Hx Chronic Obstructive Pulmonary Disease (COPD), Hx Seasonal Allergies, Other Respiratory Problems/Disorders - CURRENT SMOKER <1/2 PPD X 20+ YEARS Denies: Hx Lung Cancer, Hx Pneumonia, Hx Sleep Apnea GI History: Reports: Hx Gall Bladder Disease - removed 10 years ago, Hx Gastroesophageal Reflux Disease, Other GI Disorders - HX OF VENTRAL HERNIA REPAIR WITH MESH 01/2013, GERD Denies: Hx Gastrointestinal Bleed, Hx Ulcer, Hx Urosepsis History: Denies: Hx Dialysis, Hx Kidney Infection, Hx Kidney Stones, Hx Renal Disease , Other Problems/Disorders Musculoskeletal History: Reports: Hx Arthritis - HANDS, Hx Gout, Other Musculoskeletal History - BILATERAL TOTAL KNEE REPLACEMENT Denies: Hx Rheumatoid Arthritis Sensory History: Reports: Hx Contacts or Glasses - to read and drive Denies: Hx Glaucoma, Hx Macular Degeneration, Hx Hearing Aid Opthamlomology History: Reports: Hx Contacts or Glasses - to read and drive Denies: Hx Glaucoma, Hx Macular Degeneration Neurological History: Reports: Hx Migraine - RARE, 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 left TKA- 04/2011 [facility] [place]. [facility] [place]rectomy 1995. LAP FIDENCIO 2007. VENTRAL HERNIA REPAIR 01/2013 UMBILICAL HERNIA REPAIR. RIGHT INDEX TRIGGER FINGER 2005 [facility] [place]. R CTR 2013 [facility] [place] Hx Anesthesia Reactions: No - Immunization History Date of Tetanus Vaccine: Unk Date of Influenza Vaccine: 03/29 Infectious Disease History: No Infectious Disease History: Denies: Hx Clostridium Difficile, Hx Hepatitis, Hx Human Immunodeficiency Virus (HIV), Hx Shingles, Hx Tuberculosis, Hx Known/Suspected VRE, Hx Known/ Suspected VRSA, History Other Infectious Disease, Traveled Outside the [place] in Last 30 Days - Family History Known Family History: Positive: Hypertension, Other - No FHx of psychiatric disorders, DVT, or PE - Social History Alcohol Use: None Hx Substance Use: No Substance Use Type: Reports: None Hx Tobacco Use: Yes Smoking Status (MU): Light Every Day Tobacco Smoker Type: Cigarettes Amount Used/How Often: 4 CIGS/DAY for 20+ years Length of Time of Smoking/Using Tobacco: 20 YRS Have You Smoked in the Last Year: Yes Review of Systems Negative: Fever Negative: Shortness Of Breath Musculoskeletal: Other - Left LE pain and swelling All Other Systems Reviewed And Are Negative: Yes Physical Exam - Summary Physical Exam Summary: Constitutional: Well-developed, Well-nourished, Alert. (-) Distressed Skin: Warm, Dry HENT: Normocephalic; Atraumatic Eyes: Conjunctiva normal Neck: Musculoskeletal ROM normal neck. Cardio: Rhythm regular, rate normal, Heart sounds normal; Intact distal pulses; Radial pulses are 2+ and symmetric. (-) Murmur Pulmonary/Chest wall: Effort normal. (-) Respiratory distress, (-) Wheezes, (-) Rales Abd: Soft, (-) tenderness, (-) Distension, (-) Guarding, (-) Rebound Musculoskeletal: well-healed incision on left LE over the anterior knee and malhotra , mild surrounding erythema, no drainage, ROM to 90 degrees, 1+ edema from the L mid-thigh to foot, 2+ DP pulse of the left. Lymph: (-) Cervical adenopathy Neuro: Alert, Oriented x3 Psych: Mood and affect Normal Triage Information Reviewed: Yes Vital Signs On Initial Exam: Initial Vitals Temp Pulse Resp BP Pulse Ox 98.1 F 91 14 134/89 95 02/21/19 09:20 02/21/19 09:20 02/21/19 09:20 02/21/19 09:20 02/21/19 09:20 Vital Signs Reviewed: Yes Diagnostics - Vital Signs Vital Signs Temp Pulse Resp BP Pulse Ox 02/21/19 09:20 98.1 F 91 14 134/89 95 - Laboratory Result Diagrams: 02/21/19 10:18 02/21/19 10:18 Lab Statement: Any lab studies that have been ordered have been reviewed, and results considered in the medical decision making process. - Ultrasound DVT Ultrasound Interpretation Completed By: Radiologist Summary of Ultrasound Findings: No evidence for LEFT lower extremity deep venous thrombosis. Dr. Estrada has reviewed this radiology report. Re-Evaluation - Re-Evaluation First Eval Re-Evaluation Time: 11:19 Comment: Discussed results of neg doppler with patient. Patient will be discharged home with dx of LLE pain and swelling. Patient understands and agrees with this plan. Lower Extremity Course/Dx - Course Course Of Treatment: 58-year-old female with a history of recent left knee replacement presents with left lower extremity swelling. Physical exam w well- appearing female, trace edema to the left leg. Incision is well-healed with mild surrounding erythema no drainage. 2+ DP pulse. Will check a DVT ultrasound, patient already on eliquis for prophylaxis. If negative patient can follow up with her orthopedic surgeon and repeat in one week if concerned for DVT - Diagnoses Provider Diagnoses: Pain and swelling of left lower extremity, Post-operative complication Discharge - Sign-Out/Discharge Documenting (check all that apply): Patient Departure - Discharge Patient Received Moderate/Deep Sedation with Procedure: No - Discharge Plan Condition: Stable Disposition: HOME Patient Education Materials: Leg Edema (ED) Referrals: Tatiana Geronimo MD [Primary Care Provider] - 3 Days Additional Instructions: You were seen in the emergency department for left leg swelling, your ultrasound did not show any evidence of blood clot. If you have continued concern for blood clot please repeat this in 1 week. Please follow up with you orthopedic surgeon. If any studies were not completed at the time of discharge you will be called with the relevant results. Please follow up with your primary care doctor in next 2-3 days and return to emergency department for worsening pain, redness of the leg, fevers, drainage from your wound or concerning symptoms. - Billing Disposition and Condition Condition: STABLE Disposition: Home - Attestation Statements Document Initiated by Eileen: Yes Documenting Scribe: Shoaib Harmon Provider For Whom Eileen is Documenting (Include Credential): Eliceo Estrada MD Scribe Attestation: IShoaib, scribed for Eliceo Estrada MD on 02/21/19 at 1605. Scribe Documentation Reviewed: Yes Provider Attestation: The documentation as recorded by the Shoaib mcneal accurately reflects the service I personally performed and the decisions made by me, Eliceo Estrada MD Status of Scribnayana Document: Viewed
[2019-02-21 10:36] LABS: Albumin 3.8 g/dL (3.2-5.2); Calcium 9.5 mg/dL (8.6-10.3); Potassium 3.8 mmol/L (3.5-5.0); Total Bilirubin 0.3 mg/dL (0.2-1.0)
[2019-02-21 10:42] LABS: Albumin/Globulin Ratio 1.3 (1-3); BUN/Creatinine Ratio 21.7 (8-20); EGFR African American 123.8 (>60); EGFR Non-African American 102.3 (>60); Total Protein 6.8 g/dL (6.4-8.9)
[2019-02-21 11:30] VITALS: BP 146/79
== END 2019-02-21 11:28 | disposition home or self-care (01) ==
LOC: ED 09:19
DX: G89.18 Other acute postprocedural pain (principal); M79.89 Other specified soft tissue disorders; F17.210 Nicotine dependence, cigarettes, uncomplicated; I10 Essential (primary) hypertension; J44.9 Chronic obstructive pulmonary disease, unspecified; K21.9 Gastro-esophageal reflux disease without esophagitis; F41.9 Anxiety disorder, unspecified; F32.9 Major depressive disorder, single episode, unspecified; Z96.652 Presence of left artificial knee joint; Z79.01 Long term (current) use of anticoagulants; Z79.899 Other long term (current) drug therapy; Z88.6 Allergy status to analgesic agent; Z88.1 Allergy status to other antibiotic agents; Z88.0 Allergy status to penicillin; Z88.2 Allergy status to sulfonamides; Z88.8 Allergy status to other drugs, medicaments and biological substances
CPT/HCPCS: 36415; 80053; 85025; 85610; 99282